=== PATIENT | male | born 1955 | race Caucasian/White ===

== ENCOUNTER 2016-06-14 15:37 | Inpatient (IN) | payer MEDICARE ==
[2016-06-14] MEDS ORDERED: SODIUM CHLORIDE 0.9% 1,000 ML IV STA (16:07)
--- NOTE | 2016-06-14 16:18 | ED ---
Weakness HPI <IsaiasAdolfo - Last Filed: 06/14/16 18:43> - General Source: patient, family, RN notes reviewed Mode of arrival: wheelchair Limitations: no limitations <Alexia Eduardo - Last Filed: 06/15/16 06:27> - General Chief complaint: Weakness Stated complaint: MS Flare up Time Seen by Provider: 06/14/16 16:07 - History of Present Illness Initial comments: Patient is 58-year-old male chief complaint of increased falling over the past 2 days. Patient reports he has history of MS. patient reports that he was diagnosed with MS 3 years ago and takes Ticlid area. Whenever he has an MS flare to flare if this happens. He states he has fallen 4 times within the past 2 days. She reports every time he is gone he has never had any major injuries to the extremities or hit his head. Patient states that he has no dizziness. He does have a history of a stroke and has chronic left-sided weakness. Patient denies any significant change in that. They're concerned because of these multiple falls he could be having another stroke. Patient states that he has no chest pain shortness breath or any other complaints. Patient denies any nausea or vomiting. He does recommend emergency department with a mild fever. Here initially reports that when he has a slight fever he is starting to get an MS exacerbation. Patient reports that he saw his neurologist Dr. Sloan on Wednesday and everything was fine. Patient reports that whenever he was about to fall he had no preceding symptoms. Patient reports they just felt tired and weak for a few seconds before. (Alexia Eduardo) - Related Data Home Medications Medication Instructions Recorded Confirmed Aspirin 325 mg PO HS 08/25/15 06/14/16 Citalopram Hydrobromide [CeleXA] 10 mg PO QAM 08/25/15 06/14/16 Dalfampridine [Ampyra] 10 mg PO BID 08/25/15 06/14/16 Dimethyl Fumarate [Tecfidera] 240 mg PO BID 08/25/15 06/14/16 Lisinopril-Hctz 10-12.5 mg 1 tab PO DAILY 08/25/15 06/14/16 [Zestoretic 10-12.5] Multivitamin [Men's Multi-Vitamin] 1 tab PO DAILY 08/25/15 06/14/16 Ibuprofen [Motrin] 400 mg PO Q6H PRN 06/14/16 06/14/16 Methylphenidate HCl [Ritalin] 10 mg PO BID 06/14/16 06/14/16 Allergies Allergy/AdvReac Type Severity Reaction Status Date / Time Penicillins Allergy Rash/Hives Verified 06/14/16 16:35 Review of Systems ROS Other: All systems not noted in ROS Statement are negative. <Adolfo Esparza - Last Filed: 06/14/16 18:43> ROS Other: All systems not noted in ROS Statement are negative. <Nelly Eduardoily - Last Filed: 06/15/16 06:27> ROS Statement: Those systems with pertinent positive or pertinent negative responses have been documented in the HPI. Past Medical History Past Medical History: CVA/TIA, Liver Disease, Memory Impairment Additional Past Medical History / Comment(s): MS, CIRRHOSIS OF THE LIVER. History of Any Multi-Drug Resistant Organisms: None Reported Past Surgical History: Appendectomy Additional Past Surgical History / Comment(s): melanoma removed right side of chest, lymph nodes. 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 Smoking Status: Never smoker Past Alcohol Use History: None Reported Past Drug Use History: None Reported - Past Family History Mother Family Medical History: Pneumonia Father Family Medical History: Myocardial Infarction (SD) <Nelly Eduardoily - Last Filed: 06/15/16 06:27> General Exam <Adolfo Esparza - Last Filed: 06/14/16 18:43> Limitations: no limitations General appearance: alert, in no apparent distress Head exam: Present: atraumatic, normocephalic, normal inspection Eye exam: Present: normal appearance, PERRL. Absent: EOMI (Patient ports that he does have abnormal eye movements due to his MS. Patient states that he has no new changes in vision or pain with extraocular eye movements.), scleral icterus, conjunctival injection, periorbital swelling ENT exam: Present: normal exam, normal oropharynx, mucous membranes moist Neck exam: Present: normal inspection. Absent: tenderness, meningismus, lymphadenopathy Respiratory exam: Present: normal lung sounds bilaterally. Absent: respiratory distress, wheezes, rales, rhonchi, stridor Cardiovascular Exam: Present: regular rate, normal rhythm, normal heart sounds. Absent: systolic murmur, diastolic murmur, rubs, gallop, clicks GI/Abdominal exam: Present: soft, normal bowel sounds. Absent: distended, tenderness, guarding, rebound, rigid Extremities exam: Present: normal inspection, full ROM, normal capillary refill. Absent: tenderness, pedal edema, joint swelling, calf tenderness Back exam: Present: normal inspection Neurological exam: Present: alert, oriented X3, CN II-XII intact Expanded Patient oriented to: Present: person, place, time Speech: Present: fluid speech Cranial nerves: EOM's Intact: Normal, Gag Reflex: Normal, Tongue Deviation: Normal, Facial Sensation: Normal Cerebellar function: Finger to Nose: Normal Upper motor neuron: Pronator Drift: Normal Sensory exam: Upper Extremity Light Touch: Normal, Lower Extremity Light Touch: Normal Motor strength exam: RUE: 5, LUE: 5 (Patient reports that he does have some chronic left-sided weakness from previous stroke. He denies any significant change in that weakness at this time.), RLE: 5, LLE: 5 Eye Response: (4) open spontaneously Motor Response: (6) obeys commands Verbal Response: (5) oriented [place] Total: 15 Psychiatric exam: Present: normal affect, normal mood Skin exam: Present: warm, dry, intact, normal color. Absent: rash <Alexia Eduardo - Last Filed: 06/15/16 06:27> - General Exam Comments Initial Comments: Pleasant 60-year-old male. No distress. (Alexia Eduardo) Course <Adolfo Esparza - Last Filed: 06/14/16 18:43> <Alexia Eduardo - Last Filed: 06/15/16 06:27> Vital Signs 06/14/16 06/14/16 06/14/16 15:47 16:35 17:35 Temperature 100.7 F H Pulse Rate 100 94 86 Respiratory 18 18 18 Rate Blood Pressure 109/64 102/63 125/66 O2 Sat by Pulse 95 94 L 96 Oximetry 06/14/16 18:47 Temperature Pulse Rate 88 Respiratory 20 Rate Blood Pressure 137/66 O2 Sat by Pulse 95 Oximetry - Reevaluation(s) Reevaluation #1: 06/14/16 18:43 I did personally do a [id number] evaluation the patient did discuss the findings with the patient has . Patient currently evaluation is consistent with MS exacerbation. Patient will be admitted treated with IV steroids and consultation by his neurologist. (Adolfo Esparza) Medical Decision Making - Lab Data Result diagrams: 06/14/16 16:42 06/14/16 16:42 <Adolfo Esparza - Last Filed: 06/14/16 18:43> - Lab Data Result diagrams: 06/14/16 16:42 06/14/16 16:42 - Radiology Data Radiology results: report reviewed <Alexia Eduardo - Last Filed: 06/15/16 06:27> - Medical Decision Making Patient is a 60 year old male with history of MS with multiple falls and weakness for the past 2 days. Patient labs reviewed, no significant abnormalities. CT brain was negatibe. Patient does have some left sided weakness , however states this is chronic. Patient will be started on IB steroids with neurology consult. (Alexia Eduardo) - Lab Data Lab Results 06/14/16 06/14/16 06/14/16 Range/Units 16:42 16:42 16:42 WBC 12.5 H (3.8-10.6) k/uL RBC 4.61 (4.30-5.90) m/uL Hgb 14.3 (13.0-17.5) gm/dL Hct 42.1 (39.0-53.0) % MCV 91.2 (80.0-100.0) fL MCH 31.0 (25.0-35.0) pg MCHC 33.9 (31.0-37.0) g/dL RDW 13.5 (11.5-15.5) % Plt Count 218 (150-450) k/uL Neutrophils % 71 % Lymphocytes % 17 % Monocytes % 8 % Eosinophils % 1 % Basophils % 1 % Neutrophils # 8.9 H (1.3-7.7) k/uL Lymphocytes # 2.1 (1.0-4.8) k/uL Monocytes # 1.0 (0-1.0) k/uL Eosinophils # 0.1 (0-0.7) k/uL Basophils # 0.1 (0-0.2) k/uL PT (9.0-12.0) sec INR (<1.1) APTT (22.0-30.0) sec Sodium 138 (137-145) mmol/L Potassium 3.8 (3.5-5.1) mmol/L Chloride 100 (98-107) mmol/L Carbon Dioxide 24 (22-30) mmol/L Anion Gap 14 mmol/L BUN 14 (9-20) mg/dL Creatinine 0.94 (0.66-1.25) mg/dL Est GFR (MDRD) Af Amer >60 (>60 ml/min/1.73 sqM) Est GFR (MDRD) Non-Af >60 (>60 ml/min/1.73 sqM) Glucose 165 H (74-99) mg/dL Calcium 9.6 (8.4-10.2) mg/dL Magnesium 1.7 (1.6-2.3) mg/dL Total Bilirubin 1.3 (0.2-1.3) mg/dL AST 35 (17-59) U/L ALT 57 (21-72) U/L Alkaline Phosphatase 55 (38-126) U/L Total Creatine Kinase 247 H (55-170) U/L CK-MB (CK-2) 1.4 (0.0-2.4) ng/mL CK-MB (CK-2) Rel Index 0.6 Troponin I <0.012 (0.000-0.034) ng/mL Total Protein 7.8 (6.3-8.2) g/dL Albumin 4.4 (3.5-5.0) g/dL Urine Color Urine Appearance (Clear) Urine pH (5.0-8.0) Ur Specific [place] (1.001-1.035) Urine Protein (Negative) Urine Glucose (UA) (Negative) Urine Ketones (Negative) Urine Blood (Negative) Urine Nitrite (Negative) Urine Bilirubin (Negative) Urine Urobilinogen (<2.0) mg/dL Ur Leukocyte Esterase (Negative) Urine RBC (0-5) /hpf Urine WBC (0-5) /hpf Ur Squamous Epith Cells (0-4) /hpf Urine Mucus (None) /hpf Influenza Type A RNA (Not Detectd) Influenza Type B (PCR) (Not Detectd) 04/16/17 04/16/17 04/16/17 Range/Units 16:42 16:42 17:25 WBC (3.8-10.6) k/uL RBC (4.30-5.90) m/uL Hgb (13.0-17.5) gm/dL Hct (39.0-53.0) % MCV (80.0-100.0) fL MCH (25.0-35.0) pg MCHC (31.0-37.0) g/dL RDW (11.5-15.5) % Plt Count (150-450) k/uL Neutrophils % % Lymphocytes % % Monocytes % % Eosinophils % % Basophils % % Neutrophils # (1.3-7.7) k/uL Lymphocytes # (1.0-4.8) k/uL Monocytes # (0-1.0) k/uL Eosinophils # (0-0.7) k/uL Basophils # (0-0.2) k/uL PT 10.2 (9.0-12.0) sec INR 1.0 (<1.1) APTT 24.0 (22.0-30.0) sec Sodium (137-145) mmol/L Potassium (3.5-5.1) mmol/L Chloride (98-107) mmol/L Carbon Dioxide (22-30) mmol/L Anion Gap mmol/L BUN (9-20) mg/dL Creatinine (0.66-1.25) mg/dL Est GFR (MDRD) Af Amer (>60 ml/min/1.73 sqM) Est GFR (MDRD) Non-Af (>60 ml/min/1.73 sqM) Glucose (74-99) mg/dL Calcium (8.4-10.2) mg/dL Magnesium (1.6-2.3) mg/dL Total Bilirubin (0.2-1.3) mg/dL AST (17-59) U/L ALT (21-72) U/L Alkaline Phosphatase (38-126) U/L Total Creatine Kinase (55-170) U/L CK-MB (CK-2) (0.0-2.4) ng/mL CK-MB (CK-2) Rel Index Troponin I (0.000-0.034) ng/mL Total Protein (6.3-8.2) g/dL Albumin (3.5-5.0) g/dL Urine Color Yellow Urine Appearance Clear (Clear) Urine pH 6.0 (5.0-8.0) Ur Specific [place] 1.019 (1.001-1.035) Urine Protein Negative (Negative) Urine Glucose (UA) Negative (Negative) Urine Ketones Negative (Negative) Urine Blood Trace H (Negative) Urine Nitrite Negative (Negative) Urine Bilirubin Negative (Negative) Urine Urobilinogen <2.0 (<2.0) mg/dL Ur Leukocyte Esterase Negative (Negative) Urine RBC 2 (0-5) /hpf Urine WBC 1 (0-5) /hpf Ur Squamous Epith Cells <1 (0-4) /hpf Urine Mucus Rare H (None) /hpf Influenza Type A RNA Not Detected (Not Detectd) Influenza Type B (PCR) Not Detected (Not Detectd) 06/14/16 17:04 Patient has normal sinus rhythm with occasional PVCs. Ventricular rate 95 bpm. No ND interval 1/62. QRS duration a formal 6. QT/QTc is 340/437 ms. No evidence of ST elevation or T-wave inversion. No evidence of atrial or ventricular arrhythmias. (Alexia Eduardo) Disposition <Adolfo Esparza - Last Filed: 06/14/16 18:43> Time of Disposition: 18:49 <Alexia Eduardo - Last Filed: 06/15/16 06:27> Clinical Impression: Exacerbation of multiple sclerosis Disposition: ADMITTED IP TO THIS HOSP Condition: Stable
[2016-06-14] MEDS: SODIUM CHLORIDE 0.9% 1,000 ML IV STA ×2 (16:30→17:21)
[2016-06-14 16:55] LABS: Basophils # (A) 0.1 k/uL (0-0.2); Basophils % (A) 1 %; CH 31.8; CHCM 35.1; Eosinophils # (A) 0.1 k/uL (0-0.7); Eosinophils % (A) 1 %; HCT 42.1 % (39.0-53.0); HDW 2.56; HGB 14.3 gm/dL (13.0-17.5); Luc # (Auto) 0.31; Luc % (Auto) 3; Lymphocytes # (A) 2.1 k/uL (1.0-4.8); Lymphocytes % (A) 17 %; MCHC 33.9 g/dL (31.0-37.0); MCV 91.2 fL (80.0-100.0); Mean Platelet Volume 7.3; Monocytes % (A) 8 %; Neutrophils # (A) 8.9 k/uL (1.3-7.7); Neutrophils % (A) 71 %; RBC 4.61 m/uL (4.30-5.90); RDW 13.5 % (11.5-15.5); WBC 12.5 k/uL (3.8-10.6); WBC (Perox) 13.06
--- NOTE | 2016-06-14 16:57 | XR ---
EXAMINATION TYPE: XR chest 2V DATE OF EXAM: 06/14/2016 4:51 PM COMPARISON: 12/29/2015 HISTORY: Weakness TECHNIQUE: Frontal and lateral views of the chest are obtained. FINDINGS: Heart and mediastinum are normal. Lungs are clear. There is no pleural effusion. Bony thor ax is intact. IMPRESSION: No cardiopulmonary disease. No change.
[2016-06-14 17:02] LABS: Prothrombin Time 10.2 sec (9.0-12.0)
[2016-06-14 17:04] LABS: ALT 57 U/L (21-72); AST 35 U/L (17-59); Alkaline Phosphatase 55 U/L (38-126); Anion Gap 14 mmol/L; Blood Urea Nitrogen 14 mg/dL (9-20); Calcium 9.6 mg/dL (8.4-10.2); Carbon Dioxide 24 mmol/L (22-30); Chloride 100 mmol/L (98-107); Glucose 165 mg/dL (74-99); Magnesium 1.7 mg/dL (1.6-2.3); Non-African American GFR(MDRD) >60 (>60 ml/min/1.73 sqM); Potassium 3.8 mmol/L (3.5-5.1); Sodium 138 mmol/L (137-145); Total Bilirubin 1.3 mg/dL (0.2-1.3); Total Protein 7.8 g/dL (6.3-8.2)
[2016-06-14 17:16] LABS: Creatine Kinase 247 U/L (55-170)
--- NOTE | 2016-06-14 17:28 | CT ---
EXAMINATION TYPE: CT brain wo con DATE OF EXAM: 06/14/2016 5:04 PM COMPARISON: None HISTORY: Patient poor historian. Patient complains of weakness. CT DLP: 814.2 mGycm Automated exposure control for dose reduction was used. FINDINGS: There is diffuse cerebral cortical atrophy. There is no mass effect nor midline shift. There is no si gn of intracranial hemorrhage. The calvarium is intact. There is patchy hypodensity in the periventri cular white matter. IMPRESSION: Cerebral atrophy and chronic small vessel ischemia. No acute abnormality.
[2016-06-14 17:29] LABS: Creatine Kinase MB 1.4 ng/mL (0.0-2.4); Troponin I <0.012 ng/mL (0.000-0.034)
[2016-06-14 17:55] LABS: Appearance,Urine Clear (Clear); Bilirubin,Urine Negative (Negative); Glucose,Urine (UA) Negative (Negative); Ketones,Urine Negative (Negative); Leukocyte Esterase,Urine Negative (Negative); Mucus,Urine Rare /hpf; Nitrite,Urine Negative (Negative); Particle Count 763; Protein,Urine Negative (Negative); RBC,Urine 2 /hpf (0-5); Specific Gravity,Urine 1.019 (1.001-1.035); Squamous Epithelial Cell,Urine <1 /hpf (0-4); UA Billing (MACRO vs. MICRO) MICRO; Urobilinogen,Urine <2.0 mg/dL (<2.0); WBC,Urine 1 /hpf (0-5)
[2016-06-14] MEDS ORDERED: NALOXONE 0.4 MG/ML 1 ML VIAL IV PRN (18:29)
[2016-06-14] MEDS ORDERED: ONDANSETRON 4 MG/2 ML VIAL IVP PRN (18:29)
[2016-06-14] MEDS ORDERED: ACETAMINOPHEN TAB 325 MG TAB PO PRN (18:29)
[2016-06-14] MEDS ORDERED: KETOROLAC 30 MG/ML 1 ML VIAL IVP PRN (18:29)
[2016-06-14] MEDS: SODIUM CHLORIDE 0.9% 1,000 ML IV SCH (18:47)
[2016-06-14] MEDS: FAMOTIDINE 20 MG TAB PO SCH (23:22)
[2016-06-14] MEDS: AMPYRA 10 MG PO SCH (23:22)
[2016-06-14] MEDS: ASPIRIN 325 MG TAB PO SCH (23:22)
[2016-06-14] MEDS: TECFIDERA 240MG PO SCH (23:22)
[2016-06-15] MEDS: SODIUM CHLORIDE 0.9% 1,000 ML IV SCH ×3 (05:56→21:39)
[2016-06-15 06:57] LABS: Glucose,Whole Blood 245 mg/dL (75-99)
[2016-06-15] MEDS: AMPYRA 10 MG PO SCH ×2 (08:07→21:40)
[2016-06-15] MEDS: FAMOTIDINE 20 MG TAB PO SCH ×2 (08:08→21:41)
[2016-06-15] MEDS: TECFIDERA 240MG PO SCH ×2 (08:08→21:40)
[2016-06-15] MEDS: CITALOPRAM HYDROBROMIDE 10 MG TAB PO SCH (08:09)
[2016-06-15] MEDS: MULTIVITAMINS, THERA 1 EACH TAB PO SCH (08:09)
[2016-06-15] MEDS: METHYLPHENIDATE HCL 10 MG TAB PO SCH ×2 (08:13→16:12)
[2016-06-15] MEDS: INSULIN LISPRO (humaLOG) 300 UNIT/3 ML VIAL SQ SCH ×4 (08:18→21:41)
[2016-06-15] MEDS ORDERED: LISINOPRIL-HCTZ 10-12.5 MG 1 EACH TAB PO SCH (09:00)
[2016-06-15 11:11] LABS: Hemoglobin A1C 7.1 % (4.2-6.1)
[2016-06-15 11:59] LABS: Glucose,Whole Blood 323 mg/dL (75-99)
[2016-06-15] MEDS ORDERED: INSULIN LISPRO (humaLOG) 300 UNIT/3 ML VIAL SQ ONE (12:30)
--- NOTE | 2016-06-15 16:43 | HP ---
DATE OF ADMISSION: Patient is a very pleasant 60-year-old gentleman who came in with complaints of increased weakness in bilateral lower limbs. Patient has mild chronic weakness. When I evaluated the patient, patient had good strength, about 5/5. Apparently his symptoms improved significantly. Patient is on high dose of steroids and patient has history of multiple sclerosis. 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 Patient was diagnosed about 4 years ago with multiple sclerosis by Dr. Beltran. Since then, patient has been on a couple of medications for multiple sclerosis with on and off exacerbation. Patient had a low-grade fever. Patient apparently has this low-grade fever whenever he has multiple sclerosis exacerbation. Patient denied any cough, runny nose. Patient's chest x-ray did not show any pneumonic process. UA is not significant for urinary tract infection. Patient does not have any phonophobia, photophobia, neck rigidity. No other signs or symptoms of infection were appreciated. Patient was started on high-dose steroids, with significant improvement in his symptoms already. Patient's hemoglobin A1c is 7.1 right now because of systemic high-dose steroids. His blood sugars are highly elevated, because of which I will use sliding scale insulin ( ) Lantus. Patient may benefit from metformin as new target for hemoglobin A1c is around 6.5 now, and it will help him with his obesity as well. Patient has some hearing difficulties. REVIEW OF SYSTEMS: CONSTITUTIONAL: No fever, no malaise, no fatigue. HEENT: No recent visual problems or hearing problems. Denied any sore throat. CARDIOVASCULAR: No chest pain, orthopnea, PND, no palpitations, no syncope. PULMONARY: No shortness of breath, no cough, no hemoptysis. GASTROINTESTINAL: No diarrhea, no nausea, no vomiting, no abdominal pain. Normoactive bowel sounds. NEUROLOGICAL: As described in HPI. HEMATOLOGICAL: Denies any bleeding or petechiae. GENITOURINARY: Denies any burning micturition, frequency, or urgency. MUSCULOSKELETAL/RHEUMATOLOGICAL: Denies any joint pain, swelling, or any muscle pain. ENDOCRINE: Denies any polyuria or polydipsia. The rest of the 14 point review of systems is negative. Home medications include: 1. Aspirin. 2. Citalopram. 3. Ampyra (medication for multiple sclerosis). 4. Dimethyl fumarate. 5. Lisinopril hydrochlorothiazide. 6. Multivitamin. 7. Ibuprofen. 8. Methylphenidate. ALLERGIES: PENICILLINS. Past medical history is significant for: 1. Multiple sclerosis. 2. Memory impairment. 3. Hypertension. 4. ADHD. 5. Melanoma of the chest that was removed. 6. Chronic low back pain. SOCIAL HISTORY: Denied any smoking, alcohol abuse or any drug abuse. FAMILY HISTORY: Mother had pneumonia and father had myocardial infarction. PHYSICAL EXAMINATION: VITAL SIGNS: Temperature 97.1, pulse of 76, respiratory rate of 18. Blood pressure 117/79. Saturating at 92% on room air. GENERAL: The patient is alert and oriented x3, not in any acute distress. Well developed, well nourished. HEENT: Pupils are round and equally reacting to light. EOMI. No scleral icterus. No conjunctival pallor. Normocephalic, atraumatic. No pharyngeal erythema. No thyromegaly. CARDIOVASCULAR: S1 and S2 present. No murmurs, rubs, or gallops. PULMONARY: Chest is clear to auscultation, no wheezing or crackles. ABDOMEN: Soft, nontender, nondistended, normoactive bowel sounds. No palpable organomegaly. MUSCULOSKELETAL: No joint swelling or deformity. EXTREMITIES: No cyanosis, clubbing, or pedal edema. NEUROLOGICAL: Gross neurological examination did not reveal any focal deficits. SKIN: No rashes. LABORATORY DATA: CBC, CMP are abnormal for elevated WBC count of 12,500, hemoglobin A1c of 7.1. ASSESSMENT AND PLAN: 1. Possible multiple sclerosis exacerbation. Neurology was consulted. CT of the head was reviewed which showed some cerebral atrophy with chronic small-vessel ischemic changes. Neurology was consulted. Patient was started on high-dose steroids. Patient is on sliding scale insulin. 2. Hypertension. Hydrochlorothiazide will be held and patient will continued on Lisinopril because of low-normal blood pressure. 3. Attention deficit hyperactivity disorder. Methylphenidate will be continued. 4. New-onset diabetes mellitus, type 2, with uncontrolled blood sugars now. Patient will be started on sliding scale insulin along with Lantus. Patient can be discharged on 500 b.i.d. of metformin. 5. Obesity. Counseling was provided. 6. Chronic low back pain. 7. Patient will need gastrointestinal and deep venous thrombosis prophylaxis. Patient will be started on Pepcid and heparin subcutaneously as pharmacologic DVT prophylaxis.
[2016-06-15 17:11] LABS: Glucose,Whole Blood 320 mg/dL (75-99)
[2016-06-15 21:13] LABS: Glucose,Whole Blood 263 mg/dL (75-99)
[2016-06-15] MEDS: ASPIRIN 325 MG TAB PO SCH (21:41)
[2016-06-15] MEDS: INSULIN GLARGINE 100 UNIT/ML 10 ML VIAL SQ SCH (21:41)
[2016-06-16] MEDS: SODIUM CHLORIDE 0.9% 1,000 ML IV SCH ×3 (02:57→21:22)
[2016-06-16 07:19] LABS: Glucose,Whole Blood 235 mg/dL (75-99)
[2016-06-16] MEDS: INSULIN LISPRO (humaLOG) 300 UNIT/3 ML VIAL SQ SCH ×5 (08:23→21:20)
[2016-06-16] MEDS: TECFIDERA 240MG PO SCH ×2 (08:24→21:21)
[2016-06-16] MEDS: AMPYRA 10 MG PO SCH ×2 (08:24→21:21)
[2016-06-16] MEDS: LISINOPRIL 10 MG TAB PO SCH (08:24)
[2016-06-16] MEDS: CITALOPRAM HYDROBROMIDE 10 MG TAB PO SCH (08:24)
[2016-06-16] MEDS: MULTIVITAMINS, THERA 1 EACH TAB PO SCH (08:24)
[2016-06-16] MEDS: FAMOTIDINE 20 MG TAB PO SCH ×2 (08:24→21:20)
[2016-06-16] MEDS: METHYLPHENIDATE HCL 10 MG TAB PO SCH ×2 (09:43→17:21)
--- NOTE | 2016-06-16 10:35 | CONS ---
DATE OF CONSULTATION: 06/15/2016 CHIEF COMPLAINT: Multiple sclerosis exacerbation. HISTORY OF PRESENT ILLNESS: Mr. Wong is a pleasant 60-year-old male who is being evaluated today on 06/15/2016 by the Neurology Service per the request of Dr. Joseph for a multiple sclerosis exacerbation. The patient has a long-standing history of multiple sclerosis and is being treated with Tecfidera oral tablets. He is also on Ampyra for slowed gait. He was brought into [facility] emergency room with complaints of lower extremity weakness that started one day prior to arrival. The patient has been having occasional weakness, but overall, his multiple sclerosis has been well controlled. He denies any numbness or tingling. The patient did report a low-grade fever at home, but did not have any chills. His CBC did show mild leukocytosis at 12.5. He denies any headache or dizziness. A CT scan of the brain was done, which showed small vessel ischemic changes and generalized atrophy. His cardiac enzymes were normal except for slightly elevated CPK at 247. His comprehensive metabolic profile was normal except for mild hyperglycemia at 165. His urinalysis was normal. A flu test was done, which was negative. The patient was started on IV Solu-Medrol and admitted for further work-up and management. At the time of my evaluation, he had already received 2 doses of IV Solu-Medrol and he reports significant improvements in his symptoms. He denies any visual changes or dizziness. PAST MEDICAL HISTORY: Multiple sclerosis, hypertension, attention deficit disorder, history of melanoma, chronic lumbago. SOCIAL HISTORY: He denies any tobacco, alcohol or drug use. FAMILY HISTORY: Positive for heart disease. HOME MEDICATIONS: Reviewed in the chart. ALLERGIES: PENICILLIN. REVIEW OF SYSTEMS: CONSTITUTIONAL: Positive for fatigue and low grade fever at home. EYES: Negative. ENT: Negative. CARDIOVASCULAR: Negative. RESPIRATORY: Negative. NEUROLOGICAL: As mentioned above. GASTROINTESTINAL: Negative. GENITOURINARY: Negative. NEUROLOGICAL: As mentioned above. DERMATOLOGICAL: Positive for history of skin cancer. MUSCULOSKELETAL: Positive for occasional joint pain. ENDOCRINE: Negative. PHYSICAL EXAM: Vital signs show a temperature of 98.2, pulse 96, respirations 16, blood pressure 119/69. GENERAL APPEARANCE: The patient is a well-developed male who appears to be in no acute distress. HEENT: Normocephalic, atraumatic, no facial asymmetry is seen. Extraocular muscles are intact. Neck is supple with no masses felt. CARDIOVASCULAR: Regular rate and rhythm. ABDOMEN: Nontender, nondistended. Extremities showed no edema or clubbing. NEUROLOGICAL EXAM: The patient is alert, aware, and oriented x3. Speech and language are normal. Strength is full in all 4 extremities. No pronator drift is seen. Sensory exam was normal to light touch in all 4 extremities. No facial asymmetry is seen on cranial nerve testing. No tremors or seizure-like activity is seen. IMPRESSION: 1. Acute multiple sclerosis exacerbation. 2. Lower extremity weakness, improved. 3. Leukocytosis. 4. Low-grade fever at home. 5. Small vessel ischemic disease. 6. Gait instability. RECOMMENDATION: The patient did have symptoms consistent with an acute multiple sclerosis exacerbation with lower extremity weakness. He has been receiving IV Solu-Medrol and his symptoms have significantly improved. I will continue IV Solu-Medrol overnight and if his symptoms continue to be better, he will be cleared for discharge tomorrow from a neurology standpoint. Continue Tecfidera and Ampyra at the current home dose. Physical Therapy will be consulted. I do recommend further work-up for his leukocytosis as he did report a low grade fever at home. Continue the rest of your current work-up and management. I will continue to follow with you. Further recommendations to follow. Thank you for allowing me participate in the care of your patient. If you have any questions, please feel free to contact me.
[2016-06-16 11:51] LABS: Glucose,Whole Blood 280 mg/dL (75-99)
[2016-06-16] MEDS ORDERED: INSULIN LISPRO (humaLOG) 300 UNIT/3 ML VIAL SQ ONE (12:00)
[2016-06-16 16:57] LABS: Glucose,Whole Blood 269 mg/dL (75-99)
--- NOTE | 2016-06-16 20:52 | PN ---
DATE OF SERVICE: 06/16/2016 This 60-year-old gentleman who was admitted with multiple sclerosis, acute exacerbation, is being closely monitored. The patient is on IV steroids. Dr. Beltran is followed the patient closely. Seen and evaluated the patient along with the nurse practitioner. Please refer to the nurse practitioner's notes and impressions documented as a scribe for further information.
[2016-06-16 21:15] LABS: Glucose,Whole Blood 285 mg/dL (75-99)
[2016-06-16] MEDS: INSULIN GLARGINE 100 UNIT/ML 10 ML VIAL SQ SCH (21:20)
[2016-06-16] MEDS: ASPIRIN 325 MG TAB PO SCH (21:20)
--- NOTE | 2016-06-16 21:25 | P.PN ---
Subjective Principal diagnosis: Exacerbation of multiple sclerosis Patient is a 60-year-old male being followed by neurology for exacerbation of multiple sclerosis. Patient is known to our practice. He is being treated with Tecfidera and Ampyra. Patient presented to the emergency room with complaints of lower extremity weakness that started approximately 1 day prior to arrival. Although having occasional weakness, the patient is relatively well controlled on his medication regimen for his multiple sclerosis. CBC did note mild leukocytosis. CT scan of the brain was done which showed chronic small vessel ischemic changes and generalized atrophy. CPK was elevated at 247. Patient did have mild hyperglycemia. Patient was currently observed to be receiving IV Solu-Medrol every 6 hours, 250 mg. Patient is completing day 2 of IV steroid infusion. Patient reports being approximately 90% back to baseline. On contact, the patient was supine in bed resting with family at the bedside. Patient was oriented 3 and in no acute distress. Objective - Vital Signs Vital signs: Vital Signs Temp 97.2 F L 06/16/16 15:00 Pulse 93 06/16/16 16:00 Resp 16 06/16/16 16:00 BP 106/48 06/16/16 15:00 Pulse Ox 91 L 06/16/16 15:00 Intake & Output 06/16/16 06/16/16 06/17/16 06:59 18:59 06:59 Intake Total 300 1250 Output Total 300 550 Balance 0 700 Weight 93.894 kg Intake: Intake, IV Titration 1250 Amount Sodium Chloride 0.9% 1, 1000 000 ml @ 120 mls/hr IV . Q8H20M JULIA Rx#:[id number] methylPREDNISolone SOD 250 SUCC 250 mg In Sodium Chloride 0.9% 100 ml @ 100 mls/hr IVPB Q6HR JULIA Rx#:[id number] Oral 300 Output: Urine 300 550 Other: Voiding Method Toilet Toilet Urinal Urinal # Voids 1 1 # Bowel Movements 1 - Exam Constitutional: AOx3, cooperative Head: NC/AT EENT: ocular muscles intact. Throat: Supple, no masses Respiratory: No increased work of breathing Cardiac: Regular rate and Rhythm GI: non tender, non distended Musculoskeletal: Operations Project Manager strengths are equal bilaterally 5/5, Lower extremity strengths are equal bilaterally at 5/5. Neurological: CN II-XII in tact, patient was AOx3, speech and language are normal, no unilateralizing weakness, no seizure activity note on physical exam. Sensation was normal. Integementary: no rash, no erythema Psychiatric: mood and affect appropriate - Labs CBC & Chem 7: 06/14/16 16:42 06/14/16 16:42 Labs: Abnormal Lab Results - Last 24 Hours (Table) 06/16/16 06/16/16 06/16/16 Range/Units 07:06 11:47 16:53 POC Glucose (mg/dL) 235 H 280 H 269 H (75-99) mg/dL 06/16/16 Range/Units 21:05 POC Glucose (mg/dL) 285 H (75-99) mg/dL Assessment and Plan (1) Exacerbation of multiple sclerosis Status: Acute (2) Lower extremity weakness Status: Acute Plan: Patient does appear to have experienced a multiple sclerosis exacerbation with associated lower extremity weakness. IV Solu-Medrol has largely resolved the patient's symptoms and complaints. Patient will continue IV Solu-Medrol and be cleared from a neurological standpoint tomorrow for discharge. Physical therapy has been consulted. Status: Patient cleared for discharge from a neurological standpoint, patient is currently being managed by her group on an ongoing basis. Advise patient to contact our office and obtain an appointment to be seen within 10-14 days. I discussed the patient's pertinent medical information with Dr. Beltran. He agrees with the plan of care as implemented.
[2016-06-16 23:07] VITALS: TEMP 97.1
[2016-06-17] MEDS: SODIUM CHLORIDE 0.9% 1,000 ML IV SCH ×3 (05:33→14:00)
[2016-06-17 07:29] LABS: Glucose,Whole Blood 238 mg/dL (75-99)
[2016-06-17 07:41] VITALS: BP 106/59; PULSE 76; RESP 16
[2016-06-17] MEDS: INSULIN LISPRO (humaLOG) 300 UNIT/3 ML VIAL SQ SCH ×4 (08:18→12:29)
[2016-06-17] MEDS: AMPYRA 10 MG PO SCH (08:33)
[2016-06-17] MEDS: TECFIDERA 240MG PO SCH (08:33)
[2016-06-17] MEDS: FAMOTIDINE 20 MG TAB PO SCH (08:34)
[2016-06-17] MEDS: LISINOPRIL 10 MG TAB PO SCH (08:34)
[2016-06-17] MEDS: METHYLPHENIDATE HCL 10 MG TAB PO SCH (08:35)
[2016-06-17] MEDS: CITALOPRAM HYDROBROMIDE 10 MG TAB PO SCH (08:35)
[2016-06-17] MEDS: MULTIVITAMINS, THERA 1 EACH TAB PO SCH (08:35)
--- NOTE | 2016-06-17 09:07 | P.PN ---
Subjective Date of service 06/16/2016. Progress note being dictated for Dr. Avelar. Interval history: This a 60-year-old gentleman admitted with acute exacerbation multiple sclerosis. Evaluated by neurology with recommendations noted. Maintained on IV steroids, with significant improvement reported of lower extremity weakness. Hyperglycemic secondary to systemic high-dose steroids, on Lantus and sliding scale. Patient has hemoglobin A1c of 7.1 related to high- dose IV steroids; patient was admitted with acute exacerbation of MS within the last 3 months. Good diet intake with no nausea or vomiting. Evaluated by physical therapy, home with home care at discharge. Denies any lightheadedness , dizziness or focal deficits. Denies fatigue. Denies any chest pain, palpitations or shortness of breath. Ambulating, tolerating increase in exertion well. Afebrile. Objective - Vital Signs Vital signs: Vital Signs Temp 97.2 F L 06/16/16 15:00 Pulse 93 06/16/16 15:00 Resp 16 06/16/16 08:00 BP 106/48 06/16/16 15:00 Pulse Ox 91 L 06/16/16 15:00 Intake & Output 06/15/16 06/16/16 06/16/16 18:59 06:59 18:59 Intake Total 300 Output Total 900 300 Balance -900 0 Intake: Oral 300 Output: Urine 900 300 Other: Voiding Method Toilet Toilet Toilet Urinal Urinal Urinal # Voids 1 1 # Bowel Movements 1 - Exam PHYSICAL EXAM: VITAL SIGNS: As above GENERAL: [Sitting up in bed, visiting with significant other, no acute distress. Well-nourished.] HEENT: [Pupils equal conjunctiva normal. No conjunctival pallor. Normocephalic , atraumatic.] NECK: [Supple, no JVD] RESPIRATORY EFFORT:[Normal] LUNGS: [Clear to auscultation, no wheezing crackles or rhonchi] CARDIOVASCULAR[regular S1 and S2, no murmurs rubs or gallops, no edema] GI: [Abdomen soft, nontender, positive bowel sounds.] PSYCH: [Alert and oriented -3, mood and affect normal.] NEURO: Gross neurologic examination did not reveal any focal deficits. - Labs CBC & Chem 7: 06/14/16 16:42 06/14/16 16:42 Labs: Abnormal Lab Results - Last 24 Hours (Table) 06/15/16 06/16/16 06/16/16 Range/Units 21:07 07:06 11:47 POC Glucose (mg/dL) 263 H 235 H 280 H (75-99) mg/dL 06/16/16 Range/Units 16:53 POC Glucose (mg/dL) 269 H (75-99) mg/dL Assessment and Plan Plan: 1. [Acute multiple sclerosis exacerbation.]. 2. [Cerebral atrophy with chronic small vessel ischemic changes per CT]. 3. [Hypertension]. 4. [Attention deficit hyperactivity disorder]. 5. [New-onset diabetes mellitus type 2, hemoglobin A1c 7.1 in a patient she with high-dose IV steroids within the last 3 months]. 6. [Obesity, BMI 30 point]. 7. [Chronic low back pain]. Plan: Continue on current medication regime ,monitoring and symptomatic treatment. Maintain high-dose IV steroids. Discharge planning in progress for tomorrow pending neurology's clearance. Plan a care discussed at bedside with both patient and significant other. Further recommendations to follow. The impression and plan of care has been dictated as directed. : I performed a H&P examination of this patient and discussed the same with the dictator. I agree with the dictator's note. Any additional findings/opinions/ etc. will be noted.
[2016-06-17 09:36] LABS: Basophils % (A) 0 %; CH 31.5; CHCM 33.3; Eosinophils % (A) 0 %; HCT 37.9 % (39.0-53.0); HDW 2.51; HGB 12.4 gm/dL (13.0-17.5); Luc # (Auto) 0.04; Luc % (Auto) 0; Lymphocytes # (A) 0.6 k/uL (1.0-4.8); Lymphocytes % (A) 6 %; MCH 31.3 pg (25.0-35.0); MCHC 32.9 g/dL (31.0-37.0); MCV 95.1 fL (80.0-100.0); Mean Platelet Volume 7.5; Monocytes # (A) 0.2 k/uL (0-1.0); Monocytes % (A) 2 %; Neutrophils # (A) 9.6 k/uL (1.3-7.7); Neutrophils % (A) 91 %; RBC 3.98 m/uL (4.30-5.90); RDW 13.4 % (11.5-15.5); WBC 10.5 k/uL (3.8-10.6); WBC (Perox) 11.21
[2016-06-17 09:51] LABS: Anion Gap 11 mmol/L; Blood Urea Nitrogen 19 mg/dL (9-20); Calcium 8.6 mg/dL (8.4-10.2); Carbon Dioxide 20 mmol/L (22-30); Chloride 107 mmol/L (98-107); Glucose 286 mg/dL (74-99); Non-African American GFR(MDRD) >60 (>60 ml/min/1.73 sqM); Potassium 3.5 mmol/L (3.5-5.1); Sodium 138 mmol/L (137-145)
[2016-06-17] MEDS ORDERED: POTASSIUM CHLORIDE ER 20 MEQ TAB.ER PO STA (10:09)
[2016-06-17 11:46] LABS: Glucose,Whole Blood 237 mg/dL (75-99)
--- NOTE | 2016-06-18 09:42 | DS ---
DATE OF ADMISSION: 06/14/2016 DATE OF DISCHARGE: 06/17/2016 FINAL DIAGNOSES: 1. Multiple sclerosis acute exacerbation. 2. Cerebral atrophy with chronic small vessel ischemia on CT scan. 3. Hypertension. 4. Attention deficit hyperactivity disorder. 5. New onset diabetes mellitus type 2. Hemoglobin A1c is 7.1 with inpatient high-dose IV steroids. 6. Obesity with body mass index of 30. 7. Chronic low back pain. At this time the patient is being discharged in stable condition with guarded prognosis. HISTORY OF PRESENT ILLNESS: This 60-year-old gentleman with a past medical history of multiple medical problems, admitted with multiple sclerosis acute exacerbation. He was treated symptomatically with IV steroids. Dr. Beltran saw the patient. On exam, vitals are stable. CARDIOVASCULAR: S1 and S2 muffled. LUNGS: Breath sounds diminished. ABDOMEN: Soft. NERVOUS SYSTEM: Mild diffuse weakness. DISCHARGE INSTRUCTIONS: 1. Diet is cardiac, consistent carb. 2. Activity is limited. 3. Accu-Cheks with meals and at bedtime, results to Dr. Conteh. 4. Follow up with Dr. Beltran as advised. 5. Follow up with Dr. Conteh as advised. MEDICATIONS: 1. Aspirin 325 mg at bedtime. 2. Celexa 10 mg a.m. 3. Ampyra 10 mg p.o. b.i.d. 4. Tecfidera 240 mg p.o. b.i.d. 5. Motrin 40 mg every 6 p.r.n. 6. Zestril 10 mg daily. 7. Ritalin 10 mg p.o. b.i.d. 8. Multivitamin 1 p.o. daily. Once again, the patient will be discharged in a stable condition with guarded prognosis.
== END 2016-06-17 14:01 | disposition home health service (06) | DRG 60 ==
LOC: EC 15:37 → 4MS4W 18:43 → 6ICU 06-15 00:08 → 4MS4W 06-15 00:29
PROVIDERS: ADMIT Internal Medicine; ATTEND Internal Medicine
DX: G35 Multiple sclerosis (principal); E11.65 Type 2 diabetes mellitus with hyperglycemia; K74.60 Unspecified cirrhosis of liver; I10 Essential (primary) hypertension; D72.829 Elevated white blood cell count, unspecified; E66.9 Obesity, unspecified; F90.9 Attention-deficit hyperactivity disorder, unspecified type; G89.29 Other chronic pain; G31.9 Degenerative disease of nervous system, unspecified; I73.89 Other specified peripheral vascular diseases; T38.0X5A Adverse effect of glucocorticoids and synthetic analogues, initial encounter; R29.6 Repeated falls; F48.2 Pseudobulbar affect; M54.5 Low back pain; R50.9 Fever, unspecified; Z68.30 Body mass index [BMI] 30.0-30.9, adult; Z79.82 Long term (current) use of aspirin; Z79.899 Other long term (current) drug therapy; Z88.0 Allergy status to penicillin; Z85.820 Personal history of malignant melanoma of skin; Z82.49 Family history of ischemic heart disease and other diseases of the circulatory system; Y92.239 Unspecified place in hospital as the place of occurrence of the external cause
CPT/HCPCS: 36415; 70450; 71020; 80048; 80053; 81001; 82550; 82553; 83036; 83735; 84484; 85025; 85610; 85730; 87502; 93005; 96361; 96365; 99285

== ENCOUNTER 2016-06-18 11:33 | Inpatient (IN) | payer MEDICARE ==
--- NOTE | 2016-06-18 12:21 | ED ---
General Adult HPI - General Chief complaint: Weakness Stated complaint: WEAKNESS Time Seen by Provider: 06/18/16 12:00 Source: patient, family, RN notes reviewed Mode of arrival: wheelchair Limitations: physical limitation - History of Present Illness Initial comments: Patient is a pleasant 60-year-old male presenting to the emergency department with weakness. Patient was recently admitted with MS exacerbation and discharged just yesterday. Patient was able to walk last night. The morning patient is only able to take a couple of steps. Patient feels increased weakness. Patient did have subjective fever this morning and patient was given Motrin. Patient also did have a fever on Wednesday. Patient does admit to having somewhat sore throat and cough. No dyspnea. - Related Data Home Medications Medication Instructions Recorded Confirmed Aspirin 325 mg PO HS 08/25/15 06/14/16 Citalopram Hydrobromide [CeleXA] 10 mg PO QAM 08/25/15 06/14/16 Dalfampridine [Ampyra] 10 mg PO BID 08/25/15 06/14/16 Dimethyl Fumarate [Tecfidera] 240 mg PO BID 08/25/15 06/14/16 Multivitamin [Men's Multi-Vitamin] 1 tab PO DAILY 08/25/15 06/14/16 Ibuprofen [Motrin] 400 mg PO Q6H PRN 06/14/16 06/14/16 Methylphenidate HCl [Ritalin] 10 mg PO BID 06/14/16 06/14/16 Previous Rx's Medication Instructions Recorded Lisinopril [Zestril] 10 mg PO DAILY #30 tab 06/17/16 Allergies Allergy/AdvReac Type Severity Reaction Status Date / Time Penicillins Allergy Rash/Hives Verified 06/14/16 16:35 Review of Systems ROS Statement: Those systems with pertinent positive or pertinent negative responses have been documented in the HPI. ROS Other: All systems not noted in ROS Statement are negative. Constitutional: Reports: fever Eyes: Denies: eye pain ENT: Denies: ear pain Respiratory: Reports: cough Cardiovascular: Denies: chest pain Endocrine: Reports: fatigue Gastrointestinal: Denies: abdominal pain Genitourinary: Denies: dysuria Musculoskeletal: Denies: back pain Skin: Denies: rash Neurological: Reports: weakness Past Medical History Past Medical History: CVA/TIA, Liver Disease, Memory Impairment Additional Past Medical History / Comment(s): MS, CIRRHOSIS OF THE LIVER. History of Any Multi-Drug Resistant Organisms: None Reported Past Surgical History: Appendectomy Additional Past Surgical History / Comment(s): melanoma removed right side of chest, lymph nodes. 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 Smoking Status: Never smoker Past Alcohol Use History: None Reported Past Drug Use History: None Reported - Past Family History Mother Family Medical History: Pneumonia Father Family Medical History: Myocardial Infarction ([place]) General Exam Limitations: physical limitation General appearance: alert, in no apparent distress Head exam: Present: atraumatic Eye exam: Present: normal appearance, PERRL ENT exam: Present: normal oropharynx Neck exam: Present: normal inspection Respiratory exam: Present: rales (Left base) Cardiovascular Exam: Present: regular rate, normal rhythm GI/Abdominal exam: Present: soft. Absent: tenderness Extremities exam: Present: normal inspection Neurological exam: Present: alert, CN II-XII intact Expanded Motor strength exam: RUE: 5, LUE: 5, RLE: 4 (Minimal drift), LLE: 4 (Minimal drift) Eye Response: (4) open spontaneously Motor Response: (6) obeys commands Verbal Response: (5) oriented Psychiatric exam: Present: normal affect, normal mood Skin exam: Absent: rash Course Vital Signs 06/18/16 06/18/16 11:38 12:45 Temperature 99.4 F Pulse Rate 90 75 Respiratory 20 18 Rate Blood Pressure 107/85 109/58 O2 Sat by Pulse 86 L 90 L Oximetry Medical Decision Making - Medical Decision Making Patient reexamined and updated. Patient's oxygen has also been low. Case was discussed in detail with Dr. Avelar, who will admit for Dr. Conteh. Patient does meet severe sepsis criteria, diagnosed at 1 PM. Admission orders written. IV antibiotics started. - Lab Data Result diagrams: 06/18/16 12:13 06/18/16 12:13 Lab Results 06/18/16 06/18/16 06/18/16 Range/Units 12:13 12:13 12:13 WBC 11.3 H (3.8-10.6) k/uL RBC 4.24 L (4.30-5.90) m/uL Hgb 13.5 (13.0-17.5) gm/dL Hct 38.1 L (39.0-53.0) % MCV 89.7 D (80.0-100.0) fL MCH 31.9 (25.0-35.0) pg MCHC 35.5 (31.0-37.0) g/dL RDW 13.0 (11.5-15.5) % Plt Count 195 (150-450) k/uL Neutrophils % 80 % Lymphocytes % 13 % Monocytes % 6 % Eosinophils % 0 % Basophils % 0 % Neutrophils # 9.1 H (1.3-7.7) k/uL Lymphocytes # 1.5 (1.0-4.8) k/uL Monocytes # 0.7 (0-1.0) k/uL Eosinophils # 0.0 (0-0.7) k/uL Basophils # 0.0 (0-0.2) k/uL PT 11.1 (9.0-12.0) sec INR 1.1 (<1.1) APTT 20.1 L (22.0-30.0) sec Sodium 141 (137-145) mmol/L Potassium 3.0 L* (3.5-5.1) mmol/L Chloride 109 H (98-107) mmol/L Carbon Dioxide 23 (22-30) mmol/L Anion Gap 9 mmol/L BUN 29 H (9-20) mg/dL Creatinine 1.00 (0.66-1.25) mg/dL Est GFR (MDRD) Af Amer >60 (>60 ml/min/1.73 sqM) Est GFR (MDRD) Non-Af >60 (>60 ml/min/1.73 sqM) Glucose 182 H (74-99) mg/dL Calcium 9.0 (8.4-10.2) mg/dL Total Bilirubin 1.1 (0.2-1.3) mg/dL AST 49 (17-59) U/L ALT 63 (21-72) U/L Alkaline Phosphatase 53 (38-126) U/L Total Protein 5.9 L (6.3-8.2) g/dL Albumin 3.3 L (3.5-5.0) g/dL Urine Color Urine Appearance (Clear) Urine pH (5.0-8.0) Ur Specific [place] (1.001-1.035) Urine Protein (Negative) Urine Glucose (UA) (Negative) Urine Ketones (Negative) Urine Blood (Negative) Urine Nitrite (Negative) Urine Bilirubin (Negative) Urine Urobilinogen (<2.0) mg/dL Ur Leukocyte Esterase (Negative) Group A Strep Rapid (Negative) 06/18/16 06/18/16 Range/Units 12:13 12:13 WBC (3.8-10.6) k/uL RBC (4.30-5.90) m/uL Hgb (13.0-17.5) gm/dL Hct (39.0-53.0) % MCV (80.0-100.0) fL MCH (25.0-35.0) pg MCHC (31.0-37.0) g/dL RDW (11.5-15.5) % Plt Count (150-450) k/uL Neutrophils % % Lymphocytes % % Monocytes % % Eosinophils % % Basophils % % Neutrophils # (1.3-7.7) k/uL Lymphocytes # (1.0-4.8) k/uL Monocytes # (0-1.0) k/uL Eosinophils # (0-0.7) k/uL Basophils # (0-0.2) k/uL PT (9.0-12.0) sec INR (<1.1) APTT (22.0-30.0) sec Sodium (137-145) mmol/L Potassium (3.5-5.1) mmol/L Chloride (98-107) mmol/L Carbon Dioxide (22-30) mmol/L Anion Gap mmol/L BUN (9-20) mg/dL Creatinine (0.66-1.25) mg/dL Est GFR (MDRD) Af Amer (>60 ml/min/1.73 sqM) Est GFR (MDRD) Non-Af (>60 ml/min/1.73 sqM) Glucose (74-99) mg/dL Calcium (8.4-10.2) mg/dL Total Bilirubin (0.2-1.3) mg/dL AST (17-59) U/L ALT (21-72) U/L Alkaline Phosphatase (38-126) U/L Total Protein (6.3-8.2) g/dL Albumin (3.5-5.0) g/dL Urine Color Yellow Urine Appearance Clear (Clear) Urine pH 6.0 (5.0-8.0) Ur Specific [place] 1.019 (1.001-1.035) Urine Protein Negative (Negative) Urine Glucose (UA) 1+ H (Negative) Urine Ketones Negative (Negative) Urine Blood Negative (Negative) Urine Nitrite Negative (Negative) Urine Bilirubin Negative (Negative) Urine Urobilinogen <2.0 (<2.0) mg/dL Ur Leukocyte Esterase Negative (Negative) Group A Strep Rapid Negative (Negative) - Radiology Data Radiology results: image reviewed (Chest x-ray shows large right sided infiltrate. New from previous exam.) Critical Care Time Critical Care Time: Yes Total Critical Care Time: 34 Disposition Clinical Impression: Severe sepsis, Pneumonia Disposition: ADMITTED IP TO THIS [facility] Condition: Serious Time of Disposition: 13:00
[2016-06-18 12:41] LABS: Appearance,Urine Clear (Clear); Basophils % (A) 0 %; Bilirubin,Urine Negative (Negative); CHCM 35.8; Eosinophils % (A) 0 %; Glucose,Urine (UA) 1+ (Negative); HCT 38.1 % (39.0-53.0); HDW 2.65; HGB 13.5 gm/dL (13.0-17.5); Ketones,Urine Negative (Negative); Leukocyte Esterase,Urine Negative (Negative); Luc # (Auto) 0.08; Luc % (Auto) 1; Lymphocytes # (A) 1.5 k/uL (1.0-4.8); Lymphocytes % (A) 13 %; MCH 31.9 pg (25.0-35.0); MCHC 35.5 g/dL (31.0-37.0); Mean Platelet Volume 7.4; Monocytes # (A) 0.7 k/uL (0-1.0); Monocytes % (A) 6 %; Neutrophils # (A) 9.1 k/uL (1.3-7.7); Neutrophils % (A) 80 %; Nitrite,Urine Negative (Negative); Protein,Urine Negative (Negative); RBC 4.24 m/uL (4.30-5.90); Specific Gravity,Urine 1.019 (1.001-1.035); UA Billing (MACRO vs. MICRO) CHEM; Urobilinogen,Urine <2.0 mg/dL (<2.0); WBC 11.3 k/uL (3.8-10.6); WBC (Perox) 11.76
[2016-06-18 12:45] LABS: MCV 89.7 fL (80.0-100.0)
[2016-06-18 12:47] LABS: INR 1.1 (<1.1); Prothrombin Time 11.1 sec (9.0-12.0)
[2016-06-18 12:53] LABS: ALT 63 U/L (21-72); AST 49 U/L (17-59); Alkaline Phosphatase 53 U/L (38-126); Anion Gap 9 mmol/L; Blood Urea Nitrogen 29 mg/dL (9-20); Carbon Dioxide 23 mmol/L (22-30); Chloride 109 mmol/L (98-107); Glucose 182 mg/dL (74-99); Non-African American GFR(MDRD) >60 (>60 ml/min/1.73 sqM); Sodium 141 mmol/L (137-145); Total Bilirubin 1.1 mg/dL (0.2-1.3); Total Protein 5.9 g/dL (6.3-8.2)
[2016-06-18 12:54] LABS: Partial Thromboplastin Time 20.1 sec (22.0-30.0)
--- NOTE | 2016-06-18 12:56 | XR ---
EXAMINATION TYPE: XR chest 2V DATE OF EXAM: 06/18/2016 12:42 PM COMPARISON: 06/14/2016 HISTORY: 60-year-old male with fever and cough TECHNIQUE: AP and lateral views FINDINGS: Heart is normal size. Slight elongation of the thoracic aorta is unchanged. Pulmonary vasculature wit hin normal limits. There is new extensive airspace opacity throughout the right mid and lower lung wi th trace effusions on the lateral view. IMPRESSION: Extensive new consolidation within the right mid and lower lung with trace effusions. Findings suspic ious for pneumonia.
[2016-06-18] MEDS ORDERED: POTASSIUM CHLORIDE ER 20 MEQ TAB.ER PO STA (12:58)
[2016-06-18] MEDS ORDERED: LEVOFLOXACIN 750MG-D5W PMX 750 MG in DEXTROSE/WATER 1 150ML.BAG IVPB STA (13:01)
[2016-06-18] MEDS ORDERED: PNEUMONIA PROTOCOL UTILIZED 1 EACH MISC PO PRN (13:01)
[2016-06-18] MEDS ORDERED: LEVALBUTEROL NEB 1.25 MG/3 ML AMP INHALATION PRN (13:01)
[2016-06-18] MEDS ORDERED: AZTREONAM 2 GM in SODIUM CHLORIDE 0.9% 100 ML IVPB STA (13:01)
[2016-06-18] MEDS ORDERED: SODIUM CHLORIDE 0.9% 1,000 ML IV STA (13:01)
[2016-06-18 13:10] LABS: Creatine Kinase MB 1.4 ng/mL (0.0-2.4); Troponin I 0.019 ng/mL (0.000-0.034)
[2016-06-18] MEDS ORDERED: SODIUM CHLORIDE 0.9% 1,000 ML IV SCH (13:15)
[2016-06-18] MEDS ORDERED: LEVALBUTEROL NEB 1.25 MG/3 ML AMP INHALATION SCH (16:00)
[2016-06-18] MEDS: METHYLPHENIDATE HCL 10 MG TAB PO SCH (18:10)
[2016-06-18] MEDS: 0.9% NACL WITH KCL 40 MEQ/L 1,000 ML IV SCH (18:10)
[2016-06-18] MEDS ORDERED: ALPRAZolam 0.25 MG TAB PO PRN (20:04)
[2016-06-18] MEDS ORDERED: HYDROmorphone 1 MG/ML 1 ML SYRINGE IVP PRN (20:04)
[2016-06-18] MEDS ORDERED: TEMAZEPAM 15 MG CAP PO PRN (20:04)
[2016-06-18] MEDS ORDERED: HYDROcodone/APAP 5-325MG 1 EACH TAB PO PRN (20:04)
[2016-06-18] MEDS ORDERED: IV VANCOMYCIN PER PHARMACY 1 EACH MISC MISCELLANE PRN (20:06)
[2016-06-18] MEDS ORDERED: VANCOMYCIN 1,750 MG in SODIUM CHLORIDE 0.9% 250 ML IVPB STA (20:08)
[2016-06-18] MEDS ORDERED: PIPERACILLIN-TAZOBACTAM 3.375 GM in DEXTROSE/WATER 1 50ML.BAG IVPB SCH (20:15)
[2016-06-18] MEDS: ASPIRIN 325 MG TAB PO SCH (20:57)
[2016-06-18] MEDS: Dalfampridine [Ampyra] 10 MG PO SCH (20:57)
[2016-06-18] MEDS: Dimethyl Fumarate [Tecfidera] 240 MG PO SCH (20:58)
[2016-06-18] MEDS: HEPARIN SODIUM,PORCINE 5,000 UNIT/ML 1 ML VIAL SQ SCH (20:58)
[2016-06-18] MEDS: LEVALBUTEROL NEB 1.25 MG/3 ML AMP INHALATION SCH (21:00)
[2016-06-18] MEDS: AZTREONAM 2 GM in SODIUM CHLORIDE 0.9% 100 ML IVPB SCH (22:57)
[2016-06-19] MEDS ORDERED: VANCOMYCIN 1,500 MG in SODIUM CHLORIDE 0.9% 250 ML IVPB SCH (06:00)
[2016-06-19] MEDS: PANTOPRAZOLE 40 MG TABLET PO SCH (06:28)
[2016-06-19] MEDS: METHYLPHENIDATE HCL 10 MG TAB PO SCH ×2 (06:28→16:42)
[2016-06-19 06:49] LABS: Basophils % (A) 0 %; CH 31.4; CHCM 35.2; Eosinophils # (A) 0.2 k/uL (0-0.7); Eosinophils % (A) 1 %; HCT 37.5 % (39.0-53.0); HDW 2.66; HGB 12.9 gm/dL (13.0-17.5); Luc # (Auto) 0.09; Luc % (Auto) 1; Lymphocytes # (A) 1.4 k/uL (1.0-4.8); Lymphocytes % (A) 10 %; MCH 30.9 pg (25.0-35.0); MCHC 34.4 g/dL (31.0-37.0); MCV 89.6 fL (80.0-100.0); Monocytes # (A) 0.5 k/uL (0-1.0); Monocytes % (A) 4 %; Neutrophils # (A) 12.5 k/uL (1.3-7.7); Neutrophils % (A) 85 %; RBC 4.18 m/uL (4.30-5.90); RDW 12.9 % (11.5-15.5); WBC 14.7 k/uL (3.8-10.6); WBC (Perox) 15.26
[2016-06-19 07:02] LABS: ALT 55 U/L (21-72); AST 28 U/L (17-59); Alkaline Phosphatase 42 U/L (38-126); Anion Gap 7 mmol/L; Blood Urea Nitrogen 17 mg/dL (9-20); Calcium 8.2 mg/dL (8.4-10.2); Carbon Dioxide 21 mmol/L (22-30); Chloride 107 mmol/L (98-107); Glucose 180 mg/dL (74-99); Non-African American GFR(MDRD) >60 (>60 ml/min/1.73 sqM); Potassium 3.4 mmol/L (3.5-5.1); Sodium 135 mmol/L (137-145); Total Bilirubin 2.2 mg/dL (0.2-1.3); Total Protein 5.6 g/dL (6.3-8.2)
--- NOTE | 2016-06-19 08:28 | HP ---
DATE OF ADMISSION: DATE OF SERVICE: 06/18/2016 CHIEF COMPLAINT: Weakness and fever. HISTORY OF PRESENT ILLNESS: This 60-year-old gentleman with a past medical history of multiple medical problems including multiple sclerosis, history of ADHD, history of hypertension, history of diabetes mellitus type 2, history of chronic low back being followed by Dr. Conteh in the outpatient setting was recently admitted with multiple sclerosis acute exacerbation. The patient was seen by Dr. Beltran. Patient has been treated with high-dose bolus steroids. Patient improved significantly. The patient went home. After going home, the patient was noted to have some cough and the patient also had a fever last night and complains of more weakness and the patient came to [facility] and brought the patient back to the [facility] and admitted for further evaluation. Chest x-ray done showed significant pneumonia on the right side which I reviewed carefully and the patient was admitted for further evaluation and treatment. Healthcare associated pneumonia is a consideration. Excessive consolidation of the right mid and lower lung hagen are noted. There is no history of any rigors. There is no history of headache, loss of consciousness, seizures at this time. PAST MEDICAL HISTORY: History of multiple sclerosis, history of CVA, TIA, history of memory impairment, history of cirrhosis of the liver, melanoma, history of appendectomy, Medications prior to admission include: 1. Multivitamins 1 p.o. daily. 2. Ritalin 10 mg b.i.d. 3. Zestril 10 mg daily. 4. Motrin 400 mg q.6 p.r.n. 5. Tecfidera 240 mg p.o. b.i.d. 6. Ampyra 10 mg p.o. b.i.d. 7. Celexa 10 mg q.a.m. 8. Aspirin 325 mg q.h.s. ALLERGIES: PENICILLIN. FAMILY HISTORY: History of pneumonia in the family. SOCIAL HISTORY: Previous history of smoking. No history of alcohol intake. REVIEW OF SYSTEMS: ENT: No diminishing hearing or diminished vision. CARDIOVASCULAR: No angina. RESPIRATORY: As mentioned earlier. GI: No nausea. : No dysuria. NERVOUS SYSTEM: No numbness or weakness. ALLERGY/IMMUNOLOGY: No asthma. MUSCULOSKELETAL: As mentioned earlier. HEMATOLOGY/ONCOLOGY: No history of anemia. ENDOCRINE: As mentioned earlier. CONSTITUTIONAL: As mentioned earlier. DERMATOLOGY: Negative. RHEUMATOLOGY: Negative. PSYCHIATRY: As mentioned earlier. PHYSICAL EXAMINATION: The patient is alert and oriented x3. Pulse is 85, blood pressure 101/54, respirations 18, temperature 98.7, pulse ox 93% on 4 L. HEENT: Conjunctivae normal. Oral mucosa moist. NECK: No jugular venous distention. No carotid bruit. No lymph node enlargement. CARDIOVASCULAR: S1 and S2, muffled. No S3, no S4. RESPIRATORY: Breath sounds diminished at the bases. Bilateral scattered rhonchi and crackles. ABDOMEN: Soft, nontender. No mass palpable. LEGS: No edema, no swelling. NERVOUS SYSTEM: Higher function as mentioned. Diffusely weak especially in the lower limbs. Mild diffuse wasting also present . SKIN: No ulcers, rashes or bleeding. LYMPHATICS: No lymphadenopathy of neck, axillae or groin. JOINTS: No active deforming arthropathy. LABS: WBC 11.3, hemoglobin 13.5. Sodium 141, potassium 3. Creatine . Plasma lactic acid 2.7. ASSESSMENT: 1. Acute right side pneumonia multilobar, possibly healthcare associated pneumonia with possibly sepsis, present on admission. 2. Increased plasma lactic acid secondary to sepsis. 3. Hypokalemia. 4. Increased WBC. 5. Multiple sclerosis exacerbation recently. 6. History of cirrhosis of the liver. 7. History of memory impairment. 8. History of cerebrovascular accident. 9. History of melanoma. 10. Steroid induced diabetes mellitus type 2. 11. Chronic low back pain and degenerative joint disease. 12. History of vertigo. 13. History of pseudobulbar affect from multiple sclerosis. 14. Remote history of nicotine dependence. 15. FULL CODE. RECOMMENDATIONS AND DISCUSSION: This 60-year-old gentleman presented with multiple complex medical issues. Will monitor the patient closely. Continue the current medications. Continue symptomatic treatment. Otherwise, at this time I recommend broad-spectrum IV antibiotics. I recommend Zosyn and vancomycin. Infectious disease evaluation, pulmonary consultation, neurology will also be consulted. Guarded prognosis because of multiple complex medical issues. Further recommendations to follow. A copy of this dictation forwarded to Dr. Conteh who is the primary physician. [facility]
[2016-06-19] MEDS: AZTREONAM 2 GM in SODIUM CHLORIDE 0.9% 100 ML IVPB SCH ×2 (08:51→16:07)
[2016-06-19] MEDS: CITALOPRAM HYDROBROMIDE 10 MG TAB PO SCH (08:52)
[2016-06-19] MEDS: Dimethyl Fumarate [Tecfidera] 240 MG PO SCH ×2 (08:52→20:23)
[2016-06-19] MEDS: Dalfampridine [Ampyra] 10 MG PO SCH ×2 (08:53→20:23)
[2016-06-19] MEDS: HEPARIN SODIUM,PORCINE 5,000 UNIT/ML 1 ML VIAL SQ SCH ×2 (08:54→20:23)
[2016-06-19] MEDS: MULTIVITAMINS, THERA 1 EACH TAB PO SCH (08:54)
[2016-06-19] MEDS: ACETAMINOPHEN TAB 500 MG TAB PO PRN ×2 (08:55→20:12)
[2016-06-19] MEDS: LEVALBUTEROL NEB 1.25 MG/3 ML AMP INHALATION SCH ×2 (09:47→15:41)
[2016-06-19] MEDS ORDERED: LEVOFLOXACIN 750MG-D5W PMX 750 MG in DEXTROSE/WATER 1 150ML.BAG IVPB SCH (12:00)
[2016-06-19] MEDS: THIAMINE 100 MG TAB PO SCH (12:03)
[2016-06-19] MEDS: FOLIC ACID 1 MG TAB PO SCH (12:04)
--- NOTE | 2016-06-19 13:39 | XR ---
EXAMINATION TYPE: XR chest 2V DATE OF EXAM: 06/19/2016 1:34 PM COMPARISON: 06/18/2016 HISTORY: 60-year-old male follow-up pneumonia TECHNIQUE: Frontal and lateral views FINDINGS: Heart is normal size. Aorta and pulmonary vasculature within normal limits. Continued consolidation throughout the right mid and lower lung with the densest opacity at the midlung level. Some of these areas have become slightly less confluent from prior exam. Trace effusions persist on the lateral vie w. IMPRESSION: Continued consolidation mid and lower right lung. Airspace disease has become minimally less confluen t in the lower right lung. Trace effusions persist.
[2016-06-19] MEDS: 0.9% NACL WITH KCL 40 MEQ/L 1,000 ML IV SCH (14:30)
--- NOTE | 2016-06-19 14:40 | P.CNPUL ---
History of Present Illness Consult date: 06/19/16 Requesting physician: Wagner Avelar Reason for consult: abnormal CXR/CT Chief complaint: Shortness of breath, weakness History of present illness: This is a very pleasant 60-year-old gentleman with a known history of CVA/TIA, cirrhosis of the liver, memory impairment, multiple sclerosis. He was recently here for an exacerbation of his multiple sclerosis treated and released. He reports on the hospital yesterday with aggressive weakness unable to walk and fever. The patient's chest x-ray yesterday showed extensive new consolidation within the right mid and lower lung with trace effusions which were not present on previous chest x-ray on 06/14/2016. Consulted for the same. The patient is seen on the selective care unit today in consultation. He is sitting up in the chair at the bedside. He is awake and alert in no acute distress. He states his breathing is about the same as compared to yesterday. He has a loose nonproductive cough. He's had a T-max of 100.8. He is maintaining good O2 saturations in the mid 90s on room air. He is not tachycardic. Minimal leukocytosis. Initial lactate 2.7, follow-up 1.9. Influenza screen was negative, rapid strep was negative. Blood culture reveals no growth at 24 hours. Urine cultures pending. Review of Systems 14 point review of system was conducted. All negative other than as mentioned in HPI. Past Medical History Past Medical History: Cancer, CVA/TIA, Liver Disease, Memory Impairment, Musculoskeletal Disorder, Neurologic Disorder Additional Past Medical History / Comment(s): CVA, MS, CIRRHOSIS OF THE LIVER, melanoma with removal, elevated blood sugar with steroid use, chronic low back pain, arthritis bilateral shoulders, tinnitis bilaterally, vertigo. History of Any Multi-Drug Resistant Organisms: None Reported Past Surgical History: Appendectomy Additional Past Surgical History / Comment(s): melanoma removed right side of chest, lymph nodes, EGD/colonoscopy, tilt table test.. 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 Pt resides with his spouse. He uses a walker to ambulate. He no longer drives, his spouse takes him to [employer]. Smoking Status: Former smoker Past Alcohol Use History: None Reported Additional Past Alcohol Use History / Comment(s): Pt smoked cigars but quit many yrs ago Past Drug Use History: None Reported - Past Family History Mother Family Medical History: Pneumonia Father Family Medical History: Myocardial Infarction ([place]) Medications and Allergies Home Medications Medication Instructions Recorded Confirmed Type Aspirin 325 mg PO HS 08/25/15 06/18/16 History Citalopram Hydrobromide [CeleXA] 10 mg PO QAM 08/25/15 06/18/16 History Dalfampridine [Ampyra] 10 mg PO BID 08/25/15 06/18/16 History Dimethyl Fumarate [Tecfidera] 240 mg PO BID 08/25/15 06/18/16 History Multivitamin [Men's Multi-Vitamin] 1 tab PO DAILY 08/25/15 06/18/16 History Ibuprofen [Motrin] 400 mg PO Q6H PRN 06/14/16 06/18/16 History Methylphenidate HCl [Ritalin] 10 mg PO BID 06/14/16 06/18/16 History Allergies Allergy/AdvReac Type Severity Reaction Status Date / Time Penicillins Allergy Rash/Hives Verified 06/18/16 13:42 Physical Exam Vitals: Vital Signs Temp Pulse Pulse Resp BP BP Pulse Ox 06/19/16 12:00 73 18 06/19/16 11:16 97.7 F 73 18 114/60 93 L 06/19/16 08:00 85 18 06/19/16 07:46 100.8 F H 85 18 136/58 93 L 06/19/16 03:22 97.6 F 85 18 121/59 92 L 06/18/16 23:26 99.1 F 80 18 124/66 91 L 06/18/16 21:17 82 06/18/16 21:00 82 06/18/16 20:00 98.1 F 89 20 146/75 93 L 06/18/16 15:10 16 103/58 95 06/18/16 15:02 85 18 101/54 93 L 06/18/16 14:57 98.7 F 88 18 97/56 94 L Intake and Output 06/18/16 06/19/16 06/19/16 22:59 06:59 14:59 Intake Total 1187 525 780 Output Total 950 450 300 Balance 237 75 480 Intake: IV 650 525 0.9% NaCl with KCl 40 Meq 400 400 /l 1,000 ml @ 50 mls/hr IV .Q20H JULIA Rx#: [id number] Vancomycin 1,500 mg In 250 125 Sodium Chloride 0.9% 250 ml @ 125 mls/hr IVPB Q12H JULIA Rx#:[id number] Oral 537 780 Output: Urine 950 450 300 Other: Voiding Method Urinal Urinal Urinal Weight 101.2 kg GENERAL EXAM: Alert, active, comfortable in no apparent distress. HEAD: Normocephalic. EYES: Normal reaction of pupils, equal size. NOSE: Clear with pink turbinates. THROAT: No erythema or exudates. NECK: No masses, no JVD. CHEST: No chest wall deformity. LUNGS: Equal air entry with crackles in the right lung base, scattered rhonchi. CVS: S1 and S2 normal with no audible murmurs, regular rhythm. ABDOMEN: No hepatosplenomegaly, normal bowel sounds, no guarding or rigidity. Extremities: There is no significant peripheral edema. No clubbing, no cyanosis. Peripheral pulses are intact.. Results - Laboratory Findings CBC and BMP: 06/19/16 06:34 06/19/16 06:34 PT/INR, D-dimer PT 11.1 sec (9.0-12.0) 06/18/16 12:13 INR 1.1 (<1.1) 06/18/16 12:13 Abnormal lab findings: Abnormal Labs 06/19/16 06/19/16 06:34 06:34 WBC 14.7 H RBC 4.18 L Hgb 12.9 L Hct 37.5 L Neutrophils # 12.5 H Sodium 135 L Potassium 3.4 L Carbon Dioxide 21 L Glucose 180 H Calcium 8.2 L Total Bilirubin 2.2 H Total Protein 5.6 L Albumin 2.9 L - Diagnostic Findings Chest x-ray: image reviewed Assessment and Plan Plan: Impression: #1 Acute mid and lower right lung pneumonia suspect hospital-acquired during recent admission. #2 Recent admission for multiple sclerosis exacerbation. #3 History of memory impairment. #4 Cirrhosis of the liver. #5 History of melanoma removed from right chest. 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 Plan: The patient was seen and evaluated by Dr. Basha. His chest x-ray was reviewed. We'll go ahead and treat the patient for the pneumonia. He has been initiated on vancomycin and aztreonam. We'll continue with bronchodilators 4 times a day and when necessary. He is on heparin for DVT prophylaxis and physical therapy has been ordered for the patient as well. We'll continue to follow and make further recommendations based on his clinical status Time with Patient: Greater than 30
[2016-06-19] MEDS: ALBUTEROL NEBULIZED 2.5 MG/3 ML INHALATION SCH ×2 (15:41→21:29)
--- NOTE | 2016-06-19 20:09 | CONS ---
DATE OF CONSULTATION: 06/19/2016 REASON FOR CONSULTATION: Pneumonia. HISTORY OF PRESENT ILLNESS: The patient is a 60-year-old male with a past medical history significant for MS. Patient was recently admitted to this facility from Wednesday to Wednesday, where the patient was treated for MS exacerbation with high dose of steroids. Patient's did mention that on admission, he did have an x-ray that was negative for pneumonia. After the patient went home, he started feeling very weak and tired. He did have a fever and also had a cough, bringing up some whitish to yellow sputum. No hemoptysis. No significant chest pain. Subsequently the patient was brought back to the ER for evaluation of the same. The patient did have a chest x-ray which did show extensive right-sided pneumonia. Because of his PENICILLIN ALLERGY, he was started on Azactam and vancomycin. ID was consulted for further recommendation regarding antibiotic therapy. Patient did have a fever of 100.8 early this morning with white count was 11.3, is up 14.7. Lactic acid was 2.7, is down to 1.9. UA has been negative. Influenza A and B have been negative. Blood cultures were requested. Sputum has been collected. REVIEW OF SYSTEMS: CONSTITUTIONAL: Positive for weakness along with fever. EYES: No complaint. ENT: No complaint. RESPIRATORY: As per HPI. CARDIOVASCULAR: No complaint. GENITOURINARY: No complaint. GASTROINTESTINAL: No complaint. MUSCULOSKELETAL: No complaint. INTEGUMENTARY: No complaint. PSYCHOLOGICAL: No complaint. ENDOCRINE: No complaint. NEUROLOGIC: No complaint. PAST MEDICAL HISTORY: MS, memory impairment, liver disease, CVA, TIA, cirrhosis of the liver, melanoma resection. PAST SURGICAL HISTORY: Appendectomy, melanoma resection from right side of the chest, lymph node dissection, EGD, colonoscopy. SOCIAL HISTORY: Remote history of smoking. No drinking or drug use. He is , lives with his . FAMILY HISTORY: Mother with history of [place]. ALLERGIES TO PENICILLIN WITH NO HISTORY OF ANAPHYLAXIS. Medications currently include the patient is on: 1. Tylenol. 2. Weldon. 3. Ventolin. 4. Xanax. 5. Aspirin. 6. Azactam 2 g q. 8. 7. Celexa. 8. Heparin. 9. Dilaudid. 10. Ritalin. 11. Vancomycin. 12. Protonix. On examination, blood pressure is 129/60 with a pulse of 89, temperature 98.4. He is 94% on room air. General description is a middle-aged male, up in the bed in no distress. No tachypnea or accessory muscle of respiration use. HEENT shows no pallor or scleral icterus. Oral mucosa dry. NECK: Trachea central. No thyromegaly. LUNGS: Unlabored breathing. Coarse sounds in the bases. No wheeze. HEART: S1, S2. Regular rate and rhythm. ABDOMEN: Soft. No tenderness. EXTREMITIES: No edema of feet. LABS: Hemoglobin is 12.9, white count 14.7. BUN of 17, creatinine 0.82. UA has been negative. Influenza A and B have been negative. Chest x-ray with extensive right-sided pneumonia. DIAGNOSTIC IMPRESSION AND PLAN: 1. Patient with extensive right-sided pneumonia in a patient who was recently admitted to this facility and was being treated for multiple sclerosis with high dose of steroid, now with developing of pneumonia. Likely will need go to for the nosocomial pathogen, especially gram-negative Pseudomonas and the gram-positive likely . 2. Patient with a history of PENICILLIN ALLERGY WITH NO HISTORY OF ANAPHYLAXIS. PLAN: 1. Will obtain sputum for culture and sensitivity. 2. Will switch over the Azactam to Fortaz. DOES GIVE A HISTORY OF PENICILLIN ALLERGY, BUT NO HISTORY OF ANAPHYLAXIS. Using the Fortaz will be safe. 3. Vancomycin, pharmacy to dose, target of 15. 4. Will follow up on his clinical condition and cultures, further adjust the medication if needed. Thank you for this consultation. CAMI
[2016-06-19] MEDS: ASPIRIN 325 MG TAB PO SCH (20:23)
[2016-06-19] MEDS: VANCOMYCIN 1,750 MG in SODIUM CHLORIDE 0.9% 250 ML IVPB SCH (21:22)
[2016-06-19 21:47] LABS: Glucose,Whole Blood 149 mg/dL (75-99)
--- NOTE | 2016-06-19 22:59 | PN ---
DATE OF SERVICE: 06/19/2016 This 60-year-old gentleman admitted with weakness and fever has significant extensive pneumonia on the right side. The patient has multiple sclerosis and significant immunosuppression also. Patient has received bolus dose of steroids recently. The patient is also complaining of weakness, present on admission. Past medical history reviewed. REVIEW OF SYSTEMS: CARDIOVASCULAR: No angina, palpitations. RESPIRATORY SYSTEM: As mentioned earlier. GI: No nausea, vomiting. : No dysuria. NERVOUS SYSTEM: No numbness or weakness. Current medications are reviewed and include: 1. Tylenol 500 mg q.6 p.r.n. 2. Graham 5 mg q.6 p.r.n. 3. Ventolin. 4. Xanax 0.25 t.i.d. 5. Aspirin 325 mg daily. 6. Ceftazidime 2 grams IV q.8. 7. Celexa 10 mg each morning. 8. Folic acid 1 mg p.o. daily. 9. Heparin 5000 units subcutaneously b.i.d. 10. Ritalin 10 mg b.i.d. 11. Multivitamins 1 p.o. daily. 12. Thiamine 100 mg. 13. Tecfidera 240 mg p.o. b.i.d. 14. Ampyra 10 mg p.o. b.i.d. 15. Protonix 40 mg. 16. Restoril 15 mg at bedtime. 17. Vitamin B1. 18. Vancomycin IV. PHYSICAL EXAMINATION: Patient is alert and oriented x3. Pulse 89, blood pressure 129/60, respiration 16, temperature 98.2, pulse ox 94% on room air. HEENT: Conjunctivae normal. NECK: No jugular venous distention. CARDIOVASCULAR SYSTEM: S1, S2 muffled. RESPIRATORY SYSTEM: Breath sounds diminished at the bases. Bilateral scattered rhonchi and crackles. ABDOMEN: Soft, non-tender. No mass palpable. LEGS: No edema. No swelling. NERVOUS SYSTEM: No focal deficit. LABS: WBC 14.7, hemoglobin 12.9. Sodium 135, potassium 3.4. Lactic acid is normal at 1.9. Influenza negative. Group A strep is negative, also. ASSESSMENT: 1. Acute right-sided pneumonia, multi-lobar, possibly healthcare-associated pneumonia with possible sepsis, present on admission. 2. Increased plasma lactic acid secondary to sepsis, present on admission. 3. Hypokalemia. 4. Increased white count. 5. Multiple sclerosis exacerbation recently. 6. Generalized gait dysfunction. 7. History of cirrhosis of the liver. 8. History of memory impairment. 9. History of cerebrovascular accident. 10. History of melanoma. 11. History of steroid-induced diabetes mellitus, type 2. 12. History of chronic low back pain, degenerative joint disease. 13. History of vertigo. 14. History of pseudobulbar effect from multiple sclerosis. 15. Remote history of nicotine dependence. 16. FULL CODE. RECOMMENDATIONS AND DISCUSSION: I recommend to continue with the current medications, continue with the monitoring, symptomatic treatment. Also monitor the Accu-Cheks closely. Guarded prognosis because of multiple complex medical issues. Further recommendations to follow.
[2016-06-19] MEDS: INSULIN LISPRO (humaLOG) 300 UNIT/3 ML VIAL SQ SCH (23:33)
--- NOTE | 2016-06-20 00:07 | P.CNNES ---
History of Present Illness Consult date: 06/19/16 Requesting physician: Jose Roe Reason for Consult: Weakness Chief complaint: Weakness History of Present Illness: Neurology is being requested to consult on this 60-year-old male with a medical history it is noted to have multiple chronic conditions including: Multiple sclerosis, ADHD, hypertension, diabetes mellitus type 2, chronic low back pain that was recently admitted for multiple sclerosis exacerbation. Patient is known to our practice and is managed on a routine basis for his multiple sclerosis. Patient had been treated with high-dose bolus steroids within the last several days. Patient's symptoms improved significantly. He was discharged and was noted to have some cough at discharge. Patient complained of fever and increased weakness while at home and was brought back to the hospital. Check stat x-ray showed significant pneumonia on the right side. Patient was admitted for further workup. Patient denied any weakness in the upper or lower extremities, falls, altered mental status, vision changes. Patient stated his fatigue was primarily related to his respiratory complaints. Patient was resting supine in bed in no acute distress, alert and oriented 3. Review of Systems Systems not noted in HPI or negative Past Medical History Past Medical History: Cancer, CVA/TIA, Liver Disease, Memory Impairment, Musculoskeletal Disorder, Neurologic Disorder Additional Past Medical History / Comment(s): CVA, MS, CIRRHOSIS OF THE LIVER, melanoma with removal, elevated blood sugar with steroid use, chronic low back pain, arthritis bilateral shoulders, tinnitis bilaterally, vertigo. History of Any Multi-Drug Resistant Organisms: None Reported Past Surgical History: Appendectomy Additional Past Surgical History / Comment(s): melanoma removed right side of chest, lymph nodes, EGD/colonoscopy, tilt table test.. 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 Pt resides with his spouse. He uses a walker to ambulate. He no longer drives, his spouse takes him to appts. Smoking Status: Former smoker Past Alcohol Use History: None Reported Additional Past Alcohol Use History / Comment(s): Pt smoked cigars but quit many yrs ago Past Drug Use History: None Reported - Past Family History Mother Family Medical History: Pneumonia Father Family Medical History: Myocardial Infarction ([place]) Medications and Allergies Home Medications Medication Instructions Recorded Confirmed Type Aspirin 325 mg PO HS 08/25/15 06/18/16 History Citalopram Hydrobromide [CeleXA] 10 mg PO QAM 08/25/15 06/18/16 History Dalfampridine [Ampyra] 10 mg PO BID 08/25/15 06/18/16 History Dimethyl Fumarate [Tecfidera] 240 mg PO BID 08/25/15 06/18/16 History Multivitamin [Men's Multi-Vitamin] 1 tab PO DAILY 08/25/15 06/18/16 History Ibuprofen [Motrin] 400 mg PO Q6H PRN 06/14/16 06/18/16 History Methylphenidate HCl [Ritalin] 10 mg PO BID 06/14/16 06/18/16 History Allergies Allergy/AdvReac Type Severity Reaction Status Date / Time Penicillins Allergy Rash/Hives Verified 06/18/16 13:42 Physical Examination - Vital Signs Vital Signs: Vital Signs Temp Pulse Pulse Resp BP Pulse Ox 06/19/16 21:40 84 06/19/16 21:29 80 06/19/16 16:09 98.4 F 89 16 129/68 94 L 06/19/16 12:00 73 18 06/19/16 11:16 97.7 F 73 18 114/60 93 L 06/19/16 08:00 85 18 06/19/16 07:46 100.8 F H 85 18 136/58 93 L 06/19/16 03:22 97.6 F 85 18 121/59 92 L 06/19/16 02:41 84 Intake and Output 06/19/16 06/19/16 06/20/16 14:59 22:59 06:59 Intake Total 780 650 Output Total 300 175 Balance 480 475 Intake: IV 650 0.9% NaCl with KCl 40 Meq 400 /l 1,000 ml @ 50 mls/hr IV .Q20H JULIA Rx#: [id number] Vancomycin 1,500 mg In 250 Sodium Chloride 0.9% 250 ml @ 125 mls/hr IVPB Q12H JULIA Rx#:[id number] Oral 780 Output: Urine 300 175 Other: Voiding Method Urinal Urinal Constitutional: AOx3, cooperative HEENT: NC/AT, no facial asymmetry is seen. Neck: Supple, no masses Respiratory: No increased work of breathing Cardiac: Regular rate and Rhythm GI: non tender, non distended Musculoskeletal: Machine Coremaker strengths are equal bilaterally 4-/5, Lower extremity strengths are equal bilaterally at 4-/5. Neurological: CN II-XII in tact, patient was AOx3, speech and language are normal, no unilateralizing weakness, no seizure activity note on physical exam. Sensation was normal. Integementary: no rash, no erythema Psychiatric: mood and affect appropriate Results - Laboratory Findings CBC and BMP: 06/19/16 06:34 06/19/16 06:34 Abnormal Lab Findings: Abnormal Labs 06/19/16 06/19/16 06/19/16 06:34 06:34 21:46 WBC 14.7 H RBC 4.18 L Hgb 12.9 L Hct 37.5 L Neutrophils # 12.5 H Sodium 135 L Potassium 3.4 L Carbon Dioxide 21 L Glucose 180 H POC Glucose (mg/dL) 149 H Calcium 8.2 L Total Bilirubin 2.2 H Total Protein 5.6 L Albumin 2.9 L Assessment and Plan (1) Weakness generalized Status: Acute Plan: 1. Generalized weakness: Patient's weakness is primarily related to his underlying etiology, pneumonia. Treat for underlying cause. Recommend PT and OT. Status. Neurology will follow on an as-needed basis. If you have any further questions please free to contact our office. I discussed the patient's pertinent medical information with Dr. Beltran. He agrees with the plan of care as implemented.
[2016-06-20 06:09] LABS: Glucose,Whole Blood 118 mg/dL (75-99)
[2016-06-20] MEDS: INSULIN LISPRO (humaLOG) 300 UNIT/3 ML VIAL SQ SCH ×4 (06:11→21:54)
[2016-06-20] MEDS: VANCOMYCIN 1,750 MG in SODIUM CHLORIDE 0.9% 250 ML IVPB SCH ×2 (06:31→17:38)
[2016-06-20] MEDS: METHYLPHENIDATE HCL 10 MG TAB PO SCH ×2 (06:31→17:38)
[2016-06-20] MEDS: PANTOPRAZOLE 40 MG TABLET PO SCH (06:31)
[2016-06-20 07:14] LABS: Basophils % (A) 0 %; CH 31.8; Eosinophils # (A) 0.3 k/uL (0-0.7); Eosinophils % (A) 3 %; HCT 39.9 % (39.0-53.0); HDW 2.55; HGB 13.3 gm/dL (13.0-17.5); Luc # (Auto) 0.16; Luc % (Auto) 1; Lymphocytes # (A) 1.8 k/uL (1.0-4.8); Lymphocytes % (A) 13 %; MCH 30.5 pg (25.0-35.0); MCHC 33.3 g/dL (31.0-37.0); MCV 91.5 fL (80.0-100.0); Mean Platelet Volume 7.8; Monocytes # (A) 0.7 k/uL (0-1.0); Monocytes % (A) 5 %; Neutrophils # (A) 10.5 k/uL (1.3-7.7); Neutrophils % (A) 78 %; RBC 4.37 m/uL (4.30-5.90); RDW 13.3 % (11.5-15.5); WBC 13.5 k/uL (3.8-10.6); WBC (Perox) 13.45
[2016-06-20 08:14] LABS: ALT 49 U/L (21-72); AST 23 U/L (17-59); Alkaline Phosphatase 55 U/L (38-126); Anion Gap 10 mmol/L; Blood Urea Nitrogen 10 mg/dL (9-20); Calcium 8.3 mg/dL (8.4-10.2); Carbon Dioxide 25 mmol/L (22-30); Chloride 105 mmol/L (98-107); Glucose 119 mg/dL (74-99); Non-African American GFR(MDRD) >60 (>60 ml/min/1.73 sqM); Potassium 3.2 mmol/L (3.5-5.1); Sodium 140 mmol/L (137-145); Total Bilirubin 2.5 mg/dL (0.2-1.3); Total Protein 5.8 g/dL (6.3-8.2)
[2016-06-20] MEDS: Dimethyl Fumarate [Tecfidera] 240 MG PO SCH ×2 (08:51→20:21)
[2016-06-20] MEDS: CITALOPRAM HYDROBROMIDE 10 MG TAB PO SCH (08:51)
[2016-06-20] MEDS: Dalfampridine [Ampyra] 10 MG PO SCH ×2 (08:51→20:21)
[2016-06-20] MEDS: FOLIC ACID 1 MG TAB PO SCH (08:52)
[2016-06-20] MEDS: HEPARIN SODIUM,PORCINE 5,000 UNIT/ML 1 ML VIAL SQ SCH ×2 (08:52→20:21)
[2016-06-20] MEDS: MULTIVITAMINS, THERA 1 EACH TAB PO SCH (08:52)
[2016-06-20] MEDS: 0.9% NACL WITH KCL 40 MEQ/L 1,000 ML IV SCH (09:14)
[2016-06-20] MEDS: ALBUTEROL NEBULIZED 2.5 MG/3 ML INHALATION SCH ×4 (09:16→20:13)
[2016-06-20] MEDS ORDERED: POTASSIUM CHLORIDE ER 20 MEQ TAB.ER PO STA (11:06)
[2016-06-20 12:04] LABS: Glucose,Whole Blood 143 mg/dL (75-99)
[2016-06-20] MEDS: THIAMINE 100 MG TAB PO SCH (13:04)
[2016-06-20 14:32] LABS: Hemoglobin A1C 7.4 % (4.2-6.1)
[2016-06-20] MEDS ORDERED: VANCOMYCIN TROUGH DUE 1 EACH MISC MISCELLANE ONE (17:00)
[2016-06-20 17:04] LABS: Glucose,Whole Blood 170 mg/dL (75-99)
--- NOTE | 2016-06-20 18:49 | PN ---
60-year-old male with a history of CVA, TIA, cirrhosis of the liver and memory impairment, multiple sclerosis. He was recently here for treatment of his multiple sclerosis and released. He reported to the hospital 2 days ago with progressive weakness and inability to walk with fever. The patient's chest x-ray showed extensive new consolidation within the right mid and lower lung. The patient is currently on vancomycin and Ceftazidime. Feeling a bit better. Today he is lying in bed. Denies any significant fever, chills. Coughing a bit. Not producing much phlegm. He is short of breath. He was hoping to be able to go home but was told he could not go home. His influenza screening was negative. Rapid strep was negative. Blood cultures are negative currently. Chest x-ray again shows significant right middle and right lower lobe infiltrates. Current vital signs include temperature 98.6. T-max 100.3, heart rate 76, respiratory rate 18, blood pressure 134/68, mean 90, room air saturation 91%. Appears in no acute distress. HEENT: Examination is grossly unremarkable. Mucous membranes are moist. No oral lesions. Neck is supple. Full range of motion. No adenopathy or thyromegaly. Cardiovascular examination reveals regular rhythm and rate. Heart sounds are distant. S1, S2 normal. No murmur. Lungs reveal some coarse bilateral rhonchi. No wheezes. Some crackles noted in the bibasilar regions. Breath sounds are equal, but somewhat diminished. ABDOMEN: Soft. Bowel sounds are heard. EXTREMITIES: Intact. No cyanosis, clubbing or edema. Skin without rash or lesion. Brief neurologic examination is nonfocal. The chest x-ray is reviewed. ASSESSMENT: 1. Right lung pneumonia involving the right mid and right lower lobe. 2. Recent admission for multiple sclerosis exacerbation. 3. Memory impairment. 4. Liver cirrhosis. 5. History of melanoma. 6. Pseudobulbar affect. PLAN: The patient will have an x-ray tomorrow. Medications are reviewed. He is currently on vancomycin and Ceftazidime. We will continue to follow. Microbiology, labs and x-rays will be checked. No additional recommendations are made. Prognosis is guarded.
[2016-06-20] MEDS: ASPIRIN 325 MG TAB PO SCH (20:21)
[2016-06-20] MEDS: ACETAMINOPHEN TAB 500 MG TAB PO PRN (20:21)
[2016-06-20 21:43] LABS: Glucose,Whole Blood 126 mg/dL (75-99)
[2016-06-21] MEDS: 0.9% NACL WITH KCL 40 MEQ/L 1,000 ML IV SCH (06:47)
[2016-06-21] MEDS: PANTOPRAZOLE 40 MG TABLET PO SCH (06:47)
[2016-06-21] MEDS: METHYLPHENIDATE HCL 10 MG TAB PO SCH ×2 (06:47→17:20)
[2016-06-21] MEDS: VANCOMYCIN 1,750 MG in SODIUM CHLORIDE 0.9% 250 ML IVPB SCH (06:47)
[2016-06-21 07:04] LABS: Glucose,Whole Blood 130 mg/dL (75-99)
[2016-06-21] MEDS: INSULIN LISPRO (humaLOG) 300 UNIT/3 ML VIAL SQ SCH ×4 (07:10→21:15)
[2016-06-21 08:00] LABS: ALT 44 U/L (21-72); AST 21 U/L (17-59); Alkaline Phosphatase 46 U/L (38-126); Anion Gap 10 mmol/L; Basophils % (A) 0 %; Blood Urea Nitrogen 7 mg/dL (9-20); CH 31.9; CHCM 35.9; Carbon Dioxide 24 mmol/L (22-30); Chloride 107 mmol/L (98-107); Eosinophils # (A) 0.5 k/uL (0-0.7); Eosinophils % (A) 5 %; Glucose 125 mg/dL (74-99); HCT 35.2 % (39.0-53.0); HDW 2.83; HGB 12.4 gm/dL (13.0-17.5); Luc # (Auto) 0.28; Luc % (Auto) 3; Lymphocytes # (A) 1.7 k/uL (1.0-4.8); Lymphocytes % (A) 17 %; MCH 31.4 pg (25.0-35.0); MCHC 35.1 g/dL (31.0-37.0); MCV 89.4 fL (80.0-100.0); Mean Platelet Volume 8.9; Monocytes # (A) 0.8 k/uL (0-1.0); Monocytes % (A) 8 %; Neutrophils # (A) 6.7 k/uL (1.3-7.7); Neutrophils % (A) 67 %; Non-African American GFR(MDRD) >60 (>60 ml/min/1.73 sqM); Potassium 3.4 mmol/L (3.5-5.1); RBC 3.94 m/uL (4.30-5.90); RDW 13.3 % (11.5-15.5); Sodium 141 mmol/L (137-145); Total Bilirubin 1.8 mg/dL (0.2-1.3); Total Protein 5.5 g/dL (6.3-8.2); WBC 10.1 k/uL (3.8-10.6); WBC (Perox) 10.36
[2016-06-21] MEDS: Dalfampridine [Ampyra] 10 MG PO SCH ×2 (08:11→20:15)
[2016-06-21] MEDS: MULTIVITAMINS, THERA 1 EACH TAB PO SCH (08:13)
[2016-06-21] MEDS: CITALOPRAM HYDROBROMIDE 10 MG TAB PO SCH (08:13)
[2016-06-21] MEDS: FOLIC ACID 1 MG TAB PO SCH (08:13)
[2016-06-21] MEDS: HEPARIN SODIUM,PORCINE 5,000 UNIT/ML 1 ML VIAL SQ SCH ×2 (08:13→20:16)
[2016-06-21] MEDS: Dimethyl Fumarate [Tecfidera] 240 MG PO SCH ×2 (08:13→20:15)
[2016-06-21] MEDS: THIAMINE 100 MG TAB PO SCH (08:13)
[2016-06-21] MEDS: ALBUTEROL NEBULIZED 2.5 MG/3 ML INHALATION SCH ×4 (08:32→20:27)
--- NOTE | 2016-06-21 09:34 | XR ---
EXAMINATION TYPE: XR chest 2V DATE OF EXAM: 06/21/2016 9:10 AM COMPARISON: 06/19/2016 INDICATION: Previous abnormal chest, pneumonia TECHNIQUE: Single frontal view of the chest is obtained. FINDINGS: The heart size is normal. The pulmonary vasculature is normal. Right midlung infiltrate remains present. Correlate for pneumonia. Posterior pleural effusions are li zakia present. IMPRESSION: 1. Right midlung pneumonia. 2. Posterior pleural effusions
--- NOTE | 2016-06-21 11:17 | PN ---
DATE OF SERVICE: 06/20/2016 This 60-year-old gentleman was admitted with significant pneumonia, possibly hospital acquired pneumonia, is being closely monitored. Patient also reports MS exacerbation. No chest pain, no palpitation. Complains of extreme weakness. On exam alert and oriented x2. Pulse 89, blood pressure 115/60, respirations 18, temperature normal, pulse ox 98% on room air. HEENT: Conjunctivae normal. NECK: No jugular venous distention. CARDIOVASCULAR SYSTEM: S1, S2 muffled. RESPIRATORY SYSTEM: Breath sounds diminished at the bases. A few scattered rhonchi, no crackles. ABDOMEN: Soft, non-tender. No mass palpable. LEGS: No edema. No swelling. NERVOUS SYSTEM: Diffusely weak. LABS: WBC 13.4. Sodium 140, potassium 3.2. Albumin is 2.5. ASSESSMENT: 1. Acute right-sided pneumonia, multi-lobar, possibly healthcare-associated pneumonia with possible sepsis, present on admission. 2. Increased plasma lactic acid secondary to sepsis, present on admission, improved. 3. Hypokalemia. 4. Increased white blood count. 5. Multiple sclerosis in exacerbation with generalized weakness. 6. Generalized gait dysfunction. 7. History of cirrhosis of the liver. 8. History of memory impairment. 9. Increased bilirubin. 10. History of cerebrovascular accident. 11. History of melanoma. 12. History of steroid-induced diabetes mellitus, type 2. 13. History of chronic low back pain, degenerative joint disease. 14. History of vertigo. 15. History of pseudobulbar effect from multiple sclerosis. 16. Remote history of nicotine dependence. 17. FULL CODE. RECOMMENDATIONS AND DISCUSSION: I recommend to continue with the current medications, continue with the monitoring, symptomatic treatment, continue treatment with broad spectrum IV antibiotics. PT and OT evaluation, Guarded prognosis. Discussed with the family. Further recommendations to follow. MTDD
[2016-06-21 11:52] LABS: Glucose,Whole Blood 169 mg/dL (75-99)
[2016-06-21 17:08] LABS: Glucose,Whole Blood 170 mg/dL (75-99)
--- NOTE | 2016-06-21 17:15 | PN ---
This is a 60-year-old gentleman who was admitted with a diagnosis of CVA, TIAs, cirrhosis of liver memory impairment, and MS. He was recently here for MS exacerbation and he was discharged. Subsequent to that, he came into the hospital with complaints of shortness breath, chest congestion, and significant new infiltrate in the right mid lung and right lower lobe. The patient was started on vancomycin and Ceftazidime. He does feel better. Less coughing. Less chest congestion. In fact, his chest x-ray from today compared to x-rays done on and does show improvement. He still has a right mid lung infiltrate, but some of the basilar infiltrate has improved. Influenza screening and rapid strep testing was negative. So far cultures are all negative. Current vital signs are reviewed. Temperature 98.1, heart rate 78, respiratory 16, blood pressure 114/66, mean 82, room air saturation about 93%. Appears in no acute distress. HEENT examination is grossly unremarkable. Mucous membranes are moist. No oral lesions. Neck is supple. Full range of motion. No adenopathy or thyromegaly. Cardiovascular examination reveals regular rhythm and rate. S1, S2 normal. Lungs reveal diminished breath sounds. A few scattered rhonchi and wheezes on the right side. Crackles on the right side. Breath sounds equal bilaterally. ABDOMEN: Soft. Bowel sounds are heard. No masses or tenderness. EXTREMITIES: Intact. Skin without rash. Labs are reviewed. White count 10.1, hemoglobin 12.4, hematocrit 35.2, platelet count normal. Sodium 141, potassium 3.4, chloride 107, CO2 of 24, BUN and creatinine were 7 and 0.83. The rest of the labs look okay. Microbiology is all negative. Medications are reviewed. Everything seems appropriate. The patient remained on Ceftazidime and vancomycin. ASSESSMENT: 1. Right mid lung, the right lower lobe pneumonia, improved both clinically and radiographically with lower lobe infiltrate, clearing. 2. Recent admissions for multiple sclerosis disease exacerbation. 3. History of memory impairment/dementia. 4. History of liver cirrhosis. 5. History of melanoma. 6. History of pseudobulbar affect. PLAN: The patient is doing reasonably well. His x-ray has improved. Remains on Ceftazidime and Vanco. All his cultures thus far are negative. We will continue to follow. Hopefully discharge in the next day or 2.
[2016-06-21] MEDS: VANCOMYCIN 2,000 MG in SODIUM CHLORIDE 0.9% 500 ML IVPB SCH (18:22)
[2016-06-21] MEDS: ASPIRIN 325 MG TAB PO SCH (20:15)
[2016-06-21 20:59] LABS: Glucose,Whole Blood 155 mg/dL (75-99)
[2016-06-22] MEDS: 0.9% NACL WITH KCL 40 MEQ/L 1,000 ML IV SCH ×2 (02:07→16:40)
[2016-06-22] MEDS: VANCOMYCIN 2,000 MG in SODIUM CHLORIDE 0.9% 500 ML IVPB SCH (05:26)
--- NOTE | 2016-06-22 06:31 | PN ---
DATE OF SERVICE: 06/21/2016 This 60-year-old gentleman who was admitted with significant pneumonia being on broad-spectrum IV antibiotics. No chest pain or palpitations. No fever. The most recent chest x-ray still right side pneumonia. The patient IV antibiotics. PHYSICAL EXAM: The patient is alert and oriented x3. Pulse is 82, blood pressure 139/67, respirations 16, temperature 99.5, pulse ox 92% on room air. HEENT: Conjunctivae normal. NECK: No jugular venous distention. CARDIOVASCULAR: S1 and S2, muffled. RESPIRATORY: Breath sounds diminished at the bases. A few scattered rhonchi and crackles. ABDOMEN: Soft, nontender. LEGS: No edema, no swelling. NERVOUS SYSTEM: No focal deficits. LABS: WBC 10.1, hemoglobin 12.4. Glucose 125. Albumin is 2.8. ASSESSMENT: 1. Acute right sided pneumonia multilobar, possibly healthcare-associated pneumonia with possible sepsis, present on admission. 2. Increased plasma lactic acid secondary to sepsis, present on admission, improved. 3. Hypokalemia. 4. Increased WBC. 5. Multiple sclerosis in exacerbation with generalized weakness. 6. Generalized gait dysfunction. 7. History of cirrhosis of the liver. 8. History of memory impairment. 9. Increased bilirubin. 10. History of cerebrovascular accident. 11. History of melanoma. 12. History of steroid-induced diabetes mellitus type 2. 13. History of chronic low back pain, degenerative joint disease. 14. History of vertigo. 15. History of pseudobulbar Affect from multiple sclerosis. 16. Remote history of nicotine dependence. 17. FULL CODE. RECOMMENDATIONS AND DISCUSSION: Recommend to continue current medications. Continue with monitoring and symptomatic treatment. Otherwise at this time I would recommend continue the broad-spectrum IV antibiotics. Closely monitor. Further recommendations to follow. Pulmonary is following the patient closely. Repeat chest x-ray reviewed. CELINAD
[2016-06-22 07:12] LABS: Glucose,Whole Blood 126 mg/dL (75-99)
[2016-06-22] MEDS: Dalfampridine [Ampyra] 10 MG PO SCH (08:25)
[2016-06-22] MEDS: Dimethyl Fumarate [Tecfidera] 240 MG PO SCH (08:25)
[2016-06-22] MEDS: HEPARIN SODIUM,PORCINE 5,000 UNIT/ML 1 ML VIAL SQ SCH (08:26)
[2016-06-22] MEDS: PANTOPRAZOLE 40 MG TABLET PO SCH (08:26)
[2016-06-22] MEDS: CITALOPRAM HYDROBROMIDE 10 MG TAB PO SCH (08:26)
[2016-06-22] MEDS: INSULIN LISPRO (humaLOG) 300 UNIT/3 ML VIAL SQ SCH ×2 (08:26→12:41)
[2016-06-22] MEDS: MULTIVITAMINS, THERA 1 EACH TAB PO SCH (08:27)
[2016-06-22] MEDS: ALBUTEROL NEBULIZED 2.5 MG/3 ML INHALATION SCH ×3 (08:33→16:01)
[2016-06-22] MEDS: METHYLPHENIDATE HCL 10 MG TAB PO SCH (08:34)
[2016-06-22 08:43] LABS: Basophils % (A) 0 %; CH 31.3; CHCM 34.1; Eosinophils # (A) 0.6 k/uL (0-0.7); Eosinophils % (A) 6 %; HCT 38.8 % (39.0-53.0); HDW 2.69; HGB 12.9 gm/dL (13.0-17.5); Luc # (Auto) 0.26; Luc % (Auto) 3; Lymphocytes # (A) 1.6 k/uL (1.0-4.8); Lymphocytes % (A) 16 %; MCH 30.6 pg (25.0-35.0); MCHC 33.1 g/dL (31.0-37.0); MCV 92.4 fL (80.0-100.0); Mean Platelet Volume 7.1; Monocytes # (A) 0.7 k/uL (0-1.0); Monocytes % (A) 8 %; Neutrophils # (A) 6.6 k/uL (1.3-7.7); Neutrophils % (A) 67 %; RDW 13.4 % (11.5-15.5); WBC 9.8 k/uL (3.8-10.6); WBC (Perox) 9.78
[2016-06-22 09:02] LABS: ALT 48 U/L (21-72); AST 29 U/L (17-59); Alkaline Phosphatase 54 U/L (38-126); Anion Gap 10 mmol/L; Blood Urea Nitrogen 5 mg/dL (9-20); Calcium 8.1 mg/dL (8.4-10.2); Carbon Dioxide 22 mmol/L (22-30); Chloride 108 mmol/L (98-107); Glucose 126 mg/dL (74-99); Non-African American GFR(MDRD) >60 (>60 ml/min/1.73 sqM); Potassium 3.6 mmol/L (3.5-5.1); Sodium 140 mmol/L (137-145); Total Bilirubin 1.4 mg/dL (0.2-1.3)
[2016-06-22] MEDS ORDERED: POTASSIUM CHLORIDE ER 20 MEQ TAB.ER PO STA (10:25)
--- NOTE | 2016-06-22 10:33 | US ---
EXAMINATION TYPE: US abdomen limited DATE OF EXAM: 06/22/2016 10:16 AM COMPARISON: Abdominal x-ray December 30, 2015. CLINICAL HISTORY: assess abdominal fluid please. . Fluid check. No pain or discomfort per patient All four quadrants scanned. No ascites observed. Scanning of bilateral upper and lower quadrant shows no worrisome fluid collection or ascites. Hetero geneous liver is noted suggesting fatty infiltration. IMPRESSION: As above.
--- NOTE | 2016-06-22 10:40 | PN ---
DATE OF SERVICE: 06/21/2016 Reason for follow-up: Pneumonia. INTERVAL HISTORY: The patient is afebrile. He is breathing more comfortably. Cough has decreased in intensity and was unable to provide any sputum so far. The patient denies having any nausea, no vomiting. No abdominal pain. No diarrhea. On examination, blood pressure is 144/82 with a pulse of 72, temperature 98. He is 95% on room air. General description is a middle-age male up in the bed in no distress. RESPIRATORY SYSTEM: Unlabored breathing. Clear to auscultation anteriorly. HEART: S1, S2 with regular rate and rhythm. ABDOMEN: Soft, no tenderness. EXTREMITIES: No edema of feet. LABS: Hemoglobin is 12.4, white count 10.4, admission white count was 11.3, yesterday was 13.5 with a BUN of 7, creatinine 0.83. Blood cultures negative. Sputum not provided. DIAGNOSTIC IMPRESSION AND PLAN: Patient admitted to hospital with pneumonia with concern for likely nosocomial pathogens as the patient was recently admitted to the same facility for MS exacerbation, for which the patient received a dose of steroids. The patient did have history of PENICILLIN ALLERGY currently covered with Fortaz. Vanco will be continued. Try to obtain sputum to narrow down antibiotics. Continue supportive care. MTDD
[2016-06-22] MEDS: FOLIC ACID 1 MG TAB PO SCH (11:16)
[2016-06-22] MEDS: THIAMINE 100 MG TAB PO SCH (11:16)
[2016-06-22 12:27] LABS: Glucose,Whole Blood 122 mg/dL (75-99)
--- NOTE | 2016-06-22 12:58 | PN ---
DATE OF SERVICE: 06/22/2016 Reason for followup is pneumonia. INTERVAL HISTORY: The patient is afebrile, he is currently breathing comfortably. Patient denies significant chest pain or shortness of breath, very minimal cough. No sputum production. No abdominal pain. No nausea, vomiting or any diarrhea. On examination, blood pressure is 145/69 with a pulse of 73, temperature 97.7, he is 94% on room air. General description is a middle-age male, up in the bed in no distress. RESPIRATORY SYSTEM: Unlabored breathing. Some decreased breath sounds at the bases. No wheeze. HEART: S1, S2. Regular rate and rhythm. ABDOMEN: Soft. No tenderness. LABS: Hemoglobin is 12.9, white count of 9.8 with a BUN of 5, creatinine 0.70. DIAGNOSTIC IMPRESSION AND PLAN: Patient with pneumonia, likely nosocomial. Patient improved on ceftazidime and Vanco. Blood culture negative. He was unable to provide any sputum. Plan at this time is to finish therapy with p.o. Avelox 400 daily for about 10 days. Continue supportive care. MTDD
[2016-06-22 15:46] VITALS: BP 139/75; RESP 16; TEMP 98.6
[2016-06-22 16:11] VITALS: PULSE 76
--- NOTE | 2016-06-22 18:43 | P.PN ---
Subjective This is a very pleasant 60-year-old gentleman with a known history of CVA/TIA, cirrhosis of the liver, memory impairment, multiple sclerosis. He was recently here for an exacerbation of his multiple sclerosis treated and released. He reports on the hospital yesterday with aggressive weakness unable to walk and fever. The patient's chest x-ray yesterday showed extensive new consolidation within the right mid and lower lung with trace effusions which were not present on previous chest x-ray on 06/14/2016. Consulted for the same. The patient is seen on the selective care unit today in consultation. He is sitting up in the chair at the bedside. He is awake and alert in no acute distress. He states his breathing is about the same as compared to yesterday. He has a loose nonproductive cough. He's had a T-max of 100.8. He is maintaining good O2 saturations in the mid 90s on room air. He is not tachycardic. Minimal leukocytosis. Initial lactate 2.7, follow-up 1.9. Influenza screen was negative, rapid strep was negative. Blood culture reveals no growth at 24 hours. Urine cultures pending. The patient was seen again today 06/22/2016 in follow-up on the regular medical floor. He is awake and alert in no acute distress. He denies any worsening shortness of breath, cough or congestion. He is maintaining O2 saturations in the low 90s on room air. He is afebrile. He is anxious to go home. Objective - Vital Signs Vital signs: Vital Signs Temp 98.6 F 06/22/16 15:00 Pulse 76 06/22/16 16:10 Resp 16 06/22/16 15:00 BP 139/75 06/22/16 15:00 Pulse Ox 92 L 06/22/16 15:00 Intake & Output 06/21/16 06/22/16 06/22/16 18:59 06:59 18:59 Output Total 725 1100 175 Balance -725 -1100 -175 Output: Urine 725 1100 175 Other: Voiding Method Urinal Urinal # Voids 3 - Exam GENERAL EXAM: Alert, active, comfortable in no apparent distress. HEAD: Normocephalic. EYES: Normal reaction of pupils, equal size. NOSE: Clear with pink turbinates. THROAT: No erythema or exudates. NECK: No masses, no JVD. CHEST: No chest wall deformity. LUNGS: Equal air entry with faint crackles in the right lung base. CVS: S1 and S2 normal with no audible mumurs, regular rhythm. ABDOMEN: No hepatosplenomegaly, normal bowel sounds, no guarding or rigidity. Extremities: There is trace peripheral edema. No clubbing, no cyanosis. Peripheral pulses are intact. Generalized weakness from multiple sclerosis. - Labs CBC & Chem 7: 06/22/16 08:22 06/22/16 08:22 Labs: Abnormal Lab Results - Last 24 Hours (Table) 06/21/16 06/22/16 06/22/16 Range/Units 20:56 07:10 08:22 RBC 4.20 L (4.30-5.90) m/uL Hgb 12.9 L (13.0-17.5) gm/dL Hct 38.8 L (39.0-53.0) % Chloride (98-107) mmol/L BUN (9-20) mg/dL Glucose (74-99) mg/dL POC Glucose (mg/dL) 155 H 126 H (75-99) mg/dL Calcium (8.4-10.2) mg/dL Total Bilirubin (0.2-1.3) mg/dL Total Protein (6.3-8.2) g/dL Albumin (3.5-5.0) g/dL 06/22/16 06/22/16 Range/Units 08:22 12:25 RBC (4.30-5.90) m/uL Hgb (13.0-17.5) gm/dL Hct (39.0-53.0) % Chloride 108 H (98-107) mmol/L BUN 5 L (9-20) mg/dL Glucose 126 H (74-99) mg/dL POC Glucose (mg/dL) 122 H (75-99) mg/dL Calcium 8.1 L (8.4-10.2) mg/dL Total Bilirubin 1.4 H (0.2-1.3) mg/dL Total Protein 6.0 L (6.3-8.2) g/dL Albumin 3.1 L (3.5-5.0) g/dL Microbiology - Last 24 Hours (Table) 06/18/16 16:05 Blood Culture - Preliminary Blood No Growth after 96 hours Assessment and Plan Plan: Impression: #1 Acute mid and lower right lung pneumonia suspect hospital-acquired during recent admission. #2 Recent admission for multiple sclerosis exacerbation. #3 History of memory impairment. #4 Cirrhosis of the liver. #5 History of melanoma removed from right chest. 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 Plan: The patient was seen and evaluated by Dr. Jiang. He is cleared for discharge from the pulmonary standpoint however both he and his are both encouraged to follow-up in our office later this week to repeat his chest x-ray and undergo further recommendations based on the findings. He will continue his current pulmonary medications and complete his course of antibiotics.
[2016-06-23] MEDS ORDERED: VANCOMYCIN TROUGH DUE 1 EACH MISC MISCELLANE ONE (05:00)
--- NOTE | 2016-06-23 10:11 | DS ---
DATE OF ADMISSION: 06/18/2016 DATE OF DISCHARGE: 06/22/2016 FINAL DIAGNOSES: 1. Acute right-sided pneumonia, multilobar, possibly healthcare-associated pneumonia with possible sepsis, present on admission. 2. Increased plasma lactic acid secondary to sepsis, present on admission. 3. Hypokalemia, present on admission. 4. Increased WBC. 5. Multiple sclerosis, acute exacerbation, generalized weakness recently. 6. Generalized gait dysfunction. 7. History of cirrhosis of liver. 8. History of memory impairment. 9. History of increased bilirubin. 10. History of cerebrovascular accident. 11. History of melanoma. 12. History of steroid-induced diabetes mellitus type 2. 13. History of chronic low back pain, degenerative joint disease. 14. History of vertigo. 15. History of pseudobulbar affect from multiple sclerosis. 16. Remote history of nicotine dependence. 17. FULL CODE. DISCHARGE DISPOSITION: The patient will be discharged in stable condition with a guarded prognosis. HISTORY OF PRESENT ILLNESS: This 60-year-old gentleman with a past medical history of multiple medical problems admitted with acute healthcare-associated pneumonia thought to be multilobar. The patient was treated with IV antibiotics. The patient improved significantly. The patient also seen by Infectious Disease. On exam, vital signs stable. CARDIOVASCULAR SYSTEM: S1, S2 muffled RESPIRATORY: A few scattered rhonchi. ABDOMEN: Soft and nontender. The patient was treated with IV ceftazidime and as well as vanco. The cultures are negative so far. DISCHARGE ADVICE AND MEDICATIONS: 1. Diet is cardiac. 2. Activity limited until family history. 3. Follow up with Dr. Conteh in 2 to 3 days. 4. Follow up with Dr. Goldstein and Dr. Jiang is recommended. 5. Medications are: a. Albuterol updrafts q.i.d. and p.r.n. b. Albuterol inhaler q.i.d. and p.r.n. c. Aspirin 325 mg q.h.s. d. Celexa 10 mg daily. e. Ampyra 10 mg p.o. b.i.d. f. Tecfidera 240 mg p.o. b.i.d. g. Folic acid 1 mg p.o. daily. h. Zestril 10 mg p.o. daily. i. Ritalin 10 mg p.o. b.i.d. j. Avelox 400 mg p.o. daily for 10 days per ID. k. Multivitamin 1 p.o. daily. l. Thiamine 100 mg p.o. daily. Once again, the patient will discharged in stable condition with guarded prognosis.
== END 2016-06-22 16:41 | disposition home health service (06) | DRG 871 ==
LOC: EC 11:33 → 6SEL 13:01 → 4MS4W 06-21 09:52
PROVIDERS: ADMIT Hospitalist; ATTEND Hospitalist
DX: A41.9 Sepsis, unspecified organism (principal); J18.9 Pneumonia, unspecified organism; F03.90 Unspecified dementia, unspecified severity, without behavioral disturbance, psychotic disturbance, mood disturbance, and anxiety; G35 Multiple sclerosis; E87.6 Hypokalemia; F48.2 Pseudobulbar affect; F90.9 Attention-deficit hyperactivity disorder, unspecified type; G89.29 Other chronic pain; I10 Essential (primary) hypertension; E09.9 Drug or chemical induced diabetes mellitus without complications; T38.0X5A Adverse effect of glucocorticoids and synthetic analogues, initial encounter; K74.60 Unspecified cirrhosis of liver; M54.9 Dorsalgia, unspecified; R65.20 Severe sepsis without septic shock; Z79.899 Other long term (current) drug therapy; Z79.82 Long term (current) use of aspirin; Z82.49 Family history of ischemic heart disease and other diseases of the circulatory system; Z85.820 Personal history of malignant melanoma of skin; Z86.73 Personal history of transient ischemic attack (TIA), and cerebral infarction without residual deficits; Z87.891 Personal history of nicotine dependence; Z88.0 Allergy status to penicillin
CPT/HCPCS: 36415; 71020; 76705; 80053; 80202; 81003; 82550; 82553; 83036; 83605; 83735; 84484; 85025; 85610; 85730; 87040; 87081; 87086; 87430; 87502; 93005; 94640; 94760

== ENCOUNTER → 2017-01-07 | Outpatient (CLI) | payer MEDICARE ==
[2017-01-07 10:46] LABS: Blood Urea Nitrogen 8 mg/dL (9-20); Non-African American GFR(MDRD) >60 (>60 ml/min/1.73 sqM)
--- NOTE | 2017-01-07 13:44 | MR ---
EXAMINATION TYPE: MR brain/cspine wo/w DATE OF EXAM: 01/07/2017 COMPARISON: MRI brain February 17, 2016. MRI cervical spine June 22, 2014. HISTORY: MS, Cervicalgia TECHNIQUE: Multiplanar, multisequence images of the cervical spine, brain, and brainstem are all performed witho ut and with IV contrast, utilizing 9.5 mL intravenous Gadavist gadolinium contrast is administered in travenously. Demyelinating disease protocol with additional Sagittal Flair sequence performed of the brain and brainstem and PD sagittal sequence of cervical spine performed. FINDINGS: BRAIN: T2 Lesions Present : Yes Approximate Number of Lesions: Difficult to accurately quantify due to confluent periventricular appe arance Locations Identified : Large confluent deep and periventricular lesions Size of Reference Lesion(s): 1. 0.8 cm x 0.8 cm x 0.8 cm on axial image 20 and sagittal image 28 right parietal lesion is slightl y less well-defined on current study 2 # cm x # cm x # cm on axial image # and sagittal image # Enhancing Lesion(s) Present: No T1 Hypointense Lesion(s) Present: Yes Change from Prior: Grossly stable Diffusion weighted images demonstrate no evidence of a recent infarct or other diffusion abnormality. There is no worrisome extra-axial fluid collection. There is ventricular and sulcal prominence cons istent with diffuse cerebral atrophy. Midline structures demonstrate normal morphology. The craniocervical junction appears within normal limits. Post contrast images demonstrate no abnormal enhancement. The dural venous sinuses appear pa tent. The visualized sinuses are clear and the globes are intact. IMPRESSION: There is moderate diffuse cerebral atrophy and severe nonspecific white matter changes mo st likely on basis of combination of known multiple sclerosis and chronic small vessel ischemic sheth e. No enhancing lesions are seen. No significant change from prior study is clearly identified. C-SPINE: FINDINGS: Sagittal images of the cervical spine show the craniocervical junction to remainder within normal limits. The cervical and upper thoracic spinal cord shows vague areas of increased T2 hyperin tensity at several levels on sagittal image 6 and 8 for reference felt new from prior study. For refe rence area right inferior C3-C4 level correlates on axial image 42 of vague T2 hyperintense lesion at this level. No definitive enhancing lesions are present. Vertebral alignment is anatomic. There is m ild to moderate disc space narrowing C5-C6 and C6-C7 levels redemonstrated. Small posterior disc her niations are seen at these levels on sagittal images. The vertebral body and intravertebral disk heig hts otherwise are normal. The bone marrow signal intensity is within normal limits. No abnormal enha ncement is clearly identified. Axial images at C2-C3 level show right-sided uncovertebral facet degenerative changes causing mild ri ght-sided neural foraminal narrowing on current study. Axial images at C3-C4 level show broad-based right paracentral disc protrusion effacing anterior late ral thecal sac asymmetric mild to moderate right greater than left neural foraminal narrowing seen. F indings have progressed from prior study. Axial images at C4-C5 level show broad-based posterior disc protrusion effacing anterolateral thecal sac with moderate right and mild left-sided neural foraminal narrowing identified. Axial images at C5-C6 level show left foraminal/paracentral disc protrusion effacing anterolateral th ecal sac and causing advanced left-sided neural foraminal narrowing, there is mild to moderate right- sided neural foraminal narrowing seen. Axial images at C6-C7 level show broad-based posterior disc protrusion effacing anterior thecal sac c ausing mild to moderate left greater than right neural foraminal narrowing. Axial images at C7-T1 levels are felt within normal limits. There are multiple small nodules seen better on current study in a small size thyroid gland. IMPRESSION: Redemonstration of multilevel degenerative changes in the cervical spine as detailed abov e with progression in findings felt present from prior study, most severe level C5-C6 level is fairly stable. There is suspected new demyelinating disease involvement the cervical spinal cord with vague lesions noted. No enhancing lesions are seen.
== END | disposition home or self-care (01) ==
LOC: RADMRIMAIN 09:57
PROVIDERS: ATTEND Nurse Practitioner Acute Care
DX: M47.812 Spondylosis without myelopathy or radiculopathy, cervical region (principal); G31.9 Degenerative disease of nervous system, unspecified; R90.82 White matter disease, unspecified; Z88.0 Allergy status to penicillin
CPT/HCPCS: 82565; 84520; 70553; 72156; 36415; A9581

== ENCOUNTER → 2017-11-17 | Outpatient (CLI) | payer MEDICARE ==
[2017-11-17 11:54] LABS: Blood Urea Nitrogen 12 mg/dL (9-20)
--- NOTE | 2017-11-17 13:57 | MR ---
EXAMINATION TYPE: MR brain/cspine wo/w DATE OF EXAM: 11/17/2017 COMPARISON: MRI brain and cervical spine January 07, 2017. HISTORY: Multiple sclerosis / Cervicalgia TECHNIQUE: Multiplanar, multisequence images of the cervical spine, brain, and brainstem are all performed witho ut and with IV contrast, utilizing 9.5 mL intravenous Gadavist gadolinium contrast is administered in travenously. Demyelinating disease protocol with additional Sagittal Flair sequence performed of the brain and brainstem and PD sagittal sequence of cervical spine all acquired. FINDINGS: BRAIN: T2 Lesions Present : Yes Approximate Number of Lesions: Difficult to accurately quantify due to confluent periventricular appe arance similar prior Locations Identified : No definitive infratentorial involvement. Size of Reference Lesion(s): 1. Roughly 8 x 8 x 7 mm lesion on axial image 21 and sagittal image 29 right parietal lesion not sign ificantly changed from prior Enhancing Lesion(s) Present: No T1 Hypointense Lesion(s) Present: Yes Change from Prior: Stable, Increase in number, decrease Diffusion weighted images demonstrate no evidence of a recent infarct or other diffusion abnormality. There is no worrisome extra-axial fluid collection. There is ventricular and sulcal prominence cons istent with diffuse cerebral atrophy redemonstrated. Midline structures demonstrate normal morphology. The craniocervical junction appears within normal limits. Post contrast images demonstrate no abnormal enhancement. The dural venous sinuses appear pa tent. Mild mucosal thickening in the right maxillary sinus is redemonstrated. Remainder paranasal sin uses are clear. The globes are intact bilaterally.. IMPRESSION: Moderate diffuse cerebral atrophy and moderate to severe nonspecific white matter changes redemonstrated. No new or enhancing lesions are seen. No significant change from prior. FINDINGS: Sagittal images of the cervical spine show the craniocervical junction to remain within nor mal limits. The cervical and upper thoracic spinal cord redemonstrates vague areas of T2 hyperintens ity throughout its entire course, for reference there is stable 4 mm posterior lesion at superior C4 level sagittal image 6. No new or enhancing lesions are clearly seen. There is slight grade 1 retroli sthesis of C5 on C6 redemonstrated felt stable in retrospect. The vertebral body heights remain norm al. Mild to moderate disc space narrowing C5-C6 and C6-C7 levels is redemonstrated with posterior dis c herniations effacing anterior thecal sac at these levels on sagittal images. The bone marrow signal intensity is within normal limits. No suspicious enhancement is noted. Mild multilevel anterior spur ring mid to lower cervical spine is present. Axial images at the C2-C3 level shows right-sided uncovertebral facet degenerative changes contributi ng to mild to moderate right-sided neural foraminal narrowing. No significant change from prior. Axial images at C3-C4 level show broad-based right paracentral disc protrusion effacing anterolateral thecal sac with uncovertebral facet degenerative changes bilaterally causing mild to moderate right greater than left bilateral neural foraminal narrowing. No significant change from prior. Axial images at C4-C5 level show broad-based right paracentral disc protrusion effacing anterolateral thecal sac with moderate right and mild left-sided neural foraminal narrowing redemonstrated. Axial images at C5-C6 level show broad-based left paracentral/foraminal disc protrusion effacing ante rolateral thecal sac and causing advanced left-sided neural foraminal narrowing. There is mild/modera te right-sided neural foraminal narrowing due to marginal spur disc complex. No significant change fr om prior. Axial images at C6-C7 level show broad-based posterior disc protrusion effacing anterior thecal sac w ith moderate bilateral neural foraminal narrowing seen. Axial images at C7-T1 level are felt within normal limits. There is less well-visualized subcentimeter left thyroid nodule axial image 18 noted on current study . Smaller nodules are better seen on prior exam in the small size thyroid which is redemonstrated. IMPRESSION: Overall stable multilevel degenerative changes and stable scattered nonspecific white mat ter lesions in the cervical spinal cord.
[2017-11-17 15:00] LABS: Basophils # (A) 0.1 k/uL (0-0.2); Basophils % (A) 1 %; Eosinophils # (A) 0.4 k/uL (0-0.7); Eosinophils % (A) 5 %; HCT 42.4 % (39.0-53.0); HGB 14.1 gm/dL (13.0-17.5); Lymphocytes # (A) 2.2 k/uL (1.0-4.8); Lymphocytes % (A) 27 %; MCH 30.6 pg (25.0-35.0); MCHC 33.2 g/dL (31.0-37.0); MCV 92.1 fL (80.0-100.0); Mean Platelet Volume 7.1; Monocytes # (A) 0.6 k/uL (0-1.0); Monocytes % (A) 7 %; Neutrophils # (A) 4.9 k/uL (1.3-7.7); Neutrophils % (A) 59 %; Platelet Count 229 k/uL (150-450); RDW 13.8 % (11.5-15.5); WBC 8.3 k/uL (3.8-10.6)
[2017-11-17 15:07] LABS: ALT 43 U/L (21-72); AST 32 U/L (17-59); Albumin 4.5 g/dL (3.5-5.0); Alkaline Phosphatase 44 U/L (38-126); Anion Gap 10 mmol/L; Blood Urea Nitrogen 11 mg/dL (9-20); Calcium 9.5 mg/dL (8.4-10.2); Carbon Dioxide 27 mmol/L (22-30); Chloride 106 mmol/L (98-107); Glucose 89 mg/dL (74-99); Sodium 143 mmol/L (137-145); Total Bilirubin 1.6 mg/dL (0.2-1.3); Total Protein 7.5 g/dL (6.3-8.2)
[2017-11-17 18:44] LABS: Vitamin D 25 Hydroxy 21.3 ng/mL (30.0-100.0)
== END | disposition home or self-care (01) ==
LOC: RADMRIMAIN 11:16
PROVIDERS: ATTEND Psychiatry & Neurology Neurology
DX: G31.9 Degenerative disease of nervous system, unspecified (principal); R90.89 Other abnormal findings on diagnostic imaging of central nervous system; M47.812 Spondylosis without myelopathy or radiculopathy, cervical region; G95.9 Disease of spinal cord, unspecified; E55.9 Vitamin D deficiency, unspecified; R53.83 Other fatigue; R41.3 Other amnesia
CPT/HCPCS: 84207; 80053; 82607; 82565; 84520; 85025; 82306; 70553; 72156; 36415; A9581

== ENCOUNTER → 2017-12-24 | Outpatient (CLI) | payer MEDICARE ==
[2017-12-24 12:07] LABS: Basophils # (A) 0.1 k/uL (0-0.2); Basophils % (A) 1 %; Eosinophils # (A) 0.3 k/uL (0-0.7); Eosinophils % (A) 4 %; HCT 39.5 % (39.0-53.0); HGB 12.9 gm/dL (13.0-17.5); Lymphocytes # (A) 2.1 k/uL (1.0-4.8); Lymphocytes % (A) 26 %; MCH 29.7 pg (25.0-35.0); MCHC 32.7 g/dL (31.0-37.0); MCV 90.8 fL (80.0-100.0); Monocytes # (A) 0.6 k/uL (0-1.0); Monocytes % (A) 7 %; Neutrophils # (A) 4.8 k/uL (1.3-7.7); Neutrophils % (A) 60 %; Platelet Count 283 k/uL (150-450); RBC 4.35 m/uL (4.30-5.90); RDW 13.9 % (11.5-15.5)
[2017-12-24 19:14] LABS: Albumin 4.5 g/dL (3.80-4.90); Albumin/Globulin Ratio 2.25 (1.20-2.10); Anion Gap 10.8 mmol/L (4.00-12.00); Calcium 9.2 mg/dL (8.7-10.3); Carbon Dioxide 25.2 mmol/L (21.6-31.8); Potassium 3.8 mmol/L (3.5-5.5); Total Bilirubin 1.9 mg/dL (0.3-1.2); Total Protein 6.5 g/dL (6.2-8.2)
[2017-12-24 19:25] LABS: Vitamin D 25 Hydroxy 45.4 ng/mL (30.0-100.0)
[2017-12-24 19:54] LABS: Hepatitis B Surface AB- Quant 3.5 mIU/mL
[2017-12-24 19:55] LABS: Hepatitis B Core IgM Non-Reactive (Non-Reactive)
== END | disposition home or self-care (01) ==
LOC: LABWHC1 11:08
PROVIDERS: ATTEND Nurse Practitioner Acute Care
DX: E55.9 Vitamin D deficiency, unspecified (principal); G35 Multiple sclerosis; R53.83 Other fatigue; Z51.81 Encounter for therapeutic drug level monitoring
CPT/HCPCS: 36415; 80053; 82306; 82607; 84207; 85025; 86704; 86705; 86706; 86787; 87340

== ENCOUNTER 2018-04-14 22:06 | Emergency (ER) | payer MEDICARE ==
[2018-04-14 22:23] VITALS: RESP 18
--- NOTE | 2018-04-14 23:38 | CT ---
EXAM: CT Head Without Intravenous Contrast CLINICAL HISTORY: ITS.REASON CT Reason: Pain TECHNIQUE: Axial computed tomography images of the head/brain without intravenous contrast. CTDI is 49.1 mGy and DLP is 1117.4 mGy-cm. This CT exam was performed using one or more of the following dose reduction techniques: automated exposure control, adjustment of the mA and/or kV according to patient size, and/or use of iterative reconstruction technique. COMPARISON: 06/14/16 FINDINGS: Brain: No visualized acute intracranial hemorrhage. No current CT evidence for cortical edema or mass effect. Global cortical involutional changes are present. There are scattered white matter hypodensities bilaterally which are nonspecific, though typically are seen in the setting of chronic small vessel ischemia. Ventricles: Stable ventricular enlargement, likely related to degree of cortical volume loss. Bones/joints: Unremarkable. No acute fracture. Soft tissues: Unremarkable. Sinuses: Unremarkable as visualized. No acute sinusitis. Mastoid air cells: Unremarkable as visualized. No mastoid effusion. IMPRESSION: No acute intracranial findings. Chronic findings are noted as above.
--- NOTE | 2018-04-14 23:51 | XR ---
EXAM: XR Left Shoulder Complete, 2 or More Views CLINICAL HISTORY: ITS.REASON XR Reason: Pain TECHNIQUE: Two or more views of the left shoulder. COMPARISON: No relevant prior studies available. FINDINGS: Bones/joints: Mild hypertrophic changes at the acromioclavicular joint. Glenohumeral joint is intact. Likely early osteophytosis noted at the humeral head. No visualized fracture. No dislocation. Soft tissues: Unremarkable. IMPRESSION: 1. Mild left glenohumeral as well as acromioclavicular arthropathy. No evidence for acute fracture or malalignment.
--- NOTE | 2018-04-15 00:14 | ED ---
Fall HPI - General Chief Complaint: Fall Stated Complaint: Fall, head injury Time Seen by Provider: 04/14/18 22:30 Source: family, RN/MD, RN notes reviewed, old records reviewed Mode of arrival: wheelchair - History of Present Illness Initial Comments: 62 year old male with history of MS presents with 2 falls in 2 days. Patient reports that he fell yesterday outside after slipping on ice, he complains of L shoulder pain. Patient reports today decrease ROM of L shoulder. HE had another episode of falling where he slipped on kitchen floor and hit head on chair. He sustained laceration over the bakc of his scalp. ANd patient had no LOC. He denies neck pain. Denies CP, SOB, headache, Vison changes, no vomiting or nausea. Pt was broughin by his sister and niece. - Related Data Home Medications Medication Instructions Recorded Confirmed Aspirin 325 mg PO HS 08/25/15 04/14/18 Citalopram Hydrobromide [CeleXA] 10 mg PO QAM 08/25/15 04/14/18 Dalfampridine [Ampyra] 10 mg PO BID 08/25/15 04/14/18 Multivitamin [Men's Multi-Vitamin] 1 tab PO DAILY 08/25/15 04/14/18 Ascorbic Acid [Vitamin C] 1,000 mg PO DAILY 04/14/18 04/14/18 Baclofen [Lioresal] 20 mg PO TID PRN 04/14/18 04/14/18 Cholecalciferol (Vitamin D3) 2,000 unit PO DAILY 04/14/18 04/14/18 [Vitamin D3] Meclizine HCl 25 mg PO BID PRN 04/14/18 04/14/18 metFORMIN HCL 1,000 mg PO BID 04/14/18 04/14/18 Previous Rx's Medication Instructions Recorded Lisinopril [Zestril] 10 mg PO DAILY #30 tab 06/17/16 Ibuprofen 600 mg PO TID #20 tablet 04/15/18 Allergies Allergy/AdvReac Type Severity Reaction Status Date / Time Penicillins Allergy Rash/Hives Verified 04/14/18 22:48 Review of Systems ROS Statement: Those systems with pertinent positive or pertinent negative responses have been documented in the HPI. ROS Other: All systems not noted in ROS Statement are negative. Past Medical History Past Medical History: Cancer, CVA/TIA, Liver Disease, Memory Impairment, Musculoskeletal Disorder, Neurologic Disorder Additional Past Medical History / Comment(s): CVA, MS, CIRRHOSIS OF THE LIVER, melanoma with removal, elevated blood sugar with steroid use, chronic low back pain, arthritis bilateral shoulders, tinnitis bilaterally, vertigo. History of Any Multi-Drug Resistant Organisms: None Reported Past Surgical History: Appendectomy Additional Past Surgical History / Comment(s): melanoma removed right side of chest, lymph nodes, EGD/colonoscopy, tilt table test.. Past Anesthesia/Blood Transfusion Reactions: No Reported Reaction Past Psychological History: No Psychological Hx Reported Smoking Status: Former smoker Past Alcohol Use History: None Reported Past Drug Use History: None Reported - Past Family History Mother Family Medical History: Pneumonia Father Family Medical History: Myocardial Infarction ([place]) General Exam - General Exam Comments Initial Comments: pleasnt laughing 62 year old male. with falls. No distress. Limitations: no limitations General appearance: alert, in no apparent distress Head exam: Present: normocephalic, normal inspection. Absent: atraumatic (3cm well closed laceration over posterior scalp) Eye exam: Present: normal appearance, PERRL, EOMI. Absent: scleral icterus, conjunctival injection, periorbital swelling ENT exam: Present: normal exam, mucous membranes moist Neck exam: Present: normal inspection. Absent: tenderness, meningismus, lymphadenopathy GI/Abdominal exam: Present: soft, normal bowel sounds. Absent: distended, tenderness, guarding, rebound, rigid Extremities exam: Present: normal inspection, full ROM, normal capillary refill. Absent: tenderness, pedal edema, joint swelling, calf tenderness Left Shoulder Exam: Present: tenderness (over deltoid and any ROM abobe head. ). Absent: normal inspection, full ROM (not able to abduct greater than 70 degrees. ) Upper Arm exam: Present: normal inspection, full ROM Back exam: Present: normal inspection Neurological exam: Present: alert, oriented X3, CN II-XII intact Expanded Patient oriented to: Present: person, place, time Speech: Present: fluid speech Cranial nerves: Facial Sensation: Normal Cerebellar function: Finger to Nose: Normal Upper motor neuron: Pronator Drift: Normal, Sensory Extinction: Normal Sensory exam: Upper Extremity Light Touch: Normal, Lower Extremity Light Touch: Normal Motor strength exam: RUE: 5, LUE: 5, RLE: 5, LLE: 5 [place] Total: 15 Course Vital Signs 04/14/18 04/15/18 04/15/18 22:21 00:34 01:03 Temperature 98.3 F 98.4 F Pulse Rate 98 81 Respiratory 18 18 Rate Blood Pressure 184/104 140/87 O2 Sat by Pulse 97 95 Oximetry Procedures - Laceration Laceration #1 Site: scalp (posterior left scalp) Size (cm): 3 Description: linear Depth: simple, single layer Type of Sutures: other (dermabon) Patient Tolerated Procedure: well, no complications Medical Decision Making - Medical Decision Making 62 year old male with 2 falls, complaining of L shoulder and head injury. Patient has evidence of likely rotator cuff injury of L shouler with limited ROM and pain. Patient offered sling nad he refused. Discussed ortho follow up. CT brain is normal and neagtive for acute disease. He has no neurodeficits and has no extremity weakness. Wound was closed with dermabond. Patient is supposed to see neurologist next few days to start infusion for MS. Offered further work up for frequent falls and patient refuses labs or the necessity to transfer to [facility] for neuro consult. Patient is stable for DC home with care of family. Discussed return paramters. - Radiology Data Radiology results: report reviewed CT of the brain is negative for any acute intracranial findings. Chronic findings as noted above showing global cortical involution changes are present. Scattered white matter hypodensities bilaterally which are nonspecific although seen in the setting chronic vessel ischemia. Shoulder x-ray shows mild left glenohumeral as well as acromioclavicular arthropathy. No evidence for acute fracture or malalignment. Disposition Clinical Impression: Fall, Scalp laceration, RCT (rotator cuff tear) Disposition: HOME SELF-CARE Condition: Good Instructions (If sedation given, give patient instructions): Rotator Cuff Injury (ED), Fall Prevention (ED) Additional Instructions: Patient advised to follow-up with primary care physician and neurology. Follow- up with human services care specialist. Motrin and Tylenol for pain. Patient should return to the emergency department if any alarming signs or symptoms occur. Prescriptions: Ibuprofen 600 mg PO TID #20 tablet Is patient prescribed a controlled substance at d/c from ED?: No Referrals: Valerie Conteh MD [Primary Care Provider] - 1-2 days Michael Bernal DO [Doctor of Osteopathic Medicine] - 1-2 days Time of Disposition: 00:12
[2018-04-15] MEDS: TOPICAL SKIN ADHESIVE 1 EACH AMP TOPICAL ONE (00:34)
[2018-04-15 00:36] VITALS: BP 140/87; PULSE 81
[2018-04-15 01:05] VITALS: TEMP 98.4
== END 2018-04-15 00:55 | disposition home or self-care (01) ==
LOC: EC 22:06
DX: S01.01XA Laceration without foreign body of scalp, initial encounter (principal); S46.012A Strain of muscle(s) and tendon(s) of the rotator cuff of left shoulder, initial encounter; M19.012 Primary osteoarthritis, left shoulder; Z79.82 Long term (current) use of aspirin; Z79.899 Other long term (current) drug therapy; Z79.84 Long term (current) use of oral hypoglycemic drugs; Z88.0 Allergy status to penicillin; Z87.891 Personal history of nicotine dependence; Z86.73 Personal history of transient ischemic attack (TIA), and cerebral infarction without residual deficits; Z85.820 Personal history of malignant melanoma of skin; W00.0XXA Fall on same level due to ice and snow, initial encounter; Y92.000 Kitchen of unspecified non-institutional (private) residence as the place of occurrence of the external cause
CPT/HCPCS: 12002; 70450; 99284

== ENCOUNTER → 2018-06-14 | Outpatient (CLI) | payer MEDICARE ==
--- NOTE | 2018-06-14 17:11 | XR ---
EXAMINATION TYPE: XR Hip Complete LT DATE OF EXAM: 06/14/2018 COMPARISON: None HISTORY: Left hip pain, fall 2 days prior TECHNIQUE: 2 views left hip FINDINGS: Femoral head articulates with the acetabulum. No acute fractures evident. Joint spaces pres erved Vascular calcification is present. IMPRESSION: 1. No acute osseous abnormality left hip
== END ==
LOC: RADXRMAIN 11:31
PROVIDERS: ATTEND Internal Medicine
DX: M25.552 Pain in left hip (principal)
CPT/HCPCS: 73502

== ENCOUNTER → 2020-06-18 | Outpatient (CLI) | payer MEDICARE ==
[2020-06-18 20:59] LABS: Basophils # (A) 0.07 X 10*3/uL (0.00-0.10); Basophils % (A) 0.9 %; Eosinophils # (A) 0.23 X 10*3/uL (0.04-0.35); Eosinophils % (A) 3.1 %; HCT 44.6 % (39.6-50.0); HGB 14.7 g/dL (13.0-17.0); MCH 30.8 pg (27.0-32.0); MCV 93.3 fL (80.0-97.0); Mean Platelet Volume 11.2 fL (9.5-12.2); Monocytes % (A) 10.8 %; Neutrophils # (A) 4.55 X 10*3/uL (1.80-7.70); Neutrophils % (A) 61.5 %; Platelet Count 244 X 10*3/uL (140-440); RBC 4.78 X 10*6/uL (4.40-5.60); RDW 13.3 % (11.5-14.5)
[2020-06-19 19:21] LABS: African American GFR (CKD) 80.6 (60.0-200.0); Albumin/Globulin Ratio 2.5 (1.60-3.17); Anion Gap 18.1 mmol/L (4.00-12.00); BUN/Creat Ratio 11.82 Ratio (12.00-20.00); Calcium 10.2 mg/dL (8.7-10.3); Carbon Dioxide 18.9 mmol/L (21.6-31.8); Non-African American GFR(CKD) 69.6 (60.0-200.0); Potassium 4.4 mmol/L (3.5-5.5); Total Bilirubin 1.4 mg/dL (0.3-1.2)
== END | disposition home or self-care (01) ==
LOC: LABWHC1 09:06
PROVIDERS: ATTEND Psychiatry & Neurology Neurology
DX: Z51.81 Encounter for therapeutic drug level monitoring (principal); G35 Multiple sclerosis
CPT/HCPCS: 36415; 80053; 82306; 82607; 84207; 85025

== ENCOUNTER 2020-12-30 10:58 | Inpatient (IN) | payer MEDICARE ==
[2020-12-30] MEDS ORDERED: SODIUM CHLORIDE 0.9% 500 ML 500 ML IV ONE (11:26)
[2020-12-30] MEDS ORDERED: MORPHINE SULFATE 4 MG/ML SYRINGE IVP STA ×2 (11:27→15:45)
--- NOTE | 2020-12-30 11:32 | ED ---
General Adult HPI - General Chief complaint: Fall Stated complaint: Fall Time Seen by Provider: 12/30/20 11:07 Source: EMS, RN notes reviewed Mode of arrival: EMS Limitations: altered mental status - History of Present Illness Initial comments: 65-year-old male with a past medical history of CVA, liver disease, mild dementia presents to the emergency room for a chief complaint of fall. Patient lives in an apartment. He does have a caregiver. The caregiver tried calling him all day yesterday and could not get through to him. She called him this m orning and he did not answer therefore she went to his house. She found him on the floor by the bed. States he was in a lot of pain and could not get up. She had to call 911 and they helped him onto the stretcher. He has been complaining of left wrist and left hip pain. Patient is confused. He does not know how long he was on the floor for. He states his ex- was around yesterday and this morning and he fell because of a dog but the caregiver does not believe this to be true. He denies head or neck pain.Patient has no other complaints at this time including shortness of breath, chest pain, abdominal pain, nausea or vomiting, headache, or visual changes. - Related Data Home Medications Medication Instructions Recorded Confirmed Aspirin 325 mg PO HS 08/25/15 04/14/18 Citalopram Hydrobromide [CeleXA] 10 mg PO QAM 08/25/15 04/14/18 Dalfampridine [Ampyra] 10 mg PO BID 08/25/15 04/14/18 Multivitamin [Men's Multi-Vitamin] 1 tab PO DAILY 08/25/15 04/14/18 Ascorbic Acid [Vitamin C] 1,000 mg PO DAILY 04/14/18 04/14/18 Baclofen [Lioresal] 20 mg PO TID PRN 04/14/18 04/14/18 Cholecalciferol (Vitamin D3) 2,000 unit PO DAILY 04/14/18 04/14/18 [Vitamin D3] Meclizine HCl 25 mg PO BID PRN 04/14/18 04/14/18 metFORMIN HCL [Glucophage] 1,000 mg PO BID 04/14/18 04/14/18 Previous Rx's Medication Instructions Recorded lisinopriL [Zestril] 10 mg PO DAILY #30 tab 06/17/16 Ibuprofen 600 mg PO TID #20 tablet 04/15/18 Allergies Allergy/AdvReac Type Severity Reaction Status Date / Time Penicillins Allergy Rash/Hives Verified 04/14/18 22:48 Review of Systems ROS Statement: Those systems with pertinent positive or pertinent negative responses have been documented in the HPI. ROS Other: All systems not noted in ROS Statement are negative. Past Medical History Past Medical History: Cancer, CVA/TIA, Liver Disease, Memory Impairment, Musculoskeletal Disorder, Neurologic Disorder Additional Past Medical History / Comment(s): CVA, MS, CIRRHOSIS OF THE LIVER, melanoma with removal, elevated blood sugar with steroid use, chronic low back pain, arthritis bilateral shoulders, tinnitis bilaterally, vertigo. History of Any Multi-Drug Resistant Organisms: None Reported Past Surgical History: Appendectomy Additional Past Surgical History / Comment(s): melanoma removed right side of chest, lymph nodes, EGD/colonoscopy, tilt table test.. Past Anesthesia/Blood Transfusion Reactions: No Reported Reaction Past Psychological History: No Psychological Hx Reported Smoking Status: Former smoker Past Alcohol Use History: None Reported Past Drug Use History: None Reported - Past Family History Mother Family Medical History: Pneumonia Father Family Medical History: Myocardial Infarction ([place]) General Exam - General Exam Comments Initial Comments: Patient does have generalized tenderness of the left wrist with erythema noted to the dorsal aspect. Radial pulse 2+. Capillary refill less than 2 seconds. No tenderness in the left hand. Limitations: altered mental status General appearance: alert, in no apparent distress Head exam: Present: atraumatic Eye exam: Present: normal appearance, PERRL, EOMI. Absent: scleral icterus, conjunctival injection ENT exam: Present: normal exam, mucous membranes moist Neck exam: Present: normal inspection, full ROM. Absent: tenderness Respiratory exam: Present: normal lung sounds bilaterally. Absent: respiratory distress, wheezes Cardiovascular Exam: Present: regular rate, normal rhythm, normal heart sounds GI/Abdominal exam: Present: soft, normal bowel sounds. Absent: distended, tenderness Extremities exam: Present: normal capillary refill (Refill less than 2 seconds of lower extremity.), other (Not moving left hip.) Neurological exam: Present: alert Course Vital Signs 12/30/20 12/30/20 11:08 12:20 Temperature 98.6 F 100.7 F H Pulse Rate 100 Respiratory 16 Rate Blood Pressure 155/98 O2 Sat by Pulse 95 Oximetry EKG Findings - EKG Comments: EKG Findings:: Normal sinus rhythm, ventricular rate 97, KS interval 180, QTc 464 Medical Decision Making - Medical Decision Making Presents febrile with a temperature of 100.7. Unclear how long he was on the floor for pack. Possibly since yesterday. CBC was obtained which does show leukocytosis. There is a lactic acidosis of 2.4 as well. However no clear source of fever. Urinalysis and chest x-ray are negative. Negative. Patient will be started on broad-spectrum antibiotics and blood cultures are ordered. Creatine kinase was elevated at 2228. Patient rehydrated. Patient also found to have a left hip fracture as well as a possible left wrist fracture. Left wrist is splinted. Orthopedics will be consulted. Patient will be admitted medically. Discussed this case with Dr. Shah who does accept admission. Patient also evaluated by Dr. Bain. - Lab Data Result diagrams: 12/30/20 12:00 12/30/20 12:00 Lab Results 12/30/20 12/30/20 12/30/20 Range/Units 12:00 12:00 13:03 WBC 16.4 H (3.8-10.6) k/uL RBC 4.91 (4.30-5.90) m/uL Hgb 15.5 (13.0-17.5) gm/dL Hct 46.2 (39.0-53.0) % MCV 94.0 (80.0-100.0) fL MCH 31.6 (25.0-35.0) pg MCHC 33.6 (31.0-37.0) g/dL RDW 13.5 (11.5-15.5) % Plt Count 227 (150-450) k/uL MPV 7.7 Neutrophils % 84 % Lymphocytes % 8 % Monocytes % 6 % Eosinophils % 1 % Basophils % 0 % Neutrophils # 13.7 H (1.3-7.7) k/uL Lymphocytes # 1.3 (1.0-4.8) k/uL Monocytes # 0.9 (0-1.0) k/uL Eosinophils # 0.1 (0-0.7) k/uL Basophils # 0.1 (0-0.2) k/uL Sodium 139 (137-145) mmol/L Potassium 4.1 (3.5-5.1) mmol/L Chloride 104 (98-107) mmol/L Carbon Dioxide 25 (22-30) mmol/L Anion Gap 10 mmol/L BUN 16 (9-20) mg/dL Creatinine 0.81 (0.66-1.25) mg/dL Est GFR (CKD-EPI)AfAm >90 (>60 ml/min/1.73 sqM) Est GFR (CKD-EPI)NonAf >90 (>60 ml/min/1.73 sqM) Glucose 171 H (74-99) mg/dL Plasma Lactic Acid Gerald 2.4 H* (0.7-2.0) mmol/L Calcium 9.7 (8.4-10.2) mg/dL Magnesium 2.2 (1.6-2.3) mg/dL Total Bilirubin 4.3 H (0.2-1.3) mg/dL AST 62 H (17-59) U/L ALT 41 (4-49) U/L Alkaline Phosphatase 81 (38-126) U/L Creatine Kinase 2228 H* (55-170) U/L Total Protein 7.6 (6.3-8.2) g/dL Albumin 4.5 (3.5-5.0) g/dL Urine Color Urine Appearance (Clear) Urine pH (5.0-8.0) Ur Specific [place] (1.001-1.035) Urine Protein (Negative) Urine Glucose (UA) (Negative) Urine Ketones (Negative) Urine Blood (Negative) Urine Nitrite (Negative) Urine Bilirubin (Negative) Urine Urobilinogen (<2.0) mg/dL Ur Leukocyte Esterase (Negative) Coronavirus (PCR) (Not Detectd) 12/30/20 12/30/20 Range/Units 13:03 14:00 WBC (3.8-10.6) k/uL RBC (4.30-5.90) m/uL Hgb (13.0-17.5) gm/dL Hct (39.0-53.0) % MCV (80.0-100.0) fL MCH (25.0-35.0) pg MCHC (31.0-37.0) g/dL RDW (11.5-15.5) % Plt Count (150-450) k/uL MPV Neutrophils % % Lymphocytes % % Monocytes % % Eosinophils % % Basophils % % Neutrophils # (1.3-7.7) k/uL Lymphocytes # (1.0-4.8) k/uL Monocytes # (0-1.0) k/uL Eosinophils # (0-0.7) k/uL Basophils # (0-0.2) k/uL Sodium (137-145) mmol/L Potassium (3.5-5.1) mmol/L Chloride (98-107) mmol/L Carbon Dioxide (22-30) mmol/L Anion Gap mmol/L BUN (9-20) mg/dL Creatinine (0.66-1.25) mg/dL Est GFR (CKD-EPI)AfAm (>60 ml/min/1.73 sqM) Est GFR (CKD-EPI)NonAf (>60 ml/min/1.73 sqM) Glucose (74-99) mg/dL Plasma Lactic Acid Gerald (0.7-2.0) mmol/L Calcium (8.4-10.2) mg/dL Magnesium (1.6-2.3) mg/dL Total Bilirubin (0.2-1.3) mg/dL AST (17-59) U/L ALT (4-49) U/L Alkaline Phosphatase (38-126) U/L Creatine Kinase (55-170) U/L Total Protein (6.3-8.2) g/dL Albumin (3.5-5.0) g/dL Urine Color Yellow Urine Appearance Clear (Clear) Urine pH 7.0 (5.0-8.0) Ur Specific [place] 1.017 (1.001-1.035) Urine Protein Negative (Negative) Urine Glucose (UA) Negative (Negative) Urine Ketones Negative (Negative) Urine Blood Negative (Negative) Urine Nitrite Negative (Negative) Urine Bilirubin Negative (Negative) Urine Urobilinogen <2.0 (<2.0) mg/dL Ur Leukocyte Esterase Negative (Negative) Coronavirus (PCR) Not Detected (Not Detectd) Disposition Clinical Impression: Altered mental status, Fever, Hip fracture, Wrist fracture, Rhabdomyolysis Disposition: ADMITTED IP TO THIS [facility] Condition: Serious Is patient prescribed a controlled substance at d/c from ED?: No Referrals: Valerie Conteh MD [Primary Care Provider] - 1-2 days Time of Disposition: 15:32
[2020-12-30 12:15] LABS: Basophils # (A) 0.1 k/uL (0-0.2); Basophils % (A) 0 %; Eosinophils # (A) 0.1 k/uL (0-0.7); Eosinophils % (A) 1 %; HCT 46.2 % (39.0-53.0); HGB 15.5 gm/dL (13.0-17.5); Lymphocytes # (A) 1.3 k/uL (1.0-4.8); Lymphocytes % (A) 8 %; MCH 31.6 pg (25.0-35.0); MCHC 33.6 g/dL (31.0-37.0); Mean Platelet Volume 7.7; Monocytes # (A) 0.9 k/uL (0-1.0); Monocytes % (A) 6 %; Neutrophils # (A) 13.7 k/uL (1.3-7.7); Neutrophils % (A) 84 %; Platelet Count 227 k/uL (150-450); RBC 4.91 m/uL (4.30-5.90); RDW 13.5 % (11.5-15.5); WBC 16.4 k/uL (3.8-10.6)
[2020-12-30 12:31] LABS: ALT 41 U/L (4-49); AST 62 U/L (17-59); African American GFR (CKD) >90 (>60 ml/min/1.73 sqM); Albumin 4.5 g/dL (3.5-5.0); Alkaline Phosphatase 81 U/L (38-126); Anion Gap 10 mmol/L; Blood Urea Nitrogen 16 mg/dL (9-20); Calcium 9.7 mg/dL (8.4-10.2); Carbon Dioxide 25 mmol/L (22-30); Chloride 104 mmol/L (98-107); Glucose 171 mg/dL (74-99); Magnesium 2.2 mg/dL (1.6-2.3); Non-African American GFR(CKD) >90 (>60 ml/min/1.73 sqM); Potassium 4.1 mmol/L (3.5-5.1); Sodium 139 mmol/L (137-145); Total Bilirubin 4.3 mg/dL (0.2-1.3); Total Protein 7.6 g/dL (6.3-8.2)
[2020-12-30] MEDS ORDERED: ACETAMINOPHEN TAB 500 MG TAB PO STA (12:33)
[2020-12-30 12:44] LABS: Creatine Kinase 2228 U/L (55-170)
[2020-12-30] MEDS ORDERED: SODIUM CHLORIDE 0.9% 500 ML 500 ML IV STA (12:49)
--- NOTE | 2020-12-30 13:10 | CT ---
EXAMINATION TYPE: CT brain [place] amaral con DATE OF EXAM: 12/30/2020 COMPARISON: CT brain 04/14/2018 HISTORY: 65-year-old male pain after fall today. CT DLP: 1801.1 mGycm Automated exposure control for dose reduction was used. Technique: Examination of the head was done in axial plane without intravenous contrast. Coronal and sagittal reconstructions performed. CT of the cervical spine was obtained in axial plane without intravenous injection of contrast mater ial. Coronal and sagittal reformatted images were obtained from the axial views for evaluation of f ractures, spinal alignment and canal. FINDINGS: Head: There is a new right-sided parietal approach DISC SANDER shunt catheter. The tip terminates in the posterior b kerry of the left lateral ventricle just to the left of midline. Overall unchanged mild hydrocephalus c ompared to 04/14/2018. Moderate atherosclerotic calcifications of the bilateral carotid siphons. Mild patchy white matter hypodensities both cervical hemisphere is unchanged suggesting chronic small vessel ischemic disease. No evidence for acute intracranial hemorrhage, acute ischemic change, mass, mass effect, midline shif t, or extra-axial fluid collection. No effacement of cerebral sulci and basal subarachnoid cisterns. Allen-white matter differentiation is maintained. Paranasal sinuses well pneumatized. Small amount of fluid in the posterior left mastoid air cells. Co rrelate for any mastoid pain to exclude mastoiditis. Cervical spine: No craniocervical junction are noted, predental space widening, or prevertebral soft tissue swelling. Degenerative changes at the C1 dens articulation. Preserved alignment of the cervical spine. No acute fracture is identified. Mild degenerative disc disease mid to lower cervical spine. Possible posterior disc bulge and C5-C6 m ay contribute to a moderate focal spinal canal stenosis. This could be better assessed with MRI if in dicated. Uncovertebral joint and facet arthropathy greatest in the mid and lower cervical spine. Moderate to severe left and moderate right neuroforaminal stenosis at C5-C6. Moderate on the left at C6-C7. Some scattered chronic heterotopic ossification along the posterior midline. Sagittal and coronal reformatted images confirm above findings. COMBINED IMPRESSION: 1. Interval placement of right parietal approach DISC SANDER shunt catheter. The tip terminates in the posteri or body of the left lateral ventricle just to the left of midline. Overall mild hydrocephalus is unch anged compared to 04/14/2018. 2. Mild patchy burden of chronic small vessel ischemic disease. No acute intracranial abnormality see n. 3. Moderate multilevel spondylotic change. Possible moderate focal spinal canal stenosis at C5-C6 sec ondary to disc bulge. MRI if clinically indicated. No acute fracture or malalignment of the cervical spine.
--- NOTE | 2020-12-30 14:20 | XR ---
EXAMINATION TYPE: XR chest 2V DATE OF EXAM: 12/30/2020 COMPARISON: Chest x-ray 06/21/2016 HISTORY: Altered mental status TECHNIQUE: Frontal and lateral views of the chest are obtained. FINDINGS: There is no focal air space opacity, pleural effusion, or pneumothorax seen. The cardiac silhouette size is within normal limits. Probable ventriculoperitoneal shunt tubing noted over the r ight neck, chest, upper abdomen. Right hemidiaphragm is elevated. There are overlying leads, artifact s. The osseous structures are intact. IMPRESSION: No acute cardiopulmonary process.
--- NOTE | 2020-12-30 14:32 | XR ---
Left wrist HISTORY: Trauma and pain 4 views the left wrist Ossific densities distal to the ulnar styloid aren't questionable acuity. Alignment, joint spaces, lyn ne mineralization are maintained. Some osteophytic change present at the carpometacarpal joint of the first digit. There is irregularity of the distal metaphyseal left radius. Some lucencies present becky ng the distal radius extending to the radiocarpal joint. IMPRESSION: Ulnar styloid fracture is residual acuity, suspect nondisplaced fracture of the distal ra dius of questionable age.
[2020-12-30 14:38] LABS: Appearance,Urine Clear (Clear); Bilirubin,Urine Negative (Negative); Blood,Urine Negative (Negative); Color,Urine Yellow; Glucose,Urine (UA) Negative (Negative); Ketones,Urine Negative (Negative); Leukocyte Esterase,Urine Negative (Negative); Nitrite,Urine Negative (Negative); Protein,Urine Negative (Negative); Specific Gravity,Urine 1.017 (1.001-1.035); Urobilinogen,Urine <2.0 mg/dL (<2.0)
--- NOTE | 2020-12-30 14:40 | XR ---
EXAMINATION TYPE: XR Hip LT and AP Pelvis DATE OF EXAM: 12/30/2020 COMPARISON: NONE HISTORY: Trauma 2 days prior and pain TECHNIQUE: A single AP view of the pelvis is obtained. Two views of the left hip are obtained. FINDINGS: There is subcapital proximal left femoral fracture with resulting varus deformity. There a re vascular calcifications within the pelvis. Degenerative disc changes present in the lower lumbar s pine. IMPRESSION: There is left hip fracture as described
[2020-12-30] MEDS ORDERED: VANCOMYCIN IV PER PHARMACY 1 EACH MISC MISCELLANE PRN (15:28)
[2020-12-30] MEDS ORDERED: cefTRIAXone IN SWFI 1,000 MG/10 ML SYRINGE IVP STA ×2 (15:28→15:34)
[2020-12-30] MEDS ORDERED: HYDROmorphone 0.5 MG/0.5 ML SYRINGE IVP PRN (15:33)
[2020-12-30] MEDS ORDERED: NALOXONE 0.4 MG/ML 1 ML VIAL IV PRN (15:33)
[2020-12-30] MEDS ORDERED: ONDANSETRON 4 MG/2 ML VIAL IVP PRN (15:33)
[2020-12-30] MEDS ORDERED: VANCOMYCIN 1,500 MG in SODIUM CHLORIDE 0.9% 250 ML IVPB STA (15:35)
--- NOTE | 2020-12-30 18:40 | P.CNOR ---
History of Present Illness - [facility] Consult date: 12/30/20 Requesting physician: Edu Plaza Consult reason: other (hip fracture, wrist fracture) History of present illness: Patient is a 65-year-old male with a past medical history of CVA mild dementia liver disease presenting the emergency department status post fall. Patient says he lives alone in an apartment and fell about 2 days ago when he tripped over his dog. Patient says since then he tried to walk around his house and he says he has been able to, albeit moderate amount of pain in his left hip. The patient's caregiver tried to contact him yesterday but patient did not answer the phone. Caregiver found him today on floor by his bed. Caregiver did call 911. Patient says he does also have some left wrist pain status the left hip pain. He says the left hip pain as 10/10 and worsened when he tried to walk on it. Patient states the pain in his left hip does radiate somewhat down his left leg. He says he is able wiggle his toes and does have sensation to his left foot. 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 Patient denies any trauma to head/LOC/back pain. Patient denies any previous orthopedic surgical history. Patient denies chest pain, fever, shortness breath, nausea, vomiting, change in vision, loss of bowel/bladder control. Past Medical History Past Medical History: Cancer, CVA/TIA, Liver Disease, Memory Impairment, Musculoskeletal Disorder, Neurologic Disorder Additional Past Medical History / Comment(s): CVA?, MS, CIRRHOSIS OF THE LIVER, melanoma with removal, elevated blood sugar with steroid use, chronic low back pain, arthritis bilateral shoulders, tinnitis bilaterally, vertigo. History of Any Multi-Drug Resistant Organisms: None Reported Past Surgical History: Appendectomy Additional Past Surgical History / Comment(s): melanoma removed right side of chest, lymph nodes right, EGD/colonoscopy, tilt table test.. Past Anesthesia/Blood Transfusion Reactions: No Reported Reaction Past Psychological History: No Psychological Hx Reported Additional Psychological History / Comment(s): PBA, pseudobulbar affect from MS, uses walker to ambulate. Smoking Status: Former smoker Past Alcohol Use History: None Reported Additional Past Alcohol Use History / Comment(s): Pt smoked cigars but quit many yrs ago Past Drug Use History: None Reported - Past Family History Mother Family Medical History: Pneumonia Father Family Medical History: Myocardial Infarction ([place]) Medications and Allergies Home Medications Medication Instructions Recorded Confirmed Type Citalopram Hydrobromide [CeleXA] 10 mg PO DAILY 08/25/15 12/30/20 History Multivitamin [Men's Multi-Vitamin] 1 tab PO DAILY 08/25/15 12/30/20 History lisinopriL [Zestril] 10 mg PO DAILY #30 tab 06/17/16 12/30/20 Rx Baclofen [Lioresal] 20 mg PO TID PRN 04/14/18 12/30/20 History Cholecalciferol (Vitamin D3) 2,000 unit PO DAILY 04/14/18 12/30/20 History [Vitamin D3] Aspirin EC [Ecotrin Low Dose] 81 mg PO HS 12/30/20 12/30/20 History Donepezil HCl [Aricept] 10 mg PO HS 12/30/20 12/30/20 History metFORMIN HCL [Glucophage] 500 mg PO HS 12/30/20 12/30/20 History Allergies Allergy/AdvReac Type Severity Reaction Status Date / Time Penicillins Allergy Rash/Hives Verified 12/30/20 16:06 Physical Examination Inspection: Left leg shortened and externally rotated. There is no evidence of ecchymosis, erythema, open fractureson left leg. There is a splint present on the left arm. negative for open fractures/significant ecchymoses/deformity to left arm Sensation: Sensation is equal, symmetric, bilaterally intact throughout. Palpation: There is significant tenderness to palpation diffusely throughout the left hip especially in the groin and lateral hip. Moderate tenderness with palpation about the left distal radius/ulna. Nontender to palpation throughout rest exam Range of motion: Range of motion is limited in left leg due to significant pain. Patient is able to wiggle fingers in left hand, but with some moderate pain. Patient is able flex and extend left elbow. Patient's full range of motion in RUE and RLE Motor: 5/5 in resisted hip flexion/extension, knee flexion/extension, plantar flexion/dorsiflexion the right ankle; 5/5 in resisted elbow flexion/extension, wrist flexion/extension, shoulder abduction, internal/external rotation of the right arm. Left leg motor exams severely limited due to patient's pain. Log Sorter strength 2/5 in left hand. Wrist flexion limited due to patient pain in left. Left elbow and shoulder exam limited due to patient's pain Neurovascular: Refill under 3 seconds bilaterally in upper extremity digits. DP pulses intact, bilaterally, 2+. Special tests: Negative Homans bilaterally; log roll maneuver reproduced pain on left side Results - Labs Labs: Abnormal Lab Results - Last 24 Hours (Table) 12/30/20 12/30/20 12/30/20 Range/Units 12:00 12:00 13:03 WBC 16.4 H (3.8-10.6) k/uL Neutrophils # 13.7 H (1.3-7.7) k/uL Glucose 171 H (74-99) mg/dL Plasma Lactic Acid Gerald 2.4 H* (0.7-2.0) mmol/L Total Bilirubin 4.3 H (0.2-1.3) mg/dL AST 62 H (17-59) U/L Creatine Kinase 2228 H* (55-170) U/L H & H 12/30/20 Range/Units 12:00 Hgb 15.5 (13.0-17.5) gm/dL Hct 46.2 (39.0-53.0) % Result Diagrams: 12/30/20 12:00 12/30/20 12:00 Assessment and Plan Assessment: 1. Left hip femoral neck fracture status post fall 2. Left wrist ulnar styloid fracture; left wrist distal radius fracture 3. Multiple medical comorbidities Plan: 1. Left hip femoral neck fracture - surgery booked for tomorrow 1left hip hemiarthroplasty. Patient to remain nothing by mouth after midnight tonight. Patient does need medical clearance for surgery. CBC has been completed as well as chest x-ray. Left Femur x-ray has been ordered 2. Left wrist ulnar-sided fracture/left wrist distal radius fracture - splint in place currently 3. Appreciate medical management - patient does medical clearance for surgery 4. Appreciate consult 5. Pain management - IV and oral pain meds - [place] 7.5 mg/325 mg 6. DVT prophylaxis - hold thinners at this time 7. GI prophylaxis - Senna 8. PT/OT - nonweightbearing left leg Time with Patient: Less than 30
--- NOTE | 2020-12-30 19:31 | XR ---
RESULT: HISTORY: left leg pain s/p fall TECHNIQUE: 2 views of the left femur. COMPARISON: Same-day radiographs. FINDINGS: There is redemonstration of varus angulated left femoral neck fracture and grossly unchanged alignmen t. No evidence of dislocation. No fracture of the distal femur. Atherosclerotic calcifications seen. IMPRESSION: Unchanged left femoral neck fracture.
[2020-12-30 20:55] LABS: Glucose,Whole Blood 189 mg/dL (75-99)
[2020-12-30] MEDS: DONEPEZIL 10 MG TAB PO SCH (21:01)
[2020-12-30] MEDS: ACETAMINOPHEN TAB 325 MG TAB PO PRN (21:02)
[2020-12-30] MEDS: lisinopriL 10 MG TAB PO SCH (21:02)
[2020-12-30] MEDS: INSULIN ASPART (NovoLOG) 100 UNIT/ML VIAL SQ SCH (21:02)
--- NOTE | 2020-12-30 22:13 | P.HPIM ---
History of Present Illness H&P Date: 12/30/20 Chief Complaint: Fall Patient is a 65-year-old male with a known history of hypertension, diabetes type 2 [id number] multiple sclerosis, liver cirrhosis, memory imp airment, history of CVA/TIA, history of UNIVERSITY TUTOR shunt placement and chronic low back pain and depression who is currently living by herself was found by his sister on the side of the bed who is also his caregiver.. Patient was last well-known and was seen by his sister on Wednesday morning. Patient states that he has been lying on the floor for 2 days. Patient sister went to see him and found him on the side of the bed. She called EMS and helped him into the stretcher. Patient is complaining of left hip and left wrist pain. Denies any headache. No neck stiffness. No complaints of chest pain or shortness of breath. No nausea vomiting abdominal pain or diarrhea. No dysuria or hematuria. Patient states that he was tangled in the dog leash and fell twice. Patient is somewhat poor historian. On admission blood pressure was 155/98 pulse 100 and respiration 16 pulse ox 95% on room air and T-max was 101.0. CT head and cervical spine showed interval placement of right parietal approach UNIVERSITY TUTOR shunt catheter. The tip terminates in the posterior body of the left lateral ventricle just to the left of midline. Overall mild hydrocephalus is unchanged compared to 04/14/2018 Moderate multilevel spondylitic change with moderate focal stenosis at C5-C6 secondary to disc bulge. No fracture or malalignment of the cervical spine. Chest x-ray showed no acute cardiopulmonary process X-ray of the left wrist showed ulnar stylus fracture is residual acuity, suspect nondisplaced fracture of the distal radius RV questionable age. Hip/pelvis showed there is left hip fracture subcapital proximal left femoral fracture with resulting varus deformity. EKG showed normal sinus rhythm Laboratory showed WBC 16.4 hemoglobin 15.5 and platelets 227 Sodium 139 potassium 4.1 chloride 104 BUN 16 and creatinine 0.81 blood sugar 171. Lactic acid 2.4 total bilirubin level is 4.3 CK level 2228 and urinalysis is negative for infection COVID-19 PCR not detected. Review of Systems Complete review of systems could not be obtained from the patient except as per HPI. Past Medical History Past Medical History: Cancer, CVA/TIA, Liver Disease, Memory Impairment, Musculoskeletal Disorder, Neurologic Disorder Additional Past Medical History / Comment(s): CVA?, MS, CIRRHOSIS OF THE LIVER, melanoma with removal, elevated blood sugar with steroid use, chronic low back pain, arthritis bilateral shoulders, tinnitis bilaterally, vertigo. History of Any Multi-Drug Resistant Organisms: None Reported Past Surgical History: Appendectomy Additional Past Surgical History / Comment(s): melanoma removed right side of chest, lymph nodes right, EGD/colonoscopy, tilt table test.. Past Anesthesia/Blood Transfusion Reactions: No Reported Reaction Past Psychological History: No Psychological Hx Reported Additional Psychological History / Comment(s): PBA, pseudobulbar affect from MS, uses walker to ambulate. Smoking Status: Former smoker Past Alcohol Use History: None Reported Additional Past Alcohol Use History / Comment(s): Pt smoked cigars but quit many yrs ago Past Drug Use History: None Reported - Past Family History Mother Family Medical History: Pneumonia Father Family Medical History: Myocardial Infarction ([place]) Medications and Allergies Home Medications Medication Instructions Recorded Confirmed Type RX: Citalopram Hydrobromide 10 mg PO DAILY 08/25/15 12/30/20 History [CeleXA] RX: Multivitamin [Men's 1 tab PO DAILY 08/25/15 12/30/20 History Multi-Vitamin] RX: lisinopriL [Zestril] 10 mg PO DAILY #30 tab 06/17/16 12/30/20 Rx Baclofen [Lioresal] 20 mg PO TID PRN 04/14/18 12/30/20 History Cholecalciferol (Vitamin D3) 2,000 unit PO DAILY 04/14/18 12/30/20 History [Vitamin D3] Aspirin EC [Ecotrin Low Dose] 81 mg PO HS 12/30/20 12/30/20 History Donepezil HCl [Aricept] 10 mg PO HS 12/30/20 12/30/20 History metFORMIN HCL [Glucophage] 500 mg PO HS 12/30/20 12/30/20 History Allergies Allergy/AdvReac Type Severity Reaction Status Date / Time Penicillins Allergy Rash/Hives Verified 12/30/20 16:06 Physical Exam Vitals: Vital Signs Temp Pulse Pulse Resp BP BP Pulse Ox 12/30/20 17:59 99.9 F H 97 16 189/64 93 L 12/30/20 17:28 76 16 158/62 97 12/30/20 12:20 100.7 F H 12/30/20 11:08 98.6 F 100 16 155/98 95 Intake and Output 12/30/20 12/30/20 12/30/20 06:59 14:59 22:59 Output Total 400 Balance -400 Output: Urine 400 Other: Voiding Method Indwelling Catheter Weight 97.069 kg 97.069 kg PHYSICAL EXAMINATION: Patient is lying in the bed comfortably, no acute distress, awake alert and oriented.. HEENT: Normocephalic. Neck is supple. Pupils reactive. Nostrils clear. Oral cavity is moist. Neck reveals no JVD, carotid bruits, or thyromegaly. CHEST EXAMINATION: Trachea is central. Symmetrical expansion.Bibasilar diminished sounds.. No wheezing or rhonchi. CARDIAC: Normal S1, S2 with no gallops. No murmurs ABDOMEN: Soft. Bowel sounds normal. No organomegaly. No abdominal bruits. Extremities: reveal no edema. No clubbing or cyanosis Neurologically awake, alert, oriented x2-3 with well-coordinated movements. No focal deficits noted Skin: No rash or skin lesions. Psychiatric: Cooperative. Nonsuicidal Musculoskeletal: Left wrist splint in place and varus deformity of the left lower extremity.. Results CBC & Chem 7: 12/30/20 12:00 12/30/20 12:00 Labs: Abnormal Lab Results - Last 24 Hours (Table) 12/30/20 12/30/20 12/30/20 Range/Units 12:00 12:00 13:03 WBC 16.4 H (3.8-10.6) k/uL Neutrophils # 13.7 H (1.3-7.7) k/uL Glucose 171 H (74-99) mg/dL POC Glucose (mg/dL) (75-99) mg/dL Plasma Lactic Acid Gerald 2.4 H* (0.7-2.0) mmol/L Total Bilirubin 4.3 H (0.2-1.3) mg/dL AST 62 H (17-59) U/L Creatine Kinase 2228 H* (55-170) U/L 12/30/20 Range/Units 20:53 WBC (3.8-10.6) k/uL Neutrophils # (1.3-7.7) k/uL Glucose (74-99) mg/dL POC Glucose (mg/dL) 189 H (75-99) mg/dL Plasma Lactic Acid Gerald (0.7-2.0) mmol/L Total Bilirubin (0.2-1.3) mg/dL AST (17-59) U/L Creatine Kinase (55-170) U/L Thrombosis Risk Factor Assmnt - DVT/VTE Prophylaxis DVT/VTE Prophylaxis: Pharmacologic Prophylaxis ordered - Choose All That Apply Any of the Below Risk Factors Present?: Yes Other Risk Factors: Yes Each Risk Factor Represents 2 Points: Age 61-74 years Other congenital or acquired thrombophilia - If yes, enter type in comment: Yes Each Risk Factor Represents 5 Points: Hip, pelvis, or leg fracture (< 1 month) Thrombosis Risk Factor Assessment Total Risk Factor Score: 7 Thrombosis Risk Factor Assessment Level: High Risk Assessment and Plan Assessment: Status post fall and found on the floor for approximately 48 hours. Mechanical fall as per patient. Left femoral neck fracture with varus deformity. Left wrist ulnar styloid fracture. Acute rhabdomyolysis Lactic acidosis Hyperbilirubinemia without any elevated liver enzymes SIRS /fever, leukocytosis and tachycardia without source of infection so far. History of UNIVERSITY TUTOR shunt placement Hypertension Diabetes type 2 noninsulin-dependent Depression History of CVA/TIA DVT prophylaxis with SCDs for possible surgical intervention surgery. Plan: Patient will be continued on IV hydration monitor CK level. Urinalysis and chest x-ray showed no evidence of infection. Follow-up blood cultures. Patient is being continued on antibiotics in the form of vancomycin and ceftriaxone empirically. Will consult ID for evaluation due to prior history of shunt placement. Orthopedic surgery is on board. Otherwise patient currently denies any active complaints of chest pain or shortness of breath. Renal function is stable.Orthopedic surgery is planning for left hip hemiarthroplasty tomorrow. Time with Patient: Greater than 30
[2020-12-31] MEDS: SODIUM CHLORIDE 0.9% 1,000 ML IV SCH ×5 (01:59→23:16)
[2020-12-31] MEDS: VANCOMYCIN 1,500 MG in SODIUM CHLORIDE 0.9% 250 ML IVPB SCH ×3 (05:31→23:17)
[2020-12-31] MEDS: MORPHINE SULFATE 4 MG/ML SYRINGE IVP PRN ×3 (05:40→22:56)
[2020-12-31 07:12] LABS: Glucose,Whole Blood 150 mg/dL (75-99)
[2020-12-31 07:17] LABS: Basophils # (A) 0.1 k/uL (0-0.2); Basophils % (A) 1 %; Eosinophils # (A) 0.6 k/uL (0-0.7); Eosinophils % (A) 4 %; HGB 13.9 gm/dL (13.0-17.5); Lymphocytes # (A) 1.6 k/uL (1.0-4.8); Lymphocytes % (A) 11 %; MCH 32.9 pg (25.0-35.0); MCHC 34.9 g/dL (31.0-37.0); MCV 94.3 fL (80.0-100.0); Mean Platelet Volume 8.8; Monocytes # (A) 1.3 k/uL (0-1.0); Monocytes % (A) 9 %; Neutrophils # (A) 9.9 k/uL (1.3-7.7); Neutrophils % (A) 71 %; Platelet Count 202 k/uL (150-450); RBC 4.24 m/uL (4.30-5.90); RDW 14.2 % (11.5-15.5)
[2020-12-31] MEDS: INSULIN ASPART (NovoLOG) 100 UNIT/ML VIAL SQ SCH ×4 (07:33→20:48)
[2020-12-31] MEDS: lisinopriL 10 MG TAB PO SCH (07:33)
[2020-12-31] MEDS: CITALOPRAM HYDROBROMIDE 10 MG TAB PO SCH (07:33)
[2020-12-31 07:49] LABS: ALT 31 U/L (4-49); AST 48 U/L (17-59); African American GFR (CKD) 85 (>60 ml/min/1.73 sqM); Albumin 3.4 g/dL (3.5-5.0); Albumin/Globulin Ratio 1.2; Alkaline Phosphatase 55 U/L (38-126); Anion Gap 8 mmol/L; Blood Urea Nitrogen 19 mg/dL (9-20); Calcium 8.7 mg/dL (8.4-10.2); Carbon Dioxide 21 mmol/L (22-30); Chloride 111 mmol/L (98-107); Globulin 2.8 g/dL; Glucose 155 mg/dL (74-99); Non-African American GFR(CKD) 74 (>60 ml/min/1.73 sqM); Potassium 5.1 mmol/L (3.5-5.1); Sodium 140 mmol/L (137-145); Total Bilirubin 2.8 mg/dL (0.2-1.3); Total Protein 6.2 g/dL (6.3-8.2)
[2020-12-31] MEDS ORDERED: HEPARIN SODIUM,PORCINE/PF 5,000 UNIT/0.5 ML SYRINGE SQ SCH (09:00)
[2020-12-31 10:37] LABS: Creatine Kinase 1091 U/L (55-170)
[2020-12-31] MEDS: SENNOSIDES 8.6 MG TAB PO SCH (11:04)
[2020-12-31] MEDS: CHOLECALCIFEROL 25 MCG (1000 IU) TABLET PO SCH (11:04)
[2020-12-31] MEDS: MULTIVITAMINS, THERA 1 EACH TAB PO SCH (11:04)
[2020-12-31 11:25] LABS: Glucose,Whole Blood 118 mg/dL (75-99)
--- NOTE | 2020-12-31 13:30 | P.PN ---
Progress Note - Text Progress Note Date: 12/31/20 HPI: Patient seen and examined by myself again today at bedside resting comfortably, oneill in place. Agree with original consult note. Planning for left hip hemiarthroplasty for displaced, complete left femoral neck fracture this afternoon with medical clearance. Will plan for conservative treatment for the age indeterminant distal radius/ulnar styloid fracture with immobilization due to mild discomfort during range of motion of the wrist. Will transition into a removable wrist splint. Physical Exam: LUE: AIN/PIN/RAD/ULN nerves intact. Splint intact. Wrist ROM 50/50 out of splint with pain at terminal flexion/extension. SILT R/U/M. Cap refill < 3 seconds. LLE: EHL/FHL/PF/DF intact. Pain with log roll. 2/4 DP/PT. Cap refill < 3 seconds to toes. Impression: 1.) Acute displaced left femoral neck fracture. 2.) Age indeterminate left distal radius and ulnar styloid fracture. Plan: 1.) NPO for OR today 2.) Continue mechanical DVT prophylaxis 3.) Bedrest/Oneill. NWB LUE. 4.) Anticipate need for platform walker post operatively --Brooks Izquierdo DO Orthopedic Hand/Upper Extremity Surgeon
[2020-12-31] MEDS ORDERED: LACTATED RINGERS 1,000 ML IV ONE ×2 (15:38→17:20)
[2020-12-31] MEDS ORDERED: PROPOFOL 10 MG/ML 20 ML VIAL IV ONE (15:43)
[2020-12-31] MEDS ORDERED: PHENYLEPHRINE-0.9% NACL SYG 1,000 MCG/10 ML SYRINGE ONE (15:43)
[2020-12-31] MEDS ORDERED: MIDAZOLAM 2 MG/2 ML VIAL ONE (15:43)
[2020-12-31] MEDS ORDERED: ePHEDrine 50 MG/ML 1 ML AMP ONE (15:43)
[2020-12-31] MEDS ORDERED: fentaNYL (PF) 50 MCG/ML 2 ML AMP ONE (15:43)
[2020-12-31 15:53] LABS: Glucose,Whole Blood 130 mg/dL (75-99)
[2020-12-31] MEDS ORDERED: cefTRIAXone IN SWFI 1,000 MG/10 ML SYRINGE IVP SCH (16:00)
[2020-12-31] MEDS ORDERED: NALOXONE 0.4 MG/ML 1 ML VIAL IV PRN (18:28)
[2020-12-31] MEDS ORDERED: HYDROmorphone 0.5 MG/0.5 ML SYRINGE IVP PRN (18:28)
[2020-12-31] MEDS ORDERED: HYDROcodone/APAP 5-325MG 1 EACH TAB PO PRN (18:28)
[2020-12-31 18:43] LABS: Glucose,Whole Blood 156 mg/dL (75-99)
--- NOTE | 2020-12-31 19:03 | XR ---
EXAMINATION TYPE: XR Hip Limited LT DATE OF EXAM: 12/31/2020 COMPARISON: None HISTORY: Post hip surgery TECHNIQUE: AP left hip FINDINGS: There is placement of the left femoral prosthesis. No acute fractures evident. Postsurgical changes are within the soft tissues. Lateral skin vasyl are present IMPRESSION: 1. No acute fracture post left hip replacement
[2020-12-31 20:38] LABS: Glucose,Whole Blood 141 mg/dL (75-99)
[2020-12-31] MEDS: DONEPEZIL 10 MG TAB PO SCH (20:46)
[2020-12-31] MEDS: SENNOSIDES-DOCUSATE SODIUM 1 EACH TAB PO SCH (20:46)
[2020-12-31] MEDS: HYDROcodone/APAP 7.5-325MG 1 EACH TAB PO PRN (20:51)
--- NOTE | 2020-12-31 21:23 | P.OP ---
Date of Procedure: 12/31/20 Preoperative Diagnosis: Left displaced femoral neck fracture Postoperative Diagnosis: Left displaced femoral neck fracture Procedure(s) Performed: Left hip hemiarthroplasty Implants: 1.) [place] Accolade II femoral stem, neck angle 132, size 5, 35mm neck length. 2.) Neeru V40 Femoral head 28mm OD, -4mm offset. 3.) Neeru UHR [place] head Bipolar Component, OD 53mm. Anesthesia: spinal Surgeon: Boroks Izquierdo Manager [facility] Estimated Blood Loss (ml): 200 Pathology: none sent Condition: stable Disposition: PACU Operative Findings: This is a 65 year old male with multiple medical comorbidities who presented s/p fall from standing on to his left hip with inability to ambulate and pain in his left hip. He was found down after an estimated 2 days when his resident caregiver, who is also is sister found him laying on the floor in his apartment. He typically used a walker for ambulation prior to this fall and occasionally a wheel chair when out in public and denied any hip pain prior to this fall. He was evaluated in the ED and admitted to the hospital with a medicine consult for a displaced complete left femoral neck fracture. The patient was evaluated and risks and benefits of surgery were discussed with the patient including bleeding, damage to surrounding tissue, infection, need for further surgery as well as risks of anesthesia including DVT, pulmonary embolism and even and the patient wished to proceed with surgical intervention. The patient was seen in the pre- operative area by myself. Consent and H&P were completed and updated. The lakisha ect extremity was marked in the pre-operative area by myself and all other questions were answered. Operative Narrative: The patient was brought to the operating room by the department of anesthesia. Spinal anesthesia was performed by the department anesthesia. The patient was then transferred carefully to the operative table and placed in the lateral position with an axillary role placed in the contralateral arm-pit region and the patient was secured in the lateral position with aid of a pegboard with the hip perpendicular to the floor. All bony prominences were well padded. The left lower extremity was then prepped and draped in normal sterile fashion. Pre-operative time out was performed indicating the correct patient, procedure and laterality. All in the room agreed. Pre-operative antibiotics were given prior to skin incision. A curvilinear incision was made with a 10 blade scalpel on the lateral aspect of the hip, slightly posterior to the posterior aspect of the greater trochanter and carried distally towards the axis of the femoral shaft to initiate the posterior approach to the hip joint. Bovie Cautery was used for meticulous hemostasis and dissection was then taken down to the tensor fascia. Tensor fascia was incised distally and extended proximally to the gluteus anupam muscle. Blunt finger dissection was the used to split the gluteus anupam muscle in its natural plane. Charnley retractor was then placed deep to the tensor fascia and gluteus anupam to unveil the trochanteric bursa. Bursa was sharply incised taking care to protect the sciatic nerve posteriorly. The short external rotators were then identified. [employer] retractor was the placed between the gluteus medius and piriformis tendon. The piriformis tendon and short external rotators were then tagged with a #2 ethibond suture. Using bovie cautery the short external rotators were then incised off of the jasmin insertion at the piriformas fossa and reflected posteriorly to protect the sciatic nerve. The posterior hip capsule was then incised in a L shaped fashion along the superior portion of the femoral neck taking care to stay on bone. Fracture hematoma was then evacuated, the femoral neck fracture appeared to be slightly vertically oriented with comminution. Cork screw was then inserted into the femoral head and the femoral head was removed and sized at 52mm on the back table. The acetabulum was then thoroughly irrigated and all fracture fragments were debrided and removed and there appeared to be an intact labrum and no signs of acetabular arthritis. Size 52 head on stick was then placed into the acetabulum which had good suction but still felt slightly undersized, therefore, a size 53 was then placed in the acetabulum with much better suction and appropriate fit and decision was made to go forward with a size 53 outer diameter head. Further remnants of external rotator insertion were debrided from the piriformis fossa and homann retractors were then used to elevate and deliver the femur. A touch up neck cut was performed approximated 1.5cm proximal to the lesser trochanter. Box osteotome was then utilized to gain entrance into the medullary canal taking care to stay lateralized. Next an axial canal finder was inserted down the femoral shaft again keeping lateral pressure upon insertion. Sequential femoral broaching was the performed starting with a size 0 broach up to a size 5 which appeared to have a solid fit. A standard length neck and 0 offset femoral head was trialed, the hip was reduced and leg lengths were checked, the hip appeared to have good stability but the leg length felt slightly long and the hip felt tight, specifically with external rotation. The hip was then dislocated and the size 5 stem had a small amount of play, this was re-broached until a solid fit was achieved and a -4 offset femoral head was then placed, and trialed. Leg lengths and tensioning appeared to be much better and the hip was stable with flexion,extension, internal rotation, external rotation, abduction and adduction. The hip was then dislocated, trial components were removed and the hip was irrigated thoroughly. Final implants were then selected which included a size 5, 132 degree neck femoral stem with a 53 outer diameter bipolar head with -4 offset was assembled and inserted into the femoral canal with lateral pressure to avoid varus placement. The hip was then reduced and ranged again and was stable with appropriate tensioning and leg lengths. A 2.0 drill bit was then used to drill 3 holes in the posterior aspect of the greater trochanter. The previously tagged short external rotators and capsule were then passed through the drill holes with a suture passer and the hip was then abducted and externally rotated to take pressure off of the short external rotators and capsular repair. The #2 ethibond sutures were then tied with appropriate tension and a solid repair of the external rotators and posterior capsule was able to be achieved. IT band was then closed with multiple interrupted #1 Vicryl sutures followed by a locking running #1 VIcryl. The deep dermal layer was then closed with 0 Vicryl suture, subcutaneous closure was performed with 2-0 vicryl suture followed by vasyl for closure of skin. A sterile Optifoam dressing was then applied to the incision. The patient was then woken by the department of anesthesia and transferred carefully back to the hospital bed and transferred to PACU in stable condition. All needle and instrument counts were correct at the end of the procedure. Brooks Izquierdo D.O. Orthopedic Surgeon
[2020-12-31] MEDS: LACTATED RINGERS 1,000 ML IV SCH (23:16)
[2021-01-01] MEDS: ACETAMINOPHEN TAB 325 MG TAB PO PRN ×2 (02:53→15:43)
[2021-01-01 04:34] LABS: African American GFR (CKD) >90 (>60 ml/min/1.73 sqM); Anion Gap 7 mmol/L; Blood Urea Nitrogen 14 mg/dL (9-20); Calcium 8.2 mg/dL (8.4-10.2); Carbon Dioxide 20 mmol/L (22-30); Chloride 107 mmol/L (98-107); Glucose 177 mg/dL (74-99); Non-African American GFR(CKD) >90 (>60 ml/min/1.73 sqM); Potassium 3.6 mmol/L (3.5-5.1); Sodium 134 mmol/L (137-145)
[2021-01-01] MEDS: HYDROcodone/APAP 7.5-325MG 1 EACH TAB PO PRN ×2 (06:09→13:11)
[2021-01-01] MEDS ORDERED: HYDROmorphone 0.5 MG/0.5 ML SYRINGE IVP PRN (07:00)
[2021-01-01 07:01] LABS: Glucose,Whole Blood 194 mg/dL (75-99)
[2021-01-01] MEDS: CHOLECALCIFEROL 25 MCG (1000 IU) TABLET PO SCH (08:44)
[2021-01-01] MEDS: SENNOSIDES 8.6 MG TAB PO SCH (08:44)
[2021-01-01] MEDS: MULTIVITAMINS, THERA 1 EACH TAB PO SCH (08:45)
[2021-01-01] MEDS: CITALOPRAM HYDROBROMIDE 10 MG TAB PO SCH (08:45)
[2021-01-01] MEDS: ENOXAPARIN 30 MG/0.3 ML SYRINGE SQ SCH ×2 (08:45→22:09)
[2021-01-01] MEDS: lisinopriL 10 MG TAB PO SCH (08:45)
[2021-01-01] MEDS: INSULIN ASPART (NovoLOG) 100 UNIT/ML VIAL SQ SCH ×4 (08:51→22:10)
[2021-01-01 09:41] LABS: Basophils # (A) 0.05 X 10*3/uL (0.00-0.10); Basophils % (A) 0.5 %; Eosinophils # (A) 0.05 X 10*3/uL (0.04-0.35); Eosinophils % (A) 0.5 %; HCT 36.9 % (39.6-50.0); Lymphocytes # (A) 0.61 X 10*3/uL (0.90-5.00); MCH 31.3 pg (27.0-32.0); MCHC 32.5 g/dL (32.0-37.0); MCV 96.3 fL (80.0-97.0); Mean Platelet Volume 11.3 fL (9.5-12.2); Monocytes # (A) 1.14 X 10*3/uL (0.20-1.00); Monocytes % (A) 11.3 %; Neutrophils # (A) 8.21 X 10*3/uL (1.80-7.70); Neutrophils % (A) 81.2 %; Platelet Count 188 X 10*3/uL (140-440); RBC 3.83 X 10*6/uL (4.40-5.60); RDW 13.6 % (11.5-14.5); WBC 10.11 X 10*3/uL (4.50-10.00)
[2021-01-01] MEDS: SODIUM CHLORIDE 0.9% 1,000 ML IV SCH ×2 (10:25→22:10)
[2021-01-01] MEDS: VANCOMYCIN 1,500 MG in SODIUM CHLORIDE 0.9% 250 ML IVPB SCH (10:49)
--- NOTE | 2021-01-01 10:57 | P.CONS ---
History of Present Illness - Reason for Consult Consult date: 12/31/20 SIRS Requesting physician: Nicolasa Shah - Chief Complaint fall with left hip and wrist pain x 1 day - History of Present Illness History of Present Illness : Patient is a 65-year male who was brought into the ER yesterday morning after the patient did have a fall the patient lives in an apartment, patient caregiver was unable to get hold of him the day before yesterday when she checked on him the morning of presentation the hospital the patient was on the floor and was coming of a lot of pain to the left hip area 9 1 was called and the patient was brought to the hospital patient complaining of pain to the left wrist and left hip area patient apparently got entangled on the dock and did have a fall did not mention any loss of consciousness patient pain to the left wrist and hip is mostly sharp almost 7-8 out of 10 and no radiation patient on presentation to the hospital was afebrile, however he did spike a fever last night of 101 F and patient is afebrile since then, patient denies having any chest pain shortness of breath or cough P denies any nausea no vomiting no significant bowel pain or diarrhea patient did have white count of 16.4 on presentation which is down to 14,000 this morning did have a left shift patient did have normal kidney function lactic acid was mildly elevated did have elevated CK bilirubin was 4.3 AST was 62 urine has been negative starks PCR was negative patient did have a chest x-ray no acute cardiopulmonary process, patient did have blood cultures drawn which came back positive for gram-positive cocci vancomycin was added infectious disease was consulted for further management of antibiotic therapy Review of system: CONSTITUTIONAL: Positive for weakness fever. EYES: No complaint. ENT: No complaint. RESPIRATORY: No complaint. CARDIOVASCULAR: No complaint. GENITOURINARY: No complaint. GASTROINTESTINAL: No complaint. MUSCULOSKELETAL as per history of present illness. INTEGUMENTARY : No complaint. PSYCHOLOGIC: No complaint. ENDOCRINE: No complaint. NEUROLOGIC: No complaint. Past medical history : Reviewed, documented below Past surgical history : Reviewed, documented below Social history: Reviewed, documented below Medications: Reviewed, as documented below EXAMINATION: Vital sigans= Reviewed and documented below GENERAL DESCRIPTION: Elderly male lying in bed, no distress. No tachypnea or accessory muscle of respiration use. HEENT: Shows Pallor , no scleral icterus. Oral mucous membrane is dry. NECK: Trachea central, no thyromegaly. LUNGS: Unlabored breathing. Decreased breath sound at the base. No wheeze or crackle. HEART: S1, S2, regular rate and rhythm. ABDOMEN: Soft, mild distention but no tenderness , guarding or rigidity EXTREMITIES: No edema feet SKIN: No rash, no masses palpable. NEUROLOGICAL: The patient is awake, alert, oriented x2, mood and affect normal. LABS AND RADIOLOGY: Reviewed results see below Assessment : 1-Patient with gram-positive bacteremia in this patient has presented to the hospital after the patient did have a fall at home with a left wrist and left hip fracture in this patient currently with negative chest x-ray urine has been negative no evidence of any cellulitis with concern for possible coagulase-negative staph and likely skin contaminant will need to wait for the final ID of this pathogen before ordering any further work-up 2-patient did have a fever and elevated white count questionable reactive to the fall as no obvious focus of infection on initial work-up we will wait for the cultures to be finalized and continue with current biotic before ordering any further work-up Plan: 1-blood cultures will be repeated document clearance of bacteremia 2-vancomycin pharmacy to dose target trough of 15 while watching kidney function and vancomycin trough closely 3-Rocephin 2 g daily will provide adequate coverage while waiting for the culture to finalize We will follow on clinical condition and cultures to further adjust medication if needed Thank you for this consultation we will follow the patient along with you Past Medical History Past Medical History: Cancer, CVA/TIA, Liver Disease, Memory Impairment, Musculoskeletal Disorder, Neurologic Disorder Additional Past Medical History / Comment(s): CVA?, MS, CIRRHOSIS OF THE LIVER, melanoma with removal, elevated blood sugar with steroid use, chronic low back pain, arthritis bilateral shoulders, tinnitis bilaterally, vertigo. History of Any Multi-Drug Resistant Organisms: None Reported Past Surgical History: Appendectomy Additional Past Surgical History / Comment(s): melanoma removed right side of chest, lymph nodes right, EGD/colonoscopy, tilt table test.. Past Anesthesia/Blood Transfusion Reactions: No Reported Reaction Past Psychological History: No Psychological Hx Reported Additional Psychological History / Comment(s): PBA, pseudobulbar affect from MS, uses walker to ambulate. Smoking Status: Former smoker Past Alcohol Use History: None Reported Additional Past Alcohol Use History / Comment(s): Pt smoked cigars but quit many yrs ago Past Drug Use History: None Reported - Past Family History Mother Family Medical History: Pneumonia Father Family Medical History: Myocardial Infarction ([place]) Medications and Allergies Home Medications Medication Instructions Recorded Confirmed Type Citalopram Hydrobromide [CeleXA] 10 mg PO DAILY 08/25/15 12/30/20 History Multivitamin [Men's Multi-Vitamin] 1 tab PO DAILY 08/25/15 12/30/20 History lisinopriL [Zestril] 10 mg PO DAILY #30 tab 06/17/16 12/30/20 Rx Baclofen [Lioresal] 20 mg PO TID PRN 04/14/18 12/30/20 History Cholecalciferol (Vitamin D3) 2,000 unit PO DAILY 04/14/18 12/30/20 History [Vitamin D3] Aspirin EC [Ecotrin Low Dose] 81 mg PO HS 12/30/20 12/30/20 History Donepezil HCl [Aricept] 10 mg PO HS 12/30/20 12/30/20 History metFORMIN HCL [Glucophage] 500 mg PO HS 12/30/20 12/30/20 History Allergies Allergy/AdvReac Type Severity Reaction Status Date / Time Penicillins Allergy Rash/Hives Verified 12/31/20 15:16 Physical Exam Vitals: Vital Signs Temp Pulse Pulse Resp BP BP Pulse Ox 12/31/20 08:00 85 18 12/31/20 07:43 98.5 F 85 18 147/74 92 L 12/31/20 02:15 98.2 F 76 17 136/83 92 L 12/30/20 19:21 101.0 F H 108 H 17 142/72 92 L 12/30/20 17:59 99.9 F H 97 16 189/64 93 L 12/30/20 17:28 76 16 158/62 97 12/30/20 12:20 100.7 F H 12/30/20 11:08 98.6 F 100 16 155/98 95 Intake and Output 12/30/20 12/31/20 12/31/20 22:59 06:59 14:59 Output Total 400 550 Balance -400 -550 Output: Urine 400 550 Other: Voiding Method Indwelling Catheter Indwelling Catheter # Bowel Movements 1 Weight 97.069 kg Results CBC & Chem 7: 01/01/21 03:42 01/01/21 03:42 Labs: Abnormal Lab Results - Last 24 Hours (Table) 12/30/20 12/30/20 12/30/20 Range/Units 12:00 12:00 13:03 WBC 16.4 H (3.8-10.6) k/uL RBC (4.30-5.90) m/uL Neutrophils # 13.7 H (1.3-7.7) k/uL Monocytes # (0-1.0) k/uL Chloride (98-107) mmol/L Carbon Dioxide (22-30) mmol/L Glucose 171 H (74-99) mg/dL POC Glucose (mg/dL) (75-99) mg/dL Plasma Lactic Acid Gerald 2.4 H* (0.7-2.0) mmol/L Total Bilirubin 4.3 H (0.2-1.3) mg/dL AST 62 H (17-59) U/L Creatine Kinase 2228 H* (55-170) U/L Total Protein (6.3-8.2) g/dL Albumin (3.5-5.0) g/dL 12/30/20 12/31/20 12/31/20 Range/Units 20:53 06:37 06:37 WBC 14.0 H (3.8-10.6) k/uL RBC 4.24 L (4.30-5.90) m/uL Neutrophils # 9.9 H (1.3-7.7) k/uL Monocytes # 1.3 H (0-1.0) k/uL Chloride 111 H (98-107) mmol/L Carbon Dioxide 21 L (22-30) mmol/L Glucose 155 H (74-99) mg/dL POC Glucose (mg/dL) 189 H (75-99) mg/dL Plasma Lactic Acid Gerald (0.7-2.0) mmol/L Total Bilirubin 2.8 H (0.2-1.3) mg/dL AST (17-59) U/L Creatine Kinase 1091 H* (55-170) U/L Total Protein 6.2 L (6.3-8.2) g/dL Albumin 3.4 L (3.5-5.0) g/dL 12/31/20 Range/Units 07:10 WBC (3.8-10.6) k/uL RBC (4.30-5.90) m/uL Neutrophils # (1.3-7.7) k/uL Monocytes # (0-1.0) k/uL Chloride (98-107) mmol/L Carbon Dioxide (22-30) mmol/L Glucose (74-99) mg/dL POC Glucose (mg/dL) 150 H (75-99) mg/dL Plasma Lactic Acid Gerald (0.7-2.0) mmol/L Total Bilirubin (0.2-1.3) mg/dL AST (17-59) U/L Creatine Kinase (55-170) U/L Total Protein (6.3-8.2) g/dL Albumin (3.5-5.0) g/dL
[2021-01-01] MEDS ORDERED: CEFEPIME 2 GM in SODIUM CHLORIDE 0.9% 100 ML IVPB ONE (11:00)
--- NOTE | 2021-01-01 11:03 | P.PN ---
Subjective Progress Note Date: 01/01/21 Principal diagnosis: 1. Left hip femoral neck fracture 2. Left wrist ulnar styloid fracture Patient was seen at bedside this morning resting comfortably lying semirecumbent bed. Patient states he has not gotten up since surgery yesterday. Patient says he does normally use a walker to ambulate around home. Patient says physical therapy has not been by a. He states the pain he has located at his left hip is near incision and also states he has some left wrist pain. Volar splint is in place on left wrist/lower arm. Silver foam dressing is in place over left hip incision. Patient says he has had a bowel movement since surgery. Patient has had something to eat since surgery as well. Patient denies chest pain, fever, shortness breath, nausea, vomiting, change in vision, loss of bowel/bladder control. Objective - Vital Signs Vital signs: Vital Signs Temp 100.5 F H 01/01/21 09:00 Pulse 106 H 01/01/21 09:00 Resp 22 01/01/21 09:00 BP 152/77 01/01/21 09:00 Pulse Ox 97 01/01/21 04:46 Intake & Output 12/31/20 01/01/21 01/01/21 18:59 06:59 18:59 Intake Total 1500 50 Output Total 575 1950 Balance 925 -1900 Weight 97.069 kg Intake: IV 1500 50 Output: Urine 375 1950 Estimated Blood Loss 200 Other: Voiding Method Indwelling Catheter Indwelling Catheter - Exam Inspection: Silver foam dressing is in place on left hip. Incision is clean, dry, intact. Dewitt are well aligned in good place. There is minimal ecchymosis/erythema. There is a volar splint present on the left arm. negative for open fractures/significant ecchymoses/deformity to left arm Sensation: Sensation is equal, symmetric, bilaterally intact throughout. Palpation: There is moderate tenderness to palpation over the incision on left hip. Moderate tenderness with palpation about the left distal radius/ulna. Nontender to palpation throughout rest of exam Range of motion: Range of motion is limited in left leg due to moderate pain. Patient is able wiggle toes in left foot. Patient is able to wiggle fingers in left hand, but with some moderate pain. Patient is able flex and extend left elbow. Patient's full range of motion in RUE and RLE Motor: 5/5 in resisted hip flexion/extension, knee flexion/extension, plantar flexion/dorsiflexion the right ankle; 5/5 in resisted elbow flexion/extension, wrist flexion/extension, shoulder abduction, internal/external rotation of the right arm. Left leg motor exams severely limited due to patient's pain. [employer] strength 2/5 in left hand. Wrist flexion limited due to patient pain in left. Left elbow and shoulder exam limited due to patient's pain Neurovascular: Refill under 3 seconds bilaterally in upper extremity digits. DP pulses intact, bilaterally, 2+. Special tests: Negative Kimber's bilaterally; l - Labs CBC & Chem 7: 01/01/21 03:42 01/01/21 03:42 Labs: Abnormal Lab Results - Last 24 Hours (Table) 12/31/20 12/31/20 12/31/20 Range/Units 11:22 15:43 18:42 WBC (4.50-10.00) X 10*3/uL RBC (4.40-5.60) X 10*6/uL Hgb (13.0-17.0) g/dL Hct (39.6-50.0) % Immature Gran # (0.00-0.04) X 10*3/uL Neutrophils # (1.80-7.70) X 10*3/uL Lymphocytes # (0.90-5.00) X 10*3/uL Monocytes # (0.20-1.00) X 10*3/uL Sodium (137-145) mmol/L Carbon Dioxide (22-30) mmol/L Glucose (74-99) mg/dL POC Glucose (mg/dL) 118 H 130 H 156 H (75-99) mg/dL Calcium (8.4-10.2) mg/dL 12/31/20 01/01/21 01/01/21 Range/Units 20:37 03:42 03:42 WBC 10.11 H (4.50-10.00) X 10*3/uL RBC 3.83 L (4.40-5.60) X 10*6/uL Hgb 12.0 L (13.0-17.0) g/dL Hct 36.9 L (39.6-50.0) % Immature Gran # 0.05 H (0.00-0.04) X 10*3/uL Neutrophils # 8.21 H (1.80-7.70) X 10*3/uL Lymphocytes # 0.61 L (0.90-5.00) X 10*3/uL Monocytes # 1.14 H (0.20-1.00) X 10*3/uL Sodium 134 L (137-145) mmol/L Carbon Dioxide 20 L (22-30) mmol/L Glucose 177 H (74-99) mg/dL POC Glucose (mg/dL) 141 H (75-99) mg/dL Calcium 8.2 L (8.4-10.2) mg/dL 01/01/21 Range/Units 07:00 WBC (4.50-10.00) X 10*3/uL RBC (4.40-5.60) X 10*6/uL Hgb (13.0-17.0) g/dL Hct (39.6-50.0) % Immature Gran # (0.00-0.04) X 10*3/uL Neutrophils # (1.80-7.70) X 10*3/uL Lymphocytes # (0.90-5.00) X 10*3/uL Monocytes # (0.20-1.00) X 10*3/uL Sodium (137-145) mmol/L Carbon Dioxide (22-30) mmol/L Glucose (74-99) mg/dL POC Glucose (mg/dL) 194 H (75-99) mg/dL Calcium (8.4-10.2) mg/dL Microbiology - Last 24 Hours (Table) 12/30/20 13:03 Blood Culture Gram Stain - Preliminary Blood Blood Culture - Preliminary Coagulase Negative Staph 12/30/20 13:03 Blood Culture Gram Stain - Preliminary Blood 12/30/20 13:03 Blood Culture - Final Blood 12/30/20 13:03 Blood Culture - Final Blood Assessment and Plan Assessment: 1. Postoperative day #1 status post left hip hemiarthroplasty; Left hip femoral neck fracture status post fall 2. Left wrist ulnar styloid fracture; left wrist distal radius fracture 3. Multiple medical comorbidities Plan: 1. Left hip femoral neck fracture status post fall - left hip hemiarthroplasty performed yesterday, 12/31/2020. Patient stable at bedside this morning. 2. Left wrist ulnar styloid fracture; left distal radius fracture - volar splint in place currently. Plan to place hard cast on left arm before discharge 3. Appreciate medical management 4. Pain management - IV and oral pain meds 5. DVT prophylaxis - Lovenox 6. GI prophylaxis - senna 7. Encourage incentive spirometer use 8. PT/OT - weightbearing as tolerated with walker for assistance 9. Discharge planning - likely discharge to rehab in the next several days Time with Patient: Less than 30
--- NOTE | 2021-01-01 11:16 | XR ---
EXAMINATION TYPE: XR chest 1V portable DATE OF EXAM: 01/01/2021 COMPARISON: Chest x-ray 12/30/2020 HISTORY: Fever TECHNIQUE: Single frontal view of the chest is obtained. FINDINGS: There is no focal air space opacity, pleural effusion, or pneumothorax seen. The cardiac silhouette size is within normal limits. Probable ventriculoperitoneal shunt tubing is stable. Surgic al clips are present in the right axilla. There is elevation of the right hemidiaphragm. The osseous structures are intact, arthropathy noted in the shoulders. IMPRESSION: No acute process.
[2021-01-01 11:41] LABS: Glucose,Whole Blood 156 mg/dL (75-99)
[2021-01-01] MEDS: IOPAMIDOL CONTRAST (ORAL USE) VIAL PO PRN ×2 (12:07→13:09)
--- NOTE | 2021-01-01 14:02 | CT ---
EXAMINATION TYPE: CT abdomen pelvis w con DATE OF EXAM: 01/01/2021 COMPARISON: None INDICATION: Patient poor historian. DLP: 2349.4 mGycm, Automated exposure control for dose reduction was used. CONTRAST: 100 mL of Isovue 300. Study performed with Oral Contrast TECHNIQUE: Axial images were obtained from above the diaphragm to the pubic rami in the axial plane a t 5 mm thick sections. Reconstructed images are reviewed on the computer in the coronal plane. FINDINGS: Limited CT sections are obtained the lung bases. Very minimal pleural fluid may be present at the [facility] lung base.. CT ABDOMEN: Liver: There is some moderate patchy decreased density through the right lobe liver. This is nonspeci fic. There may be some focal sparing present. Spleen: Normal Pancreas: Atrophic Adrenal glands: The adrenal glands are normal. Gallbladder: Normal Kidneys: No masses are evident. No hydronephrosis is present. No cysts are present. Delayed images were obtained through the kidneys, which remain unremarkable. Aorta: Vascular calcification is within the aorta. Inferior vena cava: Normal. CT PELVIS: Loops of bowel within the abdomen and pelvis are normal. There are loops of bowel which are incom pletely distended or lack oral contrast limiting their evaluation. Appendix: Normal as visualized. Urinary bladder: Decompressed with Tobias catheter. Urinary bladder cannot be evaluated. Genitourinary structures: No enlarged prostate is identified. Osseous structures: No suspicious lytic or sclerotic lesions. IMPRESSIONS: 1. No suspicious acute changes. 2. Patchy fatty infiltration within the liver with some focal sparing. Correlate with liver findings. Other infiltrative processes should be considered within the differential. Urinary bladder decompres sed with Tobias catheter cannot be well evaluated.
[2021-01-01] MEDS: CEFEPIME 2 GM in SODIUM CHLORIDE 0.9% 100 ML IVPB SCH (15:40)
[2021-01-01 17:09] LABS: Glucose,Whole Blood 188 mg/dL (75-99)
[2021-01-01] MEDS: LACTATED RINGERS 1,000 ML IV SCH (17:10)
[2021-01-01 21:57] LABS: Glucose,Whole Blood 201 mg/dL (75-99)
[2021-01-01] MEDS: SENNOSIDES-DOCUSATE SODIUM 1 EACH TAB PO SCH (22:09)
[2021-01-01] MEDS: DONEPEZIL 10 MG TAB PO SCH (22:10)
--- NOTE | 2021-01-01 23:37 | PN ---
PROGRESS NOTE DATE OF SERVICE: 01/01/2021 REASON FOR FOLLOWUP: Fever. INTERVAL HISTORY: Patient did spike a fever this morning of 101.3. The patient is afebrile this evening. The patient denies having any chest pain, shortness of breath or cough. No abdominal pain. No diarrhea. Pain to the left is currently controlled. PHYSICAL EXAMINATION: Blood pressure 143/71, pulse of 83, temperature 98.4. He is 95% on 2 L nasal cannula. General description is an elderly male up in the bed in no distress. Respiratory system: Unlabored breathing, decreased intensity of breath sounds. No wheeze. Heart S1, S2. Regular rate and rhythm. Abdomen: Soft, no tenderness. Extremities: No edema of the feet. LABS: Hemoglobin is 12.7, white count 10.1. Creatinine 0.73, starks PCR has been negative. Urine is negative. Blood cultures coagulase negative Staph. Chest x-ray did not show any pneumonia. CT of abdomen and pelvis no suspicious acute changes. DIAGNOSTIC IMPRESSION AND PLAN: Patient with a fever, elevated white count in this patient admitted to the hospital after the patient did have a fall, tripped on the dog and broke his left hip pain and wrist area, possible reactive secondary to underlying trauma or hematoma in the fracture site as the patient did not have obvious focus of infection. Chest x-ray negative. Urine was negative. CT of abdomen and pelvis did not show any acute abnormality. Antibiotic will be adjusted to cefepime to continue while waiting for the culture to finalize and monitor clinical course closely. MMODL / IJN: [id number] /
[2021-01-02] MEDS: CEFEPIME 2 GM in SODIUM CHLORIDE 0.9% 100 ML IVPB SCH ×3 (00:30→15:48)
[2021-01-02] MEDS: ACETAMINOPHEN TAB 325 MG TAB PO PRN ×2 (02:48→14:53)
[2021-01-02] MEDS: HYDROcodone/APAP 7.5-325MG 1 EACH TAB PO PRN ×2 (02:48→07:41)
[2021-01-02] MEDS: SODIUM CHLORIDE 0.9% 1,000 ML IV SCH ×2 (05:29→21:08)
[2021-01-02] MEDS ORDERED: VANCOMYCIN TROUGH DUE 1 EACH MISC MISCELLANE ONE (07:00)
[2021-01-02 07:22] LABS: Glucose,Whole Blood 138 mg/dL (75-99)
[2021-01-02 07:33] LABS: African American GFR (CKD) >90 (>60 ml/min/1.73 sqM); Anion Gap 6 mmol/L; Blood Urea Nitrogen 15 mg/dL (9-20); Calcium 8.5 mg/dL (8.4-10.2); Carbon Dioxide 22 mmol/L (22-30); Chloride 108 mmol/L (98-107); Glucose 165 mg/dL (74-99); Non-African American GFR(CKD) 90 (>60 ml/min/1.73 sqM); Sodium 136 mmol/L (137-145)
[2021-01-02] MEDS: MULTIVITAMINS, THERA 1 EACH TAB PO SCH (07:35)
[2021-01-02] MEDS: CHOLECALCIFEROL 25 MCG (1000 IU) TABLET PO SCH (07:35)
[2021-01-02] MEDS: INSULIN ASPART (NovoLOG) 100 UNIT/ML VIAL SQ SCH ×4 (07:35→21:09)
[2021-01-02] MEDS: ENOXAPARIN 30 MG/0.3 ML SYRINGE SQ SCH ×2 (07:35→21:08)
[2021-01-02] MEDS: lisinopriL 10 MG TAB PO SCH (07:35)
[2021-01-02] MEDS: SENNOSIDES 8.6 MG TAB PO SCH (07:35)
[2021-01-02] MEDS: CITALOPRAM HYDROBROMIDE 10 MG TAB PO SCH (07:37)
[2021-01-02 07:39] LABS: Potassium 4.5 mmol/L (3.5-5.1)
[2021-01-02 11:38] LABS: Glucose,Whole Blood 181 mg/dL (75-99)
--- NOTE | 2021-01-02 12:00 | P.PN ---
Subjective Progress Note Date: 01/02/21 Principal diagnosis: 1. Left hip femoral neck fracture 2. Left wrist ulnar styloid fracture; left wrist distal radius fracture Patient seen at bedside this morning resting comfortably lying semirecumbent bed. Patient states he did try to get up with physical therapy yesterday. However, patient says he is not able to get up because he is in too much pain to his left hip and left wrist. Volar splint was in place on left wrist/forearm. Silver foam dressing is in place over left hip incision. Patient states he has had something the patient has had a bowel movement yesterday. Patient denies chest pain, fever, shortness of breath, nausea, vomiting, change in vision, loss of bowel/bladder control. Objective - Vital Signs Vital signs: Vital Signs Temp 99.4 F 01/02/21 08:22 Pulse 94 01/02/21 08:22 Resp 22 01/02/21 08:22 BP 153/69 01/02/21 08:22 Pulse Ox 92 L 01/02/21 08:22 Intake & Output 01/01/21 01/02/21 01/02/21 18:59 06:59 18:59 Intake Total 400 Output Total 650 950 Balance -650 -550 Intake: Oral 400 Output: Urine 650 950 Other: Voiding Method Indwelling Catheter Indwelling Catheter - Exam Volar splint was removed from left arm/wrist. A short arm cast was placed on left arm of patient. Inspection: Silver foam dressing is in place on left hip. Incision is intact. There is minimal serous drainage from the incision on the dressing. Nara are well aligned in good place. There is minimal ecchymosis/erythema. There is a volar splint present on the left arm. negative for open fractures/significant ecchymoses/deformity to left arm Sensation: Sensation is equal, symmetric, bilaterally intact throughout. Palpation: There is moderate tenderness to palpation over the incision on left hip. Moderate tenderness with palpation about the left distal radius/ulna. Nontender to palpation throughout rest of exam Range of motion: Range of motion is limited in left leg due to moderate pain. Patient is able wiggle toes in left foot. Patient is able to wiggle fingers in left hand, but with some moderate pain. Patient is able flex and extend left elbow. Patient's full range of motion in RUE and RLE Motor: 5/5 in resisted hip flexion/extension, knee flexion/extension, plantar flexion/dorsiflexion the right ankle; 5/5 in resisted elbow flexion/extension, w rist flexion/extension, shoulder abduction, internal/external rotation of the right arm. Left leg motor exams severely limited due to patient's pain. Marketing Analytics Manager strength 2/5 in left hand. Wrist flexion limited due to patient pain in left. Left elbow and shoulder exam limited due to patient's pain Neurovascular: Refill under 3 seconds bilaterally in upper extremity digits. DP pulses intact, bilaterally, 2+. Special tests: Negative Kimber's bilaterally; l - Labs CBC & Chem 7: 01/01/21 03:42 01/02/21 06:25 Labs: Abnormal Lab Results - Last 24 Hours (Table) 01/01/21 01/01/21 01/01/21 Range/Units 10:49 10:49 17:07 Sodium (137-145) mmol/L Chloride (98-107) mmol/L Glucose (74-99) mg/dL POC Glucose (mg/dL) 188 H (75-99) mg/dL C-Reactive Protein 17.5 H (<1.0) mg/dL Procalcitonin 0.79 H (0.02-0.09) ng/mL 01/01/21 01/02/21 01/02/21 Range/Units 21:56 06:25 07:21 Sodium 136 L (137-145) mmol/L Chloride 108 H (98-107) mmol/L Glucose 165 H (74-99) mg/dL POC Glucose (mg/dL) 201 H 138 H (75-99) mg/dL C-Reactive Protein (<1.0) mg/dL Procalcitonin (0.02-0.09) ng/mL 01/02/21 Range/Units 11:36 Sodium (137-145) mmol/L Chloride (98-107) mmol/L Glucose (74-99) mg/dL POC Glucose (mg/dL) 181 H (75-99) mg/dL C-Reactive Protein (<1.0) mg/dL Procalcitonin (0.02-0.09) ng/mL Microbiology - Last 24 Hours (Table) 01/01/21 03:42 Blood Culture - Preliminary Blood No Growth after 24 hours 12/31/20 14:02 Blood Culture - Preliminary Blood No Growth after 24 hours 12/30/20 13:03 Blood Culture Gram Stain - Preliminary Blood Blood Culture - Preliminary Coagulase Negative Staph 12/30/20 13:03 Blood Culture Gram Stain - Preliminary Blood Blood Culture - Preliminary Coagulase Negative Staph Assessment and Plan Assessment: Postoperative day #2 status post left hip hemiarthroplasty 1. Left hip femoral neck fracture status post fall 2. Left wrist ulnar styloid fracture; left wrist distal radius fracture 3. Multiple medical comorbidities Plan: 1. Left hip femoral neck fracture status post fall - left hip hemiarthroplasty performed 12/31/2020. Patient stable at bedside this morning. Volar splint was removed from left arm. A short arm cast was placed over left arm. 2. Left wrist ulnar styloid fracture; left distal radius fracture - short arm cast placed on left arm 3. Appreciate medical management 4. Pain management - IV and oral pain meds 5. DVT prophylaxis - Lovenox 6. GI prophylaxis - senna 7. Encourage incentive spirometer use 8. PT/OT - weightbearing as tolerated with walker for assistance. Encouraged to get up to sit in chair 9. Discharge planning - likely discharge to rehab tomorrow versus Wednesday. Time with Patient: Less than 30
--- NOTE | 2021-01-02 13:54 | P.PN ---
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 Patient was last well- known and was seen by his sister on Wednesday morning. Patient states that he has been lying on the floor for 2 days. Patient sister went to see him and found him on the side of the bed. She called EMS and helped him into the stretcher. Patient is complaining of left hip and left wrist pain. Denies any headache. No neck stiffness. No complaints of chest pain or shortness of breath. No nausea vomiting abdominal pain or diarrhea. No dysuria or hematuria. Patient states that he was tangled in the dog leash and fell twice. Patient is somewhat poor historian. On admission blood pressure was 155/98 pulse 100 and respiration 16 pulse ox 95% on room air and T-max was 101.0. CT head and cervical spine showed interval placement of right parietal approach RIVETING MACHINE OPERATOR shunt catheter. The tip terminates in the posterior body of the left lateral ventricle just to the left of midline. Overall mild hydrocephalus is unchanged compared to 04/14/2018 Moderate multilevel spondylitic change with moderate focal stenosis at C5-C6 secondary to disc bulge. No fracture or malalignment of the cervical spine. Chest x-ray showed no acute cardiopulmonary process X-ray of the left wrist showed ulnar stylus fracture is residual acuity, suspect nondisplaced fracture of the distal radius RV questionable age. Hip/pelvis showed there is left hip fracture subcapital proximal left femoral fracture with resulting varus deformity. EKG showed normal sinus rhythm Laboratory showed WBC 16.4 hemoglobin 15.5 and platelets 227 Sodium 139 potassium 4.1 chloride 104 BUN 16 and creatinine 0.81 blood sugar 171. Lactic acid 2.4 total bilirubin level is 4.3 CK level 2228 and urinalysis is negative for infection COVID-19 PCR not detected. 12/31/2020 Patient is currently lying in the bed. Awake and alert oriented. Seems to be better today. Patient was febrile. Chest x-ray and UA are negative. Blood cultures grew gram-positive cocci and was being continued on vancomycin. Patient is also on ceftriaxone. Follow-up culture reports and no obvious source of infection at this time. Otherwise WBC count is trending down. Patient is scheduled for left hip hemiarthroplasty today. Pain is fairly controlled. ID is on board. Discussed with his sister at bedside in detail. Current medications reviewed. Objective - Vital Signs Vital signs: Vital Signs Temp 98.5 F 12/31/20 07:43 Pulse 85 12/31/20 08:00 Resp 18 12/31/20 08:00 BP 147/74 12/31/20 07:43 Pulse Ox 92 L 12/31/20 07:43 Intake & Output 12/30/20 12/31/20 12/31/20 18:59 06:59 18:59 Output Total 400 550 Balance -400 -550 Weight 97.069 kg Output: Urine 400 550 Other: Voiding Method Indwelling Catheter Indwelling Catheter Indwelling Catheter # Bowel Movements 1 - Exam PHYSICAL EXAMINATION: Patient is lying in the bed comfortably, no acute distress, awake alert and oriented.. HEENT: Normocephalic. Neck is supple. Pupils reactive. Nostrils clear. Oral cavity is moist. Neck reveals no JVD, carotid bruits, or thyromegaly. CHEST EXAMINATION: Trachea is central. Symmetrical expansion.Bibasilar diminish ed sounds.. No wheezing or rhonchi. CARDIAC: Normal S1, S2 with no gallops. No murmurs ABDOMEN: Soft. Bowel sounds normal. No organomegaly. No abdominal bruits. Extremities: reveal no edema. No clubbing or cyanosis Neurologically awake, alert, oriented x2-3 with well-coordinated movements. No focal deficits noted Skin: No rash or skin lesions. Psychiatric: Cooperative. Nonsuicidal Musculoskeletal: Left wrist splint in place and varus deformity of the left lower extremity.. - Labs CBC & Chem 7: 01/01/21 03:42 01/02/21 06:25 Labs: Abnormal Lab Results - Last 24 Hours (Table) 12/30/20 12/30/20 12/31/20 Range/Units 13:03 20:53 06:37 WBC 14.0 H (3.8-10.6) k/uL RBC 4.24 L (4.30-5.90) m/uL Neutrophils # 9.9 H (1.3-7.7) k/uL Monocytes # 1.3 H (0-1.0) k/uL Chloride (98-107) mmol/L Carbon Dioxide (22-30) mmol/L Glucose (74-99) mg/dL POC Glucose (mg/dL) 189 H (75-99) mg/dL Plasma Lactic Acid Gerald 2.4 H* (0.7-2.0) mmol/L Total Bilirubin (0.2-1.3) mg/dL Creatine Kinase (55-170) U/L Total Protein (6.3-8.2) g/dL Albumin (3.5-5.0) g/dL 12/31/20 12/31/20 12/31/20 Range/Units 06:37 07:10 11:22 WBC (3.8-10.6) k/uL RBC (4.30-5.90) m/uL Neutrophils # (1.3-7.7) k/uL Monocytes # (0-1.0) k/uL Chloride 111 H (98-107) mmol/L Carbon Dioxide 21 L (22-30) mmol/L Glucose 155 H (74-99) mg/dL POC Glucose (mg/dL) 150 H 118 H (75-99) mg/dL Plasma Lactic Acid Gerald (0.7-2.0) mmol/L Total Bilirubin 2.8 H (0.2-1.3) mg/dL Creatine Kinase 1091 H* (55-170) U/L Total Protein 6.2 L (6.3-8.2) g/dL Albumin 3.4 L (3.5-5.0) g/dL Microbiology - Last 24 Hours (Table) 12/30/20 13:03 Blood Culture Gram Stain - Preliminary Blood 12/30/20 13:03 Blood Culture Gram Stain - Preliminary Blood 12/30/20 13:03 Blood Culture - Final Blood 12/30/20 13:03 Blood Culture - Final Blood Assessment and Plan Assessment: Status post fall and found on the floor for approximately 48 hours. Mechanical fall as per patient. Left femoral neck fracture with varus deformity. Patient is scheduled for left hemiarthroplasty. Left wrist ulnar styloid fracture. Acute rhabdomyolysis. Improved. Lactic acidosis. Improved. Hyperbilirubinemia without any elevated liver enzymes SIRS /fever, leukocytosis and tachycardia without source of infection so far. History of RIVETING MACHINE OPERATOR shunt placement Hypertension Diabetes type 2 noninsulin-dependent Depression History of CVA/TIA DVT prophylaxis with SCDs for possible surgical intervention surgery. Plan: Patient will be continued on IV hydration monitor CK level. CPK level is trending down. Urinalysis and chest x-ray showed no evidence of infection. Follow-up blood cultures. Patient is being continued on antibiotics in the form of vancomycin and ceftriaxone empirically. ID is on board. Awaiting final culture reports. Orthopedic surgery is on board. Patient is scheduled for left hemiarthroplasty today. Time with Patient: Greater than 30
--- NOTE | 2021-01-02 13:58 | P.PN ---
Subjective Progress Note Date: 01/01/21 Principal diagnosis: Left femoral neck fracture with varus deformity. Patient is scheduled for left hemiarthroplasty. Left wrist ulnar styloid fracture. Fevers Patient is a 65-year-old male with a known history of hypertension, diabetes type 2 [id number] multiple sclerosis, liver cirrhosis, memory impairment, history of CVA/TIA, history of SAND WHEELER shunt placement and chronic low back pain and depression who is currently living by herself was found by his sister on the side of the bed who is also his caregiver.. Patient was last well-known and was seen by his sister on Wednesday morning. Patient states that he has been lying on the floor for 2 days. Patient sister went to see him and found him on the side of the bed. She called EMS and helped him into the stre tcher. Patient is complaining of left hip and left wrist pain. Denies any headache. No neck stiffness. No complaints of chest pain or shortness of breath. No nausea vomiting abdominal pain or diarrhea. No dysuria or hematuria. Patient states that he was tangled in the dog leash and fell twice. Patient is somewhat poor historian. On admission blood pressure was 155/98 pulse 100 and respiration 16 pulse ox 95% on room air and T-max was 101.0. CT head and cervical spine showed interval placement of right parietal approach SAND WHEELER shunt catheter. The tip terminates in the posterior body of the left lateral ventricle just to the left of midline. Overall mild hydrocephalus is unchanged compared to 04/14/2018 Moderate multilevel spondylitic change with moderate focal stenosis at C5-C6 secondary to disc bulge. No fracture or malalignment of the cervical spine. Chest x-ray showed no acute cardiopulmonary process X-ray of the left wrist showed ulnar stylus fracture is residual acuity, suspect nondisplaced fracture of the distal radius RV questionable age. Hip/pelvis showed there is left hip fracture subcapital proximal left femoral fracture with resulting varus deformity. EKG showed normal sinus rhythm Laboratory showed WBC 16.4 hemoglobin 15.5 and platelets 227 Sodium 139 potassium 4.1 chloride 104 BUN 16 and creatinine 0.81 blood sugar 171. Lactic acid 2.4 total bilirubin level is 4.3 CK level 2228 and urinalysis is negative for infection COVID-19 PCR not detected. 12/31/2020 Patient is currently lying in the bed. Awake and alert oriented. Seems to be better today. Patient was febrile. Chest x-ray and UA are negative. Blood cultures grew gram-positive cocci and was being continued on vancomycin. Patient is also on ceftriaxone. Follow-up culture reports and no obvious source of infection at this time. Otherwise WBC count is trending down. Patient is scheduled for left hip hemiarthroplasty today. Pain is fairly controlled. ID is on board. Discussed with his sister at bedside in detail. 01/01/2021 Patient is currently lying in the bed. Status post left hip surgery. Pain is controlled. Otherwise patient did have fever with T-max 103.1 last night. Continued on cefepime) recommendations. Vancomycin has been discontinued since the blood cultures grew staph coagulase negative. CT of abdomen pelvis was ordered to rule out any source of infection. Orthopedic surgery is following and is also planning for left wrist immobilizer. Currently patient is afebrile. Laboratory data showed WBC trending down to 10.1, hemoglobin 12.0 and neutrophils 8.21 Jose sodium 134 potassium 3.6 chloride 107 bicarb 20 BUN 14 and creatinine 0.74 and calcium 8.2 Patient denied any nausea vomiting or abdominal pain or diarrhea. No chest pain or shortness of breath. No cough or sputum production. Current medications reviewed. Objective - Vital Signs Vital signs: Vital Signs Temp 98.4 F 01/01/21 20:12 Pulse 95 01/01/21 20:12 Resp 18 01/01/21 20:12 BP 143/71 01/01/21 20:12 Pulse Ox 95 01/01/21 20:12 Intake & Output 01/01/21 01/01/21 01/02/21 06:59 18:59 06:59 Intake Total 50 Output Total 1950 650 Balance -1900 -650 Weight 97.069 kg Intake: IV 50 Output: Urine 1950 650 Other: Voiding Method Indwelling Catheter Indwelling Catheter - Exam PHYSICAL EXAMINATION: Patient is lying in the bed comfortably, no acute distress, awake alert and oriented.. HEENT: Normocephalic. Neck is supple. Pupils reactive. Nostrils clear. Oral cavity is moist. Neck reveals no JVD, carotid bruits, or thyromegaly. CHEST EXAMINATION: Trachea is central. Symmetrical expansion.Bibasilar diminished sounds.. No wheezing or rhonchi. CARDIAC: Normal S1, S2 with no gallops. No murmurs ABDOMEN: Soft. Bowel sounds normal. No organomegaly. No abdominal bruits. Extremities: reveal no edema. No clubbing or cyanosis Neurologically awake, alert, oriented x2-3 with well-coordinated movements. No focal deficits noted Skin: No rash or skin lesions. Psychiatric: Cooperative. Nonsuicidal Musculoskeletal: Left wrist splint in place . Left hip surgical site is intact. - Labs CBC & Chem 7: 01/01/21 03:42 01/02/21 06:25 Labs: Abnormal Lab Results - Last 24 Hours (Table) 01/01/21 01/01/21 01/01/21 Range/Units 03:42 03:42 07:00 WBC 10.11 H (4.50-10.00) X 10*3/uL RBC 3.83 L (4.40-5.60) X 10*6/uL Hgb 12.0 L (13.0-17.0) g/dL Hct 36.9 L (39.6-50.0) % Immature Gran # 0.05 H (0.00-0.04) X 10*3/uL Neutrophils # 8.21 H (1.80-7.70) X 10*3/uL Lymphocytes # 0.61 L (0.90-5.00) X 10*3/uL Monocytes # 1.14 H (0.20-1.00) X 10*3/uL Sodium 134 L (137-145) mmol/L Carbon Dioxide 20 L (22-30) mmol/L Glucose 177 H (74-99) mg/dL POC Glucose (mg/dL) 194 H (75-99) mg/dL Calcium 8.2 L (8.4-10.2) mg/dL C-Reactive Protein (<1.0) mg/dL 01/01/21 01/01/21 01/01/21 Range/Units 10:49 11:39 17:07 WBC (4.50-10.00) X 10*3/uL RBC (4.40-5.60) X 10*6/uL Hgb (13.0-17.0) g/dL Hct (39.6-50.0) % Immature Gran # (0.00-0.04) X 10*3/uL Neutrophils # (1.80-7.70) X 10*3/uL Lymphocytes # (0.90-5.00) X 10*3/uL Monocytes # (0.20-1.00) X 10*3/uL Sodium (137-145) mmol/L Carbon Dioxide (22-30) mmol/L Glucose (74-99) mg/dL POC Glucose (mg/dL) 156 H 188 H (75-99) mg/dL Calcium (8.4-10.2) mg/dL C-Reactive Protein 17.5 H (<1.0) mg/dL 01/01/21 Range/Units 21:56 WBC (4.50-10.00) X 10*3/uL RBC (4.40-5.60) X 10*6/uL Hgb (13.0-17.0) g/dL Hct (39.6-50.0) % Immature Gran # (0.00-0.04) X 10*3/uL Neutrophils # (1.80-7.70) X 10*3/uL Lymphocytes # (0.90-5.00) X 10*3/uL Monocytes # (0.20-1.00) X 10*3/uL Sodium (137-145) mmol/L Carbon Dioxide (22-30) mmol/L Glucose (74-99) mg/dL POC Glucose (mg/dL) 201 H (75-99) mg/dL Calcium (8.4-10.2) mg/dL C-Reactive Protein (<1.0) mg/dL Microbiology - Last 24 Hours (Table) 12/31/20 14:02 Blood Culture - Preliminary Blood No Growth after 24 hours 12/30/20 13:03 Blood Culture Gram Stain - Preliminary Blood Blood Culture - Preliminary Coagulase Negative Staph 12/30/20 13:03 Blood Culture Gram Stain - Preliminary Blood Blood Culture - Preliminary Coagulase Negative Staph Assessment and Plan Assessment: Status post fall and found on the floor for approximately 48 hours. Mechanical fall as per patient. Left femoral neck fracture with varus deformity. Patient is status post left hemiarthroplasty. Left wrist ulnar styloid fracture. Acute rhabdomyolysis. Improved. Lactic acidosis. Improved. Hyperbilirubinemia without any elevated liver enzymes SIRS /fever, leukocytosis and tachycardia without source of infection so far. History of SAND WHEELER shunt placement Hypertension Diabetes type 2 noninsulin-dependent Depression History of CVA/TIA DVT prophylaxis with SCDs for possible surgical intervention surgery. Plan: Patient will be continued on IV hydration monitor CK level. CPK level is trending down. Urinalysis and chest x-ray showed no evidence of infection. Follow-up blood cultures. Patient is being continued on antibiotics in the form of vancomycin and ceftriaxone empirically. ID is on board. Awaiting final culture reports. Orthopedic status post left hemiarthroplasty on 12/31/2020. CT of the abdominal pelvis to rule out source of infection. Continue with GI and DVT prophylaxis. Time with Patient: Greater than 30
[2021-01-02 16:51] LABS: Glucose,Whole Blood 195 mg/dL (75-99)
--- NOTE | 2021-01-02 17:00 | PN ---
PROGRESS NOTE DATE OF SERVICE: 01/02/2021 REASON FOR FOLLOWUP: Fever. INTERVAL HISTORY: The patient was afebrile this morning; however, did spike another fever of 102.2. The patient overall is feeling better, though. He is breathing comfortably. Denies having any chest pain or cough. No abdominal pain. No diarrhea. Pain to the left wrist and hip area is currently controlled. PHYSICAL EXAMINATION: Blood pressure 151/70 with a pulse of 118, temperature 102.2. He is 97% on 2 L nasal cannula. General description is an elderly male lying in bed in no distress. RESPIRATORY SYSTEM: Unlabored breathing. Decreased intensity of breath sounds. No wheeze. HEART: S1, S2. Regular rate and rhythm. ABDOMEN: Soft. No tenderness. EXTREMITIES: No edema of the feet. LABS: No new labs have been obtained today. The patient's repeat blood culture has been negative. DIAGNOSTIC IMPRESSION AND PLAN: 1. Patient with a positive blood culture for Staphylococcus epidermidis, more likely contaminant, with repeat culture negative. 2. Patient did have a fall with left wrist and hip fracture, status post operative repair. The patient did have a fever. However, the patient did have extensive workup, including a UA that was negative. Chest x-ray was negative. CT of abdomen and pelvis was also negative. Will recheck his starks as well as influenza PCR. Continue with empiric cefepime and monitor his clinical course closely. Repeat inflammatory markers tomorrow. EILEEN / DAGOBERTO: [id number] /
[2021-01-02 19:53] LABS: Appearance,Urine Clear (Clear); Bacteria,Urine Rare /hpf; Bilirubin,Urine Negative (Negative); Blood,Urine Small (Negative); Color,Urine Yellow; Glucose,Urine (UA) 3+ (Negative); Hyaline Casts,Urine 46 /lpf (0-2); Ketones,Urine Trace (Negative); Leukocyte Esterase,Urine Negative (Negative); Mucus,Urine Few /hpf; Nitrite,Urine Negative (Negative); Protein,Urine 1+ (Negative); RBC,Urine 3 /hpf (0-5); Urobilinogen,Urine <2.0 mg/dL (<2.0); WBC,Urine 5 /hpf (0-5)
[2021-01-02 20:38] LABS: Glucose,Whole Blood 189 mg/dL (75-99)
[2021-01-02] MEDS: LACTATED RINGERS 1,000 ML IV SCH (20:46)
[2021-01-02] MEDS: SENNOSIDES-DOCUSATE SODIUM 1 EACH TAB PO SCH (21:09)
[2021-01-02] MEDS: DONEPEZIL 10 MG TAB PO SCH (21:09)
[2021-01-03] MEDS: CEFEPIME 2 GM in SODIUM CHLORIDE 0.9% 100 ML IVPB SCH ×3 (00:08→16:11)
[2021-01-03] MEDS: HYDROcodone/APAP 7.5-325MG 1 EACH TAB PO PRN ×3 (02:05→18:15)
[2021-01-03] MEDS: SODIUM CHLORIDE 0.9% 1,000 ML IV SCH ×3 (02:07→20:36)
[2021-01-03 07:12] LABS: Glucose,Whole Blood 184 mg/dL (75-99)
[2021-01-03] MEDS: INSULIN ASPART (NovoLOG) 100 UNIT/ML VIAL SQ SCH ×4 (07:45→20:31)
[2021-01-03] MEDS: CITALOPRAM HYDROBROMIDE 10 MG TAB PO SCH (07:46)
[2021-01-03] MEDS: MULTIVITAMINS, THERA 1 EACH TAB PO SCH (07:46)
[2021-01-03] MEDS: CHOLECALCIFEROL 25 MCG (1000 IU) TABLET PO SCH (07:46)
[2021-01-03] MEDS: ENOXAPARIN 30 MG/0.3 ML SYRINGE SQ SCH ×2 (07:47→20:30)
[2021-01-03] MEDS: lisinopriL 10 MG TAB PO SCH (07:47)
[2021-01-03] MEDS: SENNOSIDES 8.6 MG TAB PO SCH (07:47)
--- NOTE | 2021-01-03 09:27 | P.PN ---
Subjective Progress Note Date: 01/03/21 Principal diagnosis: 1. Left hip femoral neck fracture 2. Left wrist ulnar styloid fracture; left wrist distal radius fracture Patient seen at bedside this morning resting comfortably lying semirecumbent in bed. Patient is able to respond to questions when asked. Patient says since the short arm cast was placed yesterday afternoon, he has not gotten up/tried to get up. Patient says his left hip is doing a little better. He says he is still not able lift off bed without assistance. Patient denies chest pain, fever, shortness of breath, nausea, vomiting, change in vision, loss of bowel/bladder control. Objective - Vital Signs Vital signs: Vital Signs Temp 97.7 F 01/03/21 08:29 Pulse 72 01/03/21 08:29 Resp 18 01/03/21 08:29 BP 146/73 01/03/21 08:29 Pulse Ox 95 01/03/21 08:29 Intake & Output 01/02/21 01/03/21 01/03/21 18:59 06:59 18:59 Intake Total 200 Output Total 400 450 Balance -200 -450 Intake: Intake, IV Titration 200 Amount Cefepime 2 gm In Sodium 200 Chloride 0.9% 100 ml @ 25 mls/hr IVPB Q8HR [facility] Rx# :[id number] Output: Urine 400 450 Other: Voiding Method Indwelling Catheter Indwelling Catheter - Exam Inspection: Silver foam dressing is in place on left hip. Incision is intact. There is minimal serous drainage from the incision on the dressing. [place] are well aligned in good place. There is minimal ecchymosis/erythema. There is a short arm cast present on the left arm. negative for open fractures/significant ecchymoses/deformity to left arm Sensation: Sensation is equal, symmetric, bilaterally intact throughout. Palpation: There is moderate tenderness to palpation over the incision on left hip. Moderate tenderness with palpation about the left distal radius/ulna. Nontender to palpation throughout rest of exam Range of motion: Range of motion is limited in left leg due to moderate pain. Patient is able wiggle toes in left foot. Patient is able to wiggle fingers in left hand, but with some moderate pain. Patient is able flex and extend left elbow. Patient's full range of motion in RUE and RLE Motor: 5/5 in resisted hip flexion/extension, knee flexion/extension, plantar flexion/dorsiflexion the right ankle; 5/5 in resisted elbow flexion/extension, wrist flexion/extension, shoulder abduction, internal/external rotation of the right arm. Left leg motor exams severely limited due to patient's pain. Collections Professional strength 2/5 in left hand. Wrist flexion limited due to patient pain in left. Left elbow and shoulder exam limited due to patient's pain Neurovascular: Refill under 3 seconds bilaterally in upper extremity digits. DP pulses intact, bilaterally, 2+. Special tests: Negative Kimber's bilaterally; - Labs CBC & Chem 7: 01/01/21 03:42 01/02/21 06:25 Labs: Abnormal Lab Results - Last 24 Hours (Table) 01/02/21 01/02/21 01/02/21 Range/Units 11:36 16:50 19:39 D-Dimer (<0.60) mg/L FEU POC Glucose (mg/dL) 181 H 195 H (75-99) mg/dL Ur Specific Valentines 1.040 H (1.001-1.035) Urine Protein 1+ H (Negative) Urine Glucose (UA) 3+ H (Negative) Urine Ketones Trace H (Negative) Urine Blood Small H (Negative) Urine Bacteria Rare H (None) /hpf Hyaline Casts 46 H (0-2) /lpf Urine Mucus Few H (None) /hpf 01/02/21 01/03/21 01/03/21 Range/Units 20:36 07:11 07:31 D-Dimer 4.19 H (<0.60) mg/L FEU POC Glucose (mg/dL) 189 H 184 H (75-99) mg/dL Ur Specific Valentines (1.001-1.035) Urine Protein (Negative) Urine Glucose (UA) (Negative) Urine Ketones (Negative) Urine Blood (Negative) Urine Bacteria (None) /hpf Hyaline Casts (0-2) /lpf Urine Mucus (None) /hpf Microbiology - Last 24 Hours (Table) 01/01/21 03:42 Blood Culture - Preliminary Blood No Growth after 48 hours 12/31/20 14:02 Blood Culture - Preliminary Blood No Growth after 48 hours 12/30/20 13:03 Blood Culture Gram Stain - Final Blood Blood Culture - Final Staphylococcus epidermidis 01/01/21 10:49 Blood Culture - Preliminary Blood No Growth after 24 hours Assessment and Plan Assessment: Postoperative day #3 status post left hip hemiarthroplasty 1. Left hip femoral neck fracture status post fall 2. Left wrist ulnar styloid fracture; left wrist distal radius fracture 3. Multiple medical comorbidities Plan: 1. Left hip femoral neck fracture status post fall - left hip hemiarthroplasty performed 12/31/2020. Patient stable at bedside this morning. Short arm cast present over the left arm 2. Left wrist ulnar styloid fracture; left distal radius fracture - short arm cast in place on left arm 3. Appreciate medical management 4. Pain management - IV and oral pain meds 5. DVT prophylaxis - Lovenox 6. GI prophylaxis - senna 7. Encourage incentive spirometer use 8. PT/OT - weightbearing as tolerated with walker for assistance. Encouraged to get up to sit in chair 9. Discharge planning - likely discharge to rehab today versus tomorrow. Time with Patient: Less than 30
[2021-01-03 11:33] LABS: African American GFR (CKD) 102.1 (60.0-200.0); Albumin 3.1 g/dL (3.8-4.9); Albumin/Globulin Ratio 1.35 (1.60-3.17); Anion Gap 14.1 mmol/L (4.00-12.00); BUN/Creat Ratio 17.11 Ratio (12.00-20.00); Blood Urea Nitrogen 15.4 mg/dL (9.0-27.0); Calcium 8.1 mg/dL (8.7-10.3); Carbon Dioxide 19.9 mmol/L (21.6-31.8); Globulin 2.3 g/dL (1.6-3.3); Non-African American GFR(CKD) 88.1 (60.0-200.0); Potassium 3.4 mmol/L (3.5-5.5); Total Bilirubin 1.3 mg/dL (0.30-1.20); Total Protein 5.4 g/dL (6.2-8.2)
[2021-01-03 11:48] LABS: Basophils # (A) 0.04 X 10*3/uL (0.00-0.10); Basophils % (A) 0.3 %; Eosinophils # (A) 0.11 X 10*3/uL (0.04-0.35); Eosinophils % (A) 0.7 %; HCT 34.6 % (39.6-50.0); Lymphocytes # (A) 0.91 X 10*3/uL (0.90-5.00); MCH 30.8 pg (27.0-32.0); MCHC 31.8 g/dL (32.0-37.0); MCV 96.9 fL (80.0-97.0); Mean Platelet Volume 11.3 fL (9.5-12.2); Monocytes # (A) 1.49 X 10*3/uL (0.20-1.00); Monocytes % (A) 9.8 %; Neutrophils # (A) 12.59 X 10*3/uL (1.80-7.70); Neutrophils % (A) 82.7 %; Platelet Count 251 X 10*3/uL (140-440); RBC 3.57 X 10*6/uL (4.40-5.60); RDW 13.7 % (11.5-14.5); WBC 15.22 X 10*3/uL (4.50-10.00)
[2021-01-03] MEDS ORDERED: Potassium Replacement Protocol 1 EACH MISC MISCELLANE PRN (11:48)
[2021-01-03 12:11] LABS: Glucose,Whole Blood 187 mg/dL (75-99)
[2021-01-03] MEDS: POTASSIUM CHLORIDE ER 20 MEQ TAB.ER PO SCH ×2 (12:16→13:46)
[2021-01-03 16:26] LABS: C Reactive Protein 28.6 mg/dL (0.00-0.80)
[2021-01-03 16:46] LABS: Glucose,Whole Blood 192 mg/dL (75-99)
[2021-01-03] MEDS: LACTATED RINGERS 1,000 ML IV SCH (17:18)
--- NOTE | 2021-01-03 17:32 | PN ---
PROGRESS NOTE DATE OF SERVICE: 01/03/2021 REASON FOR FOLLOWUP: Fever. INTERVAL HISTORY: Patient is afebrile with no fever in the last 24 hours. The patient is more awake and alert. He is currently on room air. Denies having any chest pain, shortness of breath, cough, no abdominal pain. Pain to the left wrist and hip area is currently controlled. No vomiting or diarrhea. PHYSICAL EXAMINATION: Blood pressure 146/73 with a pulse of 72. Temperature is 97.7. He is 95% on room air. General description is an elderly male lying in bed in no distress. Respiratory system: Unlabored breathing, decreased breath sounds in the base. No wheeze. Heart S1, S2. Regular rate and rhythm. Abdomen soft, no tenderness. LABS: Hemoglobin is 11, white count 13.2, creatinine 0.9. DIAGNOSTIC IMPRESSION AND PLAN: Patient with fever in this patient who did have extensive workup, has been negative so far. The patient admitted to the hospital with a fall and fracture to the left hip and wrist area with a possible small hematoma at the surgical site with episodes of fever and the patient did have a negative chest x-ray. Negative CT abdomen and pelvis. Negative UA. He is on to continue. Family at the bedside. Questions were answered. MMODL / IJN: [id number] /
[2021-01-03 20:20] LABS: Glucose,Whole Blood 191 mg/dL (75-99)
[2021-01-03] MEDS: DONEPEZIL 10 MG TAB PO SCH (20:30)
[2021-01-03] MEDS: SENNOSIDES-DOCUSATE SODIUM 1 EACH TAB PO SCH (20:30)
--- NOTE | 2021-01-03 23:30 | P.PN ---
Subjective Progress Note Date: 01/02/21 Principal diagnosis: Left femoral neck fracture with varus deformity. Patient is scheduled for left hemiarthroplasty. Left wrist ulnar styloid fracture. 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 Patient was last well-known and was seen by his sister on Wednesday morning. Patient states that he has been lying on the floor for 2 days. Patient sister went to see him and found him on the side of the bed. She called EMS and helped him into the stre tcher. Patient is complaining of left hip and left wrist pain. Denies any headache. No neck stiffness. No complaints of chest pain or shortness of breath. No nausea vomiting abdominal pain or diarrhea. No dysuria or hematuria. Patient states that he was tangled in the dog leash and fell twice. Patient is somewhat poor historian. On admission blood pressure was 155/98 pulse 100 and respiration 16 pulse ox 95% on room air and T-max was 101.0. CT head and cervical spine showed interval placement of right parietal approach LAWN TECHNICIAN shunt catheter. The tip terminates in the posterior body of the left lateral ventricle just to the left of midline. Overall mild hydrocephalus is unchanged compared to 04/14/2018 Moderate multilevel spondylitic change with moderate focal stenosis at C5-C6 secondary to disc bulge. No fracture or malalignment of the cervical spine. Chest x-ray showed no acute cardiopulmonary process X-ray of the left wrist showed ulnar stylus fracture is residual acuity, suspect nondisplaced fracture of the distal radius RV questionable age. Hip/pelvis showed there is left hip fracture subcapital proximal left femoral fracture with resulting varus deformity. EKG showed normal sinus rhythm Laboratory showed WBC 16.4 hemoglobin 15.5 and platelets 227 Sodium 139 potassium 4.1 chloride 104 BUN 16 and creatinine 0.81 blood sugar 171. Lactic acid 2.4 total bilirubin level is 4.3 CK level 2228 and urinalysis is negative for infection COVID-19 PCR not detected. 12/31/2020 Patient is currently lying in the bed. Awake and alert oriented. Seems to be better today. Patient was febrile. Chest x-ray and UA are negative. Blood cultures grew gram-positive cocci and was being continued on vancomycin. Patient is also on ceftriaxone. Follow-up culture reports and no obvious source of infection at this time. Otherwise WBC count is trending down. Patient is scheduled for left hip hemiarthroplasty today. Pain is fairly controlled. ID is on board. Discussed with his sister at bedside in detail. 01/01/2021 Patient is currently lying in the bed. Status post left hip surgery. Pain is controlled. Otherwise patient did have fever with T-max 103.1 last night. Continued on cefepime) recommendations. Vancomycin has been discontinued since the blood cultures grew staph coagulase negative. CT of abdomen pelvis was ordered to rule out any source of infection. Orthopedic surgery is following and is also planning for left wrist immobilizer. Currently patient is afebrile. Laboratory data showed WBC trending down to 10.1, hemoglobin 12.0 and neutrophils 8.21 Jose sodium 134 potassium 3.6 chloride 107 bicarb 20 BUN 14 and creatinine 0.74 and calcium 8.2 Patient denied any nausea vomiting or abdominal pain or diarrhea. No chest pain or shortness of breath. No cough or sputum production. 01/02/2021 Patient is currently resting in the bed. Awake alert and oriented. Status post left hip surgery and left wrist splint. Patient did have a bowel movement yesterday. Denies any complaints of chest pain or shortness of. No nausea vomiting or abdominal pain or diarrhea. T-max was 99.[address] of the abdomen pelvis was done yesterday showed no suspicious acute changes. Patchy fatty infiltration within the liver with some focal sparing. Correlate w ith liver findings. Other infiltrative process should be considered within the differential. Urinary bladder is decompressed with Tobias catheter currently well evaluated. Laboratory data showed sodium 136 potassium 4.5 chloride 108 BUN 15 and creatinine 0.87 and calcium 8.5 Patient is being continued cefepime. ID is on board. Current medications reviewed. Objective - Vital Signs Vital signs: Vital Signs Temp 99.4 F 01/02/21 08:22 Pulse 94 01/02/21 08:22 Resp 22 01/02/21 08:22 BP 153/69 01/02/21 08:22 Pulse Ox 92 L 01/02/21 08:22 Intake & Output 01/01/21 01/02/21 01/02/21 18:59 06:59 18:59 Intake Total 400 Output Total 650 950 Balance -650 -550 Intake: Oral 400 Output: Urine 650 950 Other: Voiding Method Indwelling Catheter Indwelling Catheter - Exam PHYSICAL EXAMINATION: Patient is lying in the bed comfortably, no acute distress, awake alert and oriented.. HEENT: Normocephalic. Neck is supple. Pupils reactive. Nostrils clear. Oral cavity is moist. Neck reveals no JVD, carotid bruits, or thyromegaly. CHEST EXAMINATION: Trachea is central. Symmetrical expansion.Bibasilar diminished sounds.. No wheezing or rhonchi. CARDIAC: Normal S1, S2 with no gallops. No murmurs ABDOMEN: Soft. Bowel sounds normal. No organomegaly. No abdominal bruits. Extremities: reveal no edema. No clubbing or cyanosis Neurologically awake, alert, oriented x2-3 with well-coordinated movements. No focal deficits noted Skin: No rash or skin lesions. Psychiatric: Cooperative. Nonsuicidal Musculoskeletal: Left wrist splint in place . Left hip surgical site is intact. - Labs CBC & Chem 7: 01/03/21 07:31 01/03/21 15:08 Labs: Abnormal Lab Results - Last 24 Hours (Table) 01/01/21 01/01/21 01/01/21 Range/Units 10:49 17:07 21:56 Sodium (137-145) mmol/L Chloride (98-107) mmol/L Glucose (74-99) mg/dL POC Glucose (mg/dL) 188 H 201 H (75-99) mg/dL Procalcitonin 0.79 H (0.02-0.09) ng/mL 01/02/21 01/02/21 01/02/21 Range/Units 06:25 07:21 11:36 Sodium 136 L (137-145) mmol/L Chloride 108 H (98-107) mmol/L Glucose 165 H (74-99) mg/dL POC Glucose (mg/dL) 138 H 181 H (75-99) mg/dL Procalcitonin (0.02-0.09) ng/mL Microbiology - Last 24 Hours (Table) 01/01/21 10:49 Blood Culture - Preliminary Blood No Growth after 24 hours 01/01/21 03:42 Blood Culture - Preliminary Blood No Growth after 24 hours 12/31/20 14:02 Blood Culture - Preliminary Blood No Growth after 24 hours 12/30/20 13:03 Blood Culture Gram Stain - Preliminary Blood Blood Culture - Preliminary Coagulase Negative Staph 12/30/20 13:03 Blood Culture Gram Stain - Preliminary Blood Blood Culture - Preliminary Coagulase Negative Staph Assessment and Plan Assessment: SIRS /fever, leukocytosis and tachycardia without definitive source of infection. Status post fall and found on the floor for approximately 48 hours. Mechanical fall as per patient. Left femoral neck fracture with varus deformity. Patient is status post left hemiarthroplasty. Left wrist ulnar styloid fracture. Acute rhabdomyolysis. Improved. Lactic acidosis. Improved. Hyperbilirubinemia without any elevated liver enzymes History of LAWN TECHNICIAN shunt placement Hypertension Diabetes type 2 noninsulin-dependent Depression History of CVA/TIA DVT prophylaxis with SCDs for possible surgical intervention surgery. Plan: Patient will be continued on IV hydration monitor CK level. CPK level is trending down. Urinalysis and chest x-ray showed no evidence of infection. Follow-up blood cultures. Patient i was on vancomycin and ceftriaxone empirically. changed to Cefepime. ID is on board. Blood cultures negative so far. Orthopedic status post left hemiarthroplasty on 12/31/2020.PT OT is following. CT of the abdominal pelvis to rule out source of infection. Continue with GI and DVT prophylaxis. Time with Patient: Greater than 30
--- NOTE | 2021-01-03 23:35 | P.PN ---
Subjective Progress Note Date: 01/03/21 Principal diagnosis: Left femoral neck fracture with varus deformity. Patient is scheduled for left hemiarthroplasty. Left wrist ulnar styloid fracture. Fevers Patient is a 65-year-old male with a known history of hypertension, diabetes type 2 [id number] multiple sclerosis, liver cirrhosis, memory impairment, history of CVA/TIA, history of BOTTOM BUFFER shunt placement and chronic low back pain and depression who is currently living by herself was found by his sister on the side of the bed who is also his caregiver.. Patient was last well-known and was seen by his sister on Wednesday morning. Patient states that he has been lying on the floor for 2 days. Patient sister went to see him and found him on the side of the bed. She called EMS and helped him into the stre tcher. Patient is complaining of left hip and left wrist pain. Denies any headache. No neck stiffness. No complaints of chest pain or shortness of breath. No nausea vomiting abdominal pain or diarrhea. No dysuria or hematuria. Patient states that he was tangled in the dog leash and fell twice. Patient is somewhat poor historian. On admission blood pressure was 155/98 pulse 100 and respiration 16 pulse ox 95% on room air and T-max was 101.0. CT head and cervical spine showed interval placement of right parietal approach BOTTOM BUFFER shunt catheter. The tip terminates in the posterior body of the left lateral ventricle just to the left of midline. Overall mild hydrocephalus is unchanged compared to 04/14/2018 Moderate multilevel spondylitic change with moderate focal stenosis at C5-C6 secondary to disc bulge. No fracture or malalignment of the cervical spine. Chest x-ray showed no acute cardiopulmonary process X-ray of the left wrist showed ulnar stylus fracture is residual acuity, suspect nondisplaced fracture of the distal radius RV questionable age. Hip/pelvis showed there is left hip fracture subcapital proximal left femoral fracture with resulting varus deformity. EKG showed normal sinus rhythm Laboratory showed WBC 16.4 hemoglobin 15.5 and platelets 227 Sodium 139 potassium 4.1 chloride 104 BUN 16 and creatinine 0.81 blood sugar 171. Lactic acid 2.4 total bilirubin level is 4.3 CK level 2228 and urinalysis is negative for infection COVID-19 PCR not detected. 12/31/2020 Patient is currently lying in the bed. Awake and alert oriented. Seems to be better today. Patient was febrile. Chest x-ray and UA are negative. Blood cultures grew gram-positive cocci and was being continued on vancomycin. Patient is also on ceftriaxone. Follow-up culture reports and no obvious source of infection at this time. Otherwise WBC count is trending down. Patient is scheduled for left hip hemiarthroplasty today. Pain is fairly controlled. ID is on board. Discussed with his sister at bedside in detail. 01/01/2021 Patient is currently lying in the bed. Status post left hip surgery. Pain is controlled. Otherwise patient did have fever with T-max 103.1 last night. Continued on cefepime) recommendations. Vancomycin has been discontinued since the blood cultures grew staph coagulase negative. CT of abdomen pelvis was ordered to rule out any source of infection. Orthopedic surgery is following and is also planning for left wrist immobilizer. Currently patient is afebrile. Laboratory data showed WBC trending down to 10.1, hemoglobin 12.0 and neutrophils 8.21 Jose sodium 134 potassium 3.6 chloride 107 bicarb 20 BUN 14 and creatinine 0.74 and calcium 8.2 Patient denied any nausea vomiting or abdominal pain or diarrhea. No chest pain or shortness of breath. No cough or sputum production. 01/02/2021 Patient is currently resting in the bed. Awake alert and oriented. Status post left hip surgery and left wrist splint. Patient did have a bowel movement yesterday. Denies any complaints of chest pain or shortness of. No nausea vomiting or abdominal pain or diarrhea. T-max was 99.[address] of the abdomen pelvis was done yesterday showed no suspicious acute changes. Patchy fatty infiltration within the liver with some focal sparing. Correlate w ith liver findings. Other infiltrative process should be considered within the differential. Urinary bladder is decompressed with Tobias catheter currently well evaluated. Laboratory data showed sodium 136 potassium 4.5 chloride 108 BUN 15 and creatinine 0.87 and calcium 8.5 Patient is being continued cefepime. ID is on board. 01/03/2021 Patient is awake alert and oriented x3. Clinically improved. Did have fever with T-max 102.2 yesterday afternoon. No complaints of cough or sputum producti on. No abdominal pain. No nausea vomiting or diarrhea. No dysuria or hematuria. Cultures have been negative. Patient is continued on cefepime. PT OT is on board. Orthopedic surgery and ID is on board. No chest pain or shortness of. No headache or dizziness or lightheadedness. No neck stiffness. Laboratory showed WBC went up to 15.2, hemoglobin 11.0 and platelets 251, neutrophils 12.59, D-dimer 4.19 Sodium 136 potassium 3.4 is being replaced will Bicarb is 19.9 anion gap 14.1 Calcium 8.1 Total bilirubin level 1.3 trending down from 4.3 on admission. Current medications reviewed. Objective - Vital Signs Vital signs: Vital Signs Temp 99.5 F 01/03/21 19:39 Pulse 103 H 01/03/21 19:39 Resp 15 01/03/21 19:39 BP 125/68 01/03/21 19:39 Pulse Ox 92 L 01/03/21 19:39 Intake & Output 01/03/21 01/03/21 01/04/21 06:59 18:59 06:59 Intake Total 1080 Output Total 450 400 Balance -450 680 Intake: Oral 1080 Output: Urine 450 400 Other: Voiding Method Indwelling Catheter Indwelling Catheter - Exam PHYSICAL EXAMINATION: Patient is lying in the bed comfortably, no acute distress, awake alert and oriented.. HEENT: Normocephalic. Neck is supple. Pupils reactive. Nostrils clear. Oral cavity is moist. Neck reveals no JVD, carotid bruits, or thyromegaly. CHEST EXAMINATION: Trachea is central. Symmetrical expansion.Bibasilar diminished sounds.. No wheezing or rhonchi. CARDIAC: Normal S1, S2 with no gallops. No murmurs ABDOMEN: Soft. Bowel sounds normal. No organomegaly. No abdominal bruits. Extremities: reveal no edema. No clubbing or cyanosis Neurologically awake, alert, oriented x2-3 with well-coordinated movements. No focal deficits noted Skin: No rash or skin lesions. Psychiatric: Cooperative. Nonsuicidal Musculoskeletal: Left wrist splint in place . Left hip surgical site is intact. - Labs CBC & Chem 7: 01/03/21 07:31 01/03/21 15:08 Labs: Abnormal Lab Results - Last 24 Hours (Table) 01/03/21 01/03/21 01/03/21 Range/Units 07:11 07:31 07:31 WBC 15.22 H (4.50-10.00) X 10*3/uL RBC 3.57 L (4.40-5.60) X 10*6/uL Hgb 11.0 L (13.0-17.0) g/dL Hct 34.6 L (39.6-50.0) % MCHC 31.8 L (32.0-37.0) g/dL Immature Gran # 0.08 H (0.00-0.04) X 10*3/uL Neutrophils # 12.59 H (1.80-7.70) X 10*3/uL Monocytes # 1.49 H (0.20-1.00) X 10*3/uL D-Dimer 4.19 H (<0.60) mg/L FEU Potassium (3.5-5.5) mmol/L Carbon Dioxide (21.6-31.8) mmol/L Anion Gap (4.00-12.00) mmol/L Glucose (70-110) mg/dL POC Glucose (mg/dL) 184 H (75-99) mg/dL Calcium (8.7-10.3) mg/dL Total Bilirubin (0.30-1.20) mg/dL C-Reactive Protein (0.00-0.80) mg/dL Total Protein (6.2-8.2) g/dL Albumin (3.8-4.9) g/dL Albumin/Globulin Ratio (1.60-3.17) g/dL 01/03/21 01/03/21 01/03/21 Range/Units 07:31 12:09 16:45 WBC (4.50-10.00) X 10*3/uL RBC (4.40-5.60) X 10*6/uL Hgb (13.0-17.0) g/dL Hct (39.6-50.0) % MCHC (32.0-37.0) g/dL Immature Gran # (0.00-0.04) X 10*3/uL Neutrophils # (1.80-7.70) X 10*3/uL Monocytes # (0.20-1.00) X 10*3/uL D-Dimer (<0.60) mg/L FEU Potassium 3.4 L (3.5-5.5) mmol/L Carbon Dioxide 19.9 L (21.6-31.8) mmol/L Anion Gap 14.10 H (4.00-12.00) mmol/L Glucose 183 H (70-110) mg/dL POC Glucose (mg/dL) 187 H 192 H (75-99) mg/dL Calcium 8.1 L (8.7-10.3) mg/dL Total Bilirubin 1.30 H (0.30-1.20) mg/dL C-Reactive Protein 28.60 H (0.00-0.80) mg/dL Total Protein 5.4 L (6.2-8.2) g/dL Albumin 3.1 L (3.8-4.9) g/dL Albumin/Globulin Ratio 1.35 L (1.60-3.17) g/dL 01/03/21 Range/Units 20:18 WBC (4.50-10.00) X 10*3/uL RBC (4.40-5.60) X 10*6/uL Hgb (13.0-17.0) g/dL Hct (39.6-50.0) % MCHC (32.0-37.0) g/dL Immature Gran # (0.00-0.04) X 10*3/uL Neutrophils # (1.80-7.70) X 10*3/uL Monocytes # (0.20-1.00) X 10*3/uL D-Dimer (<0.60) mg/L FEU Potassium (3.5-5.5) mmol/L Carbon Dioxide (21.6-31.8) mmol/L Anion Gap (4.00-12.00) mmol/L Glucose (70-110) mg/dL POC Glucose (mg/dL) 191 H (75-99) mg/dL Calcium (8.7-10.3) mg/dL Total Bilirubin (0.30-1.20) mg/dL C-Reactive Protein (0.00-0.80) mg/dL Total Protein (6.2-8.2) g/dL Albumin (3.8-4.9) g/dL Albumin/Globulin Ratio (1.60-3.17) g/dL Microbiology - Last 24 Hours (Table) 12/31/20 14:02 Blood Culture - Preliminary Blood No Growth after 72 hours 12/30/20 13:03 Blood Culture Gram Stain - Final Blood Blood Culture - Final Staph capitis SS capitis 01/01/21 10:49 Blood Culture - Preliminary Blood No Growth after 48 hours 01/01/21 03:42 Blood Culture - Preliminary Blood No Growth after 48 hours Assessment and Plan Assessment: SIRS /fever, leukocytosis and tachycardia without definitive source of infection. Status post fall and found on the floor for approximately 48 hours. Mechanical fall as per patient. Left femoral neck fracture with varus deformity. Patient is status post left hemiarthroplasty. Left wrist ulnar styloid fracture. Acute rhabdomyolysis. Improved. Lactic acidosis. Improved. Hyperbilirubinemia without any elevated liver enzymes History of BOTTOM BUFFER shunt placement Hypertension Diabetes type 2 noninsulin-dependent Depression History of CVA/TIA DVT prophylaxis with SCDs for possible surgical intervention surgery. Plan: Patient Was brought to the hospital as he was found on the floor for approxim ately 48 hours. Was found to have left hip fracture and left wrist fracture status post surgery. Patient is also having on and off fevers. Urinalysis and chest x-ray showed no evidence of infection. Follow-up blood cultures. Patient i was on vancomycin and ceftriaxone empirically. changed to Cefepime. ID is on board. Blood cultures negative so far. Orthopedic status post left hemiarthroplasty on 12/31/2020.PT OT is following. CT of the abdominal pelvis to rule out source of infection. Continue with GI and DVT prophylaxis. Time with Patient: Greater than 30
[2021-01-04] MEDS: CEFEPIME 2 GM in SODIUM CHLORIDE 0.9% 100 ML IVPB SCH ×3 (00:06→15:51)
[2021-01-04 06:54] LABS: Glucose,Whole Blood 153 mg/dL (75-99)
[2021-01-04] MEDS: CITALOPRAM HYDROBROMIDE 10 MG TAB PO SCH (07:15)
[2021-01-04] MEDS: ENOXAPARIN 30 MG/0.3 ML SYRINGE SQ SCH ×2 (07:15→21:00)
[2021-01-04] MEDS: INSULIN ASPART (NovoLOG) 100 UNIT/ML VIAL SQ SCH ×4 (07:15→21:00)
[2021-01-04] MEDS: CHOLECALCIFEROL 25 MCG (1000 IU) TABLET PO SCH (07:16)
[2021-01-04] MEDS: lisinopriL 10 MG TAB PO SCH (07:16)
[2021-01-04] MEDS: MULTIVITAMINS, THERA 1 EACH TAB PO SCH (07:16)
[2021-01-04] MEDS: SENNOSIDES 8.6 MG TAB PO SCH (07:16)
--- NOTE | 2021-01-04 10:32 | P.PN ---
Subjective Progress Note Date: 01/04/21 Principal diagnosis: 1. Left hip femoral neck fracture 2. Left wrist ulnar styloid fracture; left wrist distal radius fracture Patient was seen at bedside this morning resting comfortably sitting at bedside with physical therapy and gait belt on. Patient says that the cast on his arm has been helping a lot with stabilization. Patient says his left hip is still sore. Patient was able to get up with assistance to chair next to bed and sat in chair. Patient denies chest pain, fever, shortness of breath, nausea, vomiting, change in vision, loss of bowel/bladder control. Objective - Vital Signs Vital signs: Vital Signs Temp 98.9 F 01/04/21 01:31 Pulse 91 01/04/21 01:31 Resp 15 01/03/21 19:39 BP 157/77 01/04/21 01:31 Pulse Ox 93 L 01/04/21 01:31 Intake & Output 01/03/21 01/04/21 01/04/21 18:59 06:59 18:59 Intake Total 1080 Output Total 400 500 Balance 680 -500 Intake: Oral 1080 Output: Urine 400 500 Other: Voiding Method Indwelling Catheter Indwelling Catheter - Exam Inspection: Silver foam dressing is in place on left hip. Incision is intact. There is minimal drainage from the incision on the dressing. [place] are well aligned in good place. There is minimal ecchymosis/erythema. There is a short arm cast present on the left arm. negative for open fractures/significant ecchymoses/deformity to left arm Sensation: Sensation is equal, symmetric, bilaterally intact throughout. Palpation: There is moderate tenderness to palpation over the incision on left hip. Moderate tenderness with palpation about the left distal radius/ulna. Nontender to palpation throughout rest of exam Range of motion: Range of motion is limited in left leg due to moderate pain. Patient is able wiggle toes in left foot. Patient is able to wiggle fingers in left hand, but with some moderate pain. Patient is able flex and extend left elbow. Patient's full range of motion in RUE and RLE Motor: 5/5 in resisted hip flexion/extension, knee flexion/extension, plantar flexion/dorsiflexion the right ankle; 5/5 in resisted elbow flexion/extension, wrist flexion/extension, shoulder abduction, internal/external rotation of the right arm. Left leg motor exams severely limited due to patient's pain. Nursing Executive strength 2/5 in left hand. Wrist flexion limited due to patient pain in left. Left elbow and shoulder exam limited due to patient's pain Neurovascular: Refill under 3 seconds bilaterally in upper extremity digits. DP pulses intact, bilaterally, 2+. Special tests: Negative Kimber's bilaterally; - Labs CBC & Chem 7: 01/03/21 07:31 01/03/21 15:08 Labs: Abnormal Lab Results - Last 24 Hours (Table) 01/03/21 01/03/21 01/03/21 Range/Units 07:31 07:31 07:31 WBC 15.22 H (4.50-10.00) X 10*3/uL RBC 3.57 L (4.40-5.60) X 10*6/uL Hgb 11.0 L (13.0-17.0) g/dL Hct 34.6 L (39.6-50.0) % MCHC 31.8 L (32.0-37.0) g/dL Immature Gran # 0.08 H (0.00-0.04) X 10*3/uL Neutrophils # 12.59 H (1.80-7.70) X 10*3/uL Monocytes # 1.49 H (0.20-1.00) X 10*3/uL D-Dimer 4.19 H (<0.60) mg/L FEU Potassium 3.4 L (3.5-5.5) mmol/L Carbon Dioxide 19.9 L (21.6-31.8) mmol/L Anion Gap 14.10 H (4.00-12.00) mmol/L Glucose 183 H (70-110) mg/dL POC Glucose (mg/dL) (75-99) mg/dL Calcium 8.1 L (8.7-10.3) mg/dL Total Bilirubin 1.30 H (0.30-1.20) mg/dL C-Reactive Protein 28.60 H (0.00-0.80) mg/dL Total Protein 5.4 L (6.2-8.2) g/dL Albumin 3.1 L (3.8-4.9) g/dL Albumin/Globulin Ratio 1.35 L (1.60-3.17) g/dL 01/03/21 01/03/21 01/03/21 Range/Units 12:09 16:45 20:18 WBC (4.50-10.00) X 10*3/uL RBC (4.40-5.60) X 10*6/uL Hgb (13.0-17.0) g/dL Hct (39.6-50.0) % MCHC (32.0-37.0) g/dL Immature Gran # (0.00-0.04) X 10*3/uL Neutrophils # (1.80-7.70) X 10*3/uL Monocytes # (0.20-1.00) X 10*3/uL D-Dimer (<0.60) mg/L FEU Potassium (3.5-5.5) mmol/L Carbon Dioxide (21.6-31.8) mmol/L Anion Gap (4.00-12.00) mmol/L Glucose (70-110) mg/dL POC Glucose (mg/dL) 187 H 192 H 191 H (75-99) mg/dL Calcium (8.7-10.3) mg/dL Total Bilirubin (0.30-1.20) mg/dL C-Reactive Protein (0.00-0.80) mg/dL Total Protein (6.2-8.2) g/dL Albumin (3.8-4.9) g/dL Albumin/Globulin Ratio (1.60-3.17) g/dL 01/04/21 Range/Units 06:48 WBC (4.50-10.00) X 10*3/uL RBC (4.40-5.60) X 10*6/uL Hgb (13.0-17.0) g/dL Hct (39.6-50.0) % MCHC (32.0-37.0) g/dL Immature Gran # (0.00-0.04) X 10*3/uL Neutrophils # (1.80-7.70) X 10*3/uL Monocytes # (0.20-1.00) X 10*3/uL D-Dimer (<0.60) mg/L FEU Potassium (3.5-5.5) mmol/L Carbon Dioxide (21.6-31.8) mmol/L Anion Gap (4.00-12.00) mmol/L Glucose (70-110) mg/dL POC Glucose (mg/dL) 153 H (75-99) mg/dL Calcium (8.7-10.3) mg/dL Total Bilirubin (0.30-1.20) mg/dL C-Reactive Protein (0.00-0.80) mg/dL Total Protein (6.2-8.2) g/dL Albumin (3.8-4.9) g/dL Albumin/Globulin Ratio (1.60-3.17) g/dL Microbiology - Last 24 Hours (Table) 01/01/21 03:42 Blood Culture - Preliminary Blood No Growth after 72 hours 12/31/20 14:02 Blood Culture - Preliminary Blood No Growth after 72 hours 12/30/20 13:03 Blood Culture Gram Stain - Final Blood Blood Culture - Final Staph capitis SS capitis 01/01/21 10:49 Blood Culture - Preliminary Blood No Growth after 48 hours Assessment and Plan Assessment: Postoperative day #4 status post left hip hemiarthroplasty 1. Left hip femoral neck fracture status post fall 2. Left wrist ulnar styloid fracture; left wrist distal radius fracture 3. Multiple medical comorbidities Plan: 1. Left hip femoral neck fracture status post fall - left hip hemiarthroplasty performed 12/31/2020. Patient stable at bedside this morning. Short arm cast present over the left arm. From an orthopedic standpoint patient is stable. Patient is orthopedically stable for discharge to rehab. Medicine is admitting and will discharge to rehab when patient ready. A prescription for [place] 7.5 mg/325 mg was left in patient's chart for patient to take once discharge to rehab. 2. Left wrist ulnar styloid fracture; left distal radius fracture - short arm cast in place on left arm 3. Appreciate medical management - 4. Pain management - IV and oral pain meds 5. DVT prophylaxis - Lovenox 6. GI prophylaxis - senna 7. Encourage incentive spirometer use 8. PT/OT - weightbearing as tolerated with walker for assistance. Encouraged to get up to sit in chair Time with Patient: Less than 30
[2021-01-04 11:47] LABS: Glucose,Whole Blood 208 mg/dL (75-99)
[2021-01-04] MEDS: SODIUM CHLORIDE 0.9% 1,000 ML IV SCH (14:00)
[2021-01-04 16:33] LABS: Glucose,Whole Blood 183 mg/dL (75-99)
--- NOTE | 2021-01-04 18:51 | PN ---
PROGRESS NOTE DATE OF SERVICE: 01/04/2021 REASON FOR FOLLOWUP: Fever. INTERVAL HISTORY: The patient is afebrile. The patient is currently breathing comfortably on room air. The patient denies having any chest pain. No shortness of breath or cough. No abdominal pain. No diarrhea. Pain to the left wrist and hip area is currently controlled. PHYSICAL EXAMINATION: Blood pressure is 145/70 with a pulse of 90, temperature 99.2. He is 96% on room air. General description is an elderly male lying in bed in no distress. Respiratory system: Unlabored breathing, decreased intensity of breath sounds. No wheeze. Heart S1, S2. Regular rate and rhythm. Abdomen soft, no tenderness. LABS: No new labs have been obtained today. Blood cultures repeat has been negative. DIAGNOSTIC IMPRESSION AND PLAN: Patient with fever in this patient admitted to the hospital for he did have a fall with fracture to the left hip and wrist area, status postoperative open repair of the left hip fracture. The patient did have extensive workup with no obvious focus of infection. We will repeat his CBC tomorrow. If normalized and culture negative, will recommend discontinuation of antibiotics. Continue supportive care. MMODL / IJN: [id number] /
[2021-01-04] MEDS: ACETAMINOPHEN TAB 325 MG TAB PO PRN (19:10)
[2021-01-04 20:06] LABS: Glucose,Whole Blood 155 mg/dL (75-99)
[2021-01-04] MEDS: DONEPEZIL 10 MG TAB PO SCH (21:01)
[2021-01-04] MEDS: SENNOSIDES-DOCUSATE SODIUM 1 EACH TAB PO SCH (21:01)
[2021-01-04] MEDS: LACTATED RINGERS 1,000 ML IV SCH (21:03)
[2021-01-05] MEDS: CEFEPIME 2 GM in SODIUM CHLORIDE 0.9% 100 ML IVPB SCH ×4 (00:51→23:55)
[2021-01-05] MEDS: SODIUM CHLORIDE 0.9% 1,000 ML IV SCH ×2 (06:27→23:55)
[2021-01-05 07:10] LABS: Glucose,Whole Blood 158 mg/dL (75-99)
[2021-01-05] MEDS: ENOXAPARIN 30 MG/0.3 ML SYRINGE SQ SCH ×2 (07:39→21:24)
[2021-01-05] MEDS: CHOLECALCIFEROL 25 MCG (1000 IU) TABLET PO SCH (07:39)
[2021-01-05] MEDS: MULTIVITAMINS, THERA 1 EACH TAB PO SCH (07:39)
[2021-01-05] MEDS: CITALOPRAM HYDROBROMIDE 10 MG TAB PO SCH (07:39)
[2021-01-05] MEDS: INSULIN ASPART (NovoLOG) 100 UNIT/ML VIAL SQ SCH ×4 (07:39→21:25)
[2021-01-05] MEDS: SENNOSIDES 8.6 MG TAB PO SCH (07:39)
[2021-01-05] MEDS: lisinopriL 10 MG TAB PO SCH (07:41)
--- NOTE | 2021-01-05 09:52 | P.PN ---
Subjective Progress Note Date: 01/05/21 Principal diagnosis: 1. Left hip femoral neck fracture 2. Left wrist ulnar styloid fracture; left wrist distal radius fracture Patient seen at bedside this morning resting comfortably lying semirecumbent bed. Patient says he did have some difficulty getting up and out of chair and getting back to bed yesterday. He says he is still having some left hip pain. Patient denies chest pain, fever, shortness breath, nausea, vomiting, change in vision, loss of bowel/bladder control. Objective - Vital Signs Vital signs: Vital Signs Temp 98.4 F 01/05/21 08:17 Pulse 76 01/05/21 08:17 Resp 19 01/05/21 08:17 BP 153/76 01/05/21 08:17 Pulse Ox 93 L 01/05/21 08:17 Intake & Output 01/04/21 01/05/21 01/05/21 19:59 06:59 18:59 Output Total Balance Output: Urine Uretheral (Tobias) Other: Voiding Method # Voids # Bowel Movements - Exam Inspection: Silver foam dressing is in place on left hip. Incision is intact. There is minimal drainage from the incision on the dressing. [place] are well aligned in good place. There is minimal ecchymosis/erythema. There is a short arm cast present on the left arm. negative for open fractures/significant ecchymoses/deformity to left arm Sensation: Sensation is equal, symmetric, bilaterally intact throughout. Palpation: There is moderate tenderness to palpation over the incision on left hip. Moderate tenderness with palpation about the left distal radius/ulna. Nontender to palpation throughout rest of exam Range of motion: Range of motion is limited in left leg due to moderate pain. Patient is able wiggle toes in left foot. Patient is able to wiggle fingers in left hand, but with some moderate pain. Patient is able flex and extend left elbow. Patient's full range of motion in RUE and RLE Motor: 5/5 in resisted hip flexion/extension, knee flexion/extension, plantar flexion/dorsiflexion the right ankle; 5/5 in resisted elbow flexion/extension, wrist flexion/extension, shoulder abduction, internal/external rotation of the right arm. Left leg motor exams severely limited due to patient's pain. Direct Marketing Representative strength 2/5 in left hand. Wrist flexion limited due to patient pain in left. Left elbow and shoulder exam limited due to patient's pain Neurovascular: Refill under 3 seconds bilaterally in upper extremity digits. DP pulses intact, bilaterally, 2+. Special tests: Negative Kimber's bilaterally; - Labs CBC & Chem 7: 01/03/21 07:31 01/03/21 15:08 Labs: Abnormal Lab Results - Last 24 Hours (Table) 01/03/21 01/04/21 01/04/21 Range/Units 07:31 11:42 16:30 POC Glucose (mg/dL) 208 H 183 H (75-99) mg/dL Procalcitonin 1.86 H (0.02-0.09) ng/mL 01/04/21 01/05/21 Range/Units 20:04 07:08 POC Glucose (mg/dL) 155 H 158 H (75-99) mg/dL Procalcitonin (0.02-0.09) ng/mL Microbiology - Last 24 Hours (Table) 01/01/21 03:42 Blood Culture - Preliminary Blood No Growth after 96 hours 12/31/20 14:02 Blood Culture - Preliminary Blood No Growth after 96 hours 01/01/21 10:49 Blood Culture - Preliminary Blood No Growth after 72 hours 01/03/21 07:31 Blood Culture - Preliminary Blood No Growth after 24 hours Assessment and Plan Assessment: Postoperative day #5 status post left hip hemiarthroplasty 1. Left hip femoral neck fracture status post fall 2. Left wrist ulnar styloid fracture; left wrist distal radius fracture 3. Multiple medical comorbidities Plan: 1. Left hip femoral neck fracture status post fall - left hip hemiarthroplasty performed 12/31/2020. Patient stable at bedside this morning. Short arm cast present over the left arm. From an orthopedic standpoint patient is stable for discharge. Patient is orthopedically stable for discharge to rehab. Medicine is admitting and will discharge to rehab when patient ready. A prescription for [place] 7.5 mg/325 mg was left in patient's chart for patient to take once discharge to rehab. 2. Left wrist ulnar styloid fracture; left distal radius fracture - short arm cast in place on left arm 3. Appreciate medical management - 4. Pain management - IV and oral pain meds 5. DVT prophylaxis - Lovenox 6. GI prophylaxis - senna 7. Encourage incentive spirometer use 8. PT/OT - weightbearing as tolerated with walker for assistance. Encouraged to get up to sit in chair Time with Patient: Less than 30
[2021-01-05 11:42] LABS: Glucose,Whole Blood 153 mg/dL (75-99)
[2021-01-05 13:20] LABS: African American GFR (CKD) >90 (>60 ml/min/1.73 sqM); Anion Gap 8 mmol/L; Blood Urea Nitrogen 12 mg/dL (9-20); Calcium 8.2 mg/dL (8.4-10.2); Carbon Dioxide 20 mmol/L (22-30); Chloride 106 mmol/L (98-107); Glucose 149 mg/dL (74-99); Non-African American GFR(CKD) >90 (>60 ml/min/1.73 sqM); Potassium 3.2 mmol/L (3.5-5.1); Sodium 134 mmol/L (137-145)
[2021-01-05] MEDS ORDERED: Potassium Replacement Protocol 1 EACH MISC MISCELLANE PRN (13:56)
[2021-01-05] MEDS: POTASSIUM CHLORIDE ER 20 MEQ TAB.ER PO SCH ×2 (14:00→15:04)
[2021-01-05 16:25] LABS: Glucose,Whole Blood 158 mg/dL (75-99)
[2021-01-05 16:31] LABS: Basophils # (A) 0.06 X 10*3/uL (0.00-0.10); Basophils % (A) 0.6 %; Eosinophils # (A) 0.37 X 10*3/uL (0.04-0.35); Eosinophils % (A) 3.5 %; HCT 29.8 % (39.6-50.0); HGB 9.7 g/dL (13.0-17.0); Lymphocytes # (A) 1.51 X 10*3/uL (0.90-5.00); Lymphocytes % (A) 14.4 %; MCH 30.5 pg (27.0-32.0); MCHC 32.6 g/dL (32.0-37.0); MCV 93.7 fL (80.0-97.0); Mean Platelet Volume 11.5 fL (9.5-12.2); Monocytes # (A) 1.31 X 10*3/uL (0.20-1.00); Monocytes % (A) 12.5 %; Neutrophils # (A) 7.07 X 10*3/uL (1.80-7.70); Neutrophils % (A) 67.7 %; Platelet Count 305 X 10*3/uL (140-440); RBC 3.18 X 10*6/uL (4.40-5.60); RDW 13.4 % (11.5-14.5); WBC 10.46 X 10*3/uL (4.50-10.00)
[2021-01-05 21:22] LABS: Glucose,Whole Blood 156 mg/dL (75-99)
[2021-01-05] MEDS: HYDROcodone/APAP 7.5-325MG 1 EACH TAB PO PRN (21:24)
[2021-01-05] MEDS: DONEPEZIL 10 MG TAB PO SCH (21:25)
[2021-01-05] MEDS: SENNOSIDES-DOCUSATE SODIUM 1 EACH TAB PO SCH (21:25)
--- NOTE | 2021-01-05 22:34 | PN ---
PROGRESS NOTE DATE OF SERVICE: 01/05/2021 REASON FOR FOLLOWUP: Fever. INTERVAL HISTORY: The patient is afebrile. The patient is currently breathing comfortably. The patient denies having any chest pain, shortness of breath or cough. No abdominal pain or diarrhea. PHYSICAL EXAMINATION: Blood pressure 174/72 with a pulse of 84, temperature 99.3. He is 96% on room air. General description is an elderly male lying in bed in no distress. Respiratory system: Unlabored breathing, clear to auscultation anteriorly. Heart S1, S2. Regular rate and rhythm. Abdomen soft, no tenderness. Extremities no edema of the feet. LABS: Hemoglobin is 9.7, white count 10.46. Creatinine 0.63. DIAGNOSTIC IMPRESSION AND PLAN: Patient with a fever in this patient admitted to hospital. He apparently did have a fall, with evidence of left hip and left wrist fracture, status operative repair of the left hip. Patient did have extensive workup, including negative COVID-19 testing x2. Influenza was negative. Urine for Legionella antigen was negative. CT of abdomen and pelvis was negative as well. On empiric cefepime; may consider a course of oral Ceftin on discharge and close outpatient followup. MMODL / IJN: [id number] /
[2021-01-06 01:37] VITALS: PULSE 70
[2021-01-06 07:46] LABS: Glucose,Whole Blood 137 mg/dL (75-99)
[2021-01-06] MEDS: CITALOPRAM HYDROBROMIDE 10 MG TAB PO SCH (08:41)
[2021-01-06] MEDS: INSULIN ASPART (NovoLOG) 100 UNIT/ML VIAL SQ SCH ×3 (08:41→16:40)
[2021-01-06] MEDS: CHOLECALCIFEROL 25 MCG (1000 IU) TABLET PO SCH (08:41)
[2021-01-06] MEDS: lisinopriL 10 MG TAB PO SCH (08:41)
[2021-01-06] MEDS: ENOXAPARIN 30 MG/0.3 ML SYRINGE SQ SCH (08:41)
[2021-01-06] MEDS: SENNOSIDES 8.6 MG TAB PO SCH (08:41)
[2021-01-06] MEDS: CEFEPIME 2 GM in SODIUM CHLORIDE 0.9% 100 ML IVPB SCH ×2 (08:41→16:27)
[2021-01-06] MEDS: MULTIVITAMINS, THERA 1 EACH TAB PO SCH (08:42)
[2021-01-06 09:52] VITALS: BP 126/74; RESP 16; TEMP 98.7
[2021-01-06 10:59] LABS: Basophils # (A) 0.06 X 10*3/uL (0.00-0.10); Basophils % (A) 0.7 %; Eosinophils # (A) 0.31 X 10*3/uL (0.04-0.35); Eosinophils % (A) 3.9 %; HCT 28.9 % (39.6-50.0); HGB 9.4 g/dL (13.0-17.0); Lymphocytes # (A) 1.06 X 10*3/uL (0.90-5.00); Lymphocytes % (A) 13.2 %; MCH 30.9 pg (27.0-32.0); MCHC 32.5 g/dL (32.0-37.0); MCV 95.1 fL (80.0-97.0); Mean Platelet Volume 10.7 fL (9.5-12.2); Monocytes # (A) 1.03 X 10*3/uL (0.20-1.00); Monocytes % (A) 12.8 %; Neutrophils # (A) 5.33 X 10*3/uL (1.80-7.70); Neutrophils % (A) 66.4 %; Platelet Count 358 X 10*3/uL (140-440); RBC 3.04 X 10*6/uL (4.40-5.60); RDW 13.8 % (11.5-14.5); WBC 8.03 X 10*3/uL (4.50-10.00)
[2021-01-06 11:05] LABS: African American GFR (CKD) 113.2 (60.0-200.0); Anion Gap 11.6 mmol/L (4.00-12.00); Blood Urea Nitrogen 9.1 mg/dL (9.0-27.0); Calcium 7.9 mg/dL (8.7-10.3); Carbon Dioxide 21.4 mmol/L (21.6-31.8); Non-African American GFR(CKD) 97.7 (60.0-200.0); Potassium 3.5 mmol/L (3.5-5.5)
[2021-01-06 11:06] VITALS: BMI 31.6
[2021-01-06 12:11] LABS: Glucose,Whole Blood 154 mg/dL (75-99)
--- NOTE | 2021-01-06 13:44 | P.PN ---
Subjective Progress Note Date: 01/06/21 Principal diagnosis: 1. Left hip femoral neck fracture 2. Left wrist ulnar styloid fracture; left wrist distal radius fracture Patient seen at bedside this morning resting comfortably lying semirecumbent bed. Patient says he did have some difficulty getting up and out of chair and getting back to bed yesterday. He says he is still having some left hip pain. Patient denies chest pain, fever, shortness breath, nausea, vomiting, change in vision, loss of bowel/bladder control. Objective - Vital Signs Vital signs: Vital Signs Temp 98.7 F 01/06/21 07:00 Pulse 70 01/06/21 07:00 Resp 16 01/06/21 07:00 BP 126/74 01/06/21 07:00 Pulse Ox 97 01/06/21 07:00 Intake & Output 01/05/21 01/06/21 01/06/21 18:59 06:59 18:59 Intake Total 1800 Balance 1800 Weight 97.069 kg Intake: Intake, IV Titration 800 Amount Cefepime 2 gm In Sodium 200 Chloride 0.9% 100 ml @ 25 mls/hr IVPB Q8HR [facility] Rx# :[id number] Sodium Chloride 0.9% 1, 600 000 ml @ 50 mls/hr IV . Q20H [facility] Rx#:[id number] Oral 1000 Other: Voiding Method Diaper Urinal Diaper # Voids 3 2 # Bowel Movements 3 1 - Exam Inspection: Silver foam dressing is in place on left hip. Incision is intact. There is minimal drainage from the incision on the dressing. [place] are well aligned in good place. There is minimal ecchymosis/erythema. There is a short arm cast present on the left arm. negative for open fractures/significant ecchymoses/deformity to left arm Sensation: Sensation is equal, symmetric, bilaterally intact throughout. Palpation: There is moderate tenderness to palpation over the incision on left hip. Moderate tenderness with palpation about the left distal radius/ulna. Nontender to palpation throughout rest of exam Range of motion: Range of motion is limited in left leg due to moderate pain. Patient is able wiggle toes in left foot. Patient is able to wiggle fingers in left hand, but with some moderate pain. Patient is able flex and extend left e lbow. Patient's full range of motion in RUE and RLE Motor: 5/5 in resisted hip flexion/extension, knee flexion/extension, plantar flexion/dorsiflexion the right ankle; 5/5 in resisted elbow flexion/extension, wrist flexion/extension, shoulder abduction, internal/external rotation of the right arm. Left leg motor exams severely limited due to patient's pain. Road Conductor strength 2/5 in left hand. Wrist flexion limited due to patient pain in left. Left elbow and shoulder exam limited due to patient's pain Neurovascular: Refill under 3 seconds bilaterally in upper extremity digits. DP pulses intact, bilaterally, 2+. Special tests: Negative Kimber's bilaterally; - Labs CBC & Chem 7: 01/06/21 06:51 01/06/21 06:51 Labs: Abnormal Lab Results - Last 24 Hours (Table) 01/05/21 01/05/21 01/05/21 Range/Units 12:55 16:24 21:19 WBC 10.46 H (4.50-10.00) X 10*3/uL RBC 3.18 L (4.40-5.60) X 10*6/uL Hgb 9.7 L (13.0-17.0) g/dL Hct 29.8 L (39.6-50.0) % Immature Gran # 0.14 H (0.00-0.04) X 10*3/uL Monocytes # 1.31 H (0.20-1.00) X 10*3/uL Eosinophils # 0.37 H (0.04-0.35) X 10*3/uL Carbon Dioxide (21.6-31.8) mmol/L Glucose (70-110) mg/dL POC Glucose (mg/dL) 158 H 156 H (75-99) mg/dL Calcium (8.7-10.3) mg/dL 01/06/21 01/06/21 01/06/21 Range/Units 06:51 06:51 07:44 WBC (4.50-10.00) X 10*3/uL RBC 3.04 L (4.40-5.60) X 10*6/uL Hgb 9.4 L (13.0-17.0) g/dL Hct 28.9 L (39.6-50.0) % Immature Gran # 0.24 H (0.00-0.04) X 10*3/uL Monocytes # 1.03 H (0.20-1.00) X 10*3/uL Eosinophils # (0.04-0.35) X 10*3/uL Carbon Dioxide 21.4 L (21.6-31.8) mmol/L Glucose 141 H (70-110) mg/dL POC Glucose (mg/dL) 137 H (75-99) mg/dL Calcium 7.9 L (8.7-10.3) mg/dL 01/06/21 Range/Units 12:09 WBC (4.50-10.00) X 10*3/uL RBC (4.40-5.60) X 10*6/uL Hgb (13.0-17.0) g/dL Hct (39.6-50.0) % Immature Gran # (0.00-0.04) X 10*3/uL Monocytes # (0.20-1.00) X 10*3/uL Eosinophils # (0.04-0.35) X 10*3/uL Carbon Dioxide (21.6-31.8) mmol/L Glucose (70-110) mg/dL POC Glucose (mg/dL) 154 H (75-99) mg/dL Calcium (8.7-10.3) mg/dL Microbiology - Last 24 Hours (Table) 01/01/21 10:49 Blood Culture - Preliminary Blood No Growth after 120 hours 01/03/21 07:31 Blood Culture - Preliminary Blood No Growth after 72 hours 01/01/21 03:42 Blood Culture - Preliminary Blood No Growth after 120 hours 12/31/20 14:02 Blood Culture - Preliminary Blood No Growth after 120 hours Assessment and Plan Assessment: Postoperative day #6 status post left hip hemiarthroplasty 1. Left hip femoral neck fracture status post fall 2. Left wrist ulnar styloid fracture; left wrist distal radius fracture 3. Multiple medical comorbidities Plan: 1. Left hip femoral neck fracture status post fall - left hip hemiarthroplasty performed 12/31/2020. Patient stable at bedside this morning. Short arm cast present over the left arm. From an orthopedic standpoint patient is stable for discharge. Patient is orthopedically stable for discharge to rehab. Medicine is admitting and will discharge to rehab when patient ready. A prescription for [place] 7.5 mg/325 mg was left in patient's chart for patient to take once discharge to rehab. Orthopedics is signing off at this time. Please do not hesitate to contact us for any further questions. 2. Left wrist ulnar styloid fracture; left distal radius fracture - short arm cast in place on left arm 3. Appreciate medical management 4. Pain management - IV and oral pain meds 5. DVT prophylaxis - Lovenox 6. GI prophylaxis - senna 7. Encourage incentive spirometer use 8. PT/OT - weightbearing as tolerated with walker for assistance. Encouraged to get up to sit in chair Time with Patient: Less than 30
--- NOTE | 2021-01-06 14:11 | PN ---
PROGRESS NOTE DATE OF SERVICE: 01/06/2021 REASON FOR FOLLOWUP: Fever, possibly reactive. INTERVAL HISTORY: The patient is afebrile and no fever has been recorded in the last 48 hours. The patient is feeling better, breathing comfortably on room air. Denies any chest pain, shortness of breath or cough. No abdominal pain or diarrhea. PHYSICAL EXAMINATION: Blood pressure 126/74, pulse of 70, temperature 98.9. He is 97% on room air. General description is an elderly male lying in bed in no distress. Respiratory system: Unlabored breathing, decreased breath sounds at the base. No wheeze. Heart S1, S2. Regular rate and rhythm. Abdomen soft, no tenderness. LABS: Hemoglobin is 9.4, white count 8.3. Creatinine is 0.7. Blood cultures have been negative. DIAGNOSTIC IMPRESSION AND PLAN: 1. Patient with a positive blood culture which initially was more likely contaminant. Repeat culture negative. Patient off vancomycin. 2. Fever with elevated white count in this patient who did have extensive workup with no clear focus. Possibly reactive to his fall and fracture. On cefepime. Transition to a short course of oral Ceftin on discharge and close outpatient followup. MMODL / IJN: [id number] /
--- NOTE | 2021-01-06 15:23 | P.PN ---
Subjective Progress Note Date: 01/04/21 Principal diagnosis: Left femoral neck fracture with varus deformity. Patient is scheduled for left hemiarthroplasty. Left wrist ulnar styloid fracture. Fevers Patient is a 65-year-old male with a known history of hypertension, diabetes type 2 [id number] multiple sclerosis, liver cirrhosis, memory impairment, history of CVA/TIA, history of TAL[employer] shunt placement and chronic low back pain and depression who is currently living by herself was found by his sister on the side of the bed who is also his caregiver.. Patient was last well-known and was seen by his sister on Wednesday morning. Patient states that he has been lying on the floor for 2 days. Patient sister went to see him and found him on the side of the bed. She called EMS and helped him into the stre tcher. Patient is complaining of left hip and left wrist pain. Denies any headache. No neck stiffness. No complaints of chest pain or shortness of breath. No nausea vomiting abdominal pain or diarrhea. No dysuria or hematuria. Patient states that he was tangled in the dog leash and fell twice. Patient is somewhat poor historian. On admission blood pressure was 155/98 pulse 100 and respiration 16 pulse ox 95% on room air and T-max was 101.0. CT head and cervical spine showed interval placement of right parietal approach T[employer] shunt catheter. The tip terminates in the posterior body of the left lateral ventricle just to the left of midline. Overall mild hydrocephalus is unchanged compared to 04/14/2018 Moderate multilevel spondylitic change with moderate focal stenosis at C5-C6 secondary to disc bulge. No fracture or malalignment of the cervical spine. Chest x-ray showed no acute cardiopulmonary process X-ray of the left wrist showed ulnar stylus fracture is residual acuity, suspect nondisplaced fracture of the distal radius RV questionable age. Hip/pelvis showed there is left hip fracture subcapital proximal left femoral fracture with resulting varus deformity. EKG showed normal sinus rhythm Laboratory showed WBC 16.4 hemoglobin 15.5 and platelets 227 Sodium 139 potassium 4.1 chloride 104 BUN 16 and creatinine 0.81 blood sugar 171. Lactic acid 2.4 total bilirubin level is 4.3 CK level 2228 and urinalysis is negative for infection COVID-19 PCR not detected. 12/31/2020 Patient is currently lying in the bed. Awake and alert oriented. Seems to be better today. Patient was febrile. Chest x-ray and UA are negative. Blood cultures grew gram-positive cocci and was being continued on vancomycin. Patient is also on ceftriaxone. Follow-up culture reports and no obvious source of infection at this time. Otherwise WBC count is trending down. Patient is scheduled for left hip hemiarthroplasty today. Pain is fairly controlled. ID is on board. Discussed with his sister at bedside in detail. 01/01/2021 Patient is currently lying in the bed. Status post left hip surgery. Pain is controlled. Otherwise patient did have fever with T-max 103.1 last night. Continued on cefepime) recommendations. Vancomycin has been discontinued since the blood cultures grew staph coagulase negative. CT of abdomen pelvis was ordered to rule out any source of infection. Orthopedic surgery is following and is also planning for left wrist immobilizer. Currently patient is afebrile. Laboratory data showed WBC trending down to 10.1, hemoglobin 12.0 and neutrophils 8.21 Jose sodium 134 potassium 3.6 chloride 107 bicarb 20 BUN 14 and creatinine 0.74 and calcium 8.2 Patient denied any nausea vomiting or abdominal pain or diarrhea. No chest pain or shortness of breath. No cough or sputum production. 01/02/2021 Patient is currently resting in the bed. Awake alert and oriented. Status post left hip surgery and left wrist splint. Patient did have a bowel movement yesterday. Denies any complaints of chest pain or shortness of. No nausea vomiting or abdominal pain or diarrhea. T-max was 99.[address] of the abdomen pelvis was done yesterday showed no suspicious acute changes. Patchy fatty infiltration within the liver with some focal sparing. Correlate w ith liver findings. Other infiltrative process should be considered within the differential. Urinary bladder is decompressed with Tobias catheter currently well evaluated. Laboratory data showed sodium 136 potassium 4.5 chloride 108 BUN 15 and creatinine 0.87 and calcium 8.5 Patient is being continued cefepime. ID is on board. 01/03/2021 Patient is awake alert and oriented x3. Clinically improved. Did have fever with T-max 102.2 yesterday afternoon. No complaints of cough or sputum producti on. No abdominal pain. No nausea vomiting or diarrhea. No dysuria or hematuria. Cultures have been negative. Patient is continued on cefepime. PT OT is on board. Orthopedic surgery and ID is on board. No chest pain or shortness of. No headache or dizziness or lightheadedness. No neck stiffness. Laboratory showed WBC went up to 15.2, hemoglobin 11.0 and platelets 251, neutrophils 12.59, D-dimer 4.19 Sodium 136 potassium 3.4 is being replaced will Bicarb is 19.9 anion gap 14.1 Calcium 8.1 Total bilirubin level 1.3 trending down from 4.3 on admission. /07/2020 Patient is currently living the bed comfortably.denied any complaints of chest pain or shortness of breath. No headache or dizziness. no nausea vomiting or abdominal pain or diarrhea. Patient is tolerating oral diet.patient had fever 101.1 at around 7 PM. patient is being continued on antibiotics in the form of cefepimename as per ID recommendations. Currently patient is afebrile. Patient is getting up with assistance. PT OT is on board Current medications reviewed. Objective - Vital Signs Vital signs: Vital Signs Temp 98.7 F 01/04/21 20:59 Pulse 85 01/04/21 19:40 Resp 16 01/04/21 19:40 BP 157/78 01/04/21 19:40 Pulse Ox 95 01/04/21 19:40 Intake & Output 01/04/21 01/04/21 01/05/21 06:59 18:59 05:59 Output Total 500 700 Balance -500 -700 Output: Urine 500 700 Uretheral (Tobias) 300 Other: Voiding Method Indwelling Catheter Indwelling Catheter # Voids 1 # Bowel Movements 1 - Exam PHYSICAL EXAMINATION: Patient is lying in the bed comfortably, no acute distress, awake alert and oriented.. HEENT: Normocephalic. Neck is supple. Pupils reactive. Nostrils clear. Oral cavity is moist. Neck reveals no JVD, carotid bruits, or thyromegaly. CHEST EXAMINATION: Trachea is central. Symmetrical expansion.Bibasilar diminished sounds.. No wheezing or rhonchi. CARDIAC: Normal S1, S2 with no gallops. No murmurs ABDOMEN: Soft. Bowel sounds normal. No organomegaly. No abdominal bruits. Extremities: reveal no edema. No clubbing or cyanosis Neurologically awake, alert, oriented x2-3 with well-coordinated movements. No focal deficits noted Skin: No rash or skin lesions. Psychiatric: Cooperative. Nonsuicidal Musculoskeletal: Left wrist cast in place . Left hip surgical site is intact. - Labs CBC & Chem 7: 01/06/21 06:51 01/06/21 06:51 Labs: Abnormal Lab Results - Last 24 Hours (Table) 01/03/21 01/04/21 01/04/21 Range/Units 07:31 06:48 11:42 POC Glucose (mg/dL) 153 H 208 H (75-99) mg/dL Procalcitonin 1.86 H (0.02-0.09) ng/mL 01/04/21 01/04/21 Range/Units 16:30 20:04 POC Glucose (mg/dL) 183 H 155 H (75-99) mg/dL Procalcitonin (0.02-0.09) ng/mL Microbiology - Last 24 Hours (Table) 12/31/20 14:02 Blood Culture - Preliminary Blood No Growth after 96 hours 01/01/21 10:49 Blood Culture - Preliminary Blood No Growth after 72 hours 01/03/21 07:31 Blood Culture - Preliminary Blood No Growth after 24 hours 01/01/21 03:42 Blood Culture - Preliminary Blood No Growth after 72 hours Assessment and Plan Assessment: SIRS /fever, leukocytosis and tachycardia without definitive source of infection. Status post fall and found on the floor for approximately 48 hours. Mechanical fall as per patient. Left femoral neck fracture with varus deformity. Patient is status post left hemiarthroplasty. Left wrist ulnar styloid fracture. Acute rhabdomyolysis. Improved. Lactic acidosis. Improved. Hyperbilirubinemia without any elevated liver enzymes History of [employer] shunt placement Hypertension Diabetes type 2 noninsulin-dependent Depression History of CVA/TIA DVT prophylaxis with SCDs for possible surgical intervention surgery. Plan: Patient Was brought to the hospital as he was found on the floor for a pproximately 48 hours. Was found to have left hip fracture and left wrist fracture status post surgery. Patient is also having on and off fevers. Urinalysis and chest x-ray showed no evidence of infection. Follow-up blood cultures. Patient i was on vancomycin and ceftriaxone empirically. changed to Cefepime. ID is on board. Blood cultures negative so far. Orthopedic status post left hemiarthroplasty on 12/31/2020.PT OT is following. CT of the abdominal pelvis to rule out source of infection. Continue with GI and DVT prophylaxis. Time with Patient: Greater than 30
--- NOTE | 2021-01-06 15:30 | P.PN ---
Subjective Progress Note Date: 01/05/21 Principal diagnosis: Left femoral neck fracture with varus deformity. Patient is scheduled for left hemiarthroplasty. Left wrist ulnar styloid fracture. Fevers Patient is a 65-year-old male with a known history of hypertension, diabetes type 2 [id number] multiple sclerosis, liver cirrhosis, memory impairment, history of CVA/TIA, history of [employer] ST[employer] shunt placement and chronic low back pain and depression who is currently living by herself was found by his sister on the side of the bed who is also his caregiver.. Patient was last well-known and was seen by his sister on Wednesday morning. Patient states that he has been lying on the floor for 2 days. Patient sister went to see him and found him on the side of the bed. She called EMS and helped him into the stre tcher. Patient is complaining of left hip and left wrist pain. Denies any headache. No neck stiffness. No complaints of chest pain or shortness of breath. No nausea vomiting abdominal pain or diarrhea. No dysuria or hematuria. Patient states that he was tangled in the dog leash and fell twice. Patient is somewhat poor historian. On admission blood pressure was 155/98 pulse 100 and respiration 16 pulse ox 95% on room air and T-max was 101.0. CT head and cervical spine showed interval placement of right parietal approach [employer] shunt catheter. The tip terminates in the posterior body of the left lateral ventricle just to the left of midline. Overall mild hydrocephalus is unchanged compared to 04/14/2018 Moderate multilevel spondylitic change with moderate focal stenosis at C5-C6 secondary to disc bulge. No fracture or malalignment of the cervical spine. Chest x-ray showed no acute cardiopulmonary process X-ray of the left wrist showed ulnar stylus fracture is residual acuity, suspect nondisplaced fracture of the distal radius RV questionable age. Hip/pelvis showed there is left hip fracture subcapital proximal left femoral fracture with resulting varus deformity. EKG showed normal sinus rhythm Laboratory showed WBC 16.4 hemoglobin 15.5 and platelets 227 Sodium 139 potassium 4.1 chloride 104 BUN 16 and creatinine 0.81 blood sugar 171. Lactic acid 2.4 total bilirubin level is 4.3 CK level 2228 and urinalysis is negative for infection COVID-19 PCR not detected. 12/31/2020 Patient is currently lying in the bed. Awake and alert oriented. Seems to be better today. Patient was febrile. Chest x-ray and UA are negative. Blood cultures grew gram-positive cocci and was being continued on vancomycin. Patient is also on ceftriaxone. Follow-up culture reports and no obvious source of infection at this time. Otherwise WBC count is trending down. Patient is scheduled for left hip hemiarthroplasty today. Pain is fairly controlled. ID is on board. Discussed with his sister at bedside in detail. 01/01/2021 Patient is currently lying in the bed. Status post left hip surgery. Pain is controlled. Otherwise patient did have fever with T-max 103.1 last night. Continued on cefepime) recommendations. Vancomycin has been discontinued since the blood cultures grew staph coagulase negative. CT of abdomen pelvis was ordered to rule out any source of infection. Orthopedic surgery is following and is also planning for left wrist immobilizer. Currently patient is afebrile. Laboratory data showed WBC trending down to 10.1, hemoglobin 12.0 and neutrophils 8.21 Jose sodium 134 potassium 3.6 chloride 107 bicarb 20 BUN 14 and creatinine 0.74 and calcium 8.2 Patient denied any nausea vomiting or abdominal pain or diarrhea. No chest pain or shortness of breath. No cough or sputum production. 01/02/2021 Patient is currently resting in the bed. Awake alert and oriented. Status post left hip surgery and left wrist splint. Patient did have a bowel movement yesterday. Denies any complaints of chest pain or shortness of. No nausea vomiting or abdominal pain or diarrhea. T-max was 99.[address] of the abdomen pelvis was done yesterday showed no suspicious acute changes. Patchy fatty infiltration within the liver with some focal sparing. Correlate w ith liver findings. Other infiltrative process should be considered within the differential. Urinary bladder is decompressed with Tobias catheter currently well evaluated. Laboratory data showed sodium 136 potassium 4.5 chloride 108 BUN 15 and creatinine 0.87 and calcium 8.5 Patient is being continued cefepime. ID is on board. 01/03/2021 Patient is awake alert and oriented x3. Clinically improved. Did have fever with T-max 102.2 yesterday afternoon. No complaints of cough or sputum producti on. No abdominal pain. No nausea vomiting or diarrhea. No dysuria or hematuria. Cultures have been negative. Patient is continued on cefepime. PT OT is on board. Orthopedic surgery and ID is on board. No chest pain or shortness of. No headache or dizziness or lightheadedness. No neck stiffness. Laboratory showed WBC went up to 15.2, hemoglobin 11.0 and platelets 251, neutrophils 12.59, D-dimer 4.19 Sodium 136 potassium 3.4 is being replaced will Bicarb is 19.9 anion gap 14.1 Calcium 8.1 Total bilirubin level 1.3 trending down from 4.3 on admission. /07/2020 Patient is currently living the bed comfortably.denied any complaints of chest pain or shortness of breath. No headache or dizziness. no nausea vomiting or abdominal pain or diarrhea. Patient is tolerating oral diet.patient had fever 101.1 at around 7 PM. patient is being continued on antibiotics in the form of cefepimename as per ID recommendations. Currently patient is afebrile. Patient is getting up with assistance. 01/05/2021 Patient is currently resting in the bed. Awake alert and oriented 3. Patient has been afebrile last 24 hours. No cough or sputum production. No dysuria or hematuria. Patient did have a bowel movement. Pain is controlled with medications. Patient is being continued on antibiotics in the form of cefepime. Cultures have been negative. ID and orthopedic surgery is following. Patient may need rehab. PT OT is on board Current medications reviewed. Objective - Vital Signs Vital signs: Vital Signs Temp 99.3 F 01/05/21 14:18 Pulse 84 01/05/21 14:18 Resp 18 01/05/21 14:18 BP 134/72 01/05/21 14:18 Pulse Ox 96 01/05/21 14:18 Intake & Output 01/04/21 01/05/21 01/05/21 19:59 06:59 18:59 Intake Total 1800 Output Total Balance 1800 Intake: Intake, IV Titration 800 Amount Cefepime 2 gm In Sodium 200 Chloride 0.9% 100 ml @ 25 mls/hr IVPB Q8HR JULIA Rx# :[id number] Sodium Chloride 0.9% 1, 600 000 ml @ 50 mls/hr IV . Q20H JULIA Rx#:[id number] Oral 1000 Output: Urine Uretheral (Tobias) Other: Voiding Method Diaper # Voids 3 # Bowel Movements 3 - Exam PHYSICAL EXAMINATION: Patient is lying in the bed comfortably, no acute distress, awake alert and oriented.. HEENT: Normocephalic. Neck is supple. Pupils reactive. Nostrils clear. Oral cavity is moist. Neck reveals no JVD, carotid bruits, or thyromegaly. CHEST EXAMINATION: Trachea is central. Symmetrical expansion.Bibasilar diminished sounds.. No wheezing or rhonchi. CARDIAC: Normal S1, S2 with no gallops. No murmurs ABDOMEN: Soft. Bowel sounds normal. No organomegaly. No abdominal bruits. Extremities: reveal no edema. No clubbing or cyanosis Neurologically awake, alert, oriented x2-3 with well-coordinated movements. No focal deficits noted Skin: No rash or skin lesions. Psychiatric: Cooperative. Nonsuicidal Musculoskeletal: Left wrist cast in place . Left hip surgical site is intact. - Labs CBC & Chem 7: 01/06/21 06:51 01/06/21 06:51 Labs: Abnormal Lab Results - Last 24 Hours (Table) 01/04/21 01/05/21 01/05/21 Range/Units 20:04 07:08 11:40 WBC (4.50-10.00) X 10*3/uL RBC (4.40-5.60) X 10*6/uL Hgb (13.0-17.0) g/dL Hct (39.6-50.0) % Immature Gran # (0.00-0.04) X 10*3/uL Monocytes # (0.20-1.00) X 10*3/uL Eosinophils # (0.04-0.35) X 10*3/uL Sodium (137-145) mmol/L Potassium (3.5-5.1) mmol/L Carbon Dioxide (22-30) mmol/L Creatinine (0.66-1.25) mg/dL Glucose (74-99) mg/dL POC Glucose (mg/dL) 155 H 158 H 153 H (75-99) mg/dL Calcium (8.4-10.2) mg/dL 01/05/21 01/05/21 01/05/21 Range/Units 12:55 12:55 16:24 WBC 10.46 H (4.50-10.00) X 10*3/uL RBC 3.18 L (4.40-5.60) X 10*6/uL Hgb 9.7 L (13.0-17.0) g/dL Hct 29.8 L (39.6-50.0) % Immature Gran # 0.14 H (0.00-0.04) X 10*3/uL Monocytes # 1.31 H (0.20-1.00) X 10*3/uL Eosinophils # 0.37 H (0.04-0.35) X 10*3/uL Sodium 134 L (137-145) mmol/L Potassium 3.2 L (3.5-5.1) mmol/L Carbon Dioxide 20 L (22-30) mmol/L Creatinine 0.63 L (0.66-1.25) mg/dL Glucose 149 H (74-99) mg/dL POC Glucose (mg/dL) 158 H (75-99) mg/dL Calcium 8.2 L (8.4-10.2) mg/dL Microbiology - Last 24 Hours (Table) 12/31/20 14:02 Blood Culture - Preliminary Blood No Growth after 120 hours 01/01/21 10:49 Blood Culture - Preliminary Blood No Growth after 96 hours 01/03/21 07:31 Blood Culture - Preliminary Blood No Growth after 48 hours 01/01/21 03:42 Blood Culture - Preliminary Blood No Growth after 96 hours Assessment and Plan Assessment: SIRS /fever, leukocytosis and tachycardia without definitive source of infection. Status post fall and found on the floor for approximately 48 hours. Mechanical fall as per patient. Left femoral neck fracture with varus deformity. Patient is status post left hemiarthroplasty. Left wrist ulnar styloid fracture. Acute rhabdomyolysis. Improved. Lactic acidosis. Improved. Hyperbilirubinemia without any elevated liver enzymes History of BAR STA[employer] shunt placement Hypertension Diabetes type 2 noninsulin-dependent Depression History of CVA/TIA DVT prophylaxis with SCDs and Lovenox subcu. Plan: Patient Was brought to the hospital as he was found on the floor for approximately 48 hours. Was found to have left hip fracture and left wrist fracture status post surgery. Patient is also having on and off fevers. Urinalysis and chest x-ray showed no evidence of infection. Follow-up blood cul tures. Patient i was on vancomycin and ceftriaxone empirically. changed to Cefepime. ID is on board. Blood cultures negative so far. Orthopedic status post left hemiarthroplasty on 12/31/2020.PT OT is following. CT of the abdominal pelvis to rule out source of infection. Continue with GI and DVT prophylaxis. Time with Patient: Greater than 30
--- NOTE | 2021-01-06 15:34 | P.DS ---
Providers Date of admission: 12/30/20 15:32 Expected date of discharge: 01/06/21 Attending physician: Nicolasa Shah Consults: 12/30/20 15:33 Consult Physician Routine Consulting Provider: Brooks Izquierdo Consult Reason/Comments: hip fracture, wrist fracture Do you want consulting provider notified?: Yes 12/30/20 18:13 Consult Physician Routine Consulting Provider: Nicolasa Shah Consult Reason/Comments: Medical Clearance for Orthopedic Surgery Do you want consulting provider notified?: Yes 12/30/20 23:45 Consult Physician Routine Consulting Provider: Batsheva Goldstein Consult Reason/Comments: SIRS Do you want consulting provider notified?: Yes, Notify in am Primary care physician: Valerie Conteh Hospital Course: Discharge diagnosis SIRS /fever, leukocytosis and tachycardia without definitive source of infection. Cultures negative. Workup including CT abdomen and pelvis is negative. Possibly due to fracture and intramedullary reaction.. No leukocytosis. Afebrile last 48 hours. Status post fall and found on the floor for approximately 48 hours. Mechanical fall as per patient. Left femoral neck fracture with varus deformity. Patient is status post left hemiarthroplasty. Left wrist ulnar styloid fracture. Status post cast placement. Acute rhabdomyolysis. Improved. Lactic acidosis. Improved. Hyperbilirubinemia without any elevated liver enzymes History of FLOOR LAYER HELPER shunt placement Hypertension Diabetes type 2 noninsulin-dependent Depression History of CVA/TIA DVT prophylaxis with SCDs for possible surgical intervention surgery. Discharge diagnosis Patient is a 65-year-old male with a known history of hypertension, diabetes type 2 cih-[id number] multiple sclerosis, liver cirrhosis, memory impairment, history of CVA/TIA, history of FLOOR LAYER HELPER shunt placement and chronic low back pain and depression who is currently living by herself was found by his sister on the side of the bed who is also his caregiver.. Patient was last well-known and was seen by his sister on Wednesday morning. Patient states that he has been lying on the floor for 2 days. Patient sister went to see him and found him on the side of the bed. She called EMS and helped him into the stretcher. Patient is complaining of left hip and left wrist pain. Denies any headache. No neck stiffness. No complaints of chest pain or shortness of breath. No nausea vomiting abdominal pain or diarrhea. No dysuria or hematuria. Patient states that he was tangled in the dog [employer] and fell twice. Patient is somewhat poor historian. On admission blood pressure was 155/98 pulse 100 and respiration 16 pulse ox 95% on room air and T-max was 101.0. CT head and cervical spine showed interval placement of right parietal approach FLOOR LAYER HELPER shunt catheter. The tip terminates in the posterior body of the left lateral ventricle just to the left of midline. Overall mild hydrocephalus is unchanged compared to 04/14/2018 Moderate multilevel spondylitic change with moderate focal stenosis at C5-C6 secondary to disc bulge. No fracture or malalignment of the cervical spine. Chest x-ray showed no acute cardiopulmonary process X-ray of the left wrist showed ulnar stylus fracture is residual acuity, suspect nondisplaced fracture of the distal radius RV questionable age. Hip/pelvis showed there is left hip fracture subcapital proximal left femoral fracture with resulting varus deformity. EKG showed normal sinus rhythm Laboratory showed WBC 16.4 hemoglobin 15.5 and platelets 227 Sodium 139 potassium 4.1 chloride 104 BUN 16 and creatinine 0.81 blood sugar 171. Lactic acid 2.4 total bilirubin level is 4.3 CK level 2228 and urinalysis is negative for infection COVID-19 PCR not detected. 12/31/2020 Patient is currently lying in the bed. Awake and alert oriented. Seems to be better today. Patient was febrile. Chest x-ray and UA are negative. Blood cultures grew gram-positive cocci and was being continued on vancomycin. Patient is also on ceftriaxone. Follow-up culture reports and no obvious source of infection at this time. Otherwise WBC count is trending down. Patient is scheduled for left hip hemiarthroplasty today. Pain is fairly controlled. ID is on board. Discussed with his sister at bedside in detail. 01/01/2021 Patient is currently lying in the bed. Status post left hip surgery. Pain is controlled. Otherwise patient did have fever with T-max 103.1 last night. Continued on cefepime) recommendations. Vancomycin has been discontinued since the blood cultures grew staph coagulase negative. CT of abdomen pelvis was ordered to rule out any source of infection. Orthopedic surgery is following and is also planning for left wrist immobilizer. Currently patient is afebrile. Laboratory data showed WBC trending down to 10.1, hemoglobin 12.0 and neutroph ils 8.21 Jose sodium 134 potassium 3.6 chloride 107 bicarb 20 BUN 14 and creatinine 0.74 and calcium 8.2 Patient denied any nausea vomiting or abdominal pain or diarrhea. No chest pain or shortness of breath. No cough or sputum production. 01/02/2021 Patient is currently resting in the bed. Awake alert and oriented. Status post left hip surgery and left wrist splint. Patient did have a bowel movement yesterday. Denies any complaints of chest pain or shortness of. No nausea vomiting or abdominal pain or diarrhea. T-max was 99.[address] of the abdomen pelvis was done yesterday showed no suspicious acute changes. Patchy fatty infiltration within the liver with some focal sparing. Correlate with liver findings. Other infiltrative process should be considered within the differential. Urinary bladder is decompressed with Tobias catheter currently well evaluated. Laboratory data showed sodium 136 potassium 4.5 chloride 108 BUN 15 and creatinine 0.87 and calcium 8.5 Patient is being continued cefepime. ID is on board. 01/03/2021 Patient is awake alert and oriented x3. Clinically improved. Did have fever with T-max 102.2 yesterday afternoon. No complaints of cough or sputum production. No abdominal pain. No nausea vomiting or diarrhea. No dysuria or hematuria. Cultures have been negative. Patient is continued on cefepime. PT OT is on board. Orthopedic surgery and ID is on board. No chest pain or shortness of. No headache or dizziness or lightheadedness. No neck stiffness. Laboratory showed WBC went up to 15.2, hemoglobin 11.0 and platelets 251, neutrophils 12.59, D-dimer 4.19 Sodium 136 potassium 3.4 is being replaced will Bicarb is 19.9 anion gap 14.1 Calcium 8.1 Total bilirubin level 1.3 trending down from 4.3 on admission. /07/2020 Patient is currently living the bed comfortably.denied any complaints of chest pain or shortness of breath. No headache or dizziness. no nausea vomiting or abdominal pain or diarrhea. Patient is tolerating oral diet.patient had fever 101.1 at around 7 PM. patient is being continued on antibiotics in the form of cefepimename as per ID recommendations. Currently patient is afebrile. Patient is getting up with assistance. 01/05/2021 Patient is currently resting in the bed. Awake alert and oriented 3. Patient has been afebrile last 24 hours. No cough or sputum production. No dysuria or hematuria. Patient did have a bowel movement. Pain is controlled with medications. Patient is being continued on antibiotics in the form of cefepime. Cultures have been negative. ID and orthopedic surgery is following. Patient may need rehab. 01/06/2021 Patient is awake alert oriented 3. No complaints of chest pain or shortness of breath. No dysuria or hematuria. Denied any diarrhea. Patient did have a bowel movement yesterday. No cough or sputum production. Pain is fairly controlled. Patient will be continued on antibiotic course for another 5 days with Ceftin as per ID recommendations. Patient is able to sit up and participating in physical therapy. Patient is being discharged home to rehab. Discharge medications regurgitation was done. Next and PHYSICAL EXAMINATION: Patient is lying in the bed comfortably, no acute distress, awake alert and oriented.. HEENT: Normocephalic. Neck is supple. Pupils reactive. Nostrils clear. Oral cavity is moist. Neck reveals no JVD, carotid bruits, or thyromegaly. CHEST EXAMINATION: Trachea is central. Symmetrical expansion. Lung hagen clear to auscultation and percussion. CARDIAC: Normal S1, S2 with no gallops. No murmurs ABDOMEN: Soft. Bowel sounds normal. No organomegaly. No abdominal bruits. Extremities: reveal no edema. No clubbing or cyanosis Neurologically awake, alert, oriented x3 with well-coordinated movements. No focal deficits noted Skin: No rash or skin lesions. Psychiatric: Coperative. Nonsuicidal Musculoskeletal: No joint swelling or deformity. Left Hip surgical site is intact. Minimal tenderness. Left wrist cast in place.. Discharge vitals reviewed. Total time taken greater than 35 minutes including 18 minutes for counseling and coordination of care. Patient Condition at Discharge: Serious Plan - Discharge Summary New Discharge Prescriptions: New Enoxaparin [Lovenox] 30 mg SQ DAILY #25 each HYDROcodone/APAP 7.5-325MG [[place] 7.5-325] 1 tab PO Q6HR PRN #27 tab PRN Reason: Pain Sennosides [Senna] 8.6 mg PO DAILY #20 tablet Cefuroxime Axetil [Ceftin] 500 mg PO BID 5 Days #10 tab Continue Multivitamin [Men's Multi-Vitamin] 1 tab PO DAILY Citalopram Hydrobromide [CeleXA] 10 mg PO DAILY lisinopriL [Zestril] 10 mg PO DAILY #30 tab Cholecalciferol (Vitamin D3) [Vitamin D3] 2,000 unit PO DAILY Baclofen [Lioresal] 20 mg PO TID PRN PRN Reason: Muscle Spasm metFORMIN HCL [Glucophage] 500 mg PO HS Donepezil HCl [Aricept] 10 mg PO HS Aspirin EC [Ecotrin Low Dose] 81 mg PO HS Discharge Medication List Citalopram Hydrobromide [CeleXA] 10 mg PO DAILY 08/25/15 [History] Multivitamin [Men's Multi-Vitamin] 1 tab PO DAILY 08/25/15 [History] lisinopriL [Zestril] 10 mg PO DAILY #30 tab 06/17/16 [Rx] Baclofen [Lioresal] 20 mg PO TID PRN 04/14/18 [History] Cholecalciferol (Vitamin D3) [Vitamin D3] 2,000 unit PO DAILY 04/14/18 [History] Aspirin EC [Ecotrin Low Dose] 81 mg PO HS 12/30/20 [History] Donepezil HCl [Aricept] 10 mg PO HS 12/30/20 [History] metFORMIN HCL [Glucophage] 500 mg PO HS 12/30/20 [History] Enoxaparin [Lovenox] 30 mg SQ DAILY #25 each 01/04/21 [Rx] HYDROcodone/APAP 7.5-325MG [[place] 7.5-325] 1 tab PO Q6HR PRN #27 tab 01/04/21 [Rx] Sennosides [Senna] 8.6 mg PO DAILY #20 tablet 01/04/21 [Rx] Cefuroxime Axetil [Ceftin] 500 mg PO BID 5 Days #10 tab 01/06/21 [Rx] Follow up Appointment(s)/Referral(s): Brooks Izquierdo DO [Doctor of Osteopathic Medicine] - 2 Weeks Valerie Conteh MD [Primary Care Provider] - 1-2 days Activity/Diet/Wound Care/Special Instructions: Orthopedic Discharge Instructions: 1. Wound care and infection precautions, keep incision dry and covered while showering, no lotions, creams, moisturizers. No soaking, pools, hot tubs. Do not scrub over incision. 2. Weight-bear as tolerated with walker / cane until follow-up. 3. Ice and elevate when necessary. Do not exceed 20 minutes per hour with ice pack. 4. Pain meds per prescription. 5. anticoagulants per prescription. 6. Pain medication has potential to cause constipation. Increase oral fluid and fiber intake. Contact primary care provider if you have not had a bowel movement within 48 hours after discharge. 7. No anti-inflammatory medication until discussed at first post operative visit, this including Motrin, Aleve, Mobic, Diclofenac 8. Follow up in office at [address] Brooks Izquierdo. 9. Follow up with your primary care doctor 7-10 days after discharge. 10. Contact [facility] with any questions, . Discharge Disposition: TRANSFER TO SNF/ECF
== END 2021-01-06 18:00 | DRG 522 ==
LOC: EC 10:58 → 4SSUR 15:32
PROVIDERS: ADMIT Internal Medicine; ATTEND Internal Medicine
PROC: 0SRS0JZ Replacement of Left Hip Joint, Femoral Surface with Synthetic Substitute, Open Approach (ICD-10-PCS; principal; 2020-12-31 07:30)
DX: S72.012A Unspecified intracapsular fracture of left femur, initial encounter for closed fracture (principal); S52.502A Unspecified fracture of the lower end of left radius, initial encounter for closed fracture; S52.612A Displaced fracture of left ulna styloid process, initial encounter for closed fracture; E87.2 Acidosis; G91.9 Hydrocephalus, unspecified; M62.82 Rhabdomyolysis; R65.10 Systemic inflammatory response syndrome (SIRS) of non-infectious origin without acute organ dysfunction; R78.81 Bacteremia; R41.82 Altered mental status, unspecified; B96.89 Other specified bacterial agents as the cause of diseases classified elsewhere; D72.829 Elevated white blood cell count, unspecified; E11.9 Type 2 diabetes mellitus without complications; F03.90 Unspecified dementia, unspecified severity, without behavioral disturbance, psychotic disturbance, mood disturbance, and anxiety; F32.9 Major depressive disorder, single episode, unspecified; G35 Multiple sclerosis; I10 Essential (primary) hypertension; K74.60 Unspecified cirrhosis of liver; K76.0 Fatty (change of) liver, not elsewhere classified; M19.011 Primary osteoarthritis, right shoulder; M19.012 Primary osteoarthritis, left shoulder; W01.0XXA Fall on same level from slipping, tripping and stumbling without subsequent striking against object, initial encounter; Z20.822 Contact with and (suspected) exposure to COVID-19; R00.0 Tachycardia, unspecified; Z79.82 Long term (current) use of aspirin; Z79.84 Long term (current) use of oral hypoglycemic drugs; Z79.899 Other long term (current) drug therapy; Z82.49 Family history of ischemic heart disease and other diseases of the circulatory system; Z85.820 Personal history of malignant melanoma of skin; Z86.73 Personal history of transient ischemic attack (TIA), and cerebral infarction without residual deficits; Z87.891 Personal history of nicotine dependence; Z98.2 Presence of cerebrospinal fluid drainage device; Z88.0 Allergy status to penicillin
CPT/HCPCS: 36415; 70450; 71045; 71046; 72125; 73501; 73502; 74177; 80048; 80053; 80202; 81001; 81003; 82550; 83605; 83615; 83735; 84132; 84145; 85025; 85379; 86140; 87040; 87077; 87186; 87449; 87502; 87635; 88305; 88311; 93005; 96374; 99285

== ENCOUNTER → 2023-09-08 | Outpatient (CLI) | payer MEDICARE ==
[2023-09-08 15:37] LABS: Basophils % (A) 1.2 %; Eosinophils # (A) 0.56 X 10*3/uL (0.04-0.35); Eosinophils % (A) 6.8 %; HCT 43.3 % (39.6-50.0); HGB 14.8 g/dL (13.0-17.0); Lymphocytes # (A) 2.17 X 10*3/uL (0.90-5.00); Lymphocytes % (A) 26.3 %; MCH 31.2 pg (27.0-32.0); MCHC 34.2 g/dL (32.0-37.0); MCV 91.2 FL (80.0-97.0); Mean Platelet Volume 10.8 FL (9.5-12.2); Monocytes # (A) 0.89 X 10*3/uL (0.20-1.00); Monocytes % (A) 10.8 %; NRBC Per 100 WBC 0 X 10*3/uL (0.00-0.01); Neutrophils # (A) 4.48 X 10*3/uL (1.80-7.70); Neutrophils % (A) 54.2 %; Platelet Count 236 X 10*3/uL (140-440); RBC 4.75 X 10*6/uL (4.40-5.60); RDW 13.9 % (11.5-14.5); WBC 8.26 X 10*3/uL (4.50-10.00)
[2023-09-08 15:53] LABS: Blood Urea Nitrogen 10.4 mg/dL (9.0-27.0); Calcium 9.2 mg/dL (8.7-10.3); Carbon Dioxide 21.1 mmol/L (21.6-31.8); Chloride 104 mmol/L (96-109); Glucose 141 mg/dL (70-110); Potassium 4.2 mmol/L (3.5-5.5); Sodium 139 mmol/L (135-145)
== END | disposition home or self-care (01) ==
LOC: LABPAT 10:24
PROVIDERS: ATTEND Urology
DX: Z01.812 Encounter for preprocedural laboratory examination (principal); R97.20 Elevated prostate specific antigen [PSA]
CPT/HCPCS: 80048; 85025

== ENCOUNTER 2023-10-02 13:46 | Inpatient (IN) | payer MEDICARE ==
--- NOTE | 2023-10-02 14:13 | ED ---
Recheck HPI - General Chief Complaint: Recheck/Abnormal Lab/Rx Stated Complaint: fever Time Seen by Provider: 10/02/23 13:54 Source: patient, family, RN/MD, RN notes reviewed, old records reviewed Mode of arrival: EMS Limitations: no limitations - History of Present Illness Initial Comments: Patient is a 67-year-old male presenting to the emergency department as a transfer from [facility]. Transfer paperwork was extremely limited and we are attempting to get more. The only symptom EKG and patient. Images were sent on disc. Sister provides majority of history. She found patient on the floor today. Patient is weak and felt warm. Patient states he does feel like he is chilled and weak. Patient did have recent prostate biopsy. Patient does not have any other specific complaints other than that. No abdominal or back pain. No cough or chest pain. - Related Data Home Medications Medication Instructions Recorded Confirmed Citalopram Hydrobromide [CeleXA] 10 mg PO DAILY 08/25/15 10/02/23 Multivitamin [Men's Multi-Vitamin] 1 tab PO DAILY 08/25/15 10/02/23 Baclofen [Lioresal] 20 mg PO BID 04/14/18 10/02/23 Aspirin EC [Ecotrin Low Dose] 81 mg PO HS 12/30/20 10/02/23 Donepezil HCl [Aricept] 10 mg PO HS 12/30/20 10/02/23 Dalfampridine [Dalfampridine ER] 10 mg PO BID 09/21/23 10/02/23 Magnesium 250 mg PO HS 09/21/23 10/02/23 Meclizine HCl 25 mg PO HS 09/21/23 10/02/23 lisinopriL [Zestril] 10 mg PO DAILY 09/21/23 10/02/23 Cholecalciferol (Vitamin D3) 50 mcg PO DAILY 10/02/23 10/02/23 [Vitamin D3 (50 Mcg = 2000 Iu)] metFORMIN HCL [Glucophage] 1,000 mg PO BID 10/02/23 10/02/23 Allergies Allergy/AdvReac Type Severity Reaction Status Date / Time Penicillins Allergy Rash/Hives Verified 10/02/23 14:23 Review of Systems ROS Statement: Those systems with pertinent positive or pertinent negative responses have been documented in the HPI. ROS Other: All systems not noted in ROS Statement are negative. Constitutional: Reports: as per HPI Eyes: Denies: eye pain ENT: Denies: ear pain Respiratory: Denies: dyspnea Cardiovascular: Denies: chest pain Endocrine: Reports: fatigue Gastrointestinal: Denies: abdominal pain Musculoskeletal: Denies: back pain Neurological: Reports: weakness. Denies: headache Past Medical History Past Medical History: Cancer, CVA/TIA, Diabetes Mellitus, Hypertension, Liver Disease, Memory Impairment, Musculoskeletal Disorder, Neurologic Disorder, Osteoarthritis (OA) Additional Past Medical History / Comment(s): CVA?-not confirmed, has MS, CIRRHOSIS OF THE LIVER, hx. melanoma, chronic low back pain, arthritis shoulders, tinnitis bilaterally, vertigo, balance problems, cerebral shunt for excess fluid in brain History of Any Multi-Drug Resistant Organisms: None Reported Past Surgical History: Appendectomy Additional Past Surgical History / Comment(s): melanoma removed right side of chest, lymph nodes right armpit, EGD/colonoscopy, tilt table test, shunt inse rtion Past Anesthesia/Blood Transfusion Reactions: Previous Problems w/ Anesthesia Additional Past Anesthesia/Blood Transfusion Reaction / Comment(s): very slow to wake up after shunt surgery Past Psychological History: No Psychological Hx Reported Smoking Status: Former smoker - Past Family History Mother Family Medical History: Pneumonia Father Family Medical History: Myocardial Infarction (MA) General Exam Limitations: no limitations General appearance: alert Head exam: Present: atraumatic Eye exam: Present: normal appearance ENT exam: Present: normal oropharynx Neck exam: Present: normal inspection Respiratory exam: Present: normal lung sounds bilaterally Cardiovascular Exam: Present: tachycardia GI/Abdominal exam: Present: soft. Absent: tenderness Extremities exam: Present: normal inspection, full ROM. Absent: tenderness Neurological exam: Present: alert Expanded Motor strength exam: RUE: 4, LUE: 4, RLE: 4, LLE: 4 Eye Response: (4) open spontaneously Motor Response: (6) obeys commands Verbal Response: (5) oriented Psychiatric exam: Present: normal affect, normal mood Skin exam: Present: normal color Course Vital Signs 10/02/23 10/02/23 13:51 15:54 Temperature 103.2 F H 100.4 F H Pulse Rate 120 H 108 H Respiratory 20 Rate Blood Pressure 158/86 O2 Sat by Pulse 95 Oximetry Medical Decision Making - Medical Decision Making Was pt. sent in by a medical professional or institution (GE Carl, EXECUTIVE VICE PRESIDENT OF SALES, urgent care, hospital, or care home...) When possible be specific @ -Patient was transferred from [facility] past Did you speak to anyone other than the patient for history (EMS, parent, family, police, friend...)? What history was obtained from this source @ -Receiving physician Did you review nursing and triage notes (agree or disagree)? Why? @ -I reviewed and agree with nursing and triage notes Were old charts reviewed (outside hosp., previous admission, EMS record, old EKG, old radiological studies, urgent care reports/EKG's, care home records)? Report findings @ -Previous admission procedure reviewed Differential Diagnosis (chest pain, altered mental status, abdominal pain women, abdominal pain men, vaginal bleeding, weakness, fever, dyspnea, syncope, headache, dizziness, GI bleed, back pain, seizure, CVA, palpatations, mental health, musculoskeletal)? @ -Differential Fever: Pneumonia, viral URI, endocarditis, myocarditis, pericarditis, otitis, sinusitis, peritonsillar Abscess, retropharyngeal Abscess, epiglottitis, peritonitis, appendicitis, Earline cystitis, diverticulitis, hepatitis, colitis, UTI, PID, TOA, pyelonephritis, prostatitis, epididymitis, meningitis, encephalitis, pulmonary embolism, CVA, thyroid storm, pancreatitis, adrenal crisis, cavernous sinus thrombosis, this is not meant to be an all-inclusive list. EKG interpreted by me (3pts min.). @ -Sinus tachycardia 114. Left axis. Inferior Q waves. No acute ST change. X-rays interpreted by me (1pt min.). @ -Chest x-ray shows low lung volume CT interpreted by me (1pt min.). @ -None done U/S interpreted by me (1pt. min.). @ -None done What testing was considered but not performed or refused? (CT, X-rays, U/S, labs)? Why? @ -None What meds were considered but not given or refused? Why? @ -None Did you discuss the management of the patient with other professionals (professionals i.e. GE Carl, EXECUTIVE VICE PRESIDENT OF SALES, lab, RT, psych nurse, delinquency prevention social worker, nuclear plant operator, teacher, unarmed security officer, case maker)? Give summary @ -Case was discussed with Dr. Wisam Kelley who will admit covering Dr. Conteh. Case also discussed with Dr. Gaytan who recommends admission for prostatitis and continue cefepime. Was smoking cessation discussed for >3mins.? @ -No Was critical care preformed (if so, how long)? @ -31 minutes critical care Were there social determinants of health that impacted care today? How? (Homelessness, low income, unemployed, alcoholism, drug addiction, transportation, low edu. Level, literacy, decrease access to med. care, fpc, rehab)? @ -No Was there de-escalation of care discussed even if they declined (Discuss DNR or withdrawal of care, Hospice)? DNR status @ -No What co-morbidities impacted this encounter? (DM, HTN, Smoking, COPD, CAD, Cancer, CVA, ARF, Chemo, Hep., AIDS, mental health diagnosis, sleep apnea, morbid obesity)? @ -Patient had recent prostate biopsy Was patient admitted / discharged? Hospital course, mention meds given and route, prescriptions, significant lab abnormalities, going to OR and other pertinent info. @ -Patient presents as transfer from [facility]. Chart faxed and reviewed. Patient will be admitted and continue cefepime with urology consult. Admission orders written. Patient did receive cefepime prior to transfer Undiagnosed new problem with uncertain prognosis? @ -No Drug Therapy requiring intensive monitoring for toxicity (Heparin, Nitro, Insu fly, Cardizem)? @ -No Were any procedures done? @ -No Diagnosis/symptom? @ -Prostatitis, sepsis Acute, or Chronic, or Acute on Chronic? @ -Acute, acute Uncomplicated (without systemic symptoms) or Complicated (systemic symptoms)? @ -Located with sepsis Side effects of treatment? @ -No Exacerbation, Progression, or Severe Exacerbation? @ -No Poses a threat to life or bodily function? How? (Chest pain, [place], MA, pneumonia, PE, COPD, DKA, ARF, appy, cholecystitis, CVA, Diverticulitis, Homicidal, Suicidal, threat to staff... and all critical care pts) @ -Threat to metabolic function and threat of severe sepsis - Lab Data Result diagrams: 10/02/23 14:43 10/02/23 14:43 Lab Results 10/02/23 10/02/23 10/02/23 Range/Units 14:43 14:43 14:43 WBC 18.8 H (3.8-10.6) k/uL RBC 4.14 L (4.30-5.90) m/uL Hgb 12.8 L (13.0-17.5) gm/dL Hct 37.6 L (39.0-53.0) % MCV 90.8 (80.0-100.0) fL MCH 31.0 (25.0-35.0) pg MCHC 34.1 (31.0-37.0) g/dL RDW 13.9 (11.5-15.5) % Plt Count 238 (150-450) k/uL MPV 7.4 Neutrophils % 87 % Lymphocytes % 4 % Monocytes % 6 % Eosinophils % 2 % Basophils % 1 % Neutrophils # 16.4 H (1.3-7.7) k/uL Lymphocytes # 0.7 L (1.0-4.8) k/uL Monocytes # 1.1 H (0-1.0) k/uL Eosinophils # 0.4 (0-0.7) k/uL Basophils # 0.1 (0-0.2) k/uL PT 11.9 (10.0-12.5) sec INR 1.1 (<1.2) APTT 24.1 (22.0-30.0) sec Sodium 134 L (137-145) mmol/L Potassium 4.0 (3.5-5.1) mmol/L Chloride 106 (98-107) mmol/L Carbon Dioxide 22 (22-30) mmol/L Anion Gap 6 mmol/L BUN 10 (9-20) mg/dL Creatinine 0.89 (0.66-1.25) mg/dL Est GFR (CKD-EPI)AfAm >90 (>60 ml/min/1.73 sqM) Est GFR (CKD-EPI)NonAf 88 (>60 ml/min/1.73 sqM) Glucose 174 H (74-99) mg/dL Plasma Lactic Acid Gerald (0.7-2.0) mmol/L Calcium 8.9 (8.4-10.2) mg/dL Total Bilirubin 3.0 H (0.2-1.3) mg/dL AST 27 (17-59) U/L ALT 20 (4-49) U/L Alkaline Phosphatase 50 (38-126) U/L Creatine Kinase 507 H (55-170) U/L Total Protein 5.9 L (6.3-8.2) g/dL Albumin 3.7 (3.5-5.0) g/dL Influenza Type A (PCR) (Not Detectd) Influenza Type B (PCR) (Not Detectd) RSV (PCR) (Not Detectd) SARS-CoV-2 (PCR) (Not Detectd) 10/02/23 10/02/23 Range/Units 14:43 14:43 WBC (3.8-10.6) k/uL RBC (4.30-5.90) m/uL Hgb (13.0-17.5) gm/dL Hct (39.0-53.0) % MCV (80.0-100.0) fL MCH (25.0-35.0) pg MCHC (31.0-37.0) g/dL RDW (11.5-15.5) % Plt Count (150-450) k/uL MPV Neutrophils % % Lymphocytes % % Monocytes % % Eosinophils % % Basophils % % Neutrophils # (1.3-7.7) k/uL Lymphocytes # (1.0-4.8) k/uL Monocytes # (0-1.0) k/uL Eosinophils # (0-0.7) k/uL Basophils # (0-0.2) k/uL PT (10.0-12.5) sec INR (<1.2) APTT (22.0-30.0) sec Sodium (137-145) mmol/L Potassium (3.5-5.1) mmol/L Chloride (98-107) mmol/L Carbon Dioxide (22-30) mmol/L Anion Gap mmol/L BUN (9-20) mg/dL Creatinine (0.66-1.25) mg/dL Est GFR (CKD-EPI)AfAm (>60 ml/min/1.73 sqM) Est GFR (CKD-EPI)NonAf (>60 ml/min/1.73 sqM) Glucose (74-99) mg/dL Plasma Lactic Acid Gerald 2.1 H* (0.7-2.0) mmol/L Calcium (8.4-10.2) mg/dL Total Bilirubin (0.2-1.3) mg/dL AST (17-59) U/L ALT (4-49) U/L Alkaline Phosphatase (38-126) U/L Creatine Kinase (55-170) U/L Total Protein (6.3-8.2) g/dL Albumin (3.5-5.0) g/dL Influenza Type A (PCR) Not Detected (Not Detectd) Influenza Type B (PCR) Not Detected (Not Detectd) RSV (PCR) Not Detected (Not Detectd) SARS-CoV-2 (PCR) Not Detected (Not Detectd) Critical Care Time Critical Care Time: Yes Disposition Clinical Impression: Prostatitis, Sepsis Disposition: ADMITTED IP TO THIS [facility] Condition: Serious Is patient prescribed a controlled substance at d/c from ED?: No Referrals: Valerie Conteh MD [Primary Care Provider] - 1-2 days Time of Disposition: 16:17
[2023-10-02 15:03] LABS: Basophils # (A) 0.1 k/uL (0-0.2); Basophils % (A) 1 %; Eosinophils # (A) 0.4 k/uL (0-0.7); Eosinophils % (A) 2 %; HCT 37.6 % (39.0-53.0); HGB 12.8 gm/dL (13.0-17.5); Lymphocytes # (A) 0.7 k/uL (1.0-4.8); Lymphocytes % (A) 4 %; MCHC 34.1 g/dL (31.0-37.0); MCV 90.8 fL (80.0-100.0); Mean Platelet Volume 7.4; Monocytes # (A) 1.1 k/uL (0-1.0); Monocytes % (A) 6 %; Neutrophils # (A) 16.4 k/uL (1.3-7.7); Neutrophils % (A) 87 %; Platelet Count 238 k/uL (150-450); RBC 4.14 m/uL (4.30-5.90); RDW 13.9 % (11.5-15.5); WBC 18.8 k/uL (3.8-10.6)
[2023-10-02] MEDS: ACETAMINOPHEN TAB 500 MG TAB PO STA (15:03)
[2023-10-02] MEDS: SODIUM CHLORIDE 0.9% 1,000 ML IV SCH ×2 (15:03→16:54)
[2023-10-02 15:14] LABS: ALT 20 U/L (4-49); AST 27 U/L (17-59); African American GFR (CKD) >90 (>60 ml/min/1.73 sqM); Albumin 3.7 g/dL (3.5-5.0); Alkaline Phosphatase 50 U/L (38-126); Anion Gap 6 mmol/L; Blood Urea Nitrogen 10 mg/dL (9-20); Calcium 8.9 mg/dL (8.4-10.2); Carbon Dioxide 22 mmol/L (22-30); Chloride 106 mmol/L (98-107); Creatine Kinase 507 U/L (55-170); Glucose 174 mg/dL (74-99); Non-African American GFR(CKD) 88 (>60 ml/min/1.73 sqM); Sodium 134 mmol/L (137-145); Total Protein 5.9 g/dL (6.3-8.2)
[2023-10-02 15:31] LABS: INR 1.1 (<1.2); Partial Thromboplastin Time 24.1 sec (22.0-30.0); Prothrombin Time 11.9 sec (10.0-12.5)
--- NOTE | 2023-10-02 15:31 | XR ---
EXAMINATION TYPE: XR chest 1V portable DATE OF EXAM: 10/02/2023 Comparison: 01/01/2021 Clinical History: 67-year-old male with fever Findings: Heart upper limits of normal in size. Mild interstitial prominence. Narrowing of the subacromial spac e bilaterally and degenerative change of the shoulder suggesting chronic rotator cuff arthropathy. Lo w lung volumes. No kilo consolidation or pleural effusion. Right-sided AIR EXPORT COORDINATOR shunt catheter. Surgical c lips right axilla. Impression: Limited by hypoventilatory change. Interstitial prominence and crowded vascular markings likely due t o the low lung volumes. No focal consolidation seen.
[2023-10-02] MEDS ORDERED: NALOXONE 0.4 MG/ML 1 ML VIAL IV PRN (16:18)
[2023-10-02] MEDS: CEFEPIME 2 GM in SODIUM CHLORIDE 0.9% 100 ML IVPB SCH (16:38)
[2023-10-02 19:06] LABS: Appearance,Urine Clear (Clear); Bacteria,Urine Occasional /hpf; Bilirubin,Urine Negative (Negative); Blood,Urine Moderate (Negative); Color,Urine Colorless; Glucose,Urine (UA) 2+ (Negative); Ketones,Urine 1+ (Negative); Leukocyte Esterase,Urine Large (Negative); Nitrite,Urine Negative (Negative); PH, Urine 7.5 (5.0-8.0); Protein,Urine Negative (Negative); RBC,Urine 7 /hpf (0-5); Urobilinogen,Urine <2.0 mg/dL (<2.0); WBC,Urine 33 /hpf (0-5)
[2023-10-02] MEDS: ASPIRIN 81 MG PO SCH (21:27)
[2023-10-02] MEDS: MAGNESIUM OXIDE 400 MG TAB PO SCH (21:27)
[2023-10-02] MEDS: metFORMIN 500 MG TAB PO SCH (21:27)
[2023-10-02] MEDS: BACLOFEN 10 MG TAB PO SCH (21:27)
[2023-10-02] MEDS: FAMOTIDINE 20 MG TAB PO SCH (21:27)
[2023-10-02] MEDS: MECLIZINE 25 MG TAB PO SCH (21:27)
[2023-10-02] MEDS: DONEPEZIL 10 MG TAB PO SCH (21:27)
[2023-10-02] MEDS: ACETAMINOPHEN TAB 325 MG TAB PO PRN (21:30)
[2023-10-02] MEDS: NON FORMULARY DRUG (Dalfampridine [Dalfampridine Er] 10 MG Tab.Er.12h) PO SCH (22:17)
[2023-10-03] MEDS: MULTIVITAMINS, THERA 1 EACH TAB PO SCH (08:39)
[2023-10-03] MEDS: CHOLECALCIFEROL 25 MCG (1000 IU) TABLET PO SCH (08:39)
[2023-10-03] MEDS: lisinopriL 10 MG TAB PO SCH (08:39)
[2023-10-03] MEDS: CITALOPRAM HYDROBROMIDE 10 MG TAB PO SCH (08:40)
[2023-10-03] MEDS: ENOXAPARIN 40 MG/0.4 ML SYRINGE SQ SCH (10:45)
--- NOTE | 2023-10-03 11:18 | P.GSCN ---
History of Present Illness Consult date: 10/03/23 History of present illness: 67 yo male admitted with uti with sepsis. the patient was found down and weak by family. He was taken to [facility] and transferred to [facility] for admission. The patient had a fusion biospy of the prostate recently by Dr Mckeon.The pathology identified a very small amount of cancer as well as one biopsy with prostatitis IN the er he was febrile, his wbc were 18.8. His urine is inflamed. He has been started on cefipime. The patient did have a computed tomography scan of the brain and a chest x-ray at [facility] and they're both normal.he feels better today. He is awake and alert. Still has some temperature. Review of Systems All systems: negative - Constitutional Denies fever, Denies weight loss - EENT Eyes: denies blurred vision Ears, nose, mouth and throat: Denies dysphagia - Cardiovascular Denies chest pain, Denies shortness of breath - Respiratory Denies cough, Denies 7 - Gastrointestinal Reports as per HPI - Genitourinary Denies dysuria, Denies hematuria - Integumentary Denies rash, Denies unusual bruising - Neurological Denies headaches, Denies syncope - Hematologic/Lymphatic Denies easy bleeding, Denies easy bruising Past Medical History Past Medical History: Cancer, CVA/TIA, Diabetes Mellitus, Hypertension, Liver Disease, Memory Impairment, Musculoskeletal Disorder, Neurologic Disorder, Osteoarthritis (OA) Additional Past Medical History / Comment(s): CVA?-not confirmed, has MS, CIRRHOSIS OF THE LIVER, hx. melanoma, chronic low back pain, arthritis shoulders, tinnitis bilaterally, vertigo, balance problems, cerebral shunt for excess fluid in brain History of Any Multi-Drug Resistant Organisms: None Reported Past Surgical History: Appendectomy Additional Past Surgical History / Comment(s): melanoma removed right side of chest, lymph nodes right armpit, EGD/colonoscopy, tilt table test, shunt insertion Past Anesthesia/Blood Transfusion Reactions: Previous Problems w/ Anesthesia Additional Past Anesthesia/Blood Transfusion Reaction / Comm: very slow to wake up after shunt surgery Past Psychological History: No Psychological Hx Reported Additional Psychological History / Comment(s): 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 Smoking Status: Former smoker Past Alcohol Use History: None Reported Additional Past Alcohol Use History / Comment(s): Pt smoked cigars but quit many yrs ago, doesn't drink anymore for last 15 yrs. Past Drug Use History: None Reported - Past Family History Mother Family Medical History: Pneumonia Father Family Medical History: Myocardial Infarction ([place]) Medications and Allergies Home Medications Medication Instructions Recorded Confirmed Type Citalopram Hydrobromide [CeleXA] 10 mg PO DAILY 08/25/15 10/02/23 History Multivitamin [Men's Multi-Vitamin] 1 tab PO DAILY 08/25/15 10/02/23 History Baclofen [Lioresal] 20 mg PO BID 04/14/18 10/02/23 History Aspirin EC [Ecotrin Low Dose] 81 mg PO HS 12/30/20 10/02/23 History Donepezil HCl [Aricept] 10 mg PO HS 12/30/20 10/02/23 History Dalfampridine [Dalfampridine ER] 10 mg PO BID 09/21/23 10/02/23 History Magnesium 250 mg PO HS 09/21/23 10/02/23 History Meclizine HCl 25 mg PO HS 09/21/23 10/02/23 History lisinopriL [Zestril] 10 mg PO DAILY 09/21/23 10/02/23 History Cholecalciferol (Vitamin D3) 50 mcg PO DAILY 10/02/23 10/02/23 History [Vitamin D3 (50 Mcg = 2000 Iu)] metFORMIN HCL [Glucophage] 1,000 mg PO BID 10/02/23 10/02/23 History Allergies Allergy/AdvReac Type Severity Reaction Status Date / Time Penicillins Allergy Rash/Hives Verified 10/02/23 14:23 Surgical - Exam Vital Signs Temp Pulse Resp BP Pulse Ox 103.2 F H 120 H 20 158/86 95 10/02/23 13:51 10/02/23 13:51 10/02/23 13:51 10/02/23 13:51 10/02/23 13:51 - General well developed, well nourished, no distress - Eyes normal ocular movement, no icteric - ENT no hearing loss, no congestion - Neck no masses, trachea midline - Respiratory normal respiratory effort, clear to auscultation - Abdomen Abdomen: soft, non tender, no guarding, no rigid, no rebound - Integumentary no rash, no abnormal pigmentation - Neurologic no disoriented, no combative - Psychiatric oriented to time, oriented to person, oriented to place, speech is normal, memory intact Results - Labs 10/02/23 14:43 10/02/23 14:43 Abnormal Lab Results - Last 24 Hours (Table) 10/02/23 10/02/23 10/02/23 Range/Units 14:43 14:43 14:43 WBC 18.8 H (3.8-10.6) k/uL RBC 4.14 L (4.30-5.90) m/uL Hgb 12.8 L (13.0-17.5) gm/dL Hct 37.6 L (39.0-53.0) % Neutrophils # 16.4 H (1.3-7.7) k/uL Lymphocytes # 0.7 L (1.0-4.8) k/uL Monocytes # 1.1 H (0-1.0) k/uL Sodium 134 L (137-145) mmol/L Glucose 174 H (74-99) mg/dL Plasma Lactic Acid Gerald (0.7-2.0) mmol/L Total Bilirubin 3.0 H (0.2-1.3) mg/dL Creatine Kinase 507 H (55-170) U/L Total Protein 5.9 L (6.3-8.2) g/dL Urine Glucose (UA) 2+ H (Negative) Urine Ketones 1+ H (Negative) Urine Blood Moderate H (Negative) Ur Leukocyte Esterase Large H (Negative) Urine RBC 7 H (0-5) /hpf Urine WBC 33 H (0-5) /hpf Urine Bacteria Occasional H (None) /hpf 10/02/23 10/02/23 10/02/23 Range/Units 14:43 18:10 21:12 WBC (3.8-10.6) k/uL RBC (4.30-5.90) m/uL Hgb (13.0-17.5) gm/dL Hct (39.0-53.0) % Neutrophils # (1.3-7.7) k/uL Lymphocytes # (1.0-4.8) k/uL Monocytes # (0-1.0) k/uL Sodium (137-145) mmol/L Glucose (74-99) mg/dL Plasma Lactic Acid Gerald 2.1 H* 3.3 H* 2.1 H* (0.7-2.0) mmol/L Total Bilirubin (0.2-1.3) mg/dL Creatine Kinase (55-170) U/L Total Protein (6.3-8.2) g/dL Urine Glucose (UA) (Negative) Urine Ketones (Negative) Urine Blood (Negative) Ur Leukocyte Esterase (Negative) Urine RBC (0-5) /hpf Urine WBC (0-5) /hpf Urine Bacteria (None) /hpf Diabetes panel 10/02/23 Range/Units 14:43 Sodium 134 L (137-145) mmol/L Potassium 4.0 (3.5-5.1) mmol/L Chloride 106 (98-107) mmol/L Carbon Dioxide 22 (22-30) mmol/L BUN 10 (9-20) mg/dL Creatinine 0.89 (0.66-1.25) mg/dL Glucose 174 H (74-99) mg/dL Calcium 8.9 (8.4-10.2) mg/dL AST 27 (17-59) U/L ALT 20 (4-49) U/L Alkaline Phosphatase 50 (38-126) U/L Total Protein 5.9 L (6.3-8.2) g/dL Albumin 3.7 (3.5-5.0) g/dL Calcium panel 10/02/23 Range/Units 14:43 Calcium 8.9 (8.4-10.2) mg/dL Albumin 3.7 (3.5-5.0) g/dL Pituitary panel 10/02/23 Range/Units 14:43 Sodium 134 L (137-145) mmol/L Potassium 4.0 (3.5-5.1) mmol/L Chloride 106 (98-107) mmol/L Carbon Dioxide 22 (22-30) mmol/L BUN 10 (9-20) mg/dL Creatinine 0.89 (0.66-1.25) mg/dL Glucose 174 H (74-99) mg/dL Calcium 8.9 (8.4-10.2) mg/dL Adrenal panel 10/02/23 Range/Units 14:43 Sodium 134 L (137-145) mmol/L Potassium 4.0 (3.5-5.1) mmol/L Chloride 106 (98-107) mmol/L Carbon Dioxide 22 (22-30) mmol/L BUN 10 (9-20) mg/dL Creatinine 0.89 (0.66-1.25) mg/dL Glucose 174 H (74-99) mg/dL Calcium 8.9 (8.4-10.2) mg/dL Total Bilirubin 3.0 H (0.2-1.3) mg/dL AST 27 (17-59) U/L ALT 20 (4-49) U/L Alkaline Phosphatase 50 (38-126) U/L Total Protein 5.9 L (6.3-8.2) g/dL Albumin 3.7 (3.5-5.0) g/dL Assessment and Plan Assessment: Impression: uti with sepsis post fusion biopsy of prostate. prostate cancer, minimal Plan: cultures and antibiotics. The patient seems to be responding appropriately. Once the cultures are back then he can be treated with an appropriate oral antibiotic for a couple of weeks.
[2023-10-03] MEDS ORDERED: ZINC OXIDE PASTE (Z-GUARD) 1 APPLIC TOPICAL PRN (14:30)
[2023-10-03 14:54] LABS: Basophils % (A) 0 %; Eosinophils % (A) 1 %; HCT 34.9 % (39.0-53.0); HGB 11.7 gm/dL (13.0-17.5); Lymphocytes # (A) 1.2 k/uL (1.0-4.8); Lymphocytes % (A) 12 %; MCH 31.1 pg (25.0-35.0); MCHC 33.4 g/dL (31.0-37.0); MCV 93.1 fL (80.0-100.0); Mean Platelet Volume 7.5; Monocytes # (A) 0.6 k/uL (0-1.0); Monocytes % (A) 6 %; Neutrophils # (A) 7.7 k/uL (1.3-7.7); Neutrophils % (A) 79 %; Platelet Count 212 k/uL (150-450); RBC 3.74 m/uL (4.30-5.90); RDW 14.1 % (11.5-15.5); WBC 9.7 k/uL (3.8-10.6)
[2023-10-03] MEDS ORDERED: DEXTROSE 50% SYRINGE 50 ML IVP PRN ×2 (15:06)
--- NOTE | 2023-10-03 15:08 | P.HPIM ---
History of Present Illness H&P Date: 10/03/23 History of present illness: 67-year-old male patient with past medical history significant for multiple sclerosis, history of cirrhosis, memory impairment, hypertension, diabetes mellitus chronic back pain, history of cerebral shunt, history of balance issues, vertigo, lives alone uses a walker to ambulate who was transferred from [facility]. Transfer paperwork was very limited. History was provided by patient's sister in the ED, patient was found on the floor was very weak and mom. Patient reported generalized weakness and chills. Patient poor historian. Answering questions appropriately but has memory impairment. Patient unsure of fevers. Denied any productive cough, shortness of breath, nausea vomiting diarrhea constipation abdominal pain. Patient reported that his left-sided weakness for many years from multiple sclerosis. Patient was unsure of dysuria urgency or frequency. Patient recently had a prostate biopsy done which showed prostate cancer as well as prostatitis. On presentation to the ED patient was febrile, had leukocytosis and elevated lactate, UA was positive. CT of the head was unremarkable. Chest x-ray was unremarkable. REVIEW OF SYSTEMS: Limited CONSTITUTIONAL: No fever, no malaise, no fatigue. HEENT: No recent visual problems or hearing problems. Denied any sore throat. CARDIOVASCULAR: No chest pain, orthopnea, PND, no palpitations, no syncope. PULMONARY: No shortness of breath, no cough, no hemoptysis. GASTROINTESTINAL: No diarrhea, no nausea, no vomiting, no abdominal pain. NEUROLOGICAL: No headaches, no weakness, no numbness. HEMATOLOGICAL: Denies any bleeding or petechiae. GENITOURINARY: Denies any burning micturition, frequency, or urgency. MUSCULOSKELETAL/RHEUMATOLOGICAL: Denies any joint pain, swelling, or any muscle pain. ENDOCRINE: Denies any polyuria or polydipsia. The rest of the 14-point review of systems is negative. PHYSICAL EXAMINATION: GENERAL: A&O x3, NAD HEENT: EOMI, Sclerae anicteric, Moist Mucous membranes Neck: Supple, Non tender, No JVD PULMONARY: Equal breath souds B/L, No wheezing, No crackles. CARDIOVASCULAR: S1, S2 present. No murmurs, rubs, or gallops. ABDOMEN: Soft, nontender, nondistended, normoactive bowel sounds. No guarding or rebound tenderness. MUSCULOSKELETAL: No edema, No cyanosis. No clubbing. Normal ROM. Intact peripheral pulses. EXTREMITIES: No cyanosis, clubbing, or pedal edema. Skin: Warm. No Rash Assessment and plan: Sepsis: UTI: Status post recent prostate biopsy, prostate cancer: Acute metabolic encephalopathy: Chronic memory impairment: Was brought in for generalized weakness, was found on the floor. Was febrile and had leukocytosis and elevated lactate on presentation. Blood culture Urine culture Cefepime Urology consult Infectious disease consulted Diabetes mellitus: Hold metformin Accu-Cheks, diabetic diet Sliding-scale insulin. Hypertension: Continue lisinopril History of multiple sclerosis History of cirrhosis Debility Fall precautions PT/OT consult Case management consult DVT prophylaxis Subcutaneous Lovenox Monitor vital signs and labs Continue telemetry monitoring Labs and medication were reviewed. Continue same treatment. Resume home medication. Further recommendations as per clinical course of the patient Dictation was produced using Any[employer] dictation software. please excuse any grammatical, word or spelling errors. Past Medical History Past Medical History: Cancer, CVA/TIA, Diabetes Mellitus, Hypertension, Liver Disease, Memory Impairment, Musculoskeletal Disorder, Neurologic Disorder, Osteoarthritis (OA) Additional Past Medical History / Comment(s): CVA?-not confirmed, has MS, CIRRHOSIS OF THE LIVER, hx. melanoma, chronic low back pain, arthritis shoulders, tinnitis bilaterally, vertigo, balance problems, cerebral shunt for excess fluid in brain History of Any Multi-Drug Resistant Organisms: None Reported Past Surgical History: Appendectomy Additional Past Surgical History / Comment(s): melanoma removed right side of chest, lymph nodes right armpit, EGD/colonoscopy, tilt table test, shunt insertion Past Anesthesia/Blood Transfusion Reactions: Previous Problems w/ Anesthesia Additional Past Anesthesia/Blood Transfusion Reaction / Comment(s): very slow to wake up after shunt surgery Past Psychological History: No Psychological Hx Reported Additional Psychological History / Comment(s): 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 Smoking Status: Former smoker Past Alcohol Use History: None Reported Additional Past Alcohol Use History / Comment(s): Pt smoked cigars but quit many yrs ago, doesn't drink anymore for last 15 yrs. Past Drug Use History: None Reported - Past Family History Mother Family Medical History: Pneumonia Father Family Medical History: Myocardial Infarction ([place]) Medications and Allergies Home Medications Medication Instructions Recorded Confirmed Type Citalopram Hydrobromide [CeleXA] 10 mg PO DAILY 08/25/15 10/02/23 History Multivitamin [Men's Multi-Vitamin] 1 tab PO DAILY 08/25/15 10/02/23 History Baclofen [Lioresal] 20 mg PO BID 04/14/18 10/02/23 History Aspirin EC [Ecotrin Low Dose] 81 mg PO HS 12/30/20 10/02/23 History Donepezil HCl [Aricept] 10 mg PO HS 12/30/20 10/02/23 History Dalfampridine [Dalfampridine ER] 10 mg PO BID 09/21/23 10/02/23 History Magnesium 250 mg PO HS 09/21/23 10/02/23 History Meclizine HCl 25 mg PO HS 09/21/23 10/02/23 History lisinopriL [Zestril] 10 mg PO DAILY 09/21/23 10/02/23 History Cholecalciferol (Vitamin D3) 50 mcg PO DAILY 10/02/23 10/02/23 History [Vitamin D3 (50 Mcg = 2000 Iu)] metFORMIN HCL [Glucophage] 1,000 mg PO BID 10/02/23 10/02/23 History Allergies Allergy/AdvReac Type Severity Reaction Status Date / Time Penicillins Allergy Rash/Hives Verified 10/02/23 14:23 Physical Exam Vitals: Vital Signs Temp Pulse Pulse Resp BP BP Pulse Ox 10/03/23 14:00 98.7 F 80 18 119/71 95 10/03/23 09:20 99.8 F H 10/03/23 07:18 101.8 F H 90 18 137/82 96 10/03/23 01:11 98.9 F 10/02/23 23:44 100.1 F H 94 20 120/68 97 10/02/23 22:39 99.5 F 10/02/23 21:31 101.0 F H 10/02/23 20:00 99.7 F H 110 H 16 143/67 97 10/02/23 18:58 92 18 119/67 98 10/02/23 16:00 99.6 F 103 H 19 129/76 93 L 10/02/23 15:54 100.4 F H 108 H Intake and Output 10/02/23 10/03/23 10/03/23 22:59 06:59 14:59 Other: Voiding Method Diaper External Catheter # Voids 2 Weight 95.254 kg Results CBC & Chem 7: 10/03/23 14:25 10/02/23 14:43 Labs: Abnormal Lab Results - Last 24 Hours (Table) 10/02/23 10/02/23 10/02/23 Range/Units 14:43 14:43 14:43 WBC 18.8 H (3.8-10.6) k/uL RBC 4.14 L (4.30-5.90) m/uL Hgb 12.8 L (13.0-17.5) gm/dL Hct 37.6 L (39.0-53.0) % Neutrophils # 16.4 H (1.3-7.7) k/uL Lymphocytes # 0.7 L (1.0-4.8) k/uL Monocytes # 1.1 H (0-1.0) k/uL Sodium 134 L (137-145) mmol/L Glucose 174 H (74-99) mg/dL Plasma Lactic Acid Gerald (0.7-2.0) mmol/L Total Bilirubin 3.0 H (0.2-1.3) mg/dL Creatine Kinase 507 H (55-170) U/L Total Protein 5.9 L (6.3-8.2) g/dL Urine Glucose (UA) 2+ H (Negative) Urine Ketones 1+ H (Negative) Urine Blood Moderate H (Negative) Ur Leukocyte Esterase Large H (Negative) Urine RBC 7 H (0-5) /hpf Urine WBC 33 H (0-5) /hpf Urine Bacteria Occasional H (None) /hpf 10/02/23 10/02/23 10/02/23 Range/Units 14:43 18:10 21:12 WBC (3.8-10.6) k/uL RBC (4.30-5.90) m/uL Hgb (13.0-17.5) gm/dL Hct (39.0-53.0) % Neutrophils # (1.3-7.7) k/uL Lymphocytes # (1.0-4.8) k/uL Monocytes # (0-1.0) k/uL Sodium (137-145) mmol/L Glucose (74-99) mg/dL Plasma Lactic Acid Gerald 2.1 H* 3.3 H* 2.1 H* (0.7-2.0) mmol/L Total Bilirubin (0.2-1.3) mg/dL Creatine Kinase (55-170) U/L Total Protein (6.3-8.2) g/dL Urine Glucose (UA) (Negative) Urine Ketones (Negative) Urine Blood (Negative) Ur Leukocyte Esterase (Negative) Urine RBC (0-5) /hpf Urine WBC (0-5) /hpf Urine Bacteria (None) /hpf 10/03/23 Range/Units 14:25 WBC (3.8-10.6) k/uL RBC 3.74 L (4.30-5.90) m/uL Hgb 11.7 L (13.0-17.5) gm/dL Hct 34.9 L (39.0-53.0) % Neutrophils # (1.3-7.7) k/uL Lymphocytes # (1.0-4.8) k/uL Monocytes # (0-1.0) k/uL Sodium (137-145) mmol/L Glucose (74-99) mg/dL Plasma Lactic Acid Gerald (0.7-2.0) mmol/L Total Bilirubin (0.2-1.3) mg/dL Creatine Kinase (55-170) U/L Total Protein (6.3-8.2) g/dL Urine Glucose (UA) (Negative) Urine Ketones (Negative) Urine Blood (Negative) Ur Leukocyte Esterase (Negative) Urine RBC (0-5) /hpf Urine WBC (0-5) /hpf Urine Bacteria (None) /hpf Thrombosis Risk Factor Assmnt - Choose All That Apply Each Factor Represents 1 point: Obesity (BMI >25) Other Risk Factors: Yes Each Risk Factor Represents 2 Points: Age 61-74 years Other congenital or acquired thrombophilia - If yes, enter type in comment: No Thrombosis Risk Factor Assessment Total Risk Factor Score: 3 Thrombosis Risk Factor Assessment Level: Moderate Risk
[2023-10-03] MEDS: SODIUM CHLORIDE 0.9% 1,000 ML IV SCH (15:51)
[2023-10-03 16:14] LABS: Glucose,Whole Blood 154 mg/dL (70-110)
[2023-10-03] MEDS: INSULIN ASPART (NovoLOG) 100 UNIT/ML VIAL SQ SCH (17:31)
[2023-10-03 21:02] LABS: Glucose,Whole Blood 155 mg/dL (70-110)
[2023-10-04] MEDS ORDERED: SODIUM CHLORIDE 0.9% 100 ML BAG IV ONE (00:01)
[2023-10-04 06:07] LABS: Glucose,Whole Blood 138 mg/dL (70-110)
[2023-10-04 06:57] LABS: ALT 21 U/L (10-49); AST 32 U/L (14-35); Albumin 3.6 g/dL (3.8-4.9); Albumin/Globulin Ratio 2.25 Ratio (1.60-3.17); Alkaline Phosphatase 55 U/L (41-126); Blood Urea Nitrogen 10.2 mg/dL (9.0-27.0); Calcium 8.2 mg/dL (8.7-10.3); Carbon Dioxide 18.2 mmol/L (21.6-31.8); Chloride 107 mmol/L (96-109); Globulin 1.6 g/dL (1.6-3.3); Glucose 189 mg/dL (70-110); Potassium 4.1 mmol/L (3.5-5.5); Sodium 139 mmol/L (135-145); Total Bilirubin 1.7 mg/dL (0.3-1.2); Total Protein 5.2 g/dL (6.2-8.2)
[2023-10-04 07:27] VITALS: BP 143/68; PULSE 63; RESP 18; TEMP 98.2
[2023-10-04] MEDS ORDERED: MULTIVITAMINS, THERA 1 EACH TAB ONE (08:30)
[2023-10-04] MEDS ORDERED: lisinopriL 10 MG TAB ONE (08:31)
[2023-10-04] MEDS ORDERED: BACLOFEN 10 MG TAB ONE ×2 (08:31→20:06)
[2023-10-04] MEDS ORDERED: CHOLECALCIFEROL 25 MCG (1000 IU) TABLET ONE (08:31)
[2023-10-04] MEDS ORDERED: FAMOTIDINE 20 MG TAB ONE ×2 (08:31→20:06)
[2023-10-04] MEDS ORDERED: SODIUM CHLORIDE 0.9% 100 ML ONE ×2 (08:32→20:07)
[2023-10-04] MEDS ORDERED: CEFEPIME 2 GM VIAL IVPB ONE ×2 (08:32→20:07)
[2023-10-04] MEDS ORDERED: ENOXAPARIN 40 MG/0.4 ML SYRINGE SQ ONE (08:32)
[2023-10-04] MEDS ORDERED: CITALOPRAM HYDROBROMIDE 10 MG TAB PO ONE (09:00)
[2023-10-04 11:33] LABS: Glucose,Whole Blood 168 mg/dL (70-110)
[2023-10-04] MEDS ORDERED: INSULIN ASPART (NovoLOG) 100 UNIT/ML VIAL SQ ONE ×3 (12:27→20:25)
[2023-10-04 16:11] LABS: Glucose,Whole Blood 217 mg/dL (70-110)
[2023-10-04 16:57] LABS: Glucose,Whole Blood 216 mg/dL (70-110)
[2023-10-04] MEDS ORDERED: ACETAMINOPHEN TAB 325 MG TAB ONE (17:05)
[2023-10-04] MEDS ORDERED: ASPIRIN 81 MG ONE (20:06)
[2023-10-04] MEDS ORDERED: MECLIZINE 25 MG TAB ONE (20:07)
[2023-10-04] MEDS ORDERED: MAGNESIUM OXIDE 400 MG TAB ONE (20:07)
[2023-10-04] MEDS ORDERED: DONEPEZIL 10 MG TAB ONE (20:07)
[2023-10-04 20:18] LABS: Glucose,Whole Blood 193 mg/dL (70-110)
[2023-10-05] MEDS ORDERED: SODIUM CHLORIDE 0.9% 1,000 ML BAG ONE (00:01)
[2023-10-05] MEDS ORDERED: SODIUM CHLORIDE 0.9% 100 ML BAG ONE (00:01)
[2023-10-05 06:03] LABS: Glucose,Whole Blood 133 mg/dL (70-110)
[2023-10-05] MEDS ORDERED: MULTIVITAMINS, THERA 1 EACH TAB ONE (10:28)
[2023-10-05] MEDS ORDERED: CHOLECALCIFEROL 25 MCG (1000 IU) TABLET ONE (10:28)
[2023-10-05] MEDS ORDERED: FAMOTIDINE 20 MG TAB ONE ×2 (10:29→21:10)
[2023-10-05] MEDS ORDERED: BACLOFEN 10 MG TAB ONE ×2 (10:30→21:10)
[2023-10-05] MEDS ORDERED: lisinopriL 10 MG TAB ONE (10:30)
[2023-10-05] MEDS ORDERED: ENOXAPARIN 40 MG/0.4 ML SYRINGE SQ ONE (10:30)
[2023-10-05] MEDS ORDERED: SODIUM CHLORIDE 0.9% 100 ML ONE ×2 (10:31→21:11)
[2023-10-05] MEDS ORDERED: CEFEPIME 2 GM VIAL IVPB ONE ×2 (10:31→21:11)
[2023-10-05 11:46] LABS: Glucose,Whole Blood 133 mg/dL (70-110)
[2023-10-05 17:00] LABS: Glucose,Whole Blood 211 mg/dL (70-110)
[2023-10-05] MEDS ORDERED: INSULIN ASPART (NovoLOG) 100 UNIT/ML VIAL SQ ONE (18:51)
[2023-10-05 21:06] LABS: Glucose,Whole Blood 137 mg/dL (70-110)
[2023-10-05] MEDS ORDERED: ASPIRIN 81 MG ONE (21:10)
[2023-10-05] MEDS ORDERED: MAGNESIUM OXIDE 400 MG TAB ONE (21:11)
[2023-10-05] MEDS ORDERED: DONEPEZIL 10 MG TAB ONE (21:11)
[2023-10-05] MEDS ORDERED: MECLIZINE 25 MG TAB ONE (21:11)
[2023-10-06] MEDS ORDERED: SODIUM CHLORIDE 0.9% 100 ML BAG IV ONE
[2023-10-06 06:12] LABS: Glucose,Whole Blood 126 mg/dL (70-110)
[2023-10-06] MEDS ORDERED: CITALOPRAM HYDROBROMIDE 10 MG TAB PO ONE (09:00)
[2023-10-06] MEDS ORDERED: MULTIVITAMINS, THERA 1 EACH TAB ONE (11:08)
[2023-10-06] MEDS ORDERED: CHOLECALCIFEROL 25 MCG (1000 IU) TABLET ONE (11:08)
[2023-10-06] MEDS ORDERED: BACLOFEN 10 MG TAB ONE ×2 (11:09→21:22)
[2023-10-06] MEDS ORDERED: lisinopriL 10 MG TAB ONE (11:09)
[2023-10-06] MEDS ORDERED: ENOXAPARIN 40 MG/0.4 ML SYRINGE SQ ONE (11:09)
[2023-10-06] MEDS ORDERED: FAMOTIDINE 20 MG TAB ONE ×2 (11:09→21:21)
[2023-10-06] MEDS ORDERED: SODIUM CHLORIDE 0.9% 100 ML ONE ×2 (11:10→21:23)
[2023-10-06] MEDS ORDERED: CEFEPIME 2 GM VIAL IVPB ONE ×2 (11:10→21:23)
[2023-10-06 11:12] LABS: Glucose,Whole Blood 210 mg/dL (70-110)
[2023-10-06] MEDS ORDERED: INSULIN ASPART (NovoLOG) 100 UNIT/ML VIAL SQ ONE ×2 (12:34→21:23)
[2023-10-06 16:07] LABS: Glucose,Whole Blood 147 mg/dL (70-110)
[2023-10-06 21:11] LABS: Glucose,Whole Blood 153 mg/dL (70-110)
[2023-10-06] MEDS ORDERED: ASPIRIN 81 MG ONE (21:21)
[2023-10-06] MEDS ORDERED: DONEPEZIL 10 MG TAB ONE (21:22)
[2023-10-06] MEDS ORDERED: MECLIZINE 25 MG TAB ONE (21:22)
[2023-10-06] MEDS ORDERED: MAGNESIUM OXIDE 400 MG TAB ONE (21:22)
[2023-10-06] MEDS ORDERED: ACETAMINOPHEN TAB 325 MG TAB ONE (21:24)
[2023-10-07 05:53] LABS: Glucose,Whole Blood 134 mg/dL (70-110)
[2023-10-07] MEDS ORDERED: MULTIVITAMINS, THERA 1 EACH TAB ONE (08:54)
[2023-10-07] MEDS ORDERED: FAMOTIDINE 20 MG TAB ONE (08:54)
[2023-10-07] MEDS ORDERED: CHOLECALCIFEROL 25 MCG (1000 IU) TABLET ONE (08:54)
[2023-10-07] MEDS ORDERED: ENOXAPARIN 40 MG/0.4 ML SYRINGE SQ ONE (08:55)
[2023-10-07] MEDS ORDERED: BACLOFEN 10 MG TAB ONE (08:55)
[2023-10-07] MEDS ORDERED: lisinopriL 10 MG TAB ONE (08:55)
[2023-10-07] MEDS ORDERED: CEFEPIME 2 GM VIAL IVPB ONE (08:55)
[2023-10-07] MEDS ORDERED: SODIUM CHLORIDE 0.9% 100 ML ONE (08:55)
[2023-10-07] MEDS ORDERED: SODIUM CHLORIDE 0.9% 100 ML BAG IV ONE (09:00)
[2023-10-07 11:14] LABS: Glucose,Whole Blood 158 mg/dL (70-110)
[2023-10-27 09:40] LABS: Glucose 125 mg/dL (74-99); Sodium 137 mmol/L (137-145)
[2023-10-27 09:41] LABS: ALT 22 U/L (4-49); AST 31 U/L (17-59); African American GFR (CKD) >90; Albumin 3.2 g/dL (3.5-5.0); Albumin/Globulin Ratio 1.5; Alkaline Phosphatase 52 U/L (38-126); Anion Gap 7 mmol/L; Blood Urea Nitrogen 10 mg/dL (9-20); Calcium 8.4 mg/dL (8.4-10.2); Carbon Dioxide 21 mmol/L (22-30); Chloride 109 mmol/L (98-107); Globulin 2.2 g/dL; Non-African American GFR(CKD) >90; Potassium 3.6 mmol/L (3.5-5.1); Total Bilirubin 1.8 mg/dL (0.2-1.3); Total Protein 5.4 g/dL (6.3-8.2)
[2023-10-27 09:42] LABS: WBC 7.6 k/uL (3.8-10.6)
[2023-10-27 09:43] LABS: Basophils % (A) 1 %; Eosinophils % (A) 4 %; Lymphocytes % (A) 21 %; MCH 31.1 pg (25.0-35.0); MCHC 33.5 g/dL (31.0-37.0); Mean Platelet Volume 8.1; Monocytes % (A) 9 %; Neutrophils % (A) 63.1; Platelet Count 215 k/uL (150-450); RBC 3.86 m/uL (4.30-5.90); RDW 14.1 % (11.5-15.5)
[2023-10-27 09:44] LABS: Eosinophils # (A) 0.3 k/uL (0-0.7); Lymphocytes # (A) 1.6 k/uL (1.0-4.8); Monocytes # (A) 0.7 k/uL (0-1.0); Neutrophils # (A) 4.8 k/uL (1.3-7.7)
== END 2023-10-07 18:00 | disposition home or self-care (01) | DRG 871 ==
LOC: EC 13:46 → 4SSUR 16:18
PROVIDERS: ADMIT Internal Medicine; ATTEND Internal Medicine
DX: A41.9 Sepsis, unspecified organism (principal); G93.41 Metabolic encephalopathy; E87.20 Acidosis, unspecified; N39.0 Urinary tract infection, site not specified; E11.9 Type 2 diabetes mellitus without complications; G35 Multiple sclerosis; I10 Essential (primary) hypertension; K74.60 Unspecified cirrhosis of liver; Z79.84 Long term (current) use of oral hypoglycemic drugs; Z79.899 Other long term (current) drug therapy; Z82.49 Family history of ischemic heart disease and other diseases of the circulatory system; Z85.46 Personal history of malignant neoplasm of prostate; Z85.820 Personal history of malignant melanoma of skin; Z87.891 Personal history of nicotine dependence; Z88.0 Allergy status to penicillin; C61 Malignant neoplasm of prostate; G31.84 Mild cognitive impairment of uncertain or unknown etiology
CPT/HCPCS: 36415; 71045; 80053; 81001; 82550; 83605; 83735; 85025; 85610; 85730; 87040; 87086; 87636; 93005; 96361; 96365; 96366; 99291

== ENCOUNTER 2024-04-27 12:46 | Inpatient (IN) | payer MEDICARE ==
--- NOTE | 2024-04-27 13:35 | ED ---
General Adult HPI - General Chief complaint: Fall Stated complaint: fall Time Seen by Provider: 04/27/24 12:49 Source: patient, family, RN notes reviewed Mode of arrival: EMS Limitations: no limitations - History of Present Illness Initial comments: Patient is a 68-year-old male present to the emergency department with concerns with weakness and fall. Unclear if the fall occurred yesterday or today. Patient is somewhat a poor historian. Patient denies syncope however does not recall when the episode occurred. Family found him on the ground today. No reported injury. Family was unable to get patient up. Family is concerned that patient is weak all over. Patient does have history of MS. Patient has chronic problems with disconjugate gaze from his MS. - Related Data Home Medications Medication Instructions Recorded Confirmed Citalopram Hydrobromide [CeleXA] 10 mg PO DAILY 08/25/15 10/02/23 Multivitamin [Men's Multi-Vitamin] 1 tab PO DAILY 08/25/15 10/02/23 Baclofen [Lioresal] 20 mg PO BID 04/14/18 10/02/23 Aspirin EC [Ecotrin Low Dose] 81 mg PO HS 12/30/20 10/02/23 Donepezil HCl [Aricept] 10 mg PO HS 12/30/20 10/02/23 Dalfampridine [Dalfampridine ER] 10 mg PO BID 09/21/23 10/02/23 Magnesium 250 mg PO HS 09/21/23 10/02/23 Meclizine HCl 25 mg PO HS 09/21/23 10/02/23 lisinopriL [Zestril] 10 mg PO DAILY 09/21/23 10/02/23 Cholecalciferol (Vitamin D3) 50 mcg PO DAILY 10/02/23 10/02/23 [Vitamin D3 (50 Mcg = 2000 Iu)] metFORMIN HCL [Glucophage] 1,000 mg PO BID 10/02/23 10/02/23 Allergies Allergy/AdvReac Type Severity Reaction Status Date / Time Penicillins Allergy Rash/Hives Verified 04/27/24 13:01 Review of Systems ROS Statement: Those systems with pertinent positive or pertinent negative responses have been documented in the HPI. ROS Other: All systems not noted in ROS Statement are negative. Eyes: Denies: eye pain Respiratory: Denies: cough, dyspnea Cardiovascular: Denies: chest pain Endocrine: Denies: fatigue Gastrointestinal: Denies: abdominal pain Neurological: Reports: as per HPI, weakness. Denies: headache Past Medical History Past Medical History: Cancer, CVA/TIA, Diabetes Mellitus, Hypertension, Liver Disease, Memory Impairment, Musculoskeletal Disorder, Neurologic Disorder, Osteoarthritis (OA) Additional Past Medical History / Comment(s): CVA?-not confirmed, has MS, CIRRHOSIS OF THE LIVER, hx. melanoma, chronic low back pain, arthritis shoulders, tinnitis bilaterally, vertigo, balance problems, cerebral shunt for excess fluid in brain History of Any Multi-Drug Resistant Organisms: None Reported Past Surgical History: Appendectomy Additional Past Surgical History / Comment(s): melanoma removed right side of chest, lymph nodes right armpit, EGD/colonoscopy, tilt table test, shunt insertion Past Anesthesia/Blood Transfusion Reactions: Previous Problems w/ Anesthesia Additional Past Anesthesia/Blood Transfusion Reaction / Comment(s): very slow to wake up after shunt surgery Past Psychological History: No Psychological Hx Reported Smoking Status: Former smoker Past Alcohol Use History: None Reported Past Drug Use History: None Reported - Past Family History Mother Family Medical History: Pneumonia Father Family Medical History: Myocardial Infarction (OK) General Exam Limitations: no limitations General appearance: alert, in no apparent distress Head exam: Present: atraumatic Eye exam: Present: other (Disconjugate gaze) Neck exam: Present: normal inspection. Absent: tenderness Respiratory exam: Present: normal lung sounds bilaterally Cardiovascular Exam: Present: tachycardia GI/Abdominal exam: Present: soft. Absent: tenderness Extremities exam: Present: normal inspection, full ROM. Absent: tenderness Neurological exam: Present: alert, oriented X3, CN II-XII intact. Absent: motor sensory deficit Expanded Motor strength exam: RUE: 5, LUE: 5, RLE: 5, LLE: 5 Eye Response: (4) open spontaneously Motor Response: (6) obeys commands Verbal Response: (5) oriented Psychiatric exam: Present: normal affect, normal mood Skin exam: Present: normal color Course Vital Signs 04/27/24 04/27/24 12:49 14:13 Temperature 100.4 F H 102.4 F H Pulse Rate 111 H 114 H Respiratory 19 18 Rate Blood Pressure 155/87 147/70 O2 Sat by Pulse 97 97 Oximetry EKG Findings - EKG Results: EKG: interpreted by ERMD (Left axis. Inferior Q waves and Q wave in V2. Poor R wave progression.), sinus rhythm, normal ST/T EKG shows: tachycardia Procedures - Sepsis Sepsis Focused Exam #1 Time Sepsis Criteria Met: 16:00 Sepsis Focused Exam Date: 04/27/24 Sepsis Focused Exam Time: 16:19 Sepsis Focused Exam Complete: Yes Vital Signs & RN Notes Reviewed: Yes Capillary Refill: < 2 Seconds: Fingers, Toes Peripheral Pulses: Normal: Radial (R), Radial (L) Skin Color: Normal for Patient Respiratory Exam: normal lung sounds Cardiovascular Exam: tachycardia Medical Decision Making - Medical Decision Making Was pt. sent in by a medical professional or institution (, PA, ALCOHOL RUBBER, urgent care, hospital, or [facility]...) When possible be specific @ -No Did you speak to anyone other than the patient for history (EMS, parent, family, police, friend...)? What history was obtained from this source @ -Family is present helps provide history as patient is a poor historian Did you review nursing and triage notes (agree or disagree)? Why? @ -I reviewed and agree with nursing and triage notes Were old charts reviewed (outside hosp., previous admission, EMS record, old EKG, old radiological studies, urgent care reports/EKG's, [facility] records)? Report findings @ -No old charts were reviewed Differential Diagnosis (chest pain, altered mental status, abdominal pain women, abdominal pain men, vaginal bleeding, weakness, fever, dyspnea, syncope, headache, dizziness, GI bleed, back pain, seizure, CVA, palpatations, mental health, musculoskeletal)? @ -Differential Weakness: Hypoglycemia, shock, sepsis, hyponatremia, anemia, infection, OK, ETOH, adverse medicine reaction, overdose, stroke, this is not meant to be an all-inclusive list. EKG interpreted by me (3pts min.). @ -As above X-rays interpreted by me (1pt min.). @ -Chest x-ray shows no acute process CT interpreted by me (1pt min.). @ -CT scan of the brain shows no acute process. Shunt is present. U/S interpreted by me (1pt. min.). @ -None done What testing was considered but not performed or refused? (CT, X-rays, U/S, labs)? Why? @ -None What meds were considered but not given or refused? Why? @ -None Did you discuss the management of the patient with other professionals (professionals i.e. , PA, ALCOHOL RUBBER, lab, RT, psych nurse, hospital social worker, line installer, teacher, civil preparedness officer, case preparer and liner)? Give summary @ -Case was discussed with Dr. Card who will admit covering Dr. Conteh. Was smoking cessation discussed for >3mins.? @ -No Was critical care preformed (if so, how long)? @ -31 minutes critical care time Were there social determinants of health that impacted care today? How? (Homelessness, low income, unemployed, alcoholism, drug addiction, transportation, low edu. Level, literacy, decrease access to med. care, senior living, rehab)? @ -No Was there de-escalation of care discussed even if they declined (Discuss DNR or withdrawal of care, Hospice)? DNR status @ -No What co-morbidities impacted this encounter? (DM, HTN, Smoking, COPD, CAD, Cancer, CVA, ARF, Chemo, Hep., AIDS, mental health diagnosis, sleep apnea, morbid obesity)? @ -None Was patient admitted / discharged? Hospital course, mention meds given and route, prescriptions, significant lab abnormalities, going to OR and other pertinent info. @ -Patient presents with weakness, found on the ground. Patient does have rhabdomyolysis. Patient also has evidence of urinary tract infection. Blood culture, lactic acid, and IV antibiotics have all been started. Lactic acid is likely elevated secondary to rhabdomyolysis. Patient will need fluids nevertheless and fluid boluses provided. Patient reevaluated. Patient and f amily updated. Admission orders written. Undiagnosed new problem with uncertain prognosis? @ -No Drug Therapy requiring intensive monitoring for toxicity (Heparin, Nitro, Insulin, Cardizem)? @ -No Were any procedures done? @ -No Diagnosis/symptom? @ -Rhabdomyolysis, UTI, sepsis Acute, or Chronic, or Acute on Chronic? @ -Acute, acute, acute Uncomplicated (without systemic symptoms) or Complicated (systemic symptoms)? @ -Default Side effects of treatment? @ -No Exacerbation, Progression, or Severe Exacerbation? @ -No Poses a threat to life or bodily function? How? (Chest pain, USA, OK, pneumonia, PE, COPD, DKA, ARF, appy, cholecystitis, CVA, Diverticulitis, Homicidal, Suicidal, threat to staff... and all critical care pts) @ -Threat to renal function - Lab Data Result diagrams: 04/27/24 14:20 04/27/24 14:20 Lab Results 04/27/24 04/27/24 04/27/24 Range/Units 14:20 14:20 14:20 WBC 14.1 H (3.8-10.6) k/uL RBC 5.05 (4.30-5.90) m/uL Hgb 15.0 (13.0-17.5) gm/dL Hct 46.4 (39.0-53.0) % MCV 91.8 (80.0-100.0) fL MCH 29.8 (25.0-35.0) pg MCHC 32.4 (31.0-37.0) g/dL RDW 13.9 (11.5-15.5) % Plt Count 304 (150-450) k/uL MPV 7.2 Neutrophils % 77 % Lymphocytes % 10 % Monocytes % 10 % Eosinophils % 0 % Basophils % 0 % Neutrophils # 10.8 H (1.3-7.7) k/uL Lymphocytes # 1.4 (1.0-4.8) k/uL Monocytes # 1.5 H (0-1.0) k/uL Eosinophils # 0.0 (0-0.7) k/uL Basophils # 0.1 (0-0.2) k/uL PT 10.8 (10.0-12.5) sec INR 1.0 (<1.2) APTT 22.0 (22.0-30.0) sec Sodium (137-145) mmol/L Potassium (3.5-5.1) mmol/L Chloride (98-107) mmol/L Carbon Dioxide (22-30) mmol/L Anion Gap mmol/L BUN (9-20) mg/dL Creatinine (0.66-1.25) mg/dL Est GFR (CKD-EPI)AfAm (>60 ml/min/1.73 sqM) Est GFR (CKD-EPI)NonAf (>60 ml/min/1.73 sqM) Glucose (74-99) mg/dL Plasma Lactic Acid Gerald (0.7-2.0) mmol/L Calcium (8.4-10.2) mg/dL Magnesium (1.6-2.3) mg/dL Total Bilirubin (0.2-1.3) mg/dL AST (17-59) U/L ALT (4-49) U/L Alkaline Phosphatase (38-126) U/L Creatine Kinase (55-170) U/L Troponin I (0.000-0.034) ng/mL Total Protein (6.3-8.2) g/dL Albumin (3.5-5.0) g/dL Urine Color Urine Appearance (Clear) Urine pH (5.0-8.0) Ur Specific [place] (1.001-1.035) Urine Protein (Negative) Urine Glucose (UA) (Negative) Urine Ketones (Negative) Urine Blood (Negative) Urine Nitrite (Negative) Urine Bilirubin (Negative) Urine Urobilinogen (<2.0) mg/dL Ur Leukocyte Esterase (Negative) Urine RBC (0-5) /hpf Urine WBC (0-5) /hpf Urine WBC Clumps (None) /hpf Urine Bacteria (None) /hpf Influenza Type A (PCR) Not Detected (Not Detectd) Influenza Type B (PCR) Not Detected (Not Detectd) RSV (PCR) Not Detected (Not Detectd) SARS-CoV-2 (PCR) Not Detected (Not Detectd) 04/27/24 04/27/24 04/27/24 Range/Units 14:20 14:20 14:20 WBC (3.8-10.6) k/uL RBC (4.30-5.90) m/uL Hgb (13.0-17.5) gm/dL Hct (39.0-53.0) % MCV (80.0-100.0) fL MCH (25.0-35.0) pg MCHC (31.0-37.0) g/dL RDW (11.5-15.5) % Plt Count (150-450) k/uL MPV Neutrophils % % Lymphocytes % % Monocytes % % Eosinophils % % Basophils % % Neutrophils # (1.3-7.7) k/uL Lymphocytes # (1.0-4.8) k/uL Monocytes # (0-1.0) k/uL Eosinophils # (0-0.7) k/uL Basophils # (0-0.2) k/uL PT (10.0-12.5) sec INR (<1.2) APTT (22.0-30.0) sec Sodium 138 (137-145) mmol/L Potassium 5.6 H (3.5-5.1) mmol/L Chloride 101 (98-107) mmol/L Carbon Dioxide 22 (22-30) mmol/L Anion Gap 15 mmol/L BUN 25 H (9-20) mg/dL Creatinine 1.28 H (0.66-1.25) mg/dL Est GFR (CKD-EPI)AfAm 65 (>60 ml/min/1.73 sqM) Est GFR (CKD-EPI)NonAf 56 (>60 ml/min/1.73 sqM) Glucose 228 H (74-99) mg/dL Plasma Lactic Acid Gerald 4.0 H* (0.7-2.0) mmol/L Calcium 10.1 (8.4-10.2) mg/dL Magnesium 2.1 (1.6-2.3) mg/dL Total Bilirubin 2.7 H (0.2-1.3) mg/dL AST 304 H (17-59) U/L ALT 108 H (4-49) U/L Alkaline Phosphatase 86 (38-126) U/L Creatine Kinase 70485 H* (55-170) U/L Troponin I 0.016 (0.000-0.034) ng/mL Total Protein 7.9 (6.3-8.2) g/dL Albumin 4.9 (3.5-5.0) g/dL Urine Color Urine Appearance (Clear) Urine pH (5.0-8.0) Ur Specific [place] (1.001-1.035) Urine Protein (Negative) Urine Glucose (UA) (Negative) Urine Ketones (Negative) Urine Blood (Negative) Urine Nitrite (Negative) Urine Bilirubin (Negative) Urine Urobilinogen (<2.0) mg/dL Ur Leukocyte Esterase (Negative) Urine RBC (0-5) /hpf Urine WBC (0-5) /hpf Urine WBC Clumps (None) /hpf Urine Bacteria (None) /hpf Influenza Type A (PCR) (Not Detectd) Influenza Type B (PCR) (Not Detectd) RSV (PCR) (Not Detectd) SARS-CoV-2 (PCR) (Not Detectd) 02/27/25 Range/Units 14:57 WBC (3.8-10.6) k/uL RBC (4.30-5.90) m/uL Hgb (13.0-17.5) gm/dL Hct (39.0-53.0) % MCV (80.0-100.0) fL MCH (25.0-35.0) pg MCHC (31.0-37.0) g/dL RDW (11.5-15.5) % Plt Count (150-450) k/uL MPV Neutrophils % % Lymphocytes % % Monocytes % % Eosinophils % % Basophils % % Neutrophils # (1.3-7.7) k/uL Lymphocytes # (1.0-4.8) k/uL Monocytes # (0-1.0) k/uL Eosinophils # (0-0.7) k/uL Basophils # (0-0.2) k/uL PT (10.0-12.5) sec INR (<1.2) APTT (22.0-30.0) sec Sodium (137-145) mmol/L Potassium (3.5-5.1) mmol/L Chloride (98-107) mmol/L Carbon Dioxide (22-30) mmol/L Anion Gap mmol/L BUN (9-20) mg/dL Creatinine (0.66-1.25) mg/dL Est GFR (CKD-EPI)AfAm (>60 ml/min/1.73 sqM) Est GFR (CKD-EPI)NonAf (>60 ml/min/1.73 sqM) Glucose (74-99) mg/dL Plasma Lactic Acid Gerald (0.7-2.0) mmol/L Calcium (8.4-10.2) mg/dL Magnesium (1.6-2.3) mg/dL Total Bilirubin (0.2-1.3) mg/dL AST (17-59) U/L ALT (4-49) U/L Alkaline Phosphatase (38-126) U/L Creatine Kinase (55-170) U/L Troponin I (0.000-0.034) ng/mL Total Protein (6.3-8.2) g/dL Albumin (3.5-5.0) g/dL Urine Color Yellow Urine Appearance Turbid (Clear) Urine pH 6.0 (5.0-8.0) Ur Specific [place] 1.010 (1.001-1.035) Urine Protein 2+ H (Negative) Urine Glucose (UA) Negative (Negative) Urine Ketones Negative (Negative) Urine Blood Moderate H (Negative) Urine Nitrite Negative (Negative) Urine Bilirubin Negative (Negative) Urine Urobilinogen <2.0 (<2.0) mg/dL Ur Leukocyte Esterase Large H (Negative) Urine RBC 3 (0-5) /hpf Urine WBC >182 H (0-5) /hpf Urine WBC Clumps Many H (None) /hpf Urine Bacteria Occasional H (None) /hpf Influenza Type A (PCR) (Not Detectd) Influenza Type B (PCR) (Not Detectd) RSV (PCR) (Not Detectd) SARS-CoV-2 (PCR) (Not Detectd) Disposition Clinical Impression: Rhabdomyolysis, Urinary tract infection Disposition: ADMITTED IP TO THIS [facility] Condition: Serious Is patient prescribed a controlled substance at d/c from ED?: No Referrals: Valerie Conteh MD [Primary Care Provider] - 1-2 days Time of Disposition: 16:39
[2024-04-27] MEDS: ACETAMINOPHEN IV (For NPO) 1,000 MG in EMPTY BAG 1 BAG IVPB STA (14:21)
--- NOTE | 2024-04-27 14:32 | CT ---
EXAMINATION TYPE: CT brain wo con DATE OF EXAM: 04/27/2024 COMPARISON: CT head dated 10/02/2023 CLINICAL INDICATION: Male, 68 years old with history of weakness; PHH, Weakness CT DLP: 1197.4 mGycm Automated exposure control for dose reduction was used. Findings: There is a ventricular catheter entering the right parietal region and terminating in the left latera l ventricle. Ventricles are moderately enlarged but are unchanged compared to the prior study. There is moderate dilatation of the basal cisterns and sulci over the convexities as well as moderate gener alized atrophy. There is no mass effect or shift of midline structures. There is mild to moderate decreased density in the periventricular white matter consistent with chron ic ischemic white matter change. There is no acute intra or extra-axial hemorrhage. Intraorbital contents appear normal. Visualized paranasal sinuses and mastoid air cells are well aerated. IMPRESSION: 1. No change in the ventricular shunt catheter. 2. No change in the moderately dilated lateral ventricles and no shift of the midline structure. 3. No acute intra or extra-axial hemorrhage. [facility], , 04/27/2024 2:30 PM
[2024-04-27 14:48] LABS: Basophils # (A) 0.1 k/uL (0-0.2); Basophils % (A) 0 %; Eosinophils % (A) 0 %; HCT 46.4 % (39.0-53.0); Lymphocytes # (A) 1.4 k/uL (1.0-4.8); Lymphocytes % (A) 10 %; MCH 29.8 pg (25.0-35.0); MCHC 32.4 g/dL (31.0-37.0); MCV 91.8 fL (80.0-100.0); Mean Platelet Volume 7.2; Monocytes # (A) 1.5 k/uL (0-1.0); Monocytes % (A) 10 %; Neutrophils # (A) 10.8 k/uL (1.3-7.7); Neutrophils % (A) 77 %; Platelet Count 304 k/uL (150-450); RBC 5.05 m/uL (4.30-5.90); RDW 13.9 % (11.5-15.5); WBC 14.1 k/uL (3.8-10.6)
--- NOTE | 2024-04-27 14:55 | XR ---
EXAMINATION TYPE: XR chest 2V DATE OF EXAM: 04/27/2024 2:27 PM COMPARISON: 10/02/2023 CLINICAL INDICATION: Male, 68 years old with history of Weakness, TECHNIQUE: XR chest 2V view(s) obtained. FINDINGS: The heart size is normal. The pulmonary vasculature is normal. The lungs are clear. IMPRESSION: 1. No acute pulmonary process. [facility], , 04/27/2024 2:52 PM
[2024-04-27 14:58] LABS: ALT 108 U/L (4-49); African American GFR (CKD) 65 (>60 ml/min/1.73 sqM); Anion Gap 15 mmol/L; Blood Urea Nitrogen 25 mg/dL (9-20); Calcium 10.1 mg/dL (8.4-10.2); Carbon Dioxide 22 mmol/L (22-30); Chloride 101 mmol/L (98-107); Glucose 228 mg/dL (74-99); Non-African American GFR(CKD) 56 (>60 ml/min/1.73 sqM); Sodium 138 mmol/L (137-145); Total Bilirubin 2.7 mg/dL (0.2-1.3)
[2024-04-27 15:02] LABS: Prothrombin Time 10.8 sec (10.0-12.5)
[2024-04-27 15:09] LABS: Albumin 4.9 g/dL (3.5-5.0); Magnesium 2.1 mg/dL (1.6-2.3); Potassium 5.6 mmol/L (3.5-5.1); Total Protein 7.9 g/dL (6.3-8.2)
[2024-04-27 15:10] LABS: AST 304 U/L (17-59); Alkaline Phosphatase 86 U/L (38-126)
[2024-04-27 15:24] LABS: Influenza A Not Detected (Not Detectd); Influenza B Not Detected (Not Detectd); RSV Not Detected (Not Detectd)
[2024-04-27 15:25] LABS: Appearance,Urine Turbid (Clear); Bacteria,Urine Occasional /hpf; Bilirubin,Urine Negative (Negative); Blood,Urine Moderate (Negative); Color,Urine Yellow; Glucose,Urine (UA) Negative (Negative); Ketones,Urine Negative (Negative); Leukocyte Esterase,Urine Large (Negative); Nitrite,Urine Negative (Negative); Protein,Urine 2+ (Negative); RBC,Urine 3 /hpf (0-5); Urobilinogen,Urine <2.0 mg/dL (<2.0); WBC,Urine >182 /hpf (0-5)
[2024-04-27 15:39] LABS: Creatine Kinase 17969 U/L (55-170)
[2024-04-27] MEDS: SODIUM CHLORIDE 0.9% 1,000 ML IV STA ×2 (15:47→15:48)
[2024-04-27] MEDS ORDERED: NALOXONE 0.4 MG/ML 1 ML VIAL IV PRN (16:39)
[2024-04-27] MEDS: SODIUM CHLORIDE 0.9% 2,000 ML IV STA (18:31)
[2024-04-27] MEDS ORDERED: ASPIRIN PO SCH (21:00)
--- NOTE | 2024-04-27 21:01 | P.HPIM ---
History of Present Illness This is a pleasant 68 years old male with past medical history of multiple medical problems as below He presents because of a fall when his sister found him on the ground and brought him to the emergency room. Patient is awake alert and oriented to time place person but he cannot remember what happened and why he is in the hospital, sister at bedside patient has history of multiple sclerosis and over a long period and she was helping him getting him his groceries and other purchases when she came home she found him on the floor, and he was talking nonsense. Patient does not remember all of these details as above. Patient was wobbly weak and she hardly could get him to the chair, then called 911 or go to the emergency room Patient himself denies any specific symptoms no chest pain or dyspnea. No headache dizziness weakness numbness. No specific GI/ symptoms. As per patient and sister he has chronic left-sided weakness from multiple sclerosis which was gradually getting worse since 2011 Patient denies smoking alcohol or or illicit drugs. He complains from right shoulder pain when there is some nose and chin abr asions. He is hemodynamically stable but he had fever on admission 102.4. He is mildly tachycardic and tachypnea while in fever. His labs checked showing WBC is elevated at 14.1, rest of CBC is unremarkable. Creatinine elevated 1.28 above baseline. And liver enzymes moderately elevated. Urine analysis is suspicious for infection versus dehydrated sample as patient does not have overt urinary symptoms but again he has neurological disease and he is forgetful. INR and troponin were negative. Chest x-ray showing no acute process and CT of the brain is negative for acute process Urine culture is pending Gallbladder ultrasound is ordered Elevated lactic acid came back [place] [address]. Patient started on ceftriaxone and normal saline Review of Systems Review of systems CONSTITUTIONAL: No fever, no malaise, no fatigue. HEENT: No recent visual problems or hearing problems. Denied any sore throat. CARDIOVASCULAR: No orthopnea, PND, no palpitations, no syncope. PULMONARY: No shortness of breath, no cough, no hemoptysis. GASTROINTESTINAL: No diarrhea, no nausea, no vomiting, no abdominal pain. Normoactive bowel sounds. NEUROLOGICAL: No headaches, no weakness, no numbness. HEMATOLOGICAL: Denies any bleeding or petechiae. GENITOURINARY: Denies any burning micturition, frequency, or urgency. MUSCULOSKELETAL/RHEUMATOLOGICAL: Denies any joint pain, swelling, or any muscle pain. ENDOCRINE: Denies any polyuria or polydipsia. Past Medical History Past Medical History: Cancer, CVA/TIA, Diabetes Mellitus, Hypertension, Liver Disease, Memory Impairment, Musculoskeletal Disorder, Neurologic Disorder, Osteoarthritis (OA) Additional Past Medical History / Comment(s): CVA?-not confirmed, has MS, CIRRHOSIS OF THE LIVER, hx. melanoma, chronic low back pain, arthritis shoulders, tinnitis bilaterally, vertigo, balance problems, cerebral shunt for excess fluid in brain History of Any Multi-Drug Resistant Organisms: None Reported Past Surgical History: Appendectomy Additional Past Surgical History / Comment(s): melanoma removed right side of chest, lymph nodes right armpit, EGD/colonoscopy, tilt table test, shunt insertion Past Anesthesia/Blood Transfusion Reactions: Previous Problems w/ Anesthesia Additional Past Anesthesia/Blood Transfusion Reaction / Comment(s): very slow to wake up after shunt surgery Past Psychological History: No Psychological Hx Reported Smoking Status: Former smoker Past Alcohol Use History: None Reported Past Drug Use History: None Reported - Past Family History Mother Family Medical History: Pneumonia Father Family Medical History: Myocardial Infarction (CT) Medications and Allergies Home Medications Medication Instructions Recorded Confirmed Type Citalopram Hydrobromide [CeleXA] 10 mg PO DAILY 08/25/15 04/27/24 History Baclofen [Lioresal] 20 mg PO BID 04/14/18 04/27/24 History Donepezil HCl [Aricept] 10 mg PO HS 12/30/20 04/27/24 History Dalfampridine [Dalfampridine ER] 10 mg PO BID 09/21/23 04/27/24 History Magnesium 250 mg PO HS 09/21/23 04/27/24 History Meclizine HCl 25 mg PO HS 09/21/23 04/27/24 History lisinopriL [Zestril] 10 mg PO DAILY 09/21/23 04/27/24 History metFORMIN HCL [Glucophage] 1,000 mg PO BID 10/02/23 04/27/24 History Aspirin(Unknown Dose) 1 tab PO HS 04/27/24 04/27/24 History Multivitamins, Thera [Multivitamin 1 tab PO DAILY 04/27/24 04/27/24 History (formulary)] Vitamin D3(Unknown Dose) 1 tab PO DAILY 04/27/24 04/27/24 History Allergies Allergy/AdvReac Type Severity Reaction Status Date / Time Penicillins Allergy Rash/Hives Verified 04/27/24 16:58 Physical Exam Vitals: Vital Signs Temp Pulse Resp BP Pulse Ox 04/27/24 19:00 105 H 20 112/76 100 04/27/24 18:00 99.8 F H 90 18 117/66 99 04/27/24 17:00 90 18 113/64 97 04/27/24 16:00 100.2 F H 98 17 121/63 97 04/27/24 14:13 102.4 F H 114 H 18 147/70 97 04/27/24 12:49 100.4 F H 111 H 19 155/87 97 Intake and Output 04/27/24 04/27/24 04/27/24 06:59 14:59 22:59 Output Total 120 Balance -120 Output: Urine 120 Uretheral (Tobias) 120 Other: Weight 97.069 kg -GENERAL: The patient is alert and oriented x3, not in any acute distress. Well developed, well nourished. Generalized weakness, forgetful HEENT: Pupils are round and equally reacting to light. EOMI. No scleral icterus. No conjunctival pallor. Normocephalic, atraumatic. No pharyngeal erythema. No thyromegaly. CARDIOVASCULAR: S1 and S2 present. No murmurs, rubs, or gallops. PULMONARY: Chest is clear to auscultation, no wheezing , no crackles. ABDOMEN: Soft, nontender, nondistended, normoactive bowel sounds. No palpable organomegaly. MUSCULOSKELETAL: No joint swelling or deformity. EXTREMITIES: No cyanosis, clubbing, or pedal edema. NEUROLOGICAL: Gross neurological examination did not reveal any focal deficits. SKIN: No rashes. no petechiae. Results CBC & Chem 7: 04/27/24 14:20 04/27/24 14:20 Labs: Abnormal Lab Results - Last 24 Hours (Table) 04/27/24 04/27/24 04/27/24 Range/Units 14:20 14:20 14:20 WBC 14.1 H (3.8-10.6) k/uL Neutrophils # 10.8 H (1.3-7.7) k/uL Monocytes # 1.5 H (0-1.0) k/uL Potassium 5.6 H (3.5-5.1) mmol/L BUN 25 H (9-20) mg/dL Creatinine 1.28 H (0.66-1.25) mg/dL Glucose 228 H (74-99) mg/dL Plasma Lactic Acid Gerald 4.0 H* (0.7-2.0) mmol/L Total Bilirubin 2.7 H (0.2-1.3) mg/dL AST 304 H (17-59) U/L ALT 108 H (4-49) U/L Creatine Kinase 21532 H* (55-170) U/L Urine Protein (Negative) Urine Blood (Negative) Ur Leukocyte Esterase (Negative) Urine WBC (0-5) /hpf Urine WBC Clumps (None) /hpf Urine Bacteria (None) /hpf 04/27/24 Range/Units 14:57 WBC (3.8-10.6) k/uL Neutrophils # (1.3-7.7) k/uL Monocytes # (0-1.0) k/uL Potassium (3.5-5.1) mmol/L BUN (9-20) mg/dL Creatinine (0.66-1.25) mg/dL Glucose (74-99) mg/dL Plasma Lactic Acid Gerald (0.7-2.0) mmol/L Total Bilirubin (0.2-1.3) mg/dL AST (17-59) U/L ALT (4-49) U/L Creatine Kinase (55-170) U/L Urine Protein 2+ H (Negative) Urine Blood Moderate H (Negative) Ur Leukocyte Esterase Large H (Negative) Urine WBC >182 H (0-5) /hpf Urine WBC Clumps Many H (None) /hpf Urine Bacteria Occasional H (None) /hpf Assessment and Plan Assessment: Replete urinary tract infection is suspected Sepsis with fever and leukocytosis mild acute kidney injury on CKD stage III rhabdomyolysis Fall at home with no clear history of what happened History of multiple sclerosis Plan: Continue with ceftriaxone Continue with normal saline Follow-up creatinine kinase Will check ultrasound of the gallbladder Follow-up blood culture and urine culture Labs and medication were reviewed.. Continue same treatment. Continue with symptomatic treatment. Resume home medication. Monitor labs and vitals. DVT and GI prophylaxis. Further recommendations as per clinical course of the patient DVT prophylaxis: Subcutaneous heparin GI Prophylaxis: Pepcid PT/OT: Pending Prognosis is guarded
[2024-04-27] MEDS: FAMOTIDINE 20 MG/2 ML VIAL IV SCH (21:56)
[2024-04-27] MEDS: HEPARIN SODIUM,PORCINE 5,000 UNIT/ML 1 ML VIAL SQ SCH (21:56)
[2024-04-27] MEDS: MECLIZINE 25 MG TAB PO SCH (21:56)
[2024-04-27] MEDS: DONEPEZIL 10 MG TAB PO SCH (21:56)
[2024-04-27] MEDS: SODIUM CHLORIDE 0.9% 1,000 ML IV SCH (21:57)
[2024-04-27] MEDS: DALFAMPRIDINE 10 MG PO SCH (22:02)
[2024-04-28 03:02] LABS: Basophils % (A) 0 %; Eosinophils # (A) 0.1 k/uL (0-0.7); Eosinophils % (A) 1 %; HCT 42.6 % (39.0-53.0); HGB 13.4 gm/dL (13.0-17.5); Hypochromasia Slight; Lymphocytes % (A) 20 %; MCH 29.8 pg (25.0-35.0); MCHC 31.4 g/dL (31.0-37.0); MCV 94.7 fL (80.0-100.0); Mean Platelet Volume 7.4; Monocytes # (A) 1.1 k/uL (0-1.0); Monocytes % (A) 11 %; Neutrophils # (A) 6.6 k/uL (1.3-7.7); Neutrophils % (A) 65 %; Platelet Count 249 k/uL (150-450); RDW 14.1 % (11.5-15.5); WBC 10.1 k/uL (3.8-10.6)
[2024-04-28] MEDS: ACETAMINOPHEN TAB 325 MG TAB PO PRN (03:17)
[2024-04-28 03:18] LABS: ALT 81 U/L (4-49); AST 166 U/L (17-59); African American GFR (CKD) 77 (>60 ml/min/1.73 sqM); Albumin 3.8 g/dL (3.5-5.0); Alkaline Phosphatase 72 U/L (38-126); Anion Gap 9 mmol/L; Blood Urea Nitrogen 21 mg/dL (9-20); Calcium 8.5 mg/dL (8.4-10.2); Carbon Dioxide 20 mmol/L (22-30); Chloride 107 mmol/L (98-107); Glucose 167 mg/dL (74-99); Non-African American GFR(CKD) 66 (>60 ml/min/1.73 sqM); Potassium 4.5 mmol/L (3.5-5.1); Sodium 136 mmol/L (137-145); Total Bilirubin 1.9 mg/dL (0.2-1.3)
[2024-04-28 04:02] LABS: Creatine Kinase 9961 U/L (55-170)
--- NOTE | 2024-04-28 07:38 | P.PN ---
Subjective This is a pleasant 68 years old male with past medical history of multiple medical problems as below He presents because of a fall when his sister found him on the ground and brought him to the emergency room. Patient is awake alert and oriented to time place person but he cannot remember what happened and why he is in the hospital, sister at bedside patient has history of multiple sclerosis and over a long period and she was helping him getting him his groceries and other purchases when she came home she found him on the floor, and he was talking nonsense. Patient does not remember all of these details as above. Patient was wobbly weak and she hardly could get him to the chair, then called 911 or go to the emergency room Patient himself denies any specific symptoms no chest pain or dyspnea. No headache dizziness weakness numbness. No specific GI/ symptoms. As per patient and sister he has chronic left-sided weakness from multiple sclerosis which was gradually getting worse since 2011 Patient denies smoking alcohol or or illicit drugs. He complains from right shoulder pain when there is some nose and chin abrasions. He is hemodynamically stable but he had fever on admission 102.4. He is mildly tachycardic and tachypnea while in fever. His labs checked showing WBC is elevated at 14.1, rest of CBC is unremarkable. Creatinine elevated 1.28 above baseline. And liver enzymes moderately elevated. Urine analysis is suspicious for infection versus dehydrated sample as patient does not have overt urinary symptoms but again he has neurological disease and he is forgetful. INR and troponin were negative. Chest x-ray showing no acute process and CT of the brain is negative for acute process Urine culture is pending Gallbladder ultrasound is ordered Elevated lactic acid came back [place] [address]. Patient started on ceftriaxone and normal saline 04/28 Patient awake alert he knows in the hospital and he knows why he came to the hospital when he fell. However patient denies any symptoms other than simple pain in his right elbow area which was since admission. On examination there is no evidence of infections or coloration or deformity. Patient denies urinary symptoms no diarrhea. No chest pain or dyspnea. No headache or dizziness. He still have low-grade fever but improving. Leukocytosis improved and WBC back to normal today at 10.1. Creatinine trended down to 1.1. Liver enzymes coming down [place]. [place] [address]. Continue on normal saline at 100 mL/h and ceftriaxone Blood culture and urine culture are pending Will ask for PT/OT evaluation social science professor placement and help. Gallbladder ultrasound was done today and result pending however primary result is unremarkable review of systems CONSTITUTIONAL: No fever, no malaise, no fatigue. HEENT: No recent visual problems or hearing problems. Denied any sore throat. CARDIOVASCULAR: No orthopnea, PND, no palpitations, no syncope. PULMONARY: No shortness of breath, no cough, no hemoptysis. GASTROINTESTINAL: No diarrhea, no nausea, no vomiting, no abdominal pain. Normoactive bowel sounds. NEUROLOGICAL: No headaches, no weakness, no numbness Active Medications Generic Name Dose Route Start Last Admin Trade Name Freq PRN Reason Stop Dose Admin Acetaminophen 650 mg 04/27/24 16:39 04/28/24 03:17 Acetaminophen Tab 325 Mg Tab PO 650 mg Q6HR PRN Administration Mild Pain or Fever > 100.5 Citalopram Hydrobromide 10 mg 04/28/24 09:00 Citalopram Hydrobromide 10 Mg Tab PO DAILY JULIA Donepezil HCl 10 mg 04/27/24 21:00 04/27/24 21:56 Donepezil 10 Mg Tab PO 10 mg HS JULIA Administration Famotidine 20 mg 04/27/24 21:00 04/27/24 21:56 Famotidine 20 Mg/2 Ml Vial IV 20 mg Q12HR JULIA Administration Heparin Sodium (Porcine) 5,000 unit 04/27/24 21:00 04/27/24 21:56 Heparin Sodium,Porcine 5,000 Unit/Ml 1 Ml Vial SQ 5,000 unit Q12HR JULIA Administration Ceftriaxone Sodium 2 gm/ 50 mls @ 100 mls/hr 04/28/24 16:00 Sodium Chloride IVPB Q24H JULIA Protocol Sodium Chloride 1,000 mls @ 100 mls/hr 04/27/24 20:45 04/27/24 21:57 Saline 0.9% IV 100 mls/hr .Q10H JULIA Administration Meclizine HCl 25 mg 04/27/24 21:00 04/27/24 21:56 Meclizine 25 Mg Tab PO 25 mg HS JULIA Administration Multivitamins 1 each 04/28/24 09:00 Multivitamins, Thera 1 Each Tab PO DAILY JULIA Naloxone HCl 0.2 mg 04/27/24 16:39 Naloxone 0.4 Mg/Ml 1 Ml Vial IV Q2M PRN Opioid Reversal Dalfampridine Er 10 1 each 04/27/24 21:00 04/27/24 22:02 Mg 12-Hr Tablet PO Not Given BID JULIA Objective - Vital Signs Vital signs: Vital Signs Temp 100.6 F H 04/28/24 02:00 Pulse 87 04/28/24 02:00 Resp 20 04/27/24 19:00 BP 134/64 04/28/24 02:00 Pulse Ox 98 04/28/24 02:00 FiO2 Intake & Output 04/27/24 04/28/24 04/28/24 18:59 06:59 18:59 Output Total 120 750 Balance -120 -750 Weight 97.069 kg Output: Urine 120 750 Uretheral (Tobias) 120 Other: Voiding Method External Catheter # Bowel Movements 1 - Exam GENERAL: The patient is alert and oriented x3, not in any acute distress. Well developed, well nourished. HEENT: Pupils are round and equally reacting to light. EOMI. No scleral icterus. No conjunctival pallor. Normocephalic, atraumatic. No pharyngeal erythema. No thyromegaly. CARDIOVASCULAR: S1 and S2 present. No murmurs, rubs, or gallops. PULMONARY: Chest is clear to auscultation, no wheezing , no crackles. ABDOMEN: Soft, nontender, nondistended, normoactive bowel sounds. No palpable organomegaly. MUSCULOSKELETAL: No joint swelling or deformity. EXTREMITIES: No cyanosis, clubbing, or pedal edema. NEUROLOGICAL: Gross neurological examination did not reveal any focal deficits. SKIN: No rashes. no petechiae. - Labs CBC & Chem 7: 04/28/24 02:39 04/28/24 02:30 Labs: Abnormal Lab Results - Last 24 Hours (Table) 04/27/24 04/27/24 04/27/24 Range/Units 14:20 14:20 14:20 WBC 14.1 H (3.8-10.6) k/uL Neutrophils # 10.8 H (1.3-7.7) k/uL Monocytes # 1.5 H (0-1.0) k/uL Sodium (137-145) mmol/L Potassium 5.6 H (3.5-5.1) mmol/L Carbon Dioxide (22-30) mmol/L BUN 25 H (9-20) mg/dL Creatinine 1.28 H (0.66-1.25) mg/dL Glucose 228 H (74-99) mg/dL Plasma Lactic Acid Gerald 4.0 H* (0.7-2.0) mmol/L Total Bilirubin 2.7 H (0.2-1.3) mg/dL AST 304 H (17-59) U/L ALT 108 H (4-49) U/L Creatine Kinase 57761 H* (55-170) U/L Total Protein (6.3-8.2) g/dL Urine Protein (Negative) Urine Blood (Negative) Ur Leukocyte Esterase (Negative) Urine WBC (0-5) /hpf Urine WBC Clumps (None) /hpf Urine Bacteria (None) /hpf 04/27/24 04/28/24 04/28/24 Range/Units 14:57 02:30 02:39 WBC (3.8-10.6) k/uL Neutrophils # (1.3-7.7) k/uL Monocytes # 1.1 H (0-1.0) k/uL Sodium 136 L (137-145) mmol/L Potassium (3.5-5.1) mmol/L Carbon Dioxide 20 L (22-30) mmol/L BUN 21 H (9-20) mg/dL Creatinine (0.66-1.25) mg/dL Glucose 167 H (74-99) mg/dL Plasma Lactic Acid Gerald (0.7-2.0) mmol/L Total Bilirubin 1.9 H (0.2-1.3) mg/dL AST 166 H (17-59) U/L ALT 81 H (4-49) U/L Creatine Kinase 9961 H* (55-170) U/L Total Protein 6.0 L (6.3-8.2) g/dL Urine Protein 2+ H (Negative) Urine Blood Moderate H (Negative) Ur Leukocyte Esterase Large H (Negative) Urine WBC >182 H (0-5) /hpf Urine WBC Clumps Many H (None) /hpf Urine Bacteria Occasional H (None) /hpf Assessment and Plan Assessment: Replete urinary tract infection is suspected Sepsis with fever and leukocytosis mild acute kidney injury on CKD stage III rhabdomyolysis Fall at home with no clear history of what happened History of multiple sclerosis Plan: Continue with ceftriaxone Continue with normal saline Follow-up creatinine kinase Follow-up ultrasound of the gallbladder Follow-up blood culture and urine culture Labs and medication were reviewed.. Continue same treatment. Continue with symptomatic treatment. Resume home medication. Monitor labs and vitals. DVT and GI prophylaxis. Further recommendations as per clinical course of the patient DVT prophylaxis: Subcutaneous heparin GI Prophylaxis: Pepcid PT/OT: Pending Prognosis is guarded
--- NOTE | 2024-04-28 07:56 | US ---
EXAMINATION TYPE: US gallbladder DATE OF EXAM: 04/28/2024 COMPARISON: NONE CLINICAL INDICATION: Male, 68 years old with history of sepsis; UTI, Rhabdo, no symptoms TECHNIQUE: Grayscale and color Doppler imaging of the right upper quadrant was performed. FINDINGS: EXAM MEASUREMENTS: Liver Length: 19.2 cm Gallbladder Wall: 0.2 cm CBD: 0.5 cm Right Kidney: 10.2 x 4.7 x 6.1 cm Pancreas: wnl Liver: difficult to penetrate and enlarged Gallbladder: wnl Evidence for sonographic Vail's sign: no CBD: wnl Right Kidney: wnl IMPRESSION: 1. [facility] Joseph Rondon, , 04/28/2024 7:53 AM
[2024-04-28] MEDS: MULTIVITAMINS, THERA 1 EACH TAB PO SCH (08:45)
[2024-04-28] MEDS ORDERED: NON FORMULARY DRUG (Vitamin D3(Unknown Dose) 1 TAB) PO SCH (09:00)
[2024-04-28] MEDS: metFORMIN 500 MG TAB PO STA (10:44)
[2024-04-28] MEDS: CITALOPRAM HYDROBROMIDE 10 MG TAB PO SCH (10:44)
[2024-04-28] MEDS: ZINC OXIDE PASTE (Z-GUARD) 1 APPLIC TOPICAL PRN (11:44)
--- NOTE | 2024-04-28 13:36 | P.CONS ---
History of Present Illness - Reason for Consult Consult date: 04/28/24 HM with transaminitis Requesting physician: Tee E Sheet - Chief Complaint Recent fall, weakness - History of Present Illness This is a pleasant 68-year-old male with a past medical history of for diabetes mellitus, TIA/CVA, hypertension, multiple sclerosis, underlying liver disease with possible cirrhosis, memory impairment, gait disorder with history of cerebral shunt for excess fluid in the brain and melanoma who had been brought into the emergency department after his family had found him lying on the ground for undisclosed amount of time. Patient states he does not recall how long he was on the ground. He states that when he feels unsteady he lowers himself to the ground but then he cannot get up. Patient has abrasions on his face. He was found to be dehydrated and rhabdomyolysis on admission. He had elevated LFTs and underwent abdominal ultrasound with findings of hepatomegaly. Gastroenterology was consulted for hepatomegaly and transaminitis. Patient denies any abdominal pain, nausea or vomiting. Again states that he lowered himself to the ground and he just crawls around he is unsure how long he was on the ground. Patient is poor historian. According to his chart he has a history of liver disease and liver cirrhosis however patient states he does not recall being told that. He does state that he had a long history greater than 20 years of daily alcohol use. Underlying liver disease likely secondary to alcohol liver disease/cirrhosis. On admission creatinine kinase was 17,000 969 he had elevated LFTs total bilirubin 2.7 AST 304 ALT 108 alkaline phosphatase 86. Patient was given IV hydration/resuscitation with improved labs today. Total bilirubin 1.9 AST 166 ALT 81 alkaline phosphatase 72 creatinine kinase 9961. Review of Systems REVIEW OF SYSTEMS: CARDIOPULMONARY: No chest pain or shortness of breath. Gastrointestinal: No abdominal pain. No nausea or vomiting. No hematemesis, coffee-ground emesis. No rectal bleeding, or melena. GENITOURINARY: No dysuria or hematuria. MUSCULOSKELETAL: Reports normal range of motion. Joint pain. Gait imbalance, frequent falls. SKIN: No rashes. No jaundice. ENDOCRINE: No chills, fevers. No excessive weight gain or loss. No polydipsia or polyuria. PSYCHIATRIC: Unremarkable. NEUROLOGY: No change in mental status. Denies dizziness, headache. ENT: Vision unremarkable. CONSTITUTIONAL: No recent weight loss. No fever, chills, night sweats. Past Medical History Past Medical History: Cancer, CVA/TIA, Diabetes Mellitus, Hypertension, Liver Disease, Memory Impairment, Musculoskeletal Disorder, Neurologic Disorder, Osteoarthritis (OA) Additional Past Medical History / Comment(s): CVA?-not confirmed, has MS, CIRRHOSIS OF THE LIVER, hx. melanoma, chronic low back pain, arthritis shoulders, tinnitis bilaterally, vertigo, balance problems, cerebral shunt for excess fluid in brain History of Any Multi-Drug Resistant Organisms: None Reported Past Surgical History: Appendectomy Additional Past Surgical History / Comment(s): melanoma removed right side of chest, lymph nodes right armpit, EGD/colonoscopy, tilt table test, shunt insertion Past Anesthesia/Blood Transfusion Reactions: Previous Problems w/ Anesthesia Additional Past Anesthesia/Blood Transfusion Reaction / Comm: very slow to wake up after shunt surgery Past Psychological History: No Psychological Hx Reported Smoking Status: Former smoker Past Alcohol Use History: None Reported Past Drug Use History: None Reported - Past Family History Mother Family Medical History: Pneumonia Father Family Medical History: Myocardial Infarction (ID) Medications and Allergies Home Medications Medication Instructions Recorded Confirmed Type Citalopram Hydrobromide [CeleXA] 10 mg PO DAILY 08/25/15 04/27/24 History Donepezil HCl [Aricept] 10 mg PO HS 12/30/20 04/27/24 History Dalfampridine [Dalfampridine ER] 10 mg PO BID 09/21/23 04/27/24 History Magnesium 250 mg PO HS 09/21/23 04/27/24 History Meclizine HCl 25 mg PO HS 09/21/23 04/27/24 History lisinopriL [Zestril] 10 mg PO DAILY 09/21/23 04/27/24 History metFORMIN HCL [Glucophage] 1,000 mg PO BID 10/02/23 04/27/24 History Aspirin(Unknown Dose) 1 tab PO HS 04/27/24 04/27/24 History Multivitamins, Thera [Multivitamin 1 tab PO DAILY 04/27/24 04/27/24 History (formulary)] Vitamin D3(Unknown Dose) 1 tab PO DAILY 04/27/24 04/27/24 History Allergies Allergy/AdvReac Type Severity Reaction Status Date / Time Penicillins Allergy Rash/Hives Verified 04/27/24 16:58 Physical Exam Vitals: Vital Signs Temp Pulse Pulse Resp BP BP BP 04/28/24 07:22 98.4 F 71 18 114/73 04/28/24 02:00 100.6 F H 87 134/64 04/27/24 20:00 98.9 F 94 129/61 04/27/24 19:00 105 H 20 112/76 04/27/24 18:00 99.8 F H 90 18 117/66 04/27/24 17:00 90 18 113/64 04/27/24 16:00 100.2 F H 98 17 121/63 04/27/24 14:13 102.4 F H 114 H 18 147/70 04/27/24 12:49 100.4 F H 111 H 19 155/87 Pulse Ox 04/28/24 07:22 96 04/28/24 02:00 98 04/27/24 20:00 96 04/27/24 19:00 100 04/27/24 18:00 99 04/27/24 17:00 97 04/27/24 16:00 97 04/27/24 14:13 97 04/27/24 12:49 97 Intake and Output 04/27/24 04/28/24 04/28/24 22:59 06:59 14:59 Output Total 750 Balance -750 Output: Urine 750 Other: Voiding Method External Catheter # Bowel Movements 1 General appearance: The patient is alert, oriented, appears in no acute distress. HET: Head is normocephalic. Abrasion on patient's head and chin. Conjunctiva pink. Sclera anicteric. Neck: Supple without lymphadenopathy. Trachea midline. Heart: Regular. Lungs: Equal expansion, normal respiratory effort. Abdomen: Soft, nontender, mild hepatomegaly, nondistended. Skin: No rashes. No jaundice. Extremities: Normal skin color and turgor. No pedal edema. Neurological: No focal deficits. Alert and oriented x3. Results CBC & Chem 7: 04/28/24 02:39 04/28/24 02:30 Labs: Abnormal Lab Results - Last 24 Hours (Table) 04/27/24 04/27/24 04/27/24 Range/Units 14:20 14:20 14:20 WBC 14.1 H (3.8-10.6) k/uL Neutrophils # 10.8 H (1.3-7.7) k/uL Monocytes # 1.5 H (0-1.0) k/uL Sodium (137-145) mmol/L Potassium 5.6 H (3.5-5.1) mmol/L Carbon Dioxide (22-30) mmol/L BUN 25 H (9-20) mg/dL Creatinine 1.28 H (0.66-1.25) mg/dL Glucose 228 H (74-99) mg/dL Plasma Lactic Acid Gerald 4.0 H* (0.7-2.0) mmol/L Total Bilirubin 2.7 H (0.2-1.3) mg/dL AST 304 H (17-59) U/L ALT 108 H (4-49) U/L Creatine Kinase 93578 H* (55-170) U/L Total Protein (6.3-8.2) g/dL Urine Protein (Negative) Urine Blood (Negative) Ur Leukocyte Esterase (Negative) Urine WBC (0-5) /hpf Urine WBC Clumps (None) /hpf Urine Bacteria (None) /hpf 04/27/24 04/28/24 04/28/24 Range/Units 14:57 02:30 02:39 WBC (3.8-10.6) k/uL Neutrophils # (1.3-7.7) k/uL Monocytes # 1.1 H (0-1.0) k/uL Sodium 136 L (137-145) mmol/L Potassium (3.5-5.1) mmol/L Carbon Dioxide 20 L (22-30) mmol/L BUN 21 H (9-20) mg/dL Creatinine (0.66-1.25) mg/dL Glucose 167 H (74-99) mg/dL Plasma Lactic Acid Gerald (0.7-2.0) mmol/L Total Bilirubin 1.9 H (0.2-1.3) mg/dL AST 166 H (17-59) U/L ALT 81 H (4-49) U/L Creatine Kinase 9961 H* (55-170) U/L Total Protein 6.0 L (6.3-8.2) g/dL Urine Protein 2+ H (Negative) Urine Blood Moderate H (Negative) Ur Leukocyte Esterase Large H (Negative) Urine WBC >182 H (0-5) /hpf Urine WBC Clumps Many H (None) /hpf Urine Bacteria Occasional H (None) /hpf Comments: Gallbladder ultrasound reports hepatomegaly Assessment and Plan (1) Transaminitis Narrative/Plan: 68-year-old male brought in after being found by family on the ground undisclosed amount of time. Patient admitted with rhabdomyolysis and noted to have elevated LFTs. LFTs likely elevated secondary to rhabdomyolysis and are already improving with IV hydration as well as the rhabdomyolysis. May also be superimposed secondary to underlying liver disease with history of alcoholism and possible underlying liver cirrhosis secondary to alcohol abuse. Trending previous LFTs he has had elevated bilirubin, AST and ALT in the past. No further workup indicated. Gallbladder ultrasound shows hepatomegaly. Continue to monitor LFTs. May follow-up with gastroenterology on discharge. Current Visit: Yes Status: Acute Code(s): R74.01 - ELEVATION OF LEVELS OF LIVER TRANSAMINASE LEVELS SNOMED Code(s): 517973099 (2) History of alcohol abuse Current Visit: Yes Status: Acute Code(s): F10.11 - ALCOHOL ABUSE, IN REMISSION SNOMED Code(s): 365498968 (3) History of liver disease Narrative/Plan: Reviewing past labs and trending patient has history of elevated bilirubin AST and ALT likely from underlying liver disease Current Visit: Yes Status: Acute Code(s): Z87.19 - PERSONAL HISTORY OF OTHER DISEASES OF THE DIGESTIVE SYSTEM SNOMED Code(s): 763608996 (4) Fall Current Visit: Yes Status: Acute Code(s): W19.XXXA - UNSPECIFIED FALL, INITI AL ENCOUNTER SNOMED Code(s): 2626090 (5) Rhabdomyolysis Current Visit: Yes Status: Acute Code(s): M62.82 - RHABDOMYOLYSIS SNOMED Code(s): 753268551 Plan: 1. Continue symptomatic and supportive care 2. Repeat CK, CMP tomorrow 3. No further workup indicated for transaminitis likely secondary to rhabdomyolysis possible superimposed by underlying liver disease 4. Patient can follow-up with gastroenterology in 1 to 2 weeks following discharge Thank you for this consultation, we will sign off at this time as there will be no available GI coverage through the weekend. Dr. Berlin Morejon I agree with the dictator's note, documented as a scribe by Sierra Peacock
[2024-04-28] MEDS: metFORMIN 500 MG TAB PO SCH (17:31)
[2024-04-28 19:40] LABS: Glucose,Whole Blood 208 mg/dL (70-110)
[2024-04-29 06:06] LABS: Glucose,Whole Blood 150 mg/dL (70-110)
[2024-04-29] MEDS: lisinopriL 10 MG TAB PO SCH (08:35)
[2024-04-29 09:55] LABS: HCT 37.6 % (39.6-50.0); HGB 11.9 g/dL (13.0-17.0); MCH 29.8 pg (27.0-32.0); MCHC 31.6 g/dL (32.0-37.0); Mean Platelet Volume 9.9 FL (9.5-12.2); NRBC Per 100 WBC 0 X 10*3/uL (0.00-0.01); Platelet Count 207 X 10*3/uL (140-440); RDW 14.3 % (11.5-14.5); WBC 8.23 X 10*3/uL (4.50-10.00)
[2024-04-29 10:10] LABS: ALT 72 U/L (10-49); AST 106 U/L (14-35); Albumin 3.5 g/dL (3.8-4.9); Albumin/Globulin Ratio 1.84 Ratio (1.60-3.17); Alkaline Phosphatase 70 U/L (41-126); Blood Urea Nitrogen 16.8 mg/dL (9.0-27.0); Calcium 8.2 mg/dL (8.7-10.3); Carbon Dioxide 19.4 mmol/L (21.6-31.8); Chloride 109 mmol/L (96-109); Globulin 1.9 g/dL (1.6-3.3); Glucose 154 mg/dL (70-110); Potassium 4.2 mmol/L (3.5-5.5); Sodium 140 mmol/L (135-145); Total Bilirubin 0.6 mg/dL (0.3-1.2); Total Protein 5.4 g/dL (6.2-8.2)
[2024-04-29 10:22] LABS: Creatine Kinase 4166 U/L (35-257)
--- NOTE | 2024-04-29 16:04 | P.PN ---
Progress Note - Text Progress Note Date: 04/29/24 Interval History: This is a pleasant 68 years old male with past medical history of multiple medi servando problems as below He presents because of a fall when his sister found him on the ground and brought him to the emergency room. Patient is awake alert and oriented to time place person but he cannot remember what happened and why he is in the hospital, sister at bedside patient has history of multiple sclerosis and over a long period and she was helping him getting him his groceries and other purchases when she came home she found him on the floor, and he was talking nonsense. Patient does not remember all of these details as above. Patient was wobbly weak and she hardly could get him to the chair, then called 911 or go to the emergency room Patient himself denies any specific symptoms no chest pain or dyspnea. No headache dizziness weakness numbness. No specific GI/ symptoms. As per patient and sister he has chronic left-sided weakness from multiple sclerosis which was gradually getting worse since 2011 Patient denies smoking alcohol or or illicit drugs. He complains from right shoulder pain when there is some nose and chin abrasions. He is hemodynamically stable but he had fever on admission 102.4. He is mildly tachycardic and tachypnea while in fever. His labs checked showing WBC is elevated at 14.1, rest of CBC is unremarkable. Creatinine elevated 1.28 above baseline. And liver enzymes moderately elevated. Urine analysis is suspicious for infection versus dehydrated sample as patient does not have overt urinary symptoms but again he has neurological disease and he is forgetful. INR and troponin were negative. Chest x-ray showing no acute process and CT of the brain is negative for acute process Urine culture is pending Gallbladder ultrasound is ordered Elevated lactic acid came back to [place] [address]. Patient started on ceftriaxone and normal saline 04/28 Patient awake alert he knows in the hospital and he knows why he came to the hospital when he fell. However patient denies any symptoms other than simple pain in his right elbow area which was since admission. On examination there is no evidence of infections or coloration or deformity. Patient denies urinary symptoms no diarrhea. No chest pain or dyspnea. No headache or dizziness. He still have low-grade fever but improving. Leukocytosis improved and WBC back to normal today at 10.1. Creatinine trended down to 1.1. Liver enzymes coming [place]. [place] [address]. Continue on normal saline at 100 mL/h and ceftriaxone Blood culture and urine culture are pending Will ask for PT/OT evaluation social work associate placement and help. Gallbladder ultrasound was done today and result pending however primary result is unremarkable 04/29 patient was seen and examined today. No issues overnight. Temperature 99.7, heart rate 69 respiratory rate 16, blood pressure 134/70 saturating 96% on room air. WBCs 8.2, hemoglobin 11.9, platelet 207. BMP showed sodium 144 potassium 4.2 CO2 19.4 BUN 16.8 creatinine 1.2. Creatinine trending down to 4166. Remains on Rocephin for, urine culture growing gram-negative bacilli, urine blood culture negative. Anticipate discharge to subacute rehab. Assessment and plan: UTI: Sepsis with fever and leukocytosis: NOAM on CKD Traumatic rhabdomyolysis Fall: Multiple sclerosis History of alcohol use Continue Rocephin, IV fluids Monitor CPK Ultrasound of the gallbladder negative for acute process, elevated LFTs likely secondary to rhabdomyolysis Blood culture negative so far Urine culture showed gram-negative bacilli DVT prophylaxis: Subcutaneous heparin Disposition: Anticipate subacute rehab. Monitor vital signs and labs Labs and medication were reviewed. Continue same treatment. Further recommendations as per clinical course of the patient PHYSICAL EXAMINATION: GENERAL: The patient is A&O x3, NAD HEENT: EOMI, Sclerae anicteric, Moist Mucous membranes Neck: Supple, Non tender, No JVD PULMONARY: Equal breath souds B/L, No wheezing, No crackles. CARDIOVASCULAR: S1, S2 present. No murmurs, rubs, or gallops. ABDOMEN: Soft, nontender, nondistended, normoactive bowel sounds. No guarding or rebound tenderness. MUSCULOSKELETAL: No edema, No cyanosis. No clubbing. Normal ROM. Intact peripheral pulses. NEUROLOGICAL: CN 2-12 grossly intact. No FND Skin: No Rash REVIEW OF SYSTEMS: CONSTITUTIONAL: No fever or chills. CARDIOVASCULAR: No chest pain, palpitations or syncope. PULMONARY: No shortness of breath, no cough, sore throat. GASTROINTESTINAL: No nausea, vomiting, diarrhea, abdominal pain. : No Dysuria, urgency, frequency. Extremities: No edema. NEUROLOGICAL: No headaches, no weakness, or numbness Dictation was produced using [employer] software. please excuse any grammatical, word or spelling errors.
--- NOTE | 2024-04-30 13:06 | P.PN ---
Subjective Interval History: Interval History: This is a pleasant 68 years old male with past medical history of multiple medical problems as below He presents because of a fall when his sister found him on the ground and brought him to the emergency room. Patient is awake alert and oriented to time place person but he cannot remember what happened and why he is in the hospital, sister at bedside patient has history of multiple sclerosis and over a long period and she was helping him getting him his groceries and other purchases when she came home she found him on the floor, and he was talking nonsense. Patient does not remember all of these details as above. Patient was wobbly weak and she hardly could get him to the chair, then called 911 or go to the emergency room Patient himself denies any specific symptoms no chest pain or dyspnea. No head ache dizziness weakness numbness. No specific GI/ symptoms. As per patient and sister he has chronic left-sided weakness from multiple sclerosis which was gradually getting worse since 2011 Patient denies smoking alcohol or or illicit drugs. He complains from right shoulder pain when there is some nose and chin abrasions. He is hemodynamically stable but he had fever on admission 102.4. He is mildly tachycardic and tachypnea while in fever. His labs checked showing WBC is elevated at 14.1, rest of CBC is unremarkable. Creatinine elevated 1.28 above baseline. And liver enzymes moderately elevated. Urine analysis is suspicious for infection versus dehydrated sample as patient does not have overt urinary symptoms but again he has neurological disease and he is forgetful. INR and troponin were negative. Chest x-ray showing no acute process and CT of the brain is negative for acute process Urine culture is pending Gallbladder ultrasound is ordered Elevated lactic acid came back to [place] [address]. Patient started on ceftriaxone and normal saline 04/28 Patient awake alert he knows in the hospital and he knows why he came to the hospital when he fell. However patient denies any symptoms other than simple pain in his right elbow area which was since admission. On examination there is no evidence of infections or coloration or deformity. Patient denies urinary symptoms no diarrhea. No chest pain or dyspnea. No headache or dizziness. He still have low-grade fever but improving. Leukocytosis improved and WBC back to normal today at 10.1. Creatinine trended down to 1.1. Liver enzymes coming [place]. [place] [address]. Continue on normal saline at 100 mL/h and ceftriaxone Blood culture and urine culture are pending Will ask for PT/OT evaluation child protective services social worker placement and help. Gallbladder ultrasound was done today and result pending however primary result is unremarkable 04/29 patient was seen and examined today. No issues overnight. Temperature 99.7, heart rate 69 respiratory rate 16, blood pressure 134/70 saturating 96% on room air. WBCs 8.2, hemoglobin 11.9, platelet 207. BMP showed sodium 144 potassium 4.2 CO2 19.4 BUN 16.8 creatinine 1.2. Creatinine trending down to 4166. Remains on Rocephin for, urine culture growing gram-negative bacilli, urine blood culture negative. Anticipate discharge to subacute rehab. 04/30--patient was seen and examined today. No issues overnight. Vital stable. Patient complaining of diarrhea, started on Imodium. Currently on Rocephin for UTI. Awaiting PT/OT evaluation, anticipate subacute rehab. Assessment and plan: UTI: Sepsis with fever and leukocytosis: NOAM on CKD Traumatic rhabdomyolysis Fall: Multiple sclerosis History of alcohol use Continue Rocephin, IV fluids Monitor CPK Ultrasound of the gallbladder negative for acute process, elevated LFTs likely secondary to rhabdomyolysis Blood culture negative so far Urine culture showed gram-negative bacilli DVT prophylaxis: Subcutaneous heparin Disposition: Anticipate subacute rehab. Monitor vital signs and labs Labs and medication were reviewed. Continue same treatment. Further recommendations as per clinical course of the patient PHYSICAL EXAMINATION: GENERAL: The patient is A&O x3, NAD HEENT: EOMI, Sclerae anicteric, Moist Mucous membranes Neck: Supple, Non tender, No JVD PULMONARY: Equal breath souds B/L, No wheezing, No crackles. CARDIOVASCULAR: S1, S2 present. No murmurs, rubs, or gallops. ABDOMEN: Soft, nontender, nondistended, normoactive bowel sounds. No guarding or rebound tenderness. MUSCULOSKELETAL: No edema, No cyanosis. No clubbing. Normal ROM. Intact peripheral pulses. NEUROLOGICAL: CN 2-12 grossly intact. No FND Skin: No Rash REVIEW OF SYSTEMS: CONSTITUTIONAL: No fever or chills. CARDIOVASCULAR: No chest pain, palpitations or syncope. PULMONARY: No shortness of breath, no cough, sore throat. GASTROINTESTINAL: No nausea, vomiting, diarrhea, abdominal pain. : No Dysuria, urgency, frequency. Extremities: No edema. NEUROLOGICAL: No headaches, no weakness, or numbness Dictation was produced using [employer] dictation software. please excuse any grammatical, word or spelling errors. Objective - Vital Signs Vital signs: Vital Signs Temp 97.9 F 04/30/24 07:55 Pulse 66 04/30/24 07:55 Resp 16 04/30/24 07:55 BP 159/82 04/30/24 07:55 Pulse Ox 96 04/30/24 07:55 FiO2 Intake & Output 04/29/24 04/30/24 04/30/24 18:59 06:59 18:59 Intake Total 118 118 Output Total 400 1200 652 Balance -315 -9218 -494 Intake: Oral 118 118 Output: Urine 400 1200 650 Stool 2 Other: Voiding Method External Catheter # Bowel Movements 4 - Labs CBC & Chem 7: 04/29/24 03:59 04/29/24 03:59 Labs: Microbiology - Last 24 Hours (Table) 04/27/24 14:57 Urine Culture - Final Urine,Voided Klebsiella pneumoniae 04/27/24 14:20 Blood Culture - Preliminary Blood
[2024-04-30] MEDS: LOPERAMIDE 2 MG CAP PO SCH (13:10)
[2024-04-30] MEDS: MELATONIN 3 MG TABLET PO SCH (21:30)
[2024-05-01 08:16] LABS: Basophils # (A) 0.08 X 10*3/uL (0.00-0.10); Basophils % (A) 0.9 %; Eosinophils # (A) 0.64 X 10*3/uL (0.04-0.35); Eosinophils % (A) 7.1 %; HCT 35.3 % (39.6-50.0); HGB 11.6 g/dL (13.0-17.0); Lymphocytes # (A) 2.33 X 10*3/uL (0.90-5.00); Lymphocytes % (A) 25.8 %; MCH 29.7 pg (27.0-32.0); MCHC 32.9 g/dL (32.0-37.0); MCV 90.3 FL (80.0-97.0); Mean Platelet Volume 10.5 FL (9.5-12.2); Monocytes # (A) 1.35 X 10*3/uL (0.20-1.00); NRBC Per 100 WBC 0 X 10*3/uL (0.00-0.01); Neutrophils # (A) 4.59 X 10*3/uL (1.80-7.70); Neutrophils % (A) 50.8 %; Platelet Count 266 X 10*3/uL (140-440); RBC 3.91 X 10*6/uL (4.40-5.60); RDW 14.1 % (11.5-14.5); WBC 9.03 X 10*3/uL (4.50-10.00)
--- NOTE | 2024-05-01 08:31 | P.PN ---
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 Patient states he does not recall how long he was on the ground. He states that when he feels unsteady he lowers himself to the ground but then he cannot get up. Patient has abrasions on his face. He was found to be dehydrated and rhabdomyolysis on admission. He had elevated LFTs and underwent abdominal ultrasound with findings of hepatomegaly. Gastroenterology was consulted for hepatomegaly and transaminitis. Patient denies any abdominal pain, nausea or vomiting. Again states that he lowered himself to the ground and he just crawls around he is unsure how long he was on the ground. Patient is poor historian. According to his chart he has a history of liver disease and liver cirrhosis however patient states he does not recall being told that. He does state that he had a long history greater than 20 years of daily alcohol use. Underlying liver disease likely secondary to alcohol liver disease/cirrhosis. On admission creatinine kinase was 17,000 969 he had elevated LFTs total bilirubin 2.7 AST 304 ALT 108 alkaline phosphatase 86. Patient was given IV hydration/resuscitation with improved labs today. Total bilirubin 1.9 AST 166 ALT 81 alkaline phosphatase 72 creatinine kinase 9961. 05/01/2024 Patient is seen and examined today as a follow-up. Gastroenterology was consulted last Wednesday secondary to transaminitis and hepatomegaly. Patient was brought in after sustaining a fall and was admitted with rhabdomyolysis. Elevated LFTs secondary to rhabdomyolysis with improvement over the weekend. Patient denies any abdominal pain, nausea or vomiting. He does acknowledges that he was a previous heavy drinker in the past. Has not drink alcohol for several years. Yesterday's LFTs total bilirubin 0.6 AST 106 ALT 72 alkaline phosphatase 70 Objective - Vital Signs Vital signs: Vital Signs Temp 98.4 F 05/01/24 07:05 Pulse 64 05/01/24 07:05 Resp 15 05/01/24 07:05 BP 126/49 05/01/24 07:05 Pulse Ox 94 L 05/01/24 07:05 FiO2 Intake & Output 04/30/24 05/01/24 05/01/24 18:59 06:59 18:59 Intake Total 236 Output Total 652 800 Balance -416 -800 Intake: Oral 236 Output: Urine 650 800 Stool 2 Other: Voiding Method External Catheter External Catheter # Voids 4 # Bowel Movements 4 - Exam General appearance: The patient is alert, oriented, appears in no acute distress. HET: Head is normocephalic and atraumatic. Conjunctiva pink. Sclera anicteric. Neck: Supple without lymphadenopathy. Abdomen: Soft, nontender, mild hepatomegaly, nondistended. Extremities: Normal skin color and turgor. No pedal edema Skin: No rashes, no jaundice Neurological: No focal deficits. Alert and oriented. - Labs CBC & Chem 7: 05/01/24 04:53 04/29/24 03:59 Labs: Abnormal Lab Results - Last 24 Hours (Table) 05/01/24 Range/Units 04:53 RBC 3.91 L (4.40-5.60) X 10*6/uL Hgb 11.6 L (13.0-17.0) g/dL Hct 35.3 L (39.6-50.0) % Monocytes # 1.35 H (0.20-1.00) X 10*3/uL Eosinophils # 0.64 H (0.04-0.35) X 10*3/uL Microbiology - Last 24 Hours (Table) 04/27/24 14:20 Blood Culture - Preliminary Blood 04/27/24 14:57 Urine Culture - Final Urine,Voided Klebsiella pneumoniae Assessment and Plan (1) Transaminitis Narrative/Plan: 68-year-old male brought in after being found by family on the ground un disclosed amount of time. Patient admitted with rhabdomyolysis and noted to have elevated LFTs. LFTs likely elevated secondary to rhabdomyolysis and are already improving with IV hydration as well as the rhabdomyolysis. May also be superimposed secondary to underlying liver disease with history of alcoholism and possible underlying liver cirrhosis secondary to alcohol abuse. Trending previous LFTs he has had elevated bilirubin, AST and ALT in the past. No further workup indicated. Gallbladder ultrasound shows hepatomegaly. Continue to monitor LFTs. LFTs have been trending down with improvement of rhabdomyolysis. Again likely secondary to rhabdomyolysis with possible component of underlying liver disease. No further workup indicated. Current Visit: Yes Status: Acute Code(s): R74.01 - ELEVATION OF LEVELS OF LIVER TRANSAMINASE LEVELS SNOMED Code(s): 654450692 (2) History of alcohol abuse Current Visit: Yes Status: Acute Code(s): F10.11 - ALCOHOL ABUSE, IN REMISSION SNOMED Code(s): 073077993 (3) History of liver disease Narrative/Plan: Reviewing past labs and trending patient has history of elevated bilirubin AST and ALT likely from underlying liver disease Current Visit: Yes Status: Acute Code(s): Z87.19 - PERSONAL HISTORY OF OTHER DISEASES OF THE DIGESTIVE SYSTEM SNOMED Code(s): 659323210 (4) Fall Current Visit: Yes Status: Acute Code(s): W19.XXXA - UNSPECIFIED FALL, INITIAL ENCOUNTER SNOMED Code(s): 2050170 (5) Rhabdomyolysis Current Visit: Yes Status: Acute Code(s): M62.82 - RHABDOMYOLYSIS SNOMED Code(s): 636410453 Plan: 1. Continue symptomatic and supportive care 2. LFTs have continued to trend down 3. No further workup indicated for transaminitis likely secondary to rhabdomyolysis possible superimposed by underlying liver disease 4. Patient is cleared from gastroenterology for discharge. Follow-up as needed with gastroenterology Thank you for this consultation, we will sign off at this time. Dr. Berlin Morejon I agree with the dictator's note, documented as a scribe by Sierra Miramontes.
[2024-05-01 08:46] LABS: Blood Urea Nitrogen 13.2 mg/dL (9.0-27.0); Calcium 8.4 mg/dL (8.7-10.3); Carbon Dioxide 21.4 mmol/L (21.6-31.8); Chloride 108 mmol/L (96-109); Creatine Kinase 869 U/L (35-257); Glucose 150 mg/dL (70-110); Potassium 3.7 mmol/L (3.5-5.5); Sodium 140 mmol/L (135-145)
--- NOTE | 2024-05-01 13:26 | P.PN ---
Subjective Interval History: Interval History: This is a pleasant 68 years old male with past medical history of multiple medical problems as below He presents because of a fall when his sister found him on the ground and brought him to the emergency room. Patient is awake alert and oriented to time place person but he cannot remember what happened and why he is in the hospital, sister at bedside patient has history of multiple sclerosis and over a long period and she was helping him getting him his groceries and other purchases when she came home she found him on the floor, and he was talking nonsense. Patient does not remember all of these details as above. Patient was wobbly weak and she hardly could get him to the chair, then called 911 or go to the emergency room Patient himself denies any specific symptoms no chest pain or dyspnea. No head ache dizziness weakness numbness. No specific GI/ symptoms. As per patient and sister he has chronic left-sided weakness from multiple sclerosis which was gradually getting worse since 2011 Patient denies smoking alcohol or or illicit drugs. He complains from right shoulder pain when there is some nose and chin abrasions. He is hemodynamically stable but he had fever on admission 102.4. He is mildly tachycardic and tachypnea while in fever. His labs checked showing WBC is elevated at 14.1, rest of CBC is unremarkable. Creatinine elevated 1.28 above baseline. And liver enzymes moderately elevated. Urine analysis is suspicious for infection versus dehydrated sample as patient does not have overt urinary symptoms but again he has neurological disease and he is forgetful. INR and troponin were negative. Chest x-ray showing no acute process and CT of the brain is negative for acute process Urine culture is pending Gallbladder ultrasound is ordered Elevated lactic acid came back to [place] [address]. Patient started on ceftriaxone and normal saline 04/28 Patient awake alert he knows in the hospital and he knows why he came to the hospital when he fell. However patient denies any symptoms other than simple pain in his right elbow area which was since admission. On examination there is no evidence of infections or coloration or deformity. Patient denies urinary symptoms no diarrhea. No chest pain or dyspnea. No headache or dizziness. He still have low-grade fever but improving. Leukocytosis improved and WBC back to normal today at 10.1. Creatinine trended down to 1.1. Liver enzymes coming down [place]. [place] [address]. Continue on normal saline at 100 mL/h and ceftriaxone Blood culture and urine culture are pending Will ask for PT/OT evaluation social services designee placement and help. Gallbladder ultrasound was done today and result pending however primary result is unremarkable 04/29 patient was seen and examined today. No issues overnight. Temperature 99.7, heart rate 69 respiratory rate 16, blood pressure 134/70 saturating 96% on room air. WBCs 8.2, hemoglobin 11.9, platelet 207. BMP showed sodium 144 potassium 4.2 CO2 19.4 BUN 16.8 creatinine 1.2. Creatinine trending down to 4166. Remains on Rocephin for, urine culture growing gram-negative bacilli, urine blood culture negative. Anticipate discharge to subacute rehab. 04/30--patient was seen and examined today. No issues overnight. Vital stable. Patient complaining of diarrhea, started on Imodium. Currently on Rocephin for UTI. Awaiting PT/OT evaluation, anticipate subacute rehab. 05/01--patient was seen and examined today. No issues overnight. Currently Rocephin for UTI. WBCs 9.3, hemoglobin 11.6, platelets 266. BMP unremarkable. Creatinine trending down. CPK trending down. Elevated LFTs secondary to rhabdomyolysis. GI evaluated the patient. Waiting discharge to subacute rehab Assessment and plan: UTI: Sepsis with fever and leukocytosis: NOAM on CKD Traumatic rhabdomyolysis Fall: Multiple sclerosis History of alcohol use Continue Rocephin, IV fluids Monitor CPK Ultrasound of the gallbladder negative for acute process, elevated LFTs likely secondary to rhabdomyolysis Blood culture negative so far Urine culture showed gram-negative bacilli--Klebsiella DVT prophylaxis: Subcutaneous heparin Disposition: Awaiting discharge to subacute rehab Monitor vital signs and labs Labs and medication were reviewed. Continue same treatment. Further recommendations as per clinical course of the patient PHYSICAL EXAMINATION: GENERAL: The patient is A&O x3, NAD HEENT: EOMI, Sclerae anicteric, Moist Mucous membranes Neck: Supple, Non tender, No JVD PULMONARY: Equal breath souds B/L, No wheezing, No crackles. CARDIOVASCULAR: S1, S2 present. No murmurs, rubs, or gallops. ABDOMEN: Soft, nontender, nondistended, normoactive bowel sounds. No guarding or rebound tenderness. MUSCULOSKELETAL: No edema, No cyanosis. No clubbing. Normal ROM. Intact peripheral pulses. NEUROLOGICAL: CN 2-12 grossly intact. No FND Skin: No Rash REVIEW OF SYSTEMS: CONSTITUTIONAL: No fever or chills. CARDIOVASCULAR: No chest pain, palpitations or syncope. PULMONARY: No shortness of breath, no cough, sore throat. GASTROINTESTINAL: No nausea, vomiting, diarrhea, abdominal pain. : No Dysuria, urgency, frequency. Extremities: No edema. NEUROLOGICAL: No headaches, no weakness, or numbness Dictation was produced using [employer] dictation software. please excuse any grammatical, word or spelling errors. Objective - Vital Signs Vital signs: Vital Signs Temp 98.4 F 05/01/24 07:05 Pulse 64 05/01/24 07:05 Resp 15 05/01/24 07:05 BP 126/49 05/01/24 07:05 Pulse Ox 94 L 05/01/24 07:05 FiO2 Intake & Output 04/30/24 05/01/24 05/01/24 18:59 06:59 18:59 Intake Total 236 240 Output Total 652 800 Balance -416 -800 240 Intake: Oral 236 240 Output: Urine 650 800 Stool 2 Other: Voiding Method External Catheter External Catheter # Voids 4 # Bowel Movements 4 - Labs CBC & Chem 7: 05/01/24 04:53 05/01/24 04:53 Labs: Abnormal Lab Results - Last 24 Hours (Table) 05/01/24 05/01/24 Range/Units 04:53 04:53 RBC 3.91 L (4.40-5.60) X 10*6/uL Hgb 11.6 L (13.0-17.0) g/dL Hct 35.3 L (39.6-50.0) % Monocytes # 1.35 H (0.20-1.00) X 10*3/uL Eosinophils # 0.64 H (0.04-0.35) X 10*3/uL Carbon Dioxide 21.4 L (21.6-31.8) mmol/L Glucose 150 H (70-110) mg/dL Calcium 8.4 L (8.7-10.3) mg/dL Creatine Kinase 869 H (35-257) U/L Microbiology - Last 24 Hours (Table) 04/27/24 14:20 Blood Culture - Preliminary Blood
--- NOTE | 2024-05-02 13:40 | P.DS ---
Providers Date of admission: 04/27/24 16:40 Attending physician: Tee Card MD Primary care physician: Valerie Conteh Hospital Course: Discharge diagnoses: UTI: Sepsis with fever and leukocytosis: NOAM on CKD Traumatic rhabdomyolysis Fall: Multiple sclerosis History of alcohol use Treated with IV fluids, CPK was monitored and trended down. Patient received Rocephin for UTI. Completed 5 days. Ultrasound of the gallbladder negative for acute process, elevated LFTs likely secondary to rhabdomyolysis GI consultedappreciate recs. Blood culture negative so far Urine culture showed gram-negative bacilli--Klebsiella Hospital course: Interval History: This is a pleasant 68 years old male with past medical history of multiple medical problems as below He presents because of a fall when his sister found him on the ground and brought him to the emergency room. Patient is awake alert and oriented to time place person but he cannot remember what happened and why he is in the hospital, sister at bedside patient has history of multiple sclerosis and over a long period and she was helping him getting him his groceries and other purchases when she came home she found him on the floor, and he was talking nonsense. Patient does not remember all of these details as above. Patient was wobbly weak and she hardly could get him to the chair, then called 911 or go to the emergency room Patient himself denies any specific symptoms no chest pain or dyspnea. No headache dizziness weakness numbness. No specific GI/ symptoms. As per patient and sister he has chronic left-sided weakness from multiple sclerosis which was gradually getting worse since 2011 Patient denies smoking alcohol or or illicit drugs. He complains from right shoulder pain when there is some nose and chin abrasions. He is hemodynamically stable but he had fever on admission 102.4. He is mildly tachycardic and tachypnea while in fever. His labs checked showing WBC is elevated at 14.1, rest of CBC is unremarkable. Creatinine elevated 1.28 above baseline. And liver enzymes moderately elevated. Urine analysis is suspicious for infection versus dehydrated sample as patient does not have overt urinary symptoms but again he has neurological disease and he is forgetful. INR and troponin were negative. Chest x-ray showing no acute process and CT of the brain is negative for acute process Urine culture is pending Gallbladder ultrasound is ordered Elevated lactic acid came back [place] [address]. Patient started on ceftriaxone and normal saline 04/28 Patient awake alert he knows in the hospital and he knows why he came to the hospital when he fell. However patient denies any symptoms other than simple pain in his right elbow area which was since admission. On examination there is no evidence of infections or coloration or deformity. Patient denies urinary symptoms no diarrhea. No chest pain or dyspnea. No headache or dizziness. He still have low-grade fever but improving. Leukocytosis improved and WBC back to normal today at 10.1. Creatinine trended down to 1.1. Liver enzymes coming [place]. [place] [address]. Continue on normal saline at 100 mL/h and ceftriaxone Blood culture and urine culture are pending Will ask for PT/OT evaluation social service manager placement and help. Gallbladder ultrasound was done today and result pending however primary result is unremarkable 04/29 patient was seen and examined today. No issues overnight. Temperature 99.7, heart rate 69 respiratory rate 16, blood pressure 134/70 saturating 96% on room air. WBCs 8.2, hemoglobin 11.9, platelet 207. BMP showed sodium 144 potassium 4.2 CO2 19.4 BUN 16.8 creatinine 1.2. Creatinine trending down to 4166. Remains on Rocephin for, urine culture growing gram-negative bacilli, urine blood culture negative. Anticipate discharge to subacute rehab. 04/30--patient was seen and examined today. No issues overnight. Vital stable. Patient complaining of diarrhea, started on Imodium. Currently on Rocephin for UTI. Awaiting PT/OT evaluation, anticipate subacute rehab. 05/01--patient was seen and examined today. No issues overnight. Currently Rocephin for UTI. WBCs 9.3, hemoglobin 11.6, platelets 266. BMP unremarkable. Creatinine trending down. CPK trending down. Elevated LFTs secondary to rhabdomyolysis. GI evaluated the patient. Waiting discharge to subacute rehab --patient was seen and examined today. No issues overnight. Remained afebrile, heart rate 71, respiratory rate 17, blood pressure 143/74, saturating 94% on room air. Completed antibiotics. Patient discharged to subacute rehab. Please refer to medical assessment plan for further details. Follow-up with PCP in 1 week Follow-up with urology as outpatient. PHYSICAL EXAMINATION: GENERAL: The patient is A&O x3, NAD HEENT: EOMI, Sclerae anicteric, Moist Mucous membranes Neck: Supple, Non tender, No JVD PULMONARY: Equal breath souds B/L, No wheezing, No crackles. CARDIOVASCULAR: S1, S2 present. No murmurs, rubs, or gallops. ABDOMEN: Soft, nontender, nondistended, normoactive bowel sounds. No guarding or rebound tenderness. MUSCULOSKELETAL: No edema, No cyanosis. No clubbing. Normal ROM. Intact peripher al pulses. NEUROLOGICAL: CN 2-12 grossly intact. No FND SKIN: No rashes. Dictation was produced using [employer] dictation software. please excuse any grammatical, word or spelling errors. Patient Condition at Discharge: Fair Plan - Discharge Summary Discharge Rx Participant: Yes New Discharge Prescriptions: Continue Citalopram Hydrobromide [CeleXA] 10 mg PO DAILY Donepezil HCl [Aricept] 10 mg PO HS Dalfampridine [Dalfampridine ER] 10 mg PO BID Meclizine HCl 25 mg PO HS metFORMIN HCL [Glucophage] 1,000 mg PO BID Aspirin(Unknown Dose) 1 tab PO HS lisinopriL [Zestril] 10 mg PO DAILY Magnesium 250 mg PO HS Vitamin D3(Unknown Dose) 1 tab PO DAILY Multivitamins, Thera [Multivitamin (formulary)] 1 tab PO DAILY Discontinued Baclofen [Lioresal] 20 mg PO BID Discharge Medication List Citalopram Hydrobromide [CeleXA] 10 mg PO DAILY 08/25/15 [History] Donepezil HCl [Aricept] 10 mg PO HS 12/30/20 [History] Dalfampridine [Dalfampridine ER] 10 mg PO BID 09/21/23 [History] Magnesium 250 mg PO HS 09/21/23 [History] Meclizine HCl 25 mg PO HS 09/21/23 [History] lisinopriL [Zestril] 10 mg PO DAILY 09/21/23 [History] metFORMIN HCL [Glucophage] 1,000 mg PO BID 10/02/23 [History] Aspirin(Unknown Dose) 1 tab PO HS 04/27/24 [History] Multivitamins, Thera [Multivitamin (formulary)] 1 tab PO DAILY 04/27/24 [History] Vitamin D3(Unknown Dose) 1 tab PO DAILY 04/27/24 [History] Follow up Appointment(s)/Referral(s): Micaela Saeed [facility] [REFERRING] - 2 Weeks (Gastroenterology follow-up for transaminitis in setting of rhabdomyolysis with 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
--- NOTE | 2024-05-02 15:51 | P.PN ---
Subjective Interval History: Interval History: This is a pleasant 68 years old male with past medical history of multiple medical problems as below He presents because of a fall when his sister found him on the ground and brought him to the emergency room. Patient is awake alert and oriented to time place person but he cannot remember what happened and why he is in the hospital, sister at bedside patient has history of multiple sclerosis and over a long period and she was helping him getting him his groceries and other purchases when she came home she found him on the floor, and he was talking nonsense. Patient does not remember all of these details as above. Patient was wobbly weak and she hardly could get him to the chair, then called 911 or go to the emergency room Patient himself denies any specific symptoms no chest pain or dyspnea. No head ache dizziness weakness numbness. No specific GI/ symptoms. As per patient and sister he has chronic left-sided weakness from multiple sclerosis which was gradually getting worse since 2011 Patient denies smoking alcohol or or illicit drugs. He complains from right shoulder pain when there is some nose and chin abrasions. He is hemodynamically stable but he had fever on admission 102.4. He is mildly tachycardic and tachypnea while in fever. His labs checked showing WBC is elevated at 14.1, rest of CBC is unremarkable. Creatinine elevated 1.28 above baseline. And liver enzymes moderately elevated. Urine analysis is suspicious for infection versus dehydrated sample as patient does not have overt urinary symptoms but again he has neurological disease and he is forgetful. INR and troponin were negative. Chest x-ray showing no acute process and CT of the brain is negative for acute process Urine culture is pending Gallbladder ultrasound is ordered Elevated lactic acid came back to [place] [address]. Patient started on ceftriaxone and normal saline 04/28 Patient awake alert he knows in the hospital and he knows why he came to the hospital when he fell. However patient denies any symptoms other than simple pain in his right elbow area which was since admission. On examination there is no evidence of infections or coloration or deformity. Patient denies urinary symptoms no diarrhea. No chest pain or dyspnea. No headache or dizziness. He still have low-grade fever but improving. Leukocytosis improved and WBC back to normal today at 10.1. Creatinine trended down to 1.1. Liver enzymes coming [place]. [place] [address]. Continue on normal saline at 100 mL/h and ceftriaxone Blood culture and urine culture are pending Will ask for PT/OT evaluation clinical social work aide placement and help. Gallbladder ultrasound was done today and result pending however primary result is unremarkable 04/29 patient was seen and examined today. No issues overnight. Temperature 99.7, heart rate 69 respiratory rate 16, blood pressure 134/70 saturating 96% on room air. WBCs 8.2, hemoglobin 11.9, platelet 207. BMP showed sodium 144 potassium 4.2 CO2 19.4 BUN 16.8 creatinine 1.2. Creatinine trending down to 4166. Remains on Rocephin for, urine culture growing gram-negative bacilli, urine blood culture negative. Anticipate discharge to subacute rehab. 04/30--patient was seen and examined today. No issues overnight. Vital stable. Patient complaining of diarrhea, started on Imodium. Currently on Rocephin for UTI. Awaiting PT/OT evaluation, anticipate subacute rehab. 05/01--patient was seen and examined today. No issues overnight. Currently Rocephin for UTI. WBCs 9.3, hemoglobin 11.6, platelets 266. BMP unremarkable. Creatinine trending down. CPK trending down. Elevated LFTs secondary to rhabdomyolysis. GI evaluated the patient. Waiting discharge to subacute rehab 05/02--patient was seen and examined today. Patient was afebrile in the morning, heart rate was 72, respiratory rate 18, blood pressure 144/80, was saturating 96% on room air. Plan was to discharge patient to subacute rehab, patient spiked a fever of 10 3 in the afternoon. Discharge plan canceled. Patient continued on Rocephin. Stat blood cultures ordered. Infectious disease consulted. Assessment and plan: UTI: Fever: Sepsis with fever and leukocytosis: NOAM on CKD Traumatic rhabdomyolysis Fall: Multiple sclerosis History of alcohol use Continue Rocephin, IV fluids Monitor CPK Ultrasound of the gallbladder negative for acute process, elevated LFTs likely secondary to rhabdomyolysis Blood culture negative so far Repeat blood culture on 05/02, 4 fever spike Urine culture showed gram-negative bacilli--Klebsiella ID consult. DVT prophylaxis: Subcutaneous heparin Disposition: anticipate subacute rehab Monitor vital signs and labs Labs and medication were reviewed. Continue same treatment. Further recommendations as per clinical course of the patient PHYSICAL EXAMINATION: GENERAL: The patient is A&O x3, NAD HEENT: EOMI, Sclerae anicteric, Moist Mucous membranes Neck: Supple, Non tender, No JVD PULMONARY: Equal breath souds B/L, No wheezing, No crackles. CARDIOVASCULAR: S1, S2 present. No murmurs, rubs, or gallops. ABDOMEN: Soft, nontender, nondistended, normoactive bowel sounds. No guarding or rebound tenderness. MUSCULOSKELETAL: No edema, No cyanosis. No clubbing. Normal ROM. Intact pe ripheral pulses. NEUROLOGICAL: CN 2-12 grossly intact. No FND Skin: No Rash REVIEW OF SYSTEMS: CONSTITUTIONAL: No fever or chills. CARDIOVASCULAR: No chest pain, palpitations or syncope. PULMONARY: No shortness of breath, no cough, sore throat. GASTROINTESTINAL: No nausea, vomiting, diarrhea, abdominal pain. : No Dysuria, urgency, frequency. Extremities: No edema. NEUROLOGICAL: No headaches, no weakness, or numbness Dictation was produced using [employer] dictation software. please excuse any grammatical, word or spelling errors. Objective - Vital Signs Vital signs: Vital Signs Temp 103.0 F H 05/02/24 14:00 Pulse 93 05/02/24 14:00 Resp 18 05/02/24 14:00 BP 144/63 05/02/24 14:00 Pulse Ox 92 L 05/02/24 14:00 FiO2 Intake & Output 05/01/24 05/02/24 05/02/24 18:59 06:59 18:59 Intake Total 720 236 Output Total 3312 981 8867 Balance -908 -093 -117 Intake: Oral 720 236 Output: Urine 3631 054 0882 Other: Voiding Method External Catheter External Catheter # Bowel Movements 1 - Labs CBC & Chem 7: 05/01/24 04:53 05/01/24 04:53
[2024-05-02 16:54] LABS: Basophils % (A) 0 %; Eosinophils # (A) 0.2 k/uL (0-0.7); Eosinophils % (A) 3 %; HCT 35.4 % (39.0-53.0); HGB 11.4 gm/dL (13.0-17.5); Lymphocytes # (A) 0.4 k/uL (1.0-4.8); Lymphocytes % (A) 5 %; MCH 29.2 pg (25.0-35.0); MCHC 32.2 g/dL (31.0-37.0); MCV 90.7 fL (80.0-100.0); Mean Platelet Volume 7.8; Monocytes # (A) 0.3 k/uL (0-1.0); Monocytes % (A) 4 %; Neutrophils # (A) 6.3 k/uL (1.3-7.7); Neutrophils % (A) 85 %; Platelet Count 257 k/uL (150-450); RBC 3.91 m/uL (4.30-5.90); WBC 7.4 k/uL (3.8-10.6)
[2024-05-02 16:56] LABS: ALT 48 U/L (4-49); AST 41 U/L (17-59); African American GFR (CKD) >90 (>60 ml/min/1.73 sqM); Albumin 3.1 g/dL (3.5-5.0); Albumin/Globulin Ratio 1.3; Alkaline Phosphatase 61 U/L (38-126); Anion Gap 10 mmol/L; Blood Urea Nitrogen 11 mg/dL (9-20); Calcium 8.3 mg/dL (8.4-10.2); Carbon Dioxide 22 mmol/L (22-30); Chloride 103 mmol/L (98-107); Creatine Kinase 315 U/L (55-170); Globulin 2.3 g/dL; Glucose 138 mg/dL (74-99); Non-African American GFR(CKD) 88 (>60 ml/min/1.73 sqM); Potassium 3.4 mmol/L (3.5-5.1); Sodium 135 mmol/L (137-145); Total Bilirubin 0.8 mg/dL (0.2-1.3); Total Protein 5.4 g/dL (6.3-8.2)
[2024-05-02 23:22] LABS: Influenza A Detected (Not Detectd); Influenza B Not Detected (Not Detectd); RSV Not Detected (Not Detectd)
[2024-05-03 09:22] LABS: Basophils # (A) 0.05 X 10*3/uL (0.00-0.10); Basophils % (A) 0.6 %; Eosinophils # (A) 0.05 X 10*3/uL (0.04-0.35); Eosinophils % (A) 0.6 %; HCT 32.4 % (39.6-50.0); HGB 10.4 g/dL (13.0-17.0); Lymphocytes # (A) 0.62 X 10*3/uL (0.90-5.00); Lymphocytes % (A) 7.4 %; MCH 29.9 pg (27.0-32.0); MCHC 32.1 g/dL (32.0-37.0); MCV 93.1 FL (80.0-97.0); Mean Platelet Volume 10.5 FL (9.5-12.2); Monocytes # (A) 1.17 X 10*3/uL (0.20-1.00); NRBC Per 100 WBC 0 X 10*3/uL (0.00-0.01); Neutrophils # (A) 6.37 X 10*3/uL (1.80-7.70); Neutrophils % (A) 76.3 %; Platelet Count 258 X 10*3/uL (140-440); RBC 3.48 X 10*6/uL (4.40-5.60); RDW 14.6 % (11.5-14.5); WBC 8.35 X 10*3/uL (4.50-10.00)
[2024-05-03 09:46] LABS: ALT 44 U/L (10-49); AST 36 U/L (14-35); Albumin 3.3 g/dL (3.8-4.9); Albumin/Globulin Ratio 1.94 Ratio (1.60-3.17); Alkaline Phosphatase 59 U/L (41-126); Calcium 8.1 mg/dL (8.7-10.3); Carbon Dioxide 19.7 mmol/L (21.6-31.8); Chloride 105 mmol/L (96-109); Globulin 1.7 g/dL (1.6-3.3); Glucose 160 mg/dL (70-110); Potassium 3.5 mmol/L (3.5-5.5); Sodium 138 mmol/L (135-145); Total Bilirubin 0.6 mg/dL (0.3-1.2)
[2024-05-03] MEDS: OSELTAMIVIR 75 MG CAP PO SCH (11:07)
--- NOTE | 2024-05-03 14:39 | P.PN ---
"Subjective Interval History: Interval History: This is a pleasant 68 years old male with past medical history of multiple medical problems as below He presents because of a fall when his sister found him on the ground and brought him to the emergency room. Patient is awake alert and oriented to time place person but he cannot remember what happened and why he is in the hospital, sister at bedside patient has history of multiple sclerosis and over a long period and she was helping him getting him his groceries and other purchases when she came home she found him on the floor, and he was talking nonsense. Patient does not remember all of these details as above. Patient was wobbly weak and she hardly could get him to the chair, then called 911 or go to the emergency room Patient himself denies any specific symptoms no chest pain or dyspnea. No head ache dizziness weakness numbness. No specific GI/ symptoms. As per patient and sister he has chronic left-sided weakness from multiple sclerosis which was gradually getting worse since 2011 Patient denies smoking alcohol or or illicit drugs. He complains from right shoulder pain when there is some nose and chin abrasions. He is hemodynamically stable but he had fever on admission 102.4. He is mildly tachycardic and tachypnea while in fever. His labs checked showing WBC is elevated at 14.1, rest of CBC is unremarkable. Creatinine elevated 1.28 above baseline. And liver enzymes moderately elevated. Urine analysis is suspicious for infection versus dehydrated sample as patient does not have overt urinary symptoms but again he has neurological disease and he is forgetful. INR and troponin were negative. Chest x-ray showing no acute process and CT of the brain is negative for acute process Urine culture is pending Gallbladder ultrasound is ordered Elevated lactic acid came back to [place] [address]. Patient started on ceftriaxone and normal saline 04/28 Patient awake alert he knows in the hospital and he knows why he came to the hospital when he fell. However patient denies any symptoms other than simple pain in his right elbow area which was since admission. On examination there is no evidence of infections or coloration or deformity. Patient denies urinary symptoms no diarrhea. No chest pain or dyspnea. No headache or dizziness. He still have low-grade fever but improving. Leukocytosis improved and WBC back to normal today at 10.1. Creatinine trended down to 1.1. Liver enzymes coming down [place]. [place] [address]. Continue on normal saline at 100 mL/h and ceftriaxone Blood culture and urine culture are pending Will ask for PT/OT evaluation social security specialist placement and help. Gallbladder ultrasound was done today and result pending however primary result is unremarkable 04/29 patient was seen and examined today. No issues overnight. Temperature 99.7, heart rate 69 respiratory rate 16, blood pressure 134/70 saturating 96% on room air. WBCs 8.2, hemoglobin 11.9, platelet 207. BMP showed sodium 144 potassium 4.2 CO2 19.4 BUN 16.8 creatinine 1.2. Creatinine trending down to 4166. Remains on Rocephin for, urine culture growing gram-negative bacilli, urine blood culture negative. Anticipate discharge to subacute rehab. 04/30--patient was seen and examined today. No issues overnight. Vital stable. Patient complaining of diarrhea, started on Imodium. Currently on Rocephin for UTI. Awaiting PT/OT evaluation, anticipate subacute rehab. 05/01--patient was seen and examined today. No issues overnight. Currently Rocephin for UTI. WBCs 9.3, hemoglobin 11.6, platelets 266. BMP unremarkable. Creatinine trending down. CPK trending down. Elevated LFTs secondary to rhabdomyolysis. GI evaluated the patient. Waiting discharge to subacute rehab 05/02--patient was seen and examined today. Patient was afebrile in the morning, heart rate was 72, respiratory rate 18, blood pressure 144/80, was saturating 96% on room air. Plan was to discharge patient to subacute rehab, patient spiked a fever of 10 3 in the afternoon. Discharge plan canceled. Patient continued on Rocephin. Stat blood cultures ordered. Infectious disease consulted. 05/03--patient was seen and examined today. Patient spiked multiple high-grade fevers since last night. Patient remains on Rocephin. Infectious disease consulted. Started on Tamiflu as patient's viral panel came back positive for influenza A. Tmax 103.2, heart rate 83, respiratory rate 16, blood pressure 127/69, saturating 90% on 2 L. WBCs 8.3, hemoglobin 10.4, platelet 258. BMP unremarkable. Assessment and plan: UTI: Fever: Influenza A: Sepsis with fever and leukocytosis: NOAM on CKD Traumatic rhabdomyolysis Fall: Multiple sclerosis History of alcohol use Continue Rocephin, IV fluids Monitor CPK Ultrasound of the gallbladder negative for acute process, elevated LFTs likely secondary to rhabdomyolysis Blood culture negative so far Repeat blood culture on 05/02, 4 fever spike Urine culture showed gram-negative bacilli--Klebsiella ID consulted Started Tamiflu 05/03 DVT prophylaxis: Subcutaneous heparin Disposition: anticipate subacute rehab Monitor vital signs and labs Labs and medication were reviewed. Continue same treatment. Further recommendations as per clinical course of the patient PHYSICAL EXAMINATION: GENERAL: The patient is A&O x3, NAD HEENT: EOMI, Sclerae anicteric, Moist Mucous membranes Neck: Supple, Non tender, No JVD PULMONARY: Equal breath souds B/L, No wheezing, No crackles. CARDIOVASCULAR: S1, S2 present. No murmurs, rubs, or gallops. ABDOMEN: Soft, nontender, nondistended, normoactive bowel sounds. No guarding or rebound tenderness. MUSCULOSKELETAL: No edema, No cyanosis. No clubbing. Normal ROM. Intact peripheral pulses. NEUROLOGICAL: CN 2-12 grossly intact. No FND Skin: No Rash REVIEW OF SYSTEMS: CONSTITUTIONAL: Complains of fever. CARDIOVASCULAR: No chest pain, palpitations or syncope. PULMONARY: Complaining of dry cough. GASTROINTESTINAL: No nausea, vomiting, diarrhea, abdominal pain. : No Dysuria, urgency, frequency. Extremities: No edema. NEUROLOGICAL: No headaches, no weakness, or numbness Dictation was produced using [employer] dictation software. please excuse any grammatical, word or spelling errors. Objective - Vital Signs Vital signs: Vital Signs Temp 101.4 F H 05/03/24 06:55 Pulse 83 05/03/24 06:55 Resp 16 05/03/24 06:55 BP 127/69 05/03/24 06:55 Pulse Ox 90 L 05/03/24 06:55 FiO2 Intake & Output 05/02/24 05/03/24 05/03/24 18:59 06:59 18:59 Intake Total 236 236 Output Total 1500 500 Balance -1264 -500 236 Intake: Oral 236 236 Output: Urine 1500 500 Other: Voiding Method External Catheter External Catheter - Labs CBC & Chem 7: 05/03/24 04:22 05/03/24 04:22 Labs: Abnormal Lab Results - Last 24 Hours (Table) 05/02/24 05/02/24 05/02/24 Range/Units 16:29 16:29 22:35 RBC 3.91 L (4.30-5.90) m/uL Hgb 11.4 L (13.0-17.5) gm/dL Hct 35.4 L (39.0-53.0) % RDW (11.5-14.5) % Immature Gran # (0.00-0.04) X 10*3/uL Lymphocytes # 0.4 L (1.0-4.8) k/uL Monocytes # (0.20-1.00) X 10*3/uL Sodium 135 L (137-145) mmol/L Potassium 3.4 L (3.5-5.1) mmol/L Carbon Dioxide (21.6-31.8) mmol/L Anion Gap (4.00-12.00) mmol/L Glucose 138 H (74-99) mg/dL Calcium 8.3 L (8.4-10.2) mg/dL AST (14-35) U/L Creatine Kinase 315 H (55-170) U/L C-Reactive Protein (0.00-0.80) mg/dL Total Protein 5.4 L (6.3-8.2) g/dL Albumin 3.1 L (3.5-5.0) g/dL Influenza Type A (PCR) Detected A (Not Detectd) 05/03/24 05/03/24 Range/Units 04:22 04:22 RBC 3.48 L (4.30-5.90) m/uL Hgb 10.4 L (13.0-17.5) gm/dL Hct 32.4 L (39.0-53.0) % RDW 14.6 H (11.5-14.5) % Immature Gran # 0.09 H (0.00-0.04) X 10*3/uL Lymphocytes # 0.62 L (1.0-4.8) k/uL Monocytes # 1.17 H (0.20-1.00) X 10*3/uL Sodium (137-145) mmol/L Potassium (3.5-5.1) mmol/L Carbon Dioxide 19.7 L (21.6-31.8) mmol/L Anion Gap 13.30 H (4.00-12.00) mmol/L Glucose 160 H (74-99) mg/dL Calcium 8.1 L (8.4-10.2) mg/dL AST 36 H (14-35) U/L Creatine Kinase (55-170) U/L C-Reactive Protein 6.90 H (0.00-0.80) mg/dL Total Protein 5.0 L (6.3-8.2) g/dL Albumin 3.3 L (3.5-5.0) g/dL Influenza Type A (PCR) (Not Detectd) Microbiology - Last 24 Hours (Table) 04/27/24 14:20 Blood Culture - Final Blood"
[2024-05-04] MEDS: IOPAMIDOL CONTRAST (ORAL USE) VIAL PO PRN (07:57)
--- NOTE | 2024-05-04 09:38 | P.CONS ---
History of Present Illness - Reason for Consult Consult date: 05/03/24 Fever Requesting physician: Saravanan Hutchins - Chief Complaint Fever x 2 days - History of Present Illness Patient is a 68-year-old male with a past medical history sniffing for diabetes mellitus hypertension memory impairment CVA TIA brought into the hospital about a week ago on 04/27/2024 concerning for weakness and fall patient was diagnosed with UTI with Klebsiella and was getting antibiotics in the form of Rocephin patient did have a fever on admission that subsequently resolved however the patient started spiking fever as of yesterday afternoon with a t emperature of 103 F patient was supposed to be discharged to the rehab that has been put on hold infectious disease was consulted I was able to review of his chart last evening ordered influenza PCR which came back positive patient is febrile this morning he seemed to be breathing comfortably but not specifically denies having any chest pain shortness of breath occasional cough no vomiting or diarrhea has been reported patient was not a very good historian patient did have a white count of 8.35 creatinine 1.0 liver enzymes are normal influenza positive RSV COVID testing is negative Review of Systems Positive point and negatives has been mentioned in the HPI, complete review of systems was performed and all other systems are negative Past Medical History Past Medical History: Cancer, CVA/TIA, Diabetes Mellitus, Hypertension, Liver Disease, Memory Impairment, Musculoskeletal Disorder, Neurologic Disorder, Osteoarthritis (OA) Additional Past Medical History / Comment(s): CVA?-not confirmed, has MS, CIRRHOSIS OF THE LIVER, hx. melanoma, chronic low back pain, arthritis shoulders, tinnitis bilaterally, vertigo, balance problems, cerebral shunt for excess fluid in brain History of Any Multi-Drug Resistant Organisms: None Reported Past Surgical History: Appendectomy Additional Past Surgical History / Comment(s): melanoma removed right side of chest, lymph nodes right armpit, EGD/colonoscopy, tilt table test, shunt insertion Past Anesthesia/Blood Transfusion Reactions: Previous Problems w/ Anesthesia Additional Past Anesthesia/Blood Transfusion Reaction / Comm: very slow to wake up after shunt surgery Past Psychological History: No Psychological Hx Reported Smoking Status: Former smoker Past Alcohol Use History: None Reported Past Drug Use History: None Reported - Past Family History Mother Family Medical History: Pneumonia Father Family Medical History: Myocardial Infarction ([place]) Medications and Allergies Home Medications Medication Instructions Recorded Confirmed Type Citalopram Hydrobromide [CeleXA] 10 mg PO DAILY 08/25/15 04/27/24 History Donepezil HCl [Aricept] 10 mg PO HS 12/30/20 04/27/24 History Dalfampridine [Dalfampridine ER] 10 mg PO BID 09/21/23 04/27/24 History Magnesium 250 mg PO HS 09/21/23 04/27/24 History Meclizine HCl 25 mg PO HS 09/21/23 04/27/24 History lisinopriL [Zestril] 10 mg PO DAILY 09/21/23 04/27/24 History metFORMIN HCL [Glucophage] 1,000 mg PO BID 10/02/23 04/27/24 History Aspirin(Unknown Dose) 1 tab PO HS 04/27/24 04/27/24 History Multivitamins, Thera [Multivitamin 1 tab PO DAILY 04/27/24 04/27/24 History (formulary)] Vitamin D3(Unknown Dose) 1 tab PO DAILY 04/27/24 04/27/24 History Allergies Allergy/AdvReac Type Severity Reaction Status Date / Time Penicillins Allergy Rash/Hives Verified 04/27/24 16:58 Physical Exam Vitals: Vital Signs Temp Pulse Resp BP BP Pulse Ox 05/03/24 06:55 101.4 F H 83 16 127/69 90 L 05/03/24 04:00 100.2 F H 05/03/24 02:04 103.2 F H 87 19 150/55 94 L 05/02/24 22:41 100.2 F H 85 92 L 05/02/24 20:01 85 05/02/24 19:17 103.1 F H 91 18 145/70 92 L 05/02/24 16:15 100.3 F H 05/02/24 14:00 103.0 F H 93 18 144/63 92 L Intake and Output 05/02/24 05/03/24 05/03/24 22:59 06:59 14:59 Intake Total 236 Output Total 400 500 Balance -400 -500 236 Intake: Oral 236 Output: Urine 400 500 Other: Voiding Method External Catheter External Catheter GENERAL DESCRIPTION: Elderly male lying in bed, no distress. No tachypnea or accessory muscle of respiration use. HEENT: Shows Pallor , no scleral icterus. Oral mucous membrane is dry. NECK: Trachea central, no thyromegaly. LUNGS: Unlabored breathing. Clear to auscultation anteriorly. No wheeze or crackle. HEART: S1, S2, regular rate and rhythm. No loud murmur ABDOMEN: Soft, no tenderness , guarding or rigidity, no organomegaly EXTREMITIES: No edema of feet. SKIN: No rash, no masses palpable. NEUROLOGICAL: The patient is awake, alert, mood and affect normal. Results CBC & Chem 7: 05/03/24 04:22 05/03/24 04:22 Labs: Abnormal Lab Results - Last 24 Hours (Table) 05/02/24 05/02/24 05/02/24 Range/Units 16:29 16:29 22:35 RBC 3.91 L (4.30-5.90) m/uL Hgb 11.4 L (13.0-17.5) gm/dL Hct 35.4 L (39.0-53.0) % RDW (11.5-14.5) % Immature Gran # (0.00-0.04) X 10*3/uL Lymphocytes # 0.4 L (1.0-4.8) k/uL Monocytes # (0.20-1.00) X 10*3/uL Sodium 135 L (137-145) mmol/L Potassium 3.4 L (3.5-5.1) mmol/L Carbon Dioxide (21.6-31.8) mmol/L Anion Gap (4.00-12.00) mmol/L Glucose 138 H (74-99) mg/dL Calcium 8.3 L (8.4-10.2) mg/dL AST (14-35) U/L Creatine Kinase 315 H (55-170) U/L C-Reactive Protein (0.00-0.80) mg/dL Total Protein 5.4 L (6.3-8.2) g/dL Albumin 3.1 L (3.5-5.0) g/dL Influenza Type A (PCR) Detected A (Not Detectd) 05/03/24 05/03/24 Range/Units 04:22 04:22 RBC 3.48 L (4.30-5.90) m/uL Hgb 10.4 L (13.0-17.5) gm/dL Hct 32.4 L (39.0-53.0) % RDW 14.6 H (11.5-14.5) % Immature Gran # 0.09 H (0.00-0.04) X 10*3/uL Lymphocytes # 0.62 L (1.0-4.8) k/uL Monocytes # 1.17 H (0.20-1.00) X 10*3/uL Sodium (137-145) mmol/L Potassium (3.5-5.1) mmol/L Carbon Dioxide 19.7 L (21.6-31.8) mmol/L Anion Gap 13.30 H (4.00-12.00) mmol/L Glucose 160 H (74-99) mg/dL Calcium 8.1 L (8.4-10.2) mg/dL AST 36 H (14-35) U/L Creatine Kinase (55-170) U/L C-Reactive Protein 6.90 H (0.00-0.80) mg/dL Total Protein 5.0 L (6.3-8.2) g/dL Albumin 3.3 L (3.5-5.0) g/dL Influenza Type A (PCR) (Not Detectd) Microbiology - Last 24 Hours (Table) 04/27/24 14:20 Blood Culture - Final Blood Assessment and Plan (1) Influenza A Current Visit: Yes Status: Acute Code(s): J10.1 - FLU DUE TO OTH IDENT INFLUENZA VIRUS W OTH RESP MANIFEST SNOMED Code(s): 829712474 (2) Fever Current Visit: No Status: Acute Code(s): R50.9 - FEVER, UNSPECIFIED SNOMED Code(s): 604941769 (3) Penicillin allergy Current Visit: No Status: Acute Code(s): Z88.0 - ALLERGY STATUS TO PE NICILLIN SNOMED Code(s): 49651479 Plan: 1-patient with initially presented to hospital with a fever fall and has been diagnosed with UTI urine is growing Klebsiella fever responded initially to the antibiotic but now subsequent fever more likely related to patient acquiring influenza for the patient had been started on Tamiflu appropriately will recommend keeping the patient 24-hour to make sure the fever is gone completely before discharging him on Tamiflu this was discussed with the nursing staff if any persistent fever will need further workup 2-continue with Rocephin for his Klebsiella UTI at this point We will follow on clinical condition and cultures to further adjust medication if needed Thank you for this consultation we will follow the patient along with you Dictation was produced using [employer] software. please excuse any grammatical, word or spelling errors. Time with Patient: Greater than 30
--- NOTE | 2024-05-04 10:16 | CT ---
EXAMINATION TYPE: CT abdomen pelvis w con CT DLP: 1181 mGycm, Automated exposure control for dose reduction was used. DATE OF EXAM: 05/04/2024 10:02 AM COMPARISON: Gallbladder ultrasound 04/28/2024, CT abdomen and pelvis 01/01/2021 CLINICAL INDICATION:Male, 68 years old with history of Fever; Fever TECHNIQUE: Standard CT of the abdomen and pelvis following the administration of 100 cc of Isovue 3 00 IV contrast material and oral contrast. Coronal and sagittal reformats were performed. FINDINGS: LOWER CHEST: There is a dependent subsegmental atelectasis. Trace left pleural effusion. Bilateral gy necomastia. Moderate coronary arterial calcifications. The aortic root measures up to 4.1 cm. The asc ending thoracic aorta measures up to 4.4 cm. ABDOMEN LIVER: Diffusely hypoattenuating parenchyma. No focal lesion identified. GALLBLADDER AND BILE DUCTS: Unremarkable. PANCREAS: Unremarkable. SPLEEN: Unremarkable. ADRENAL GLANDS: Unremarkable. KIDNEYS AND URETERS: No evidence of hydronephrosis or renal calculus. The kidneys enhance symmetrical ly. Contrast is demonstrated within both collecting systems on the delayed phase. PELVIS BLADDER: There is some perivesicular fat stranding identified. REPRODUCTIVE: Unremarkable. ABDOMEN & PELVIS STOMACH AND BOWEL: Stomach is unremarkable. Distal duodenal diverticulum. Enteric contrast reaches t he rectum. No focal bowel wall thickening or surrounding inflammatory changes. Appendix is not defini tively visualized however there is no significant inflammatory changes in the right lower quadrant. N o evidence of bowel obstruction. PERITONEUM: No evidence of pneumoperitoneum. Trace free fluid in the right paracolic gutter. Mild pre sacral edema. VASCULATURE: Mild atherosclerotic calcifications are present throughout the abdominal aorta and its b ranches. No evidence of abdominal aortic aneurysm. MUSCULOSKELETAL: No acute osseous abnormalities. Left hip arthroplasty change. Multilevel degenerativ e disc disease. LYMPH NODES: No evidence for lymphadenopathy. SOFT TISSUE/ABDOMINAL WALL: Right anterior chest and abdominal wall INTERNAL AFFAIRS INVESTIGATOR shunt catheter with catheter e ntering the peritoneum in the right mid anterior abdomen. The tip is identified along the posterior m argin of the right hepatic lobe. No surrounding fluid collection. IMPRESSION: 1. Perivesicular fat stranding which raises concern for cystitis. Correlate with urinalysis. 2. Bilateral lower lobe dependent atelectasis with trace left pleural effusion. 3. INTERNAL AFFAIRS INVESTIGATOR 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 4. Hepatic steatosis. 5. Aortic root and ascending thoracic aortic aneurysms measuring 4.1 and 4.4 cm respectively. [facility], , 05/04/2024 10:13 AM
[2024-05-04 13:26] LABS: Appearance,Urine Clear (Clear); Bilirubin,Urine Negative (Negative); Blood,Urine Negative (Negative); Color,Urine Colorless; Glucose,Urine (UA) Negative (Negative); Ketones,Urine Negative (Negative); Leukocyte Esterase,Urine Negative (Negative); Nitrite,Urine Negative (Negative); Protein,Urine Negative (Negative); Specific Gravity,Urine 1.013 (1.001-1.035); Urobilinogen,Urine <2.0 mg/dL (<2.0)
--- NOTE | 2024-05-04 14:06 | P.PN ---
Subjective Interval History: Interval History: This is a pleasant 68 years old male with past medical history of multiple medical problems as below He presents because of a fall when his sister found him on the ground and brought him to the emergency room. Patient is awake alert and oriented to time place person but he cannot remember what happened and why he is in the hospital, sister at bedside patient has history of multiple sclerosis and over a long period and she was helping him getting him his groceries and other purchases when she came home she found him on the floor, and he was talking nonsense. Patient does not remember all of these details as above. Patient was wobbly weak and she hardly could get him to the chair, then called 911 or go to the emergency room Patient himself denies any specific symptoms no chest pain or dyspnea. No head ache dizziness weakness numbness. No specific GI/ symptoms. As per patient and sister he has chronic left-sided weakness from multiple sclerosis which was gradually getting worse since 2011 Patient denies smoking alcohol or or illicit drugs. He complains from right shoulder pain when there is some nose and chin abrasions. He is hemodynamically stable but he had fever on admission 102.4. He is mildly tachycardic and tachypnea while in fever. His labs checked showing WBC is elevated at 14.1, rest of CBC is unremarkable. Creatinine elevated 1.28 above baseline. And liver enzymes moderately elevated. Urine analysis is suspicious for infection versus dehydrated sample as patient does not have overt urinary symptoms but again he has neurological disease and he is forgetful. INR and troponin were negative. Chest x-ray showing no acute process and CT of the brain is negative for acute process Urine culture is pending Gallbladder ultrasound is ordered Elevated lactic acid came back to [place] [address]. Patient started on ceftriaxone and normal saline 04/28 Patient awake alert he knows in the hospital and he knows why he came to the hospital when he fell. However patient denies any symptoms other than simple pain in his right elbow area which was since admission. On examination there is no evidence of infections or coloration or deformity. Patient denies urinary symptoms no diarrhea. No chest pain or dyspnea. No headache or dizziness. He still have low-grade fever but improving. Leukocytosis improved and WBC back to normal today at 10.1. Creatinine trended down to 1.1. Liver enzymes coming [place]. [place] [address]. Continue on normal saline at 100 mL/h and ceftriaxone Blood culture and urine culture are pending Will ask for PT/OT evaluation social work assistant placement and help. Gallbladder ultrasound was done today and result pending however primary result is unremarkable 04/29 patient was seen and examined today. No issues overnight. Temperature 99.7, heart rate 69 respiratory rate 16, blood pressure 134/70 saturating 96% on room air. WBCs 8.2, hemoglobin 11.9, platelet 207. BMP showed sodium 144 potassium 4.2 CO2 19.4 BUN 16.8 creatinine 1.2. Creatinine trending down to 4166. Remains on Rocephin for, urine culture growing gram-negative bacilli, urine blood culture negative. Anticipate discharge to subacute rehab. 04/30--patient was seen and examined today. No issues overnight. Vital stable. Patient complaining of diarrhea, started on Imodium. Currently on Rocephin for UTI. Awaiting PT/OT evaluation, anticipate subacute rehab. 05/01--patient was seen and examined today. No issues overnight. Currently Rocephin for UTI. WBCs 9.3, hemoglobin 11.6, platelets 266. BMP unremarkable. Creatinine trending down. CPK trending down. Elevated LFTs secondary to rhabdomyolysis. GI evaluated the patient. Waiting discharge to subacute rehab 05/02--patient was seen and examined today. Patient was afebrile in the morning, heart rate was 72, respiratory rate 18, blood pressure 144/80, was saturating 96% on room air. Plan was to discharge patient to subacute rehab, patient spiked a fever of 10 3 in the afternoon. Discharge plan canceled. Patient continued on Rocephin. Stat blood cultures ordered. Infectious disease consulted. 05/03--patient was seen and examined today. Patient spiked multiple high-grade fevers since last night. Patient remains on Rocephin. Infectious disease consulted. Started on Tamiflu as patient's viral panel came back positive for influenza A. Tmax 103.2, heart rate 83, respiratory rate 16, blood pressure 127/69, saturating 90% on 2 L. WBCs 8.3, hemoglobin 10.4, platelet 258. BMP unremarkable. 05/04--patient was seen and examined today. Continues spike fevers. CT abdomen pelvis today showed perivascular fat stranding raising concern for cystitis, bilateral lower lobe dependent atelectasis with trace left pleural effusion, RESOURCE PROGRAM TEACHER 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 Hepatic steatosis. 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 Patient currently on Rocephin and Tamiflu. Infectious disease following. Blood cultures negative so far. UA unremarkable. C. difficile pending. Assessment and plan: UTI: Fever: Influenza A: Sepsis with fever and leukocytosis: NOAM on CKD Traumatic rhabdomyolysis Fall: Multiple sclerosis History of alcohol use AAApatient asymptomatic, outpatient follow-up with vascular surgery Continue Rocephin, IV fluids Monitor CPK--trended down Ultrasound of the gallbladder negative for acute process, elevated LFTs likely secondary to rhabdomyolysis Blood culture negative so far Repeat blood culture on fever spike--negative so far Urine culture showed gram-negative bacilli--Klebsiella ID consulted Started Tamiflu 05/03 CT abdomen pelvis today showed perivascular fat stranding raising concern for cystitis, bilateral lower lobe dependent atelectasis with trace left pleural effusion, RESOURCE PROGRAM TEACHER 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 Hepatic steatosis. 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 C. difficile pending. DVT prophylaxis: Subcutaneous heparin Disposition: anticipate subacute rehab Monitor vital signs and labs Labs and medication were reviewed. Continue same treatment. Further recommendations as per clinical course of the patient PHYSICAL EXAMINATION: GENERAL: The patient is A&O x3, NAD HEENT: EOMI, Sclerae anicteric, Moist Mucous membranes Neck: Supple, Non tender, No JVD PULMONARY: Equal breath souds B/L, No wheezing, No crackles. CARDIOVASCULAR: S1, S2 present. No murmurs, rubs, or gallops. ABDOMEN: Soft, nontender, nondistended, normoactive bowel sounds. No guarding or rebound tenderness. MUSCULOSKELETAL: No edema, No cyanosis. No clubbing. Normal ROM. Intact peripheral pulses. NEUROLOGICAL: CN 2-12 grossly intact. No FND Skin: No Rash REVIEW OF SYSTEMS: CONSTITUTIONAL: Complains of fever. CARDIOVASCULAR: No chest pain, palpitations or syncope. PULMONARY: Complaining of dry cough. GASTROINTESTINAL: No nausea, vomiting, diarrhea, abdominal pain. : No Dysuria, urgency, frequency. Extremities: No edema. NEUROLOGICAL: No headaches, no weakness, or numbness Dictation was produced using dragon dictation software. please excuse any grammatical, word or spelling errors. Objective - Vital Signs Vital signs: Vital Signs Temp 101.6 F H 05/04/24 07:23 Pulse 74 05/04/24 07:23 Resp 16 05/04/24 07:23 BP 147/64 05/04/24 07:23 Pulse Ox 94 L 05/04/24 07:23 FiO2 Intake & Output 05/03/24 05/04/24 05/04/24 18:59 06:59 18:59 Intake Total 472 Output Total 092 130 9805 Balance -28 -580 -1400 Intake: Oral 472 Output: Urine 825 613 4003 Other: Voiding Method External Catheter External Catheter External Catheter # Voids 1 # Bowel Movements 2 - Labs CBC & Chem 7: 05/03/24 04:22 05/03/24 04:22 Labs: Microbiology - Last 24 Hours (Table) 05/02/24 16:29 Blood Culture - Preliminary Blood
--- NOTE | 2024-05-04 15:22 | P.PN ---
Subjective Progress Note Date: 05/04/24 Principal diagnosis: Reason for follow-up is UTI/influenza Patient is a 68-year-old male with a past medical history sniffing for diabetes mellitus hypertension memory impairment CVA TIA brought into the hospital on 04/27/2024 concerning for weakness and fall patient was diagnosed with UTI with Klebsiella subsequently new fever and has been diagnosed with influenza A. On today's evaluation that is 05/04/2024,the patient did have a fever again this morning of 101.6 F patient is breathing comfortably denies any chest pain shortness of breath or cough no abdominal pain complaining of some diarrhea. No new lab has been obtained today CT abdominal pelvis did shows features of cystitis Objective - Vital Signs Vital signs: Vital Signs Temp 101.6 F H 05/04/24 07:23 Pulse 74 05/04/24 07:23 Resp 16 05/04/24 07:23 BP 147/64 05/04/24 07:23 Pulse Ox 94 L 05/04/24 07:23 FiO2 Intake & Output 05/03/24 05/04/24 05/04/24 18:59 06:59 18:59 Intake Total 472 Output Total 500 580 Balance -28 -580 Intake: Oral 472 Output: Urine 500 580 Other: Voiding Method External Catheter External Catheter External Catheter # Voids 1 - Exam GENERAL DESCRIPTION: An elderly male lying in bed in no distress RESPIRATORY SYSTEM: Unlabored breathing , decreased breath sounds at bases HEART: S1 S2 regular rate and rhythm , ABDOMEN: Soft , no tenderness EXTREMITIES: No edema feet - Labs CBC & Chem 7: 05/03/24 04:22 05/03/24 04:22 Labs: Microbiology - Last 24 Hours (Table) 05/02/24 16:29 Blood Culture - Preliminary Blood Assessment and Plan (1) Influenza A Current Visit: Yes Status: Acute Code(s): J10.1 - FLU DUE TO OTH IDENT INFLUENZA VIRUS W OTH RESP MANIFEST SNOMED Code(s): 081754332 (2) Fever Current Visit: No Status: Acute Code(s): R50.9 - FEVER, UNSPECIFIED SNOMED Code(s): 061208309 (3) Penicillin allergy Current Visit: No Status: Acute Code(s): Z88.0 - ALLERGY STATUS TO PENICILLIN SNOMED Code(s): 78505243 Plan: 1-patient with initially presented to hospital with a fever fall and has been di agnosed with UTI urine is growing Klebsiella fever responded to Rocephin which will be continued 2influenza A continue with the Tamiflu 75 mg twice a day 2-patient did have persistent fever for which we did obtain a CT abdominal pelvis features of cystitis with persistent fever will recommend her to repeat a UA culture and also check a stool for C. difficile as the patient is complaining of diarrhea this were discussed with the nursing staff Dictation was produced using [employer] dictation software. please excuse any grammatical, word or spelling errors. Time with Patient: Less than 30
[2024-05-04 16:54] VITALS: BMI 31.6
[2024-05-04 21:58] LABS: Glucose,Whole Blood 122 mg/dL (70-110)
[2024-05-05 06:32] LABS: Glucose,Whole Blood 107 mg/dL (70-110)
[2024-05-05 07:47] VITALS: RESP 16
[2024-05-05 08:24] LABS: Basophils # (A) 0.03 X 10*3/uL (0.00-0.10); Basophils % (A) 0.5 %; Eosinophils # (A) 0.13 X 10*3/uL (0.04-0.35); Eosinophils % (A) 2.2 %; HCT 32.6 % (39.6-50.0); HGB 10.5 g/dL (13.0-17.0); Lymphocytes # (A) 1.92 X 10*3/uL (0.90-5.00); Lymphocytes % (A) 32.2 %; MCH 29.7 pg (27.0-32.0); MCHC 32.2 g/dL (32.0-37.0); MCV 92.4 FL (80.0-97.0); Mean Platelet Volume 10.5 FL (9.5-12.2); Monocytes # (A) 0.66 X 10*3/uL (0.20-1.00); Monocytes % (A) 11.1 %; NRBC Per 100 WBC 0 X 10*3/uL (0.00-0.01); Neutrophils % (A) 53.5 %; Platelet Count 272 X 10*3/uL (140-440); RBC 3.53 X 10*6/uL (4.40-5.60); RDW 14.8 % (11.5-14.5); WBC 5.97 X 10*3/uL (4.50-10.00)
[2024-05-05 08:25] LABS: Blood Urea Nitrogen 10.5 mg/dL (9.0-27.0); Calcium 7.6 mg/dL (8.7-10.3); Carbon Dioxide 22.6 mmol/L (21.6-31.8); Chloride 107 mmol/L (96-109); Glucose 115 mg/dL (70-110); Potassium 3.5 mmol/L (3.5-5.5); Sodium 139 mmol/L (135-145)
[2024-05-05 12:05] LABS: Glucose,Whole Blood 161 mg/dL (70-110)
[2024-05-05 14:16] VITALS: BP 136/69; PULSE 70; TEMP 98.5
--- NOTE | 2024-05-05 14:34 | P.DS ---
Providers Date of admission: 04/27/24 16:40 Expected date of discharge: 05/05/24 Attending physician: Tee Card MD Consults: 05/02/24 15:50 Consult Physician Routine Consulting Provider: Batsheva Goldstein Consult Reason/Comments: Treated with Rocephin for Klebsiella UTI, recurrent fever on 05/02 Do you want consulting provider notified?: Yes Primary care physician: Valerie Conteh Hospital Course: Discharge diagnoses: UTI: Fever: Influenza A: Sepsis with fever and leukocytosis: NOAM on CKD Traumatic rhabdomyolysis Fall: Multiple sclerosis History of alcohol use AAApatient asymptomatic, outpatient follow-up with vascular surgery Received Rocephin and IV fluids, completed antibiotics during hospitalization. Monitor CPK--trended down Ultrasound of the gallbladder negative for acute process, elevated LFTs likely secondary to rhabdomyolysis Blood culture negative so far Repeat blood culture on 05/02, 4 fever spike--negative so far Urine culture showed gram-negative bacilli--Klebsiella ID consulted Started Tamiflu 05/03--complete total [address] abdomen pelvis showed perivascular fat stranding raising concern for cystitis, bilateral lower lobe dependent atelectasis with trace left pleural effusion, MONUMENT INSTALLER 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 Hepatic steatosis. 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 C. difficile negative. Hospital course: This is a pleasant 68 years old male with past medical history of multiple medical problems as below He presents because of a fall when his sister found him on the ground and brought him to the emergency room. Patient is awake alert and oriented to time place person but he cannot remember what happened and why he is in the hospital, sister at bedside patient has history of multiple sclerosis and over a long period and she was helping him getting him his groceries and other purchases when she came home she found him on the floor, and he was talking nonsense. Patient does not remember all of these details as above. Patient was wobbly weak and she hardly could get him to the chair, then called 911 or go to the emergency room Patient himself denies any specific symptoms no chest pain or dyspnea. No headache dizziness weakness numbness. No specific GI/ symptoms. As per patient and sister he has chronic left-sided weakness from multiple sclerosis which was gradually getting worse since 2011 Patient denies smoking alcohol or or illicit drugs. He complains from right shoulder pain when there is some nose and chin abrasions. He is hemodynamically stable but he had fever on admission 102.4. He is mildly tachycardic and tachypnea while in fever. His labs checked showing WBC is elevated at 14.1, rest of CBC is unremarkable. Creatinine elevated 1.28 above baseline. And liver enzymes moderately elevated. Urine analysis is suspicious for infection versus dehydrated sample as patient does not have overt urinary symptoms but again he has neurological disease and he is forgetful. INR and troponin were negative. Chest x-ray showing no acute process and CT of the brain is negative for acute process Urine culture is pending Gallbladder ultrasound is ordered Elevated lactic acid came back [place] [address]. Patient started on ceftriaxone and normal saline 04/28 Patient awake alert he knows in the hospital and he knows why he came to the hospital when he fell. However patient denies any symptoms other than simple pain in his right elbow area which was since admission. On examination there is no evidence of infections or coloration or deformity. Patient denies urinary symptoms no diarrhea. No chest pain or dyspnea. No headache or dizziness. He still have low-grade fever but improving. Leukocytosis improved and WBC back to normal today at 10.1. Creatinine trended down to 1.1. Liver enzymes coming [place]. [place] [address]. 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 Gallbladder ultrasound was done today and result pending however primary result is unremarkable 04/29 patient was seen and examined today. No issues overnight. Temperature 99.7, heart rate 69 respiratory rate 16, blood pressure 134/70 saturating 96% on room air. WBCs 8.2, hemoglobin 11.9, platelet 207. BMP showed sodium 144 potassium 4.2 CO2 19.4 BUN 16.8 creatinine 1.2. Creatinine trending down to 4166. Remains on Rocephin for, urine culture growing gram-negative bacilli, urine blood culture negative. Anticipate discharge to subacute rehab. 04/30--patient was seen and examined today. No issues overnight. Vital stable. Patient complaining of diarrhea, started on Imodium. Currently on Rocephin for UTI. Awaiting PT/OT evaluation, anticipate subacute rehab. 05/01--patient was seen and examined today. No issues overnight. Currently Rocephin for UTI. WBCs 9.3, hemoglobin 11.6, platelets 266. BMP unremarkable. Creatinine trending down. CPK trending down. Elevated LFTs secondary to rhabdomyolysis. GI evaluated the patient. Waiting discharge to subacute rehab 05/02--patient was seen and examined today. Patient was afebrile in the morning, heart rate was 72, respiratory rate 18, blood pressure 144/80, was saturating 96% on room air. Plan was to discharge patient to subacute rehab, patient spiked a fever of 10 3 in the afternoon. Discharge plan canceled. Patient continued on Rocephin. Stat blood cultures ordered. Infectious disease consulted. 05/03--patient was seen and examined today. Patient spiked multiple high-grade fevers since last night. Patient remains on Rocephin. Infectious disease consulted. Started on Tamiflu as patient's viral panel came back positive for influenza A. Tmax 103.2, heart rate 83, respiratory rate 16, blood pressure 127/69, saturating 90% on 2 L. WBCs 8.3, hemoglobin 10.4, platelet 258. BMP unremarkable. 05/04--patient was seen and examined today. Continues spike fevers. 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 Hepatic steatosis. 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 Patient currently on Rocephin and Tamiflu. Infectious disease following. Blood cultures negative so far. UA unremarkable. C. difficile pending. 05/05--- patient was seen and examined today. Remained afebrile, vital stable. C. difficile negative.. Blood cultures remain negative. Discussed with infectious disease, okay to discharge. Finished antibiotics. Continue on Tamiflu to complete total 5 days at discharge. Patient discharged to subacute rehab. Patient's condition and vital stable at discharge. Please refer to med rec and assessment plan for further details. Follow-up with PCP in 1 week. PHYSICAL EXAMINATION: GENERAL: The patient is A&O x3, NAD HEENT: EOMI, Sclerae anicteric, Moist Mucous membranes Neck: Supple, Non tender, No JVD PULMONARY: Equal breath souds B/L, No wheezing, No crackles. CARDIOVASCULAR: S1, S2 present. No murmurs, rubs, or gallops. ABDOMEN: Soft, nontender, nondistended, normoactive bowel sounds. No guarding or rebound tenderness. MUSCULOSKELETAL: No edema, No cyanosis. No clubbing. Normal ROM. Intact peripheral pulses. NEUROLOGICAL: CN 2-12 grossly intact. No FND SKIN: No rashes. Dictation was produced using [employer] dictation software. please excuse any grammatical, word or spelling errors. Plan - Discharge Summary Discharge Rx Participant: Yes New Discharge Prescriptions: New Oseltamivir [Tamiflu] 75 mg PO Q12HR #5 cap Continue Citalopram Hydrobromide [CeleXA] 10 mg PO DAILY Donepezil HCl [Aricept] 10 mg PO HS Dalfampridine [Dalfampridine ER] 10 mg PO BID Meclizine HCl 25 mg PO HS metFORMIN HCL [Glucophage] 1,000 mg PO BID Aspirin(Unknown Dose) 1 tab PO HS lisinopriL [Zestril] 10 mg PO DAILY Magnesium 250 mg PO HS Vitamin D3(Unknown Dose) 1 tab PO DAILY Multivitamins, Thera [Multivitamin (formulary)] 1 tab PO DAILY Discontinued Baclofen [Lioresal] 20 mg PO BID Discharge Medication List Citalopram Hydrobromide [CeleXA] 10 mg PO DAILY 08/25/15 [History] Donepezil HCl [Aricept] 10 mg PO HS 12/30/20 [History] Dalfampridine [Dalfampridine ER] 10 mg PO BID 09/21/23 [History] Magnesium 250 mg PO HS 09/21/23 [History] Meclizine HCl 25 mg PO HS 09/21/23 [History] lisinopriL [Zestril] 10 mg PO DAILY 09/21/23 [History] metFORMIN HCL [Glucophage] 1,000 mg PO BID 10/02/23 [History] Aspirin(Unknown Dose) 1 tab PO HS 04/27/24 [History] Multivitamins, Thera [Multivitamin (formulary)] 1 tab PO DAILY 04/27/24 [History] Vitamin D3(Unknown Dose) 1 tab PO DAILY 04/27/24 [History] Oseltamivir [Tamiflu] 75 mg PO Q12HR #5 cap 05/05/24 [Rx] Follow up Appointment(s)/Referral(s): Micaela Saeed, DHEERAJ [REFERRING] - 2 Weeks (Gastroenterology follow-up for transaminitis in setting of rhabdomyolysis with reported history of alcohol liver disease) Valerie Conteh MD [Primary Care Provider] - 1-2 days
--- NOTE | 2024-05-05 14:47 | P.PN ---
Subjective Progress Note Date: 05/05/24 Principal diagnosis: Reason for follow-up is UTI/influenza Patient is a 68-year-old male with a past medical history sniffing for diabetes mellitus hypertension memory impairment CVA TIA brought into the hospital on 04/27/2024 concerning for weakness and fall patient was diagnosed with UTI with Klebsiella subsequently new fever and has been diagnosed with influenza A. On today's evaluation that is 05/05/2024, the patient did have resolution of his fever and is afebrile today patient is breathing comfortably denies having any chest pain shortness of breath or cough no nausea vomiting no abdominal pain or diarrhea. Patient white count of 5.97 creatinine is 1.0 repeat UA is negative stool for C. difficile negative Objective - Vital Signs Vital signs: Vital Signs Temp 98.8 F 05/05/24 07:47 Pulse 62 05/05/24 07:47 Resp 16 05/05/24 07:47 BP 153/73 05/05/24 07:47 Pulse Ox 93 L 05/05/24 07:47 FiO2 Intake & Output 05/04/24 05/05/24 05/05/24 18:59 06:59 18:59 Intake Total 118 Output Total 1400 850 Balance -1400 -850 118 Weight 97.069 kg Intake: Oral 118 Output: Urine 1400 850 Other: Voiding Method External Catheter External Catheter External Catheter # Voids 1 # Bowel Movements 2 1 - Exam GENERAL DESCRIPTION: An elderly male lying in bed in no distress RESPIRATORY SYSTEM: Unlabored breathing , decreased breath sounds at bases HEART: S1 S2 regular rate and rhythm , ABDOMEN: Soft , no tenderness EXTREMITIES: No edema feet - Labs CBC & Chem 7: 05/05/24 03:27 05/05/24 03:27 Labs: Abnormal Lab Results - Last 24 Hours (Table) 05/04/24 05/05/24 05/05/24 Range/Units 21:56 03:27 03:27 RBC 3.53 L (4.40-5.60) X 10*6/uL Hgb 10.5 L (13.0-17.0) g/dL Hct 32.6 L (39.6-50.0) % RDW 14.8 H (11.5-14.5) % BUN/Creatinine Ratio 10.50 L (12.00-20.00) Ratio Glucose 115 H (70-110) mg/dL POC Glucose (mg/dL) 122 H (70-110) mg/dL Calcium 7.6 L (8.7-10.3) mg/dL Microbiology - Last 24 Hours (Table) 05/02/24 16:29 Blood Culture - Preliminary Blood Assessment and Plan (1) Influenza A Current Visit: Yes Status: Acute Code(s): J10.1 - FLU DUE TO OTH IDENT INFLUENZA VIRUS W OTH RESP MANIFEST SNOMED Code(s): 524276316 (2) Fever Current Visit: No Status: Acute Code(s): R50.9 - FEVER, UNSPECIFIED SNOMED Code(s): 902952043 (3) Penicillin allergy Current Visit: No Status: Acute Code(s): Z88.0 - ALLERGY STATUS TO PENICILLIN SNOMED Code(s): 77443397 Plan: 1-patient with initially presented to hospital with a fever fall and has been diagnosed with UTI urine is growing Klebsiella fever responded to Rocephin, repeat UA is negative antibiotic simply discontinued 2patient did have resolution of his fever and no other clear focus likely dealing with influenza A he will finish a 5-day course of Tamiflu discussed with admitting physician Dictation was produced using [employer] dictation software. please excuse any grammatical, word or spelling errors. Time with Patient: Less than 30
== END 2024-05-05 17:01 | DRG 872 ==
LOC: EC 12:46 → 4SSUR 16:40 → 1SOBS 18:45 → 6NMEDSUR 04-28 19:12
PROVIDERS: ADMIT Internal Medicine; ATTEND Internal Medicine
DX: A41.9 Sepsis, unspecified organism (principal); K70.30 Alcoholic cirrhosis of liver without ascites; T79.6XXA Traumatic ischemia of muscle, initial encounter; E11.22 Type 2 diabetes mellitus with diabetic chronic kidney disease; N18.30 Chronic kidney disease, stage 3 unspecified; G35 Multiple sclerosis; F10.21 Alcohol dependence, in remission; I12.9 Hypertensive chronic kidney disease with stage 1 through stage 4 chronic kidney disease, or unspecified chronic kidney disease; I71.40 Abdominal aortic aneurysm, without rupture, unspecified; N17.9 Acute kidney failure, unspecified; N39.0 Urinary tract infection, site not specified; K70.9 Alcoholic liver disease, unspecified; I71.21 Aneurysm of the ascending aorta, without rupture; K76.0 Fatty (change of) liver, not elsewhere classified; B96.1 Klebsiella pneumoniae [K. pneumoniae] as the cause of diseases classified elsewhere; E86.0 Dehydration; J10.1 Influenza due to other identified influenza virus with other respiratory manifestations; S00.81XA Abrasion of other part of head, initial encounter; G89.29 Other chronic pain; M54.50 Low back pain, unspecified; M25.511 Pain in right shoulder; Z79.82 Long term (current) use of aspirin; Z79.84 Long term (current) use of oral hypoglycemic drugs; Z79.899 Other long term (current) drug therapy; Z86.73 Personal history of transient ischemic attack (TIA), and cerebral infarction without residual deficits; Z87.891 Personal history of nicotine dependence; Z88.0 Allergy status to penicillin; W19.XXXA Unspecified fall, initial encounter; Y92.009 Unspecified place in unspecified non-institutional (private) residence as the place of occurrence of the external cause; Z85.820 Personal history of malignant melanoma of skin
CPT/HCPCS: 36415; 70450; 71046; 74177; 76705; 80048; 80053; 81001; 81003; 82140; 82550; 83605; 83735; 84145; 84484; 85025; 85027; 85610; 85730; 86140; 87040; 87077; 87086; 87186; 87324; 87636; 93005; 96361; 96365; 96367; 99291